=== PATIENT | male | born 1950 | race Caucasian/White ===

== ENCOUNTER 2016-12-20 14:39 | Inpatient (IN) | payer MEDICARE, OTHER ==
[2016-12-20] MEDS ORDERED: Sodium Chloride 0.9% 10 ML Syringe FLUSH PRN ×2 (15:04→19:03)
[2016-12-20] MEDS ORDERED: Furosemide 40 MG/4 ML VIAL IVPUSH ONE (15:06)
--- NOTE | 2016-12-20 15:11 | EDM.PDOC ---
ED HISTORY OF PRESENT ILLNESS - General Chief Complaint: Respiratory Problem Stated Complaint: SOB/ NOT FEELING WELL Time Seen by Provider: 12/20/16 14:46 Source of Information: Reports: Patient, Family, Provider History Limitations: Reports: No limitations - History of Present Illness INITIAL COMMENTS - FREE TEXT/NARRATIVE: The patient presents with shortness of breath over the past year. For the past 6 months, the shortness of breath has gotten worse. He is short of breath walking short distances and going up stairs. He has no chest pain. He has no fever, chills, cough, congestion or runny nose. He has edema in his legs. He has a pacemaker. He also saw Dr Ashton a piggyback clerk at [facility] and he put him on lasix daily. He is on 40mg. He also has aortic valve stenosis. He has no abdominal pain, nausea or vomiting. It appears this shortness of breath is affecting his work. 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 Timing/Duration: Reports: Week(s): (for about 1 year) Severity: moderate Improves with: Reports: None Worsens with: Reports: Movement Context, General: Reports: Activity (Going up the stairs and walking makes him short of breath but no chest pain) Associated Symptoms (General): Reports: shortness of breath. Denies: chest pain , cough, fever/chills, nausea/vomiting - Related Data Allergies/ADRs: Allergies Allergy/AdvReac Type Severity Reaction Status Date / Time codeine Allergy Agitation Verified 12/20/16 14:47 Home Meds: Home Meds B2/Vit A,C & E/Lut/Zeaxanth/Mn [Icaps] 1 tab PO DAILY 09/13/16 [History] Calcium Carbonate/Vitamin D3 [Calcium 600-Vit D3 400 Tablet] 1 tab PO DAILY [History] Cholecalciferol (Vitamin D3) [Vitamin D3] 2,000 unit PO DAILY 09/13/16 [History] Ferrous Sulfate [Iron] 325 mg PO DAILY 09/13/16 [History] Flecainide [Tambocor] 100 mg PO BID 09/13/16 [History] Fludrocortisone [Florinef] 0.05 mg PO BIDMEALS 09/13/16 [History] Furosemide [Lasix] 40 mg PO DAILY 09/13/16 [History] Garlic 150 mg PO DAILY 09/13/16 [History] Lactobacillus Acidophilus [Acidophilus Probiotic] 100 mg PO DAILY 09/13/16 [ History] Levothyroxine [Synthroid] 88 mcg PO DAILY 09/13/16 [History] Methylsulfonylmethane [MSM] 1,000 mg PO DAILY 09/13/16 [History] Metoprolol Tartrate 50 mg PO BID 09/13/16 [History] Polyethylene Glycol 3350 [MiraLAX] 17 gm PO DAILY 09/13/16 [History] Potassium Gluconate 500 mg PO DAILY 09/13/16 [History] Simethicone 80 mg PO DAILY 09/13/16 [History] Vitamin B Complex [B Complex] 1 each PO DAILY 09/13/16 [History] Zinc 220 mg PO DAILY 09/13/16 [History] Pantoprazole Sodium [Protonix] 40 mg PO ACBREAKFAST #90 tablet. 09/14/16 [Rx] Sucralfate [Carafate] 1 gm PO TIDAC #90 tablet 09/14/16 [Rx] Rivaroxaban [Xarelto] 20 mg PO DAILY 12/20/16 [History] Tamsulosin [Flomax] 0.4 mg PO BEDTIME 12/20/16 [History] Past Medical History HEENT History: Reports: Cataract, Impaired vision, Other (see below) Other HEENT History: Macular tear, tinnitus Cardiovascular History: Reports: Afib, Pacemaker, Other (see below) Other Cardiovascular History: Left carotid bruit, aortic stenosis, symptomatic bradycardia Respiratory History: Reports: Sleep apnea Other Respiratory History: Uses CPAP Gastrointestinal History: Reports: GERD Other Gastrointestinal History: Tenesmus, hematochezia Genitourinary History: Reports: Urinary incontinence Other Genitourinary History: Urinary frequency, urgency Musculoskeletal History: Reports: Other (see below) Other Musculoskeletal History: Knee pain Neurological History: Reports: Other (see below) Other Neuro History: Syncopal episode Endocrine/Metabolic History: Reports: Hypothyroidism, Obesity/BMI 30+ Hematologic History: Reports: Other (see below) Other Hematologic History: Thrombocytopenia Immunologic History: Reports: None Oncologic (Cancer) History: Reports: None - Past Surgical History HEENT Surgical History: Reports: Oral surgery, Tonsillectomy Cardiovascular Surgical History: Reports: None, Pacer Respiratory Surgical History: Reports: None GI Surgical History: Reports: Colonoscopy, EGD Male Surgical History: Reports: None Endocrine Surgical History: Reports: None Neurological Surgical History: Reports: None Musculoskeletal Surgical History: Reports: Arthroscopic knee Other Musculoskeletal Surgeries/Procedures:: Arthroscopic knee surgery x3 Social & Family History - Tobacco Use Smoking Status *Q: Never Smoker Second Hand Smoke Exposure: No - Alcohol Use Days Per Week of Alcohol Use: 7 Number of Drinks Per Day: 2 Total Drinks Per Week: 14 - Recreational Drug Use Recreational Drug Use: No Drug Use in Last 12 Months: No ED ROS GENERAL - Review of Systems Review Of Systems: See Below Constitutional: Reports: no symptoms HEENT: Reports: No symptoms Respiratory: Reports: Shortness of Breath. Denies: Cough Cardiovascular: Reports: Edema. Denies: Chest pain Endocrine: Reports: no symptoms GI/Abdominal: Reports: No symptoms : Reports: no symptoms Musculoskeletal: Reports: other (Moderate leg edema) Skin: Reports: no symptoms ED EXAM, GENERAL - Physical Exam Exam: See Below Exam Limited By: No limitations General Appearance: alert, no apparent distress Ears: normal external exam Nose: normal inspection Head: atraumatic, normocephalic Neck: normal inspection Respiratory/Chest: no respiratory distress, decreased breath sounds, rales, wheezing (Mild) Cardiovascular: regular rate, rhythm, no edema, systolic murmur GI/Abdominal: soft, non tender, no organomegaly, no mass Extremities: pedal edema (and leg edema) Neurological: alert, oriented, no motor/sensory deficits EKG INTERPRETATION EKG Date: 12/20/16 Time: 15:23 Rate (beats/min): 60 EKG Interpretation Comments: AV dual paced complexes Course - Vital Signs Last Recorded V/S: Last Vital Signs Temp 97.6 F 12/20/16 14:47 Pulse 62 12/20/16 14:47 Resp 18 12/20/16 14:47 BP 156/93 H 12/20/16 14:47 Pulse Ox 98 12/20/16 14:47 - Orders/Labs/Meds Orders: Active Orders 24 hr Category Date Time Status Patient Status [ADT] Routine ADT 12/20/16 17:19 Ordered Cardiac Monitoring [RC] . DIRECTED Care 12/20/16 15:04 Active EKG Documentation Completion [RC] STAT Care 12/20/16 15:05 Active Oxygen Therapy [RC] PRN Care 12/20/16 15:05 Active Peripheral IV Care [RC] . DIRECTED Care 12/20/16 15:05 Active Sodium Chloride 0.9% [Saline Flush] Med 12/20/16 15:04 Active 10 ml FLUSH ASDIRECTED PRN Peripheral IV Insertion Adult [OM.PC] Stat Oth 12/20/16 15:04 Ordered Medication Orders Sodium Chloride (Saline Flush) 10 ml FLUSH ASDIRECTED PRN PRN Reason: Keep Vein Open Last Admin: 12/20/16 15:38 Dose: 10 ml Labs: Laboratory Tests 12/20/16 12/20/16 12/20/16 Range/Units 15:25 15:25 15:25 WBC 5.38 (4.23-9.07) K/mm3 RBC 4.01 L (4.63-6.08) M/mm3 Hgb 12.4 L (13.7-17.5) gm/L Hct 37.6 L (40.1-51.0) % MCV 93.8 H (79.0-92.2) fl MCH 30.9 (25.7-32.2) pg MCHC 33.0 (32.2-35.5) g/dl RDW Std Deviation 48.3 H (35.1-43.9) fL Plt Count 108 L (163-337) K/mm3 MPV 10.7 (9.4-12.3) fl Neut % (Auto) 55.0 (34.0-67.9) % Lymph % (Auto) 27.5 (21.8-53.1) % Grand % (Auto) 14.9 H (5.3-12.2) % Eos % (Auto) 1.5 (0.8-7.0) Baso % (Auto) 0.9 (0.1-1.2) % Neut # (Auto) 2.96 (1.78-5.38) K/mm3 Lymph # (Auto) 1.48 (1.32-3.57) K/mm3 Grand # (Auto) 0.80 (0.30-0.82) K/mm3 Eos # (Auto) 0.08 (0.04-0.54) K/mm3 Baso # (Auto) 0.05 (0.01-0.08) K/mm3 Sodium 145 (136-145) mEq/L Potassium 3.0 L (3.5-5.1) mEq/L Chloride 107 (98-107) mEq/L Carbon Dioxide 27 (21-32) mEq/L Anion Gap 14.0 (5-15) BUN 27 H (7-18) mg/dL Creatinine 1.4 H (0.7-1.3) mg/dL Est Cr Clr Drug Dosing 45.15 mL/min Estimated GFR (MDRD) 51 (>60) mL/min BUN/Creatinine Ratio 19.3 H (14-18) Glucose 95 (80-115) mg/dL Calcium 9.6 (8.5-10.1) mg/dL Total Bilirubin 1.2 H (0.2-1.0) mg/dL AST 48 H (15-37) U/L ALT 39 (16-63) U/L Alkaline Phosphatase 88 (46-116) U/L Troponin I < 0.017 (0.00-0.056) ng/mL B-Natriuretic Peptide 1232 H (0-100) pg/mL Total Protein 6.8 (6.4-8.2) g/dl Albumin 3.5 (3.4-5.0) g/dl Globulin 3.3 gm/dL Albumin/Globulin Ratio 1.1 (1-2) TSH 3rd Generation (0.358-3.74) uIU/mL 12/20/16 Range/Units 15:25 WBC (4.23-9.07) K/mm3 RBC (4.63-6.08) M/mm3 Hgb (13.7-17.5) gm/L Hct (40.1-51.0) % MCV (79.0-92.2) fl MCH (25.7-32.2) pg MCHC (32.2-35.5) g/dl RDW Std Deviation (35.1-43.9) fL Plt Count (163-337) K/mm3 MPV (9.4-12.3) fl Neut % (Auto) (34.0-67.9) % Lymph % (Auto) (21.8-53.1) % Grand % (Auto) (5.3-12.2) % Eos % (Auto) (0.8-7.0) Baso % (Auto) (0.1-1.2) % Neut # (Auto) (1.78-5.38) K/mm3 Lymph # (Auto) (1.32-3.57) K/mm3 Grand # (Auto) (0.30-0.82) K/mm3 Eos # (Auto) (0.04-0.54) K/mm3 Baso # (Auto) (0.01-0.08) K/mm3 Sodium (136-145) mEq/L Potassium (3.5-5.1) mEq/L Chloride (98-107) mEq/L Carbon Dioxide (21-32) mEq/L Anion Gap (5-15) BUN (7-18) mg/dL Creatinine (0.7-1.3) mg/dL Est Cr Clr Drug Dosing mL/min Estimated GFR (MDRD) (>60) mL/min BUN/Creatinine Ratio (14-18) Glucose (80-115) mg/dL Calcium (8.5-10.1) mg/dL Total Bilirubin (0.2-1.0) mg/dL AST (15-37) U/L ALT (16-63) U/L Alkaline Phosphatase (46-116) U/L Troponin I (0.00-0.056) ng/mL B-Natriuretic Peptide (0-100) pg/mL Total Protein (6.4-8.2) g/dl Albumin (3.4-5.0) g/dl Globulin gm/dL Albumin/Globulin Ratio (1-2) TSH 3rd Generation 8.011 H (0.358-3.74) uIU/mL Meds: Medications Generic Name Dose Route Start Last Admin Trade Name Freq PRN Reason Stop Dose Admin Sodium Chloride 10 ml 12/20/16 15:04 12/20/16 15:38 Saline Flush FLUSH 10 ml ASDIRECTED PRN Administration Keep Vein Open Discontinued Medications Generic Name Dose Route Start Last Admin Trade Name Freq PRN Reason Stop Dose Admin Furosemide 80 mg 12/20/16 15:06 12/20/16 15:29 Lasix IVPUSH 12/20/16 15:07 80 mg NOW ONE Administration - Re-Assessments/Exams Free Text/Narrative Re-Assessment/Exam: 12/20/16 15:18 I ordered an IV saline lock, EKG, CXR, labs and lasix 80mg IV. 12/20/16 16:58 His EKG shows a paced rhythm. His CXR shows some congestive changes. His CBC looks good. His creatinine was elevated at 1.4. His AST was slightly elevated at 48. His BNP was elevated at 1232. His TSH is elevated at 8.011. I feel he needs to be admitted. I called Dr Anderson and he agreed to the admission. Departure - Departure Time of Disposition: 17:25 Disposition: Admitted As Inpatient 66 Condition: fair Clinical Impression: Hypokalemia CHF exacerbation Qualifiers: Congestive heart failure type: unspecified congestive heart failure type Qualified Code(s): I50.9 - Heart failure, unspecified Aortic stenosis Qualifiers: Cardiac valve disease etiology: etiology unspecified Qualified Code(s): I35.0 - Nonrheumatic aortic (valve) stenosis Hypothyroidism Qualifiers: Hypothyroidism type: unspecified Qualified Code(s): E03.9 - Hypothyroidism, unspecified Forms: ED Department Discharge - My Orders Last 24 Hours: My Active Orders 12/20/16 15:04 Cardiac Monitoring [RC] . DIRECTED Sodium Chloride 0.9% [Saline Flush] 10 ml FLUSH ASDIRECTED PRN Peripheral IV Insertion Adult [OM.PC] Stat 12/20/16 15:05 EKG Documentation Completion [RC] STAT Oxygen Therapy [RC] PRN Peripheral IV Care [RC] . DIRECTED 12/20/16 17:19 Patient Status [ADT] Routine - Assessment/Plan Last 24 Hours: My Active Orders 12/20/16 15:04 Cardiac Monitoring [RC] . DIRECTED Sodium Chloride 0.9% [Saline Flush] 10 ml FLUSH ASDIRECTED PRN Peripheral IV Insertion Adult [OM.PC] Stat 12/20/16 15:05 EKG Documentation Completion [RC] STAT Oxygen Therapy [RC] PRN Peripheral IV Care [RC] . DIRECTED 12/20/16 17:19 Patient Status [ADT] Routine
--- NOTE | 2016-12-20 16:35 | CR ---
Chest: Two views of the chest are obtained. Comparison: No previous study. Heart is enlarged. Upper mediastinum is within normal limits. Pacemaker is noted. Lungs are clear with no acute infiltrates. Bony structures show degenerative spurring within the spine. Lungs are slightly hyperinflated suggesting emphysematous change. Impression: 1. Mild cardiomegaly and other incidental findings. Nothing acute is appreciated. Diagnostic code #2
--- NOTE | 2016-12-20 17:54 | PCM.HP ---
H&P History of Present Illness - General Date of Service: 12/20/16 Admit Problem/Dx: Admission Diagnosis/Problem Admission Diagnosis/Problem CHF, Congestive heart failure Source of Information: Patient, Old records, Provider, RN notes reviewed History Limitations: Reports: No limitations - History of Present Illness Initial Comments - Free Text/Narative: This is a 66 yo elderly white male with past medical hx/o A-fib on xarelto, Hx/ o Symptomatic Bradycardia, As, S/p RN ANTE PARTUM, HLD, HTN, GERD, Urinary incontinence and Retention, OA, BAKARI on CPAP, Hypothyroidism, Thrombocytopenia and Obesity who comes in with complaints of worsening shortness for over 6 months now and was admitted for acute congestive heart failure. His c/o is associated with bilateral lower extremity edema. Patient carries a history of aortic stenosis and obstructive sleep apnea, on CPAP. Patient reports that he is symptoms is now affecting his work. Patient was never diagnosed with heart failure before. He follow Dr. Ashton in [place] for his cardiac care. His initial ED labs show a CBC, significant for hemoglobin of 12.4, hematocrit of 37.6, and platelet count of 108. His chemistry significant for potassium of 3 , BUN of 27, creatinine 1.4, total bilirubin of 1.2, and AST of 48. His BNP is 1232. His CXR shows enlarged heart with no acute abnormal findings. Patient was admitted for acute congestive heart failure. He is full code. - Related Data Allergies/Adverse Reactions: Allergies Allergy/AdvReac Type Severity Reaction Status Date / Time codeine AdvReac Agitation Verified 12/21/16 16:11 Home Medications: Home Meds B2/Vit A,C & E/Lut/Zeaxanth/Mn [Icaps] 1 tab PO DAILY 09/13/16 [History] Calcium Carbonate/Vitamin D3 [Calcium 600-Vit D3 400 Tablet] 1 tab PO DAILY [History] Cholecalciferol (Vitamin D3) [Vitamin D3] 2,000 unit PO DAILY 09/13/16 [History] Ferrous Sulfate [Iron] 325 mg PO DAILY 09/13/16 [History] Flecainide [Tambocor] 100 mg PO BID 09/13/16 [History] Fludrocortisone [Florinef] 0.05 mg PO BIDMEALS 09/13/16 [History] Furosemide [Lasix] 40 mg PO DAILY 09/13/16 [History] Garlic 150 mg PO DAILY 09/13/16 [History] Lactobacillus Acidophilus [Acidophilus Probiotic] 100 mg PO DAILY 09/13/16 [ History] Levothyroxine [Synthroid] 88 mcg PO DAILY 09/13/16 [History] Methylsulfonylmethane [MSM] 1,000 mg PO DAILY 09/13/16 [History] Metoprolol Tartrate 50 mg PO BID 09/13/16 [History] Polyethylene Glycol 3350 [MiraLAX] 17 gm PO DAILY 09/13/16 [History] Potassium Gluconate 500 mg PO DAILY 09/13/16 [History] Simethicone 80 mg PO DAILY 09/13/16 [History] Vitamin B Complex [B Complex] 1 each PO DAILY 09/13/16 [History] Zinc 220 mg PO DAILY 09/13/16 [History] Pantoprazole Sodium [Protonix] 40 mg PO ACBREAKFAST #90 tablet. 09/14/16 [Rx] Sucralfate [Carafate] 1 gm PO TIDAC #90 tablet 09/14/16 [Rx] Rivaroxaban [Xarelto] 20 mg PO DAILY 12/20/16 [History] Tamsulosin [Flomax] 0.4 mg PO BEDTIME 12/20/16 [History] Cyanocobalamin (Vitamin B12) [Vitamin B12] 100 mcg PO DAILY 12/21/16 [History] Methylcellulose [Fiber] 500 mg PO DAILY 12/21/16 [History] Omega3,5,6,7,9 No.1/Bailey Oil [Complete [place] Softgel] 2 gm PO DAILY 12/21/16 [ History] Past Medical History HEENT History: Reports: Cataract, Impaired vision, Other (see below) Other HEENT History: Macular tear, tinnitus Cardiovascular History: Reports: Afib, Pacemaker, Other (see below) Other Cardiovascular History: Left carotid bruit, aortic stenosis, symptomatic bradycardia Respiratory History: Reports: Sleep apnea Other Respiratory History: Uses CPAP Gastrointestinal History: Reports: GERD Other Gastrointestinal History: Tenesmus, hematochezia Genitourinary History: Reports: Urinary incontinence Other Genitourinary History: Urinary frequency, urgency Musculoskeletal History: Reports: Other (see below) Other Musculoskeletal History: Knee pain Neurological History: Reports: Other (see below) Other Neuro History: Syncopal episode Endocrine/Metabolic History: Reports: Hypothyroidism, Obesity/BMI 30+ Hematologic History: Reports: Other (see below) Other Hematologic History: Thrombocytopenia Immunologic History: Reports: None Oncologic (Cancer) History: Reports: None - Past Surgical History HEENT Surgical History: Reports: Oral surgery, Tonsillectomy Cardiovascular Surgical History: Reports: None, Pacer Respiratory Surgical History: Reports: None GI Surgical History: Reports: Colonoscopy, EGD Male Surgical History: Reports: None Endocrine Surgical History: Reports: None Neurological Surgical History: Reports: None Musculoskeletal Surgical History: Reports: Arthroscopic knee Other Musculoskeletal Surgeries/Procedures:: Arthroscopic knee surgery x3 Social & Family History - Tobacco Use Smoking Status *Q: Never Smoker Second Hand Smoke Exposure: No - Alcohol Use Days Per Week of Alcohol Use: 7 Number of Drinks Per Day: 2 Total Drinks Per Week: 14 - Recreational Drug Use Recreational Drug Use: No Drug Use in Last 12 Months: No H&P Review of Systems - Review of Systems: Review Of Systems: See Below General: Reports: fatigue. Denies: fever, chills, malaise, weakness HEENT: Reports: no symptoms Pulmonary: Reports: Shortness of Breath Cardiovascular: Reports: dyspnea on exertion, edema. Denies: chest pain, palpitations Gastrointestinal: Denies: Abdominal pain, Nausea, Vomiting Genitourinary: Reports: frequency, retention Musculoskeletal: Reports: no symptoms Skin: Reports: no symptoms Psychiatric: Denies: depression, anxiety, hallucinations Neurological: Denies: Confusion, Gait Disturbance Hematologic/Lymphatic: Reports: no symptoms Immunologic: Reports: no symptoms Exam - Exam Exam: See Below - Vital Signs Vital Signs: Last Vital Signs Temp 36.4 C 12/20/16 14:47 Pulse 62 12/20/16 14:47 Resp 18 12/20/16 14:47 BP 156/93 H 12/20/16 14:47 Pulse Ox 98 12/20/16 14:47 Weight: 105.778 kg - Exam General: alert, oriented, cooperative, other (Obese). No: mild distress HEENT: Conjunctiva clear, EOMI, Hearing intact, Mucosa moist & pink, Nares patent, Normal nasal septum, Posterior pharynx clear, Pupils equal, Pupils reactive Neck: supple, trachea midline, 2+ carotid pulse wo bruit, full range of motion, other (short and thick). No: JVD Lungs: Clear to auscultation, Normal respiratory effort Cardiovascular: irregular rhythm Abdomen: normal bowel sounds, soft, other (Obese). No: organomegaly, tenderness (Male) Exam: Deferred Rectal (Males) Exam: Deferred Back Exam: normal inspection, decreased range of motion Extremities: normal inspection, normal pulses, clubbing, cyanosis, edema, other (hyperpigmentation on b/l lower extremity). No: calf tenderness Peripheral Pulses: 2+: dorsalis pedis (L), dorsalis pedis (R) Skin: warm, dry, intact Neuro Extensive - Mental Status: oriented x3, normal cognition, memory intact Neuro Extensive - Motor, Sensory, Reflexes: CN II-XII intact, normal gait Psychiatric: alert, normal affect, normal mood - Patient Data Result Diagrams: 12/21/16 12:00 12/21/16 05:43 *Q Meaningful Use (ADM) - VTE *Q VTE Criteria *Q: - Stroke *Q Stroke Criteria *Q: - AMI *Q AMI Criteria *Q: Problem List Initiated/Reviewed/Updated: Yes Orders Last 24hrs: Medication Orders Sodium Chloride (Saline Flush) 10 ml FLUSH ASDIRECTED PRN PRN Reason: Keep Vein Open Last Admin: 12/20/16 15:38 Dose: 10 ml Assessment/Plan Comment:: Assessment/Plan: Acute Shortness of Breath - Heart vs Lung Disease or combined - Also Obese Acute Heart Failure - BNP 1232 - No signs of volume overload but peripheral edema and worsening shortness of breath - Carries a hx/o and A-fib - 2D echo in am - Heart Failure Protocol Peripheral Edema - Heart vs Hypothyroidism - TFT in am Hypokalemia - 2/2 diuretics use - K supplement 60 mEq po x1 now - Pharmacy to monitor and replete staring in am Chronic: Impaired Vision A-Fib with Controlled HR, on Xarelto Hx/o SSS S/p Pacemaker Placement Aortic Stenosis Left Carotid Bruit BAKARI on CPAP GERD CKD Stage 3 Urinary Incontinence and Retention OA Hypothyroidism Thrombocytopenia Obesity Plan: Admit to the floor with Tele Routine AM Labs Resume Home Meds HF protocol Dietary Consultation for weight management Lasix drip PT/OT eval SC/CM for d/c planning Additional orders as above Code status: 1
[2016-12-20] MEDS ORDERED: Doxazosin 4 MG Tab PO ONE (18:59)
[2016-12-20] MEDS ORDERED: Tamsulosin 0.4 MG Cap.ER PO ONE (19:00)
[2016-12-20] MEDS ORDERED: Polyethylene Glycol 3350 Powder 17 GM Packet PO PRN (19:01)
[2016-12-20] MEDS ORDERED: Promethazine 12.5 MG in Sodium Chloride 0.9% 50 ML IV PRN (19:01)
[2016-12-20] MEDS ORDERED: Acetaminophen/HYDROcodone 325-5 MG Tab PO PRN (19:01)
[2016-12-20] MEDS ORDERED: Albuterol 0.083% 2.5 MG/3 ML Neb Soln NEB PRN (19:01)
[2016-12-20] MEDS ORDERED: Bisacodyl 5 MG Tab PO PRN (19:01)
[2016-12-20] MEDS ORDERED: Ondansetron 4 MG/2 ML SDV IV PRN (19:01)
[2016-12-20] MEDS ORDERED: Acetaminophen 325 MG Tab PO PRN (19:01)
[2016-12-20] MEDS ORDERED: hydrALAZINE 20 MG/ML SDV IVPUSH PRN (19:11)
[2016-12-20] MEDS ORDERED: Metoprolol Tartrate 5 MG/5 ML SDV IVPUSH PRN (19:11)
[2016-12-20] MEDS ORDERED: Furosemide 100 MG in Sodium Chloride 0.9% 90 ML IV SCH (19:15)
[2016-12-20] MEDS: Potassium Chloride 100 ML IV SCH ×2 (20:36→23:06)
[2016-12-20] MEDS: Metoprolol Tartrate 50 MG Tab PO SCH (20:39)
[2016-12-20] MEDS ORDERED: Enoxaparin 40 MG/0.4 ML Syringe SUBCUT SCH (21:00)
[2016-12-20] MEDS ORDERED: Tamsulosin 0.4 MG Cap.ER PO SCH (21:00)
[2016-12-20] MEDS ORDERED: Flecainide 100 MG Tab PO SCH (21:00)
[2016-12-20] MEDS ORDERED: Bumetanide 1 MG/4 ML MDV IVPUSH ONE (23:20)
[2016-12-20] MEDS: HYDROmorphone 1 MG/ML Syringe IVPUSH PRN (23:38)
[2016-12-21] MEDS ORDERED: Potassium Chloride 20 MEQ Tab.ER PO ONE (00:05)
[2016-12-21] MEDS ORDERED: Temazepam 15 MG Cap PO PRN (00:23)
[2016-12-21] MEDS: Potassium Chloride 100 ML IV SCH ×2 (01:58→04:29)
[2016-12-21] MEDS ORDERED: Pantoprazole 40 MG Tab.CR PO SCH (06:00)
[2016-12-21] MEDS: HYDROmorphone 1 MG/ML Syringe IVPUSH PRN (06:37)
[2016-12-21] MEDS: Fludrocortisone 0.1 MG Tab PO SCH ×2 (06:37→16:22)
[2016-12-21] MEDS: Sucralfate 1 GM Tab PO SCH ×3 (06:37→16:22)
[2016-12-21] MEDS ORDERED: Sodium Chloride 0.9% 250 ML IV ONE (07:52)
[2016-12-21] MEDS ORDERED: Sodium Chloride 0.9% 1,000 ML IV SCH (08:00)
[2016-12-21] MEDS ORDERED: HYDROmorphone 0.5 MG/0.5 ML Syringe IVPUSH PRN (08:37)
[2016-12-21] MEDS: Tamsulosin 0.4 MG Cap.ER PO SCH ×3 (08:45→17:12)
[2016-12-21] MEDS: Potassium Chloride 20 MEQ Tab.ER PO SCH ×2 (08:46→13:16)
[2016-12-21] MEDS: Metoprolol Tartrate 50 MG Tab PO SCH (08:46)
[2016-12-21] MEDS ORDERED: CYANOCOBALAMIN 100 MCG PO SCH (09:00)
[2016-12-21] MEDS ORDERED: Multivitamins with Minerals/Folic Acid/Lutein/Zeaxanth Tab PO SCH (09:00)
[2016-12-21] MEDS ORDERED: Flecainide 50 MG Tab PO SCH (09:00)
[2016-12-21] MEDS ORDERED: Levothyroxine 88 MCG Tab PO SCH (09:00)
[2016-12-21] MEDS ORDERED: Magnesium Sulfate/Water 2 GM in Premix Bag 1 BAG IV ONE (09:00)
[2016-12-21] MEDS ORDERED: Rivaroxaban 10 MG Tab PO SCH (09:00)
[2016-12-21] MEDS ORDERED: Vitamin B Complex With Vitamin C Cap PO SCH (09:00)
[2016-12-21] MEDS ORDERED: Simethicone 80 MG Tab.Chew PO SCH (09:00)
[2016-12-21] MEDS ORDERED: ZINC 220 MG PO SCH (09:00)
[2016-12-21] MEDS ORDERED: Calcium Carbonate/Vitamin D3 1500 MG-200 Units Tab PO SCH (09:00)
[2016-12-21] MEDS ORDERED: METHYLSULFONYLMETHANE 1000 MG PO SCH (09:00)
[2016-12-21] MEDS ORDERED: POTASSIUM GLUCONATE 500 MG PO SCH (09:00)
[2016-12-21] MEDS ORDERED: Cholecalciferol (Vitamin D3) 1,000 Unit Tab PO SCH (09:00)
[2016-12-21] MEDS ORDERED: Ferrous Sulfate 325 MG Tab PO SCH (09:00)
--- NOTE | 2016-12-21 09:04 | PCM.PN ---
- General Info Date of Service: 12/21/16 Admission Dx/Problem (Free Text): Admission Diagnosis/Problem Admission Diagnosis/Problem CHF, Congestive heart failure Patient admitted last evening with CHF exacerbation. Has been having SOB/LEON for "a few weeks maybe", he is a poor historian for me today. He had an eventful night with placement of rodriguez catheter which required several attempts, had nando hematuria with clots after catheter was successfully placed. There was question of obstruction. CBI was started. He continues on lasix drip at this time per Dr. Anderson's instruction. He reports SOB is "okay" and "I haven't done anything to know". Denies chest pain. He feels pressure over his bladder and abdominal pain this morning. He is tired and "wore out" from the events of the night. Functional Status: Reports: tolerating diet, urinating (rodriguez cath in place, now draining blood tinged urine) - Review of Systems General: Reports: Weakness HEENT: Reports: no symptoms Pulmonary: Reports: shortness of breath. Denies: cough, wheezing Cardiovascular: Reports: Dyspnea on Exertion Gastrointestinal: Reports: Abdominal pain. 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 ) Musculoskeletal: Reports: no symptoms Neurological: Reports: No Symptoms Psychiatric: Reports: no symptoms - Patient Data Vitals - most recent: Last Vital Signs Temp 97.3 F 12/21/16 08:10 Pulse 60 12/21/16 08:46 Resp 20 12/21/16 08:10 BP 119/61 12/21/16 08:46 Pulse Ox 97 12/21/16 08:10 Weight - most recent: 233 lb 3.2 oz I&O - last 24 hours: Intake & Output 12/20/16 12/21/16 12/21/16 22:59 06:59 14:59 Intake Total 5722 Output Total 5925 Balance -203 Lab Results last 24 hrs: Laboratory Results - last 24 hr 0512/21/16 12/21/16 Range/Units 05:43 05:43 05:43 WBC 8.15 (4.23-9.07) K/mm3 RBC 3.75 L (4.63-6.08) M/mm3 Hgb 11.8 L (13.7-17.5) gm/L Hct 35.7 L (40.1-51.0) % MCV 95.2 H (79.0-92.2) fl MCH 31.5 (25.7-32.2) pg MCHC 33.1 (32.2-35.5) g/dl RDW Std Deviation 49.6 H (35.1-43.9) fL Plt Count 100 L (163-337) K/mm3 MPV 10.3 (9.4-12.3) fl Neut % (Auto) 74.1 H (34.0-67.9) % Lymph % (Auto) 13.6 L (21.8-53.1) % Faulkner % (Auto) 11.4 (5.3-12.2) % Eos % (Auto) 0.1 L (0.8-7.0) Baso % (Auto) 0.4 (0.1-1.2) % Neut # (Auto) 6.04 H (1.78-5.38) K/mm3 Lymph # (Auto) 1.11 L (1.32-3.57) K/mm3 Faulkner # (Auto) 0.93 H (0.30-0.82) K/mm3 Eos # (Auto) 0.01 L (0.04-0.54) K/mm3 Baso # (Auto) 0.03 (0.01-0.08) K/mm3 Sodium 147 H (136-145) mEq/L Potassium 3.2 L (3.5-5.1) mEq/L Chloride 109 H (98-107) mEq/L Carbon Dioxide 23 (21-32) mEq/L Anion Gap 18.2 H (5-15) BUN 27 H (7-18) mg/dL Creatinine 1.6 H (0.7-1.3) mg/dL Est Cr Clr Drug Dosing 40.24 mL/min Estimated GFR (MDRD) 43 (>60) mL/min BUN/Creatinine Ratio 16.9 (14-18) Glucose 136 H (80-115) mg/dL Calcium 8.7 (8.5-10.1) mg/dL Magnesium 1.5 L (1.8-2.4) mg/dl B-Natriuretic Peptide 1114 H (0-100) pg/mL Triglycerides 65 (<150) mg/dL Cholesterol 108 (<200) mg/dL LDL Cholesterol Direct 70 (<100) mg/dL HDL Cholesterol 34.0 L (40-59) mg/dL Free T4 1.49 H (0.76-1.46) ng/dL TSH 3rd Generation 4.160 H (0.358-3.74) uIU/mL Med Orders - Current: Current Medications Acetaminophen (Tylenol) 650 mg PO Q4H PRN PRN Reason: Pain (Mild 1-3)/fever Hydrocodone Bitart/Acetaminophen ([place] 325-5 Mg) 1 tab PO Q4H PRN PRN Reason: Pain (moderate 4-6) Albuterol (Proventil Neb Soln) 2.5 mg NEB Q2H PRN PRN Reason: Shortness Of Breath/wheezing Bisacodyl (Dulcolax) 5 mg PO DAILY PRN PRN Reason: Constipation Bumetanide (Bumex) 1 mg IVPUSH ONETIME ONE Stop: 12/21/16 14:01 Calcium Carbonate (Calcium Carbonate/Vitamin D 1500 Mg-200 Unit) 1 tab PO DAILY [facility] Last Admin: 12/21/16 08:45 Dose: 1 tab Cholecalciferol (Vitamin D3) 2,000 units PO DAILY [facility] Last Admin: 12/21/16 08:47 Dose: 2,000 units Doxazosin Mesylate (Cardura) 4 mg PO DAILY [facility] Ferrous Sulfate (Ferrous Sulfate) 325 mg PO DAILY [facility] Last Admin: 12/21/16 08:45 Dose: 325 mg Flecainide Acetate (Tambocor) 100 mg PO BID [facility] Last Admin: 12/21/16 08:45 Dose: 100 mg Fludrocortisone Acetate (Florinef) 0.05 mg PO BIDMEALS [facility] Last Admin: 12/21/16 06:37 Dose: 0.05 mg Hydralazine HCl (Apresoline) 20 mg IVPUSH Q4H PRN PRN Reason: Hypertension Hydromorphone HCl (Dilaudid) 0.25 mg IVPUSH Q2H PRN PRN Reason: Pain (severe 7-10) Promethazine HCl 12.5 mg/ (Sodium Chloride) 50.5 mls @ 100 mls/hr IV Q6H PRN PRN Reason: Nausea/Vomiting Magnesium Sulfate 2 gm/ Premix 50 mls @ 25 mls/hr IV ONETIME ONE Stop: 12/21/16 10:59 Last Admin: 12/21/16 08:43 Dose: 25 mls/hr Levothyroxine Sodium (Synthroid) 88 mcg PO DAILY [facility] Last Admin: 12/21/16 08:45 Dose: 88 mcg Magnesium Oxide (Magnesium Oxide) 400 mg PO DAILY@2100 [facility] Magnesium Sulfate (Pharmacy To Dose - Magnesium Replacement) 0 dose .XX ASDIRECTED PRN PRN Reason: rx dose Metoprolol Tartrate (Lopressor) 50 mg PO BID [facility] Last Admin: 12/21/16 08:46 Dose: 50 mg Metoprolol Tartrate (Lopressor) 5 mg IVPUSH Q4H PRN PRN Reason: Tachycardia Ondansetron HCl (Zofran) 4 mg IV Q6H PRN PRN Reason: Nausea/Vomiting Pantoprazole Sodium (Protonix) 40 mg PO ACBREAKFAST [facility] Last Admin: 12/21/16 06:37 Dose: 40 mg Methylsulfonylmethan (e (Msm) 1000 Mg) 0 each PO DAILY [facility] Last Admin: 12/21/16 08:50 Dose: Not Given Potassium Gluconate (500 Mg) 0 each PO DAILY [facility] Last Admin: 12/21/16 08:50 Dose: Not Given Zinc 220 Mg 0 each PO DAILY [facility] Last Admin: 12/21/16 08:51 Dose: Not Given Cyanocobalamin ( (Vitamin B12) 100 Mcg) 0 each PO DAILY [facility] Last Admin: 12/21/16 08:50 Dose: Not Given Polyethylene Glycol (Miralax) 17 gm PO DAILY PRN PRN Reason: Constipation Potassium Chloride (Pharmacy To Dose - Potassium Replacement) 0 dose .XX ASDIRECTED PRN PRN Reason: rx dose Potassium Chloride (Klor-Con M20) 40 meq PO Q4H [facility] Stop: 12/21/16 13:01 Last Admin: 12/21/16 08:46 Dose: 40 meq Rivaroxaban (Xarelto) 20 mg PO DAILY [facility] Senna/Docusate Sodium (Senna Plus) 1 tab PO BID PRN PRN Reason: Constipation Simethicone (Simethicone) 80 mg PO DAILY [facility] Last Admin: 12/21/16 08:45 Dose: 80 mg Sodium Chloride (Saline Flush) 10 ml FLUSH ASDIRECTED PRN PRN Reason: Keep Vein Open Last Admin: 12/20/16 15:38 Dose: 10 ml Sodium Chloride (Saline Flush) 10 ml FLUSH ASDIRECTED PRN PRN Reason: Keep Vein Open Sucralfate (Carafate) 1 gm PO TIDAC [facility] Last Admin: 12/21/16 06:37 Dose: 1 gm Tamsulosin HCl (Flomax) 0.4 mg PO BIDPC [facility] Last Admin: 12/21/16 08:45 Dose: 0.4 mg Temazepam (Restoril) 15 mg PO BEDTIME PRN PRN Reason: Insomnia Last Admin: 12/21/16 00:33 Dose: 15 mg Vit A/Vit C/Vit E/Selen/Cu/Zn/Lutei (Icaps Mv) 1 tab PO DAILY [facility] Last Admin: 12/21/16 08:46 Dose: 1 tab Vitamin B Complex/Vitamin C (Super B With Vitamin C) 1 cap PO DAILY [facility] Last Admin: 12/21/16 08:46 Dose: 1 cap Discontinued Medications Bumetanide (Bumex) 1 mg IVPUSH ONETIME ONE Stop: 12/20/16 23:21 Last Admin: 12/20/16 23:33 Dose: 1 mg Doxazosin Mesylate (Cardura) 4 mg PO ONETIME ONE Stop: 12/20/16 19:00 Last Admin: 12/20/16 20:36 Dose: 4 mg Enoxaparin Sodium (Lovenox) 40 mg SUBCUT Q12HR [facility] Last Admin: 12/20/16 20:36 Dose: 40 mg Flecainide Acetate (Tambocor) 100 mg PO BID [facility] Last Admin: 12/20/16 20:51 Dose: Not Given Furosemide (Lasix) 80 mg IVPUSH NOW ONE Stop: 12/20/16 15:07 Last Admin: 12/20/16 15:29 Dose: 80 mg Hydromorphone HCl (Dilaudid) 0.25 mg IVPUSH Q2H PRN PRN Reason: Pain (severe 7-10) Last Admin: 12/21/16 06:37 Dose: 0.25 mg Furosemide 100 mg/ Sodium (Chloride) 100 mls @ 3 mls/hr IV TITRATE [facility] PRN Reason: Protocol Last Admin: 12/20/16 21:16 Dose: 3 mls/hr Potassium Chloride (Kcl 10 Meq In Water 100 Ml) 100 mls @ 100 mls/hr IV Q1H [facility] Stop: 12/20/16 23:59 Last Admin: 12/21/16 04:29 Dose: 50 mls/hr Sodium Chloride (Normal Saline) 1,000 mls @ 10 mls/hr IV ASDIRECTED [facility] Last Admin: 12/21/16 08:00 Dose: 10 mls/hr Sodium Chloride (Normal Saline) 250 mls @ 10 mls/hr IV ONETIME ONE Stop: 12/22/16 08:51 Last Admin: 12/21/16 08:35 Dose: Not Given Potassium Chloride (Klor-Con M20) 60 meq PO ONETIME ONE Stop: 12/21/16 00:06 Last Admin: 12/21/16 00:33 Dose: 60 meq Rivaroxaban (Xarelto) 20 mg PO DAILY [facility] Tamsulosin HCl (Flomax) 0.4 mg PO ONETIME ONE Stop: 12/20/16 19:01 Last Admin: 12/20/16 20:33 Dose: Not Given Tamsulosin HCl (Flomax) 0.4 mg PO BEDTIME [facility] Last Admin: 12/20/16 20:36 Dose: 0.4 mg - Exam Quality Assessment: DVT prophylaxis General: alert, cooperative, no acute distress HEENT: Pupils equal, Pupils reactive, EOMI, Mucous membr. moist/pink Neck: supple Lungs: Clear to auscultation, Normal respiratory effort, Decreased breath sounds (to bases). No: Crackles, Rhonchi, Wheezing Cardiovascular: Regular Rate, Regular Rhythm Abdomen: bowel sounds present, soft, tenderness (suprapubic and mid abdomen), distension. No: rigidity, rebound, guarding, organomegaly (Male) Exam: Suprapubic fullness, Other (rodriguez cath in place). No: Scrotal swelling Extremities: edema (2+ pitting edema from mid tibia down to ankles/pedal) Peripheral Pulses: 1+: dorsalis pedis (L), dorsalis pedis (R) Skin: warm, dry, intact Neurological: no new focal deficit Psy/Mental Status: alert, normal affect, normal mood - Problem List & Annotations (1) CHF exacerbation SNOMED Code(s): 73863765 Code(s): I50.9 - HEART FAILURE, UNSPECIFIED Status: Acute Priority: High Current Visit: Yes Qualifiers: Congestive heart failure type: unspecified congestive heart failure type Qualified Code(s): I50.9 - Heart failure, unspecified (2) Hematuria SNOMED Code(s): 34074709 Code(s): R31.9 - HEMATURIA, UNSPECIFIED Status: Acute Priority: High Current Visit: Yes (3) Urinary obstruction, unspecified SNOMED Code(s): 8178115 Code(s): N13.9 - OBSTRUCTIVE AND REFLUX UROPATHY, UNSPECIFIED Status: Acute Priority: High Current Visit: Yes (4) Aortic stenosis SNOMED Code(s): 40974205 Code(s): I35.0 - NONRHEUMATIC AORTIC (VALVE) STENOSIS Status: Chronic Priority: High Current Visit: Yes Qualifiers: Cardiac valve disease etiology: etiology unspecified Qualified Code(s): I35.0 - Nonrheumatic aortic (valve) stenosis (5) Hypokalemia SNOMED Code(s): 50302011 Code(s): E87.6 - HYPOKALEMIA Status: Acute Priority: High Current Visit : Yes (6) Hypothyroidism SNOMED Code(s): 97970178 Code(s): E03.9 - HYPOTHYROIDISM, UNSPECIFIED Status: Chronic Priority: High Current Visit: Yes Qualifiers: Hypothyroidism type: unspecified Qualified Code(s): E03.9 - Hypothyroidism , unspecified - Problem List Review Problem List Initiated/Reviewed/Updated: Yes - My Orders Last 24 Hours: My Active Orders 12/21/16 08:29 Abdomen 2V AP Flat Upright [CR] Routine 12/21/16 08:53 Ambulate [RC] QID 12/21/16 08:57 Antiembolic Devices [RC] PER UNIT ROUTINE ELLY Hose [Antiembolic Hose] [OM.PC] Routine 12/21/16 09:00 Patient's Own Medication [Ptom] 0 each PO DAILY Tamsulosin [Flomax] 0.4 mg PO BIDPC 12/21/16 12:00 HGB [HEMOGLOBIN] [HEME] Routine 12/21/16 14:00 Bumetanide [Bumex] 1 mg IVPUSH ONETIME ONE 12/21/16 21:00 Doxazosin [Cardura] 4 mg PO DAILY 12/21/16 Breakfast Fluid Restriction [DIET] - Plan Plan:: Assessment/Plan: Acute Shortness of Breath - Heart vs Lung Disease - Also Obese - Hx of BAKARI with CPAP Acute Heart Failure - BNP 1232; down slightly today - No signs of volume overload but peripheral edema and worsening shortness of breath - Carries a hx/o - 2D echo today - Heart Failure Protocol -Given IV lasix 80mg in ER and Bumex 1mg last evening; started on lasix drip per Dr. Anderson -Teds ordered; patient refuses, SCD's ordered Peripheral Edema - Heart vs Hypothyrodiism - TFT in am Hypothyroidism; subtherapeutic TSH -Will increase levothyroxine dose to 100mcg daily Hypokalemia - 2/2 diuretics use - K supplement 60 mEq po x1 now - Pharmacy to monitor and replete staring in am Hypomagnesemia -also 2/2 diuretic use -Replacement and will follow Hematuria with clots and ? urinary obstruction of rodriguez catheter -Continue with rodriguez catheter -Cont with CBI for now until clear -Increase flomax to BID -Cardura Q HS -Abdominal xray this am- unremarkable Chronic: Impaired Vision A-Fib with Controlled HR, on Xarelto- hold today for acute hematuria, restart tomorrow Hx/o SSS S/p Pacemaker Placement Aortic Stenosis--echo today Left Carotid Bruit BAKARI on CPAP GERD CKD Stage 3 Urinary Incontinence and Retention by hx OA Hypothyroidism- subtherapeutic as above Thrombocytopenia by hx Obesity Plan: Admit to the floor with Tele Routine AM Labs Resume Home Meds HF protocol Dietary Consultation for weight management Lasix drip PT/OT eval SC/CM for d/c planning Additional orders as above Code status: 1
--- NOTE | 2016-12-21 10:05 | CR ---
Abdomen: Supine and upright views of the abdomen were obtained. Comparison: No previous abdominal imaging. Scattered gas-filled loops of small bowel are seen which show no significant dilatation. Gas also noted within the colon which appears normal. Minimal degenerative endplate spurring is noted within the spine. No abnormal calcifications or soft tissue abnormality is seen. Impression: 1. Nonspecific two-view study of the abdomen. Diagnostic code #1
[2016-12-21] MEDS ORDERED: Bumetanide 1 MG/4 ML MDV IVPUSH ONE (14:00)
[2016-12-21] MEDS ORDERED: HYDROmorphone 0.5 MG/0.5 ML Syringe IVPUSH ONE ×2 (16:06→16:25)
--- NOTE | 2016-12-21 16:29 | PCM.SN ---
- Free Text/Narrative Note: Patient has issues with rodriguez cath insertion last night. But we were able to finally put in an appropriate size however his urine was hemorrhagic and with soft clots given that he was on xarelto. He carries a hx/o urinary retention with bladder dysfunction. CBI was performed last night and it worked just fine but early this morning it appeared he was draining less and less. Initially he was retaining only 200 ml this am but now he is at >500 ml. His rodriguez cath was nothing but blood and some soft clots. We called Dr. Coreas to ask for guidance but I was deferred to the on-call urologist. Called and left a page to Dr. Gregg, discussed case with him. He advised me to inflate the balloon at 22 and put tension to the catheter. We tried that with the help of the charge nurse, Martha. Unfortunately, the procedure did not work out. We called back [facility] for transfer and spoke to Dr. Pearson, Hospitalist who will be accepting physician for him. Dr. Gregg will be consulting.
--- NOTE | 2016-12-21 17:03 | PCM.DCSUM1 ---
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 - Discharge Data Discharge Date: 12/21/16 Discharge Disposition: DC/Tfer to Acute Hospital 02 Condition: Good - Discharge Diagnosis/Problem(s) (1) Acute urinary retention SNOMED Code(s): 904258421 ICD Code: R33.8 - OTHER RETENTION OF URINE Status: Acute Current Visit: Yes (2) BAKARI on CPAP SNOMED Code(s): 03139251 ICD Code: G47.33 - OBSTRUCTIVE SLEEP APNEA (ADULT) (PEDIATRIC); Z99.89 - DEPENDENCE ON OTHER ENABLING MACHINES AND DEVICES Status: Chronic Current Visit: Yes (3) Obesity (BMI 30-39.9) SNOMED Code(s): 613093731, 619747736 ICD Code: E66.9 - OBESITY, UNSPECIFIED Status: Chronic Current Visit: Yes (4) CHF exacerbation SNOMED Code(s): 54348104 ICD Code: I50.9 - HEART FAILURE, UNSPECIFIED Status: Acute Priority: High Current Visit: Yes Qualifiers: Qualified Code(s): I50.9 - Heart failure, unspecified (5) Aortic stenosis SNOMED Code(s): 09646493 ICD Code: I35.0 - NONRHEUMATIC AORTIC (VALVE) STENOSIS Status: Chronic Priority: High Current Visit: Yes Qualifiers: Qualified Code(s): I35.0 - Nonrheumatic aortic (valve) stenosis - Patient Summary/Data Operative Procedure(s) Performed: None Complications: Acute Urinary Retention Consults: Consultations 12/20/16 19:03 Consult to Case Management [CONS] Routine Consult to Seamless Tube Mill Operator [CONS] Routine Consult to Spiritual Care [CONS] Routine OT Evaluation and Treatment [CONS] Routine PT Evaluation and Treatment [CONS] Routine Respiratory Care Assess and Treatment [CONS] Routine Hospital Course: Patient was primary admitted for shortness of breath with presumptive diagnosis of acute heart failure. He was never diagnosed with heart failure in the past but he carried conditions that would predispose him for developing heart failure such as aortic stenosis, chronic atrial fibrillation, BAKARI on CPAP, and history of symptomatic bradycardia, status post pacemaker placement. Patient was placed on heart failure protocol to improve his symptoms and he slowly respond to treatment. However, his hospital course was complicated by traumatic insertion of a rodriguez catheter. Patient was initially draining a fair amount of hemorrhagic urine with soft clots. Last night, CBI was performed to maintain patency of rodriguez catheter. But this morning, it was becoming more bloody and he was draining less and less urine. Manual irrigation was applied to check if this would help restore urine flow, but without any success. We spoke briefly with Dr. Elmore (General Surgeon ) for help but we were advised to transfer this patient out to [facility]. This morning, an attempt was made to reach Dr. Coreas but we were referred to speak with the on-call urologist. We got a hold of Dr. Gregg and discussed case with him. He advised me to make adjustment to the Rodriguez catheter (inflate balloon to 22 and put tension on the catheter). The procedure was followed and this was carried out by our charge nurse Melissa. Unfortunately, after the procedure was done, we still not able to get any urine out off of him into the catheter bag. At this point we went ahead and reach out to [facility] as he getting more uncomfortable. Spoke to Dr. Pearson, hospitalist, initially I felt I was gonna rejected but after Dr. Gregg confirmed our initial discussion, Dr. Pearson then proceeded to accept this patient under his services. Patient is being transferred out to [facility] for urologic services. He will leave via ground as soon as transportation is available. - Patient Instructions Diet: Usual Diet as Tolerated Activity: As Tolerated Driving: Do Not Drive Notify Provider of: Fever, Increased Pain, Swelling and Redness, Drainage, Nausea and/or Vomiting Other/Special Instructions: - Transfer to [facility] under the services of Dr. Pearson Hospitalist and Dr. Gregg will be consulting. - Discharge Plan Home Medications: Home Meds B2/Vit A,C & E/Lut/Zeaxanth/Mn [Icaps] 1 tab PO DAILY 09/13/16 [History] Calcium Carbonate/Vitamin D3 [Calcium 600-Vit D3 400 Tablet] 1 tab PO DAILY [History] Cholecalciferol (Vitamin D3) [Vitamin D3] 2,000 unit PO DAILY 09/13/16 [History] Ferrous Sulfate [Iron] 325 mg PO DAILY 09/13/16 [History] Flecainide [Tambocor] 100 mg PO BID 09/13/16 [History] Fludrocortisone [Florinef] 0.05 mg PO BIDMEALS 09/13/16 [History] Furosemide [Lasix] 40 mg PO DAILY 09/13/16 [History] Garlic 150 mg PO DAILY 09/13/16 [History] Lactobacillus Acidophilus [Acidophilus Probiotic] 100 mg PO DAILY 09/13/16 [ History] Levothyroxine [Synthroid] 88 mcg PO DAILY 09/13/16 [History] Methylsulfonylmethane [MSM] 1,000 mg PO DAILY 09/13/16 [History] Metoprolol Tartrate 50 mg PO BID 09/13/16 [History] Polyethylene Glycol 3350 [MiraLAX] 17 gm PO DAILY 09/13/16 [History] Potassium Gluconate 500 mg PO DAILY 09/13/16 [History] Simethicone 80 mg PO DAILY 09/13/16 [History] Vitamin B Complex [B Complex] 1 each PO DAILY 09/13/16 [History] Zinc 220 mg PO DAILY 09/13/16 [History] Pantoprazole Sodium [Protonix] 40 mg PO ACBREAKFAST #90 tablet. 09/14/16 [Rx] Sucralfate [Carafate] 1 gm PO TIDAC #90 tablet 09/14/16 [Rx] Rivaroxaban [Xarelto] 20 mg PO DAILY 12/20/16 [History] Tamsulosin [Flomax] 0.4 mg PO BEDTIME 12/20/16 [History] Cyanocobalamin (Vitamin B12) [Vitamin B12] 100 mcg PO DAILY 12/21/16 [History] Methylcellulose [Fiber] 500 mg PO DAILY 12/21/16 [History] Omega3,5,6,7,9 No.1/[place] Oil [Complete [place] Softgel] 2 gm PO DAILY 12/21/16 [ History] Patient Handouts: Heart Failure, [id number] Referrals: Chapo Clancy Jr, MD [Primary Care Provider] - - Discharge Summary/Plan Comment DC Time >30 min.: No Discharge Summary/Plan Comment: Transfer to [facility] - General Info Date of Service: 12/21/16 Admission Dx/Problem (Free Text: Admission Diagnosis/Problem Admission Diagnosis/Problem CHF, Congestive heart failure Patient admitted last evening with CHF exacerbation. Has been having SOB/LEON for "a few weeks maybe", he is a poor historian for me today. He had an eventful night with placement of rodriguez catheter which required several attempts, had nando hematuria with clots after catheter was successfully placed. There was question of obstruction. CBI was started. He continues on lasix drip at this time per Dr. Anderson's instruction. He reports SOB is "okay" and "I haven't done anything to know". Denies chest pain. He feels pressure over his bladder and abdominal pain this morning. He is tired and "wore out" from the events of the night. Subjective Update: Follow Up Functional Status: Reports: pain controlled, tolerating diet. Denies: ambulating, urinating, new symptoms - Review of Systems General: Denies: Fever, Chills HEENT: Reports: no symptoms Pulmonary: Denies: shortness of breath Cardiovascular: Denies: Chest Pain Gastrointestinal: Denies: Abdominal pain, Nausea, Vomiting Genitourinary: Reports: retention Musculoskeletal: Reports: no symptoms Skin: Reports: no symptoms Neurological: Denies: Confusion, Difficulty Walking, Weakness, Gait Disturbance Psychiatric: Denies: depression, anxiety, cravings, hallucinations Systems Review Comment: Had a traumatic rodriguez insertion overnight. He had mild hemorrhagic urine and soft clots so CBI was started. He seemed to have responded well but this morning he was draining less and less. Early this morning he had 200ml retained urine but by about 2:30 pm he had over 500ml and in mod-severe discomfort. - Patient Data Vitals - Most Recent: Last Vital Signs Temp 36.1 C 12/21/16 13:20 Pulse 63 12/21/16 13:20 Resp 18 12/21/16 13:20 BP 132/86 12/21/16 13:20 Pulse Ox 99 12/21/16 13:20 Weight - Most Recent: 105.778 kg I&O - Last 24 hours: Intake & Output 12/21/16 12/21/16 12/21/16 06:59 14:59 22:59 Intake Total 5722 1900 563 Output Total 5904 500 150 Balance -203 1400 413 Lab Results - Last 24 hrs: Laboratory Results - last 24 hr 12/21/16 12/21/16 12/21/16 Range/Units 05:43 05:43 05:43 WBC 8.15 (4.23-9.07) K/mm3 RBC 3.75 L (4.63-6.08) M/mm3 Hgb 11.8 L (13.7-17.5) gm/L Hct 35.7 L (40.1-51.0) % MCV 95.2 H (79.0-92.2) fl MCH 31.5 (25.7-32.2) pg MCHC 33.1 (32.2-35.5) g/dl RDW Std Deviation 49.6 H (35.1-43.9) fL Plt Count 100 L (163-337) K/mm3 MPV 10.3 (9.4-12.3) fl Neut % (Auto) 74.1 H (34.0-67.9) % Lymph % (Auto) 13.6 L (21.8-53.1) % [place] % (Auto) 11.4 (5.3-12.2) % Eos % (Auto) 0.1 L (0.8-7.0) Baso % (Auto) 0.4 (0.1-1.2) % Neut # (Auto) 6.04 H (1.78-5.38) K/mm3 Lymph # (Auto) 1.11 L (1.32-3.57) K/mm3 [place] # (Auto) 0.93 H (0.30-0.82) K/mm3 Eos # (Auto) 0.01 L (0.04-0.54) K/mm3 Baso # (Auto) 0.03 (0.01-0.08) K/mm3 Sodium 147 H (136-145) mEq/L Potassium 3.2 L (3.5-5.1) mEq/L Chloride 109 H (98-107) mEq/L Carbon Dioxide 23 (21-32) mEq/L Anion Gap 18.2 H (5-15) BUN 27 H (7-18) mg/dL Creatinine 1.6 H (0.7-1.3) mg/dL Est Cr Clr Drug Dosing 40.24 mL/min Estimated GFR (MDRD) 43 (>60) mL/min BUN/Creatinine Ratio 16.9 (14-18) Glucose 136 H (80-115) mg/dL Calcium 8.7 (8.5-10.1) mg/dL Magnesium 1.5 L (1.8-2.4) mg/dl B-Natriuretic Peptide 1114 H (0-100) pg/mL Triglycerides 65 (<150) mg/dL Cholesterol 108 (<200) mg/dL LDL Cholesterol Direct 70 (<100) mg/dL HDL Cholesterol 34.0 L (40-59) mg/dL Free T4 1.49 H (0.76-1.46) ng/dL TSH 3rd Generation 4.160 H (0.358-3.74) uIU/mL 12/21/16 Range/Units 12:00 WBC (4.23-9.07) K/mm3 RBC (4.63-6.08) M/mm3 Hgb 11.8 L (13.7-17.5) gm/L Hct (40.1-51.0) % MCV (79.0-92.2) fl MCH (25.7-32.2) pg MCHC (32.2-35.5) g/dl RDW Std Deviation (35.1-43.9) fL Plt Count (163-337) K/mm3 MPV (9.4-12.3) fl Neut % (Auto) (34.0-67.9) % Lymph % (Auto) (21.8-53.1) % [place] % (Auto) (5.3-12.2) % Eos % (Auto) (0.8-7.0) Baso % (Auto) (0.1-1.2) % Neut # (Auto) (1.78-5.38) K/mm3 Lymph # (Auto) (1.32-3.57) K/mm3 [place] # (Auto) (0.30-0.82) K/mm3 Eos # (Auto) (0.04-0.54) K/mm3 Baso # (Auto) (0.01-0.08) K/mm3 Sodium (136-145) mEq/L Potassium (3.5-5.1) mEq/L Chloride (98-107) mEq/L Carbon Dioxide (21-32) mEq/L Anion Gap (5-15) BUN (7-18) mg/dL Creatinine (0.7-1.3) mg/dL Est Cr Clr Drug Dosing mL/min Estimated GFR (MDRD) (>60) mL/min BUN/Creatinine Ratio (14-18) Glucose (80-115) mg/dL Calcium (8.5-10.1) mg/dL Magnesium (1.8-2.4) mg/dl B-Natriuretic Peptide (0-100) pg/mL Triglycerides (<150) mg/dL Cholesterol (<200) mg/dL LDL Cholesterol Direct (<100) mg/dL HDL Cholesterol (40-59) mg/dL Free T4 (0.76-1.46) ng/dL TSH 3rd Generation (0.358-3.74) uIU/mL Med Orders - Current: Current Medications Acetaminophen (Tylenol) 650 mg PO Q4H PRN PRN Reason: Pain (Mild 1-3)/fever Hydrocodone Bitart/Acetaminophen ([place] 325-5 Mg) 1 tab PO Q4H PRN PRN Reason: Pain (moderate 4-6) Albuterol (Proventil Neb Soln) 2.5 mg NEB Q2H PRN PRN Reason: Shortness Of Breath/wheezing Bethanechol Chloride (Urecholine) 20 mg PO TID [facility] Last Admin: 12/21/16 16:23 Dose: 20 mg Bisacodyl (Dulcolax) 5 mg PO DAILY PRN PRN Reason: Constipation Calcium Carbonate (Calcium Carbonate/Vitamin D 1500 Mg-200 Unit) 1 tab PO DAILY [facility] Last Admin: 12/21/16 08:45 Dose: 1 tab Cholecalciferol (Vitamin D3) 2,000 units PO DAILY [facility] Last Admin: 12/21/16 08:47 Dose: 2,000 units Doxazosin Mesylate (Cardura) 4 mg PO DAILY [facility] Ferrous Sulfate (Ferrous Sulfate) 325 mg PO DAILY [facility] Last Admin: 12/21/16 08:45 Dose: 325 mg Flecainide Acetate (Tambocor) 100 mg PO BID [facility] Last Admin: 12/21/16 08:45 Dose: 100 mg Fludrocortisone Acetate (Florinef) 0.05 mg PO BIDMEALS [facility] Last Admin: 12/21/16 16:22 Dose: 0.05 mg Hydralazine HCl (Apresoline) 20 mg IVPUSH Q4H PRN PRN Reason: Hypertension Hydromorphone HCl (Dilaudid) 0.25 mg IVPUSH Q2H PRN PRN Reason: Pain (severe 7-10) Levothyroxine Sodium (Synthroid) 100 mcg PO ACBREAKFAST [facility] Magnesium Oxide (Magnesium Oxide) 400 mg PO DAILY@2100 [facility] Magnesium Sulfate (Pharmacy To Dose - Magnesium Replacement) 0 dose .XX ASDIRECTED PRN PRN Reason: rx dose Metoprolol Tartrate (Lopressor) 50 mg PO BID [facility] Last Admin: 12/21/16 08:46 Dose: 50 mg Metoprolol Tartrate (Lopressor) 5 mg IVPUSH Q4H PRN PRN Reason: Tachycardia Ondansetron HCl (Zofran) 4 mg IV Q6H PRN PRN Reason: Nausea/Vomiting Pantoprazole Sodium (Protonix) 40 mg PO ACBREAKFAST [facility] Last Admin: 12/21/16 06:37 Dose: 40 mg Methylsulfonylmethan (e (Msm) 1000 Mg) 0 each PO DAILY [facility] Last Admin: 12/21/16 08:50 Dose: Not Given Potassium Gluconate (500 Mg) 0 each PO DAILY [facility] Last Admin: 12/21/16 08:50 Dose: Not Given Zinc 220 Mg 0 each PO DAILY [facility] Last Admin: 12/21/16 08:51 Dose: Not Given Cyanocobalamin ( (Vitamin B12) 100 Mcg) 0 each PO DAILY [facility] Last Admin: 12/21/16 08:50 Dose: Not Given Polyethylene Glycol (Miralax) 17 gm PO DAILY PRN PRN Reason: Constipation Potassium Chloride (Pharmacy To Dose - Potassium Replacement) 0 dose .XX ASDIRECTED PRN PRN Reason: rx dose Rivaroxaban (Xarelto) 20 mg PO DAILY [facility] Senna/Docusate Sodium (Senna Plus) 1 tab PO BID PRN PRN Reason: Constipation Simethicone (Simethicone) 80 mg PO DAILY [facility] Last Admin: 12/21/16 08:45 Dose: 80 mg Sodium Chloride (Saline Flush) 10 ml FLUSH ASDIRECTED PRN PRN Reason: Keep Vein Open Last Admin: 12/20/16 15:38 Dose: 10 ml Sodium Chloride (Saline Flush) 10 ml FLUSH ASDIRECTED PRN PRN Reason: Keep Vein Open Sucralfate (Carafate) 1 gm PO TIDAC [facility] Last Admin: 12/21/16 16:22 Dose: 1 gm [facility]amsulosin [facility] ([facility]) [facility] Last Admin: 12/21/16 16:23 Dose: 0.4 mg Temazepam (Restoril) 15 mg PO BEDTIME PRN PRN Reason: Insomnia Last Admin: 12/21/16 00:33 Dose: 15 mg Vit A/Vit C/Vit E/Selen/Cu/Zn/Lutei (Icaps Mv) 1 tab PO DAILY [facility] Last Admin: 12/21/16 08:46 Dose: 1 tab Vitamin B Complex/Vitamin C (Super B With Vitamin C) 1 cap PO DAILY [facility] Last Admin: 12/21/16 08:46 Dose: 1 cap Discontinued Medications Bethanechol Chloride (Urecholine) 30 mg PO ONETIME STA Stop: 12/21/16 13:18 Last Admin: 12/21/16 13:39 Dose: Not Given Bumetanide (Bumex) 1 mg IVPUSH ONETIME ONE Stop: 12/20/16 23:21 Last Admin: 12/20/16 23:33 Dose: 1 mg Bumetanide (Bumex) 1 mg IVPUSH ONETIME ONE Stop: 12/21/16 14:01 Last Admin: 12/21/16 13:27 Dose: 1 mg Doxazosin Mesylate (Cardura) 4 mg PO ONETIME ONE Stop: 12/20/16 19:00 Last Admin: 12/20/16 20:36 Dose: 4 mg Enoxaparin Sodium (Lovenox) 40 mg SUBCUT Q12HR [facility] Last Admin: 12/20/16 20:36 Dose: 40 mg Flecainide Acetate (Tambocor) 100 mg PO BID [facility] Last Admin: 12/20/16 20:51 Dose: Not Given Furosemide (Lasix) 80 mg IVPUSH NOW ONE Stop: 12/20/16 15:07 Last Admin: 12/20/16 15:29 Dose: 80 mg Hydromorphone HCl (Dilaudid) 0.25 mg IVPUSH Q2H PRN PRN Reason: Pain (severe 7-10) Last Admin: 12/21/16 06:37 Dose: 0.25 mg Hydromorphone HCl (Dilaudid) 0.5 mg IVPUSH ONETIME ONE Stop: 12/21/16 16:07 Last Admin: 12/21/16 16:22 Dose: 0.5 mg Hydromorphone HCl (Dilaudid) 0.5 mg IVPUSH ONETIME ONE Stop: 12/21/16 16:26 Last Admin: 12/21/16 16:30 Dose: 0.5 mg Promethazine HCl 12.5 mg/ (Sodium Chloride) 50.5 mls @ 100 mls/hr IV Q6H PRN PRN Reason: Nausea/Vomiting Furosemide 100 mg/ Sodium (Chloride) 100 mls @ 3 mls/hr IV TITRATE [facility] PRN Reason: Protocol Last Admin: 12/20/16 21:16 Dose: 3 mls/hr Potassium Chloride (Kcl 10 Meq In Water 100 Ml) 100 mls @ 100 mls/hr IV Q1H [facility] Stop: 12/20/16 23:59 Last Admin: 12/21/16 04:29 Dose: 50 mls/hr Magnesium Sulfate 2 gm/ Premix 50 mls @ 25 mls/hr IV ONETIME ONE Stop: 12/21/16 10:59 Last Admin: 12/21/16 08:43 Dose: 25 mls/hr Sodium Chloride (Normal Saline) 1,000 mls @ 10 mls/hr IV ASDIRECTED [facility] Last Admin: 12/21/16 08:00 Dose: 10 mls/hr Sodium Chloride (Normal Saline) 250 mls @ 10 mls/hr IV ONETIME ONE Stop: 12/22/16 08:51 Last Admin: 12/21/16 08:35 Dose: Not Given Levothyroxine Sodium (Synthroid) 88 mcg PO DAILY [facility] Last Admin: 12/21/16 08:45 Dose: 88 mcg Potassium Chloride (Klor-Con M20) 60 meq PO ONETIME ONE Stop: 12/21/16 00:06 Last Admin: 12/21/16 00:33 Dose: 60 meq Potassium Chloride (Klor-Con M20) 40 meq PO Q4H [facility] Stop: 12/21/16 13:01 Last Admin: 12/21/16 13:16 Dose: 40 meq Rivaroxaban (Xarelto) 20 mg PO DAILY [facility] Tamsulosin HCl (Flomax) 0.4 mg PO ONETIME ONE Stop: 12/20/16 19:01 Last Admin: 12/20/16 20:33 Dose: Not Given Tamsulosin HCl (Flomax) 0.4 mg PO BEDTIME [facility] Last Admin: 12/20/16 20:36 Dose: 0.4 mg - Exam General: Reports: alert, oriented, cooperative, moderate distress HEENT: Reports: Pupils equal, Pupils reactive, EOMI, Mucous membr. moist/pink Neck: Reports: supple, trachea midline, no JVD Lungs: Reports: Clear to auscultation, Normal respiratory effort Cardiovascular: Reports: Regular Rhythm, Irregular Rhythm, Other (cardiac pace maker on anterior upper thorax) Abdomen: Reports: bowel sounds present, soft, no tenderness, no distension (Male) Exam: Suprapubic fullness Rectal (Males) Exam: Deferred Back Exam: Reports: normal inspection, decreased range of motion Extremities: Reports: normal pulses, no tenderness/swelling, no clubbing, no cyanosis, no calf tenderness, edema Wound/Incisions: Reports: healing well Neurological: Reports: no new focal deficit Psy/Mental Status: Reports: alert, normal affect, normal mood *Q Meaningful Use (DIS) - VTE *Q VTE Criteria *Q: - Stroke *Q Stroke Criteria *Q: - AMI *Q AMI Criteria *Q:
[2016-12-21 17:55] VITALS: BP 110/58
[2016-12-21] MEDS ORDERED: Doxazosin 4 MG Tab PO SCH (21:00)
[2016-12-21] MEDS ORDERED: Magnesium Oxide 400 MG Tab PO SCH (21:00)
[2016-12-22] MEDS ORDERED: Levothyroxine 100 MCG Tab PO SCH (06:00)
[2016-12-22] MEDS ORDERED: Rivaroxaban 10 MG Tab PO SCH (09:00)
== END 2016-12-21 19:20 | DRG 293 ==
LOC: JD.ED 14:39 → JD.MS 17:19
PROVIDERS: ADMIT Internal Medicine; ATTEND Internal Medicine
PROC: 0T9B70Z Drainage of Bladder with Drainage Device, Via Natural or Artificial Opening (ICD-10-PCS; principal; 2016-12-20)
DX: I13.0 Hypertensive heart and chronic kidney disease with heart failure and stage 1 through stage 4 chronic kidney disease, or unspecified chronic kidney disease (principal); N18.3 Chronic kidney disease, stage 3 (moderate); I50.9 Heart failure, unspecified; I48.91 Unspecified atrial fibrillation; G47.30 Sleep apnea, unspecified; E87.6 Hypokalemia; R33.8 Other retention of urine; E78.5 Hyperlipidemia, unspecified; I10 Essential (primary) hypertension; Z95.0 Presence of cardiac pacemaker; K21.9 Gastro-esophageal reflux disease without esophagitis; N39.41 Urge incontinence; M19.90 Unspecified osteoarthritis, unspecified site; G47.33 Obstructive sleep apnea (adult) (pediatric); E03.9 Hypothyroidism, unspecified; E66.9 Obesity, unspecified; Z68.30 Body mass index [BMI] 30.0-30.9, adult; D69.6 Thrombocytopenia, unspecified; Z79.01 Long term (current) use of anticoagulants; Z79.899 Other long term (current) drug therapy; Z88.8 Allergy status to other drugs, medicaments and biological substances; H54.7 Unspecified visual loss; I35.0 Nonrheumatic aortic (valve) stenosis
CPT/HCPCS: 36415; 71020; 80053; 83880; 84443; 84484; 85025; 93005; 96374; 99285; J1940; J7050; 74020; 74020-26; 80048; 80061; 83735; 84439; 85018; 86803; 87340; 87449; 93306; 97161-GP; 97165-GO; 97530-GP; 99284; A9270; A9270-GY; J1170; J1650; J3475; J3480; J7030; J7040

== ENCOUNTER 2017-06-04 14:15 | Emergency (ER) | payer MEDICARE, OTHER ==
--- NOTE | 2017-06-04 15:05 | EDM.PDOC ---
<Eagle Mandujano - Last Filed: 06/04/17 19:03> ED HPI GENERAL MEDICAL PROBLEM - General Chief Complaint: ENT Problem Stated Complaint: NOSEBLEED Time Seen by Provider: 06/04/17 14:38 - Related Data Allergies Allergy/AdvReac Type Severity Reaction Status Date / Time codeine AdvReac Agitation Verified 06/04/17 14:42 Home Meds: Home Meds B2/Vit A,C & E/Lut/Zeaxanth/Mn [Icaps] 1 tab PO DAILY 09/13/16 [History] Calcium Carbonate/Vitamin D3 [Calcium 600-Vit D3 400 Tablet] 1 tab PO DAILY [History] Cholecalciferol (Vitamin D3) [Vitamin D3] 2,000 unit PO DAILY 09/13/16 [History] Ferrous Sulfate [Iron] 325 mg PO DAILY 09/13/16 [History] Flecainide [Tambocor] 100 mg PO BID 09/13/16 [History] Furosemide [Lasix] 40 mg PO DAILY 09/13/16 [History] Garlic 150 mg PO DAILY 09/13/16 [History] Lactobacillus Acidophilus [Acidophilus Probiotic] 100 mg PO DAILY 09/13/16 [ History] Levothyroxine [Synthroid] 88 mcg PO DAILY 09/13/16 [History] Methylsulfonylmethane [MSM] 1,000 mg PO DAILY 09/13/16 [History] Metoprolol Tartrate 50 mg PO BID 09/13/16 [History] Polyethylene Glycol 3350 [MiraLAX] 17 gm PO DAILY 09/13/16 [History] Potassium Gluconate 500 mg PO DAILY 09/13/16 [History] Simethicone 80 mg PO DAILY 09/13/16 [History] Vitamin B Complex [B Complex] 1 each PO DAILY 09/13/16 [History] Zinc 220 mg PO DAILY 09/13/16 [History] Pantoprazole Sodium [Protonix] 40 mg PO ACBREAKFAST #90 tablet. 09/14/16 [Rx] Rivaroxaban [Xarelto] 20 mg PO DAILY 12/20/16 [History] Cyanocobalamin (Vitamin B12) [Vitamin B12] 100 mcg PO DAILY 12/21/16 [History] Methylcellulose [Fiber] 500 mg PO DAILY 12/21/16 [History] Omega3,5,6,7,9 No.1/[place] Oil [Complete [place] Softgel] 2 gm PO DAILY 12/21/16 [ History] Allopurinol [Zyloprim] 100 mg PO DAILY 06/04/17 [History] Famotidine [Pepcid] 20 mg PO DAILY 06/04/17 [History] Furosemide [Lasix] 20 mg PO DAILY 06/04/17 [History] Spironolactone [Aldactone] 25 mg PO DAILY 06/04/17 [History] ED ROS ENT - Review of Systems Review Of Systems: See Below Course - Vital Signs Last Recorded V/S: Last Vital Signs Temp 97.2 F 06/04/17 18:43 Pulse 69 06/04/17 18:43 Resp 18 06/04/17 18:43 BP 120/62 06/04/17 18:43 Pulse Ox 99 06/04/17 18:43 - Orders/Labs/Meds Orders: Active Orders 24 hr Category Date Time Status Peripheral IV Care [RC] . DIRECTED Care 06/04/17 18:36 Active Peripheral IV Insertion Adult [OM.PC] Stat Oth 06/04/17 18:36 Ordered Labs: Laboratory Tests 06/04/17 06/04/17 06/04/17 Range/Units 15:30 15:30 15:30 WBC 6.59 (4.23-9.07) K/mm3 RBC 3.94 L (4.63-6.08) M/mm3 Hgb 12.7 L (13.7-17.5) gm/L Hct 36.7 L (40.1-51.0) % MCV 93.1 H (79.0-92.2) fl MCH 32.2 (25.7-32.2) pg MCHC 34.6 (32.2-35.5) g/dl RDW Std Deviation 46.1 H (35.1-43.9) fL Plt Count 122 L (163-337) K/mm3 MPV 10.0 (9.4-12.3) fl Neut % (Auto) 55.7 (34.0-67.9) % Lymph % (Auto) 29.7 (21.8-53.1) % Humphreys % (Auto) 12.3 H (5.3-12.2) % Eos % (Auto) 1.4 (0.8-7.0) Baso % (Auto) 0.6 (0.1-1.2) % Neut # (Auto) 3.67 (1.78-5.38) K/mm3 Lymph # (Auto) 1.96 (1.32-3.57) K/mm3 Humphreys # (Auto) 0.81 (0.30-0.82) K/mm3 Eos # (Auto) 0.09 (0.04-0.54) K/mm3 Baso # (Auto) 0.04 (0.01-0.08) K/mm3 PT 12.3 (8.0-13.0) SECONDS INR 1.12 APTT 32 (22-36) SECONDS Sodium 136 (136-145) mEq/L Potassium 4.5 (3.5-5.1) mEq/L Chloride 103 (98-107) mEq/L Carbon Dioxide 24 (21-32) mEq/L Anion Gap 13.5 (5-15) BUN 40 H (7-18) mg/dL Creatinine 1.5 H (0.7-1.3) mg/dL Est Cr Clr Drug Dosing 41.57 mL/min Estimated GFR (MDRD) 47 (>60) mL/min BUN/Creatinine Ratio 26.7 H (14-18) Glucose 115 (80-115) mg/dL Calcium 9.0 (8.5-10.1) mg/dL Total Bilirubin 0.6 (0.2-1.0) mg/dL AST 42 H (15-37) U/L ALT 32 (16-63) U/L Alkaline Phosphatase 56 (46-116) U/L C-Reactive Protein 0.2 (<1.0) mg/dL NT-Pro-B Natriuret Pep 626 H (0-125) pg/mL Total Protein 7.1 (6.4-8.2) g/dl Albumin 3.6 (3.4-5.0) g/dl Globulin 3.5 gm/dL Albumin/Globulin Ratio 1.0 (1-2) TSH 3rd Generation 4.721 H (0.358-3.74) uIU/mL Meds: Medications Discontinued Medications Generic Name Dose Route Start Last Admin Trade Name Freq PRN Reason Stop Dose Admin Lidocaine HCl 10 ml 06/04/17 15:50 10/15/17 17:24 Xylocaine 2% Jelly MUCMEM 06/04/17 15:51 10 ml ONETIME ONE Administration Lidocaine HCl 10 ml 06/04/17 16:46 06/04/17 17:24 Xylocaine 2% Jelly MUCMEM 06/04/17 16:47 10 ml ONETIME ONE Administration Lidocaine/Epinephrine 20 ml 06/04/17 17:25 06/04/17 17:31 Xylocaine 1% With Epinephrine 1:100,000 INJECT 06/04/17 17:26 20 ml ONETIME ONE Administration Oxymetazoline HCl 1 ml 06/04/17 15:09 06/04/17 15:45 Afrin Original 0.05% Nasal [place] NASRT 06/04/17 15:10 1 ml ONETIME ONE Administration Sodium Chloride 10 ml 06/04/17 18:36 Saline Flush FLUSH ASDIRECTED PRN Keep Vein Open - Radiology Interpretation Free Text/Narrative:: 17:30: I, Dr Mark Mandujano , was asked to see this patient in consultation because nurse was unable to pass a Kennedy catheter. She had tried both the 1012 and 18- gauge Coude tipped catheter. Tentatively with a 16-gauge catheter Coude tipped as well as a 14-gauge coud tipped catheter and one was unable to pass it through the prostatic urethra. Patient tolerated the procedure well. Rescan the patient had 875 mils of urine in his bladder. Therefore consent will be signed for suprapubic catheterization. - Re-Assessments/Exams Free Text/Narrative Re-Assessment/Exam: 06/04/17: 1820: I ,Dr Mandujano Attempted to place a suprapubic Kennedy catheter with ultrasound guidance but I was unsuccessful after 4 attempts. The abdomen was prepped and draped in usual fashion using Hibiclens as a skin cleanser 3. Anesthetized with 1% lidocaine with epinephrine. Patient has a great deal of pannus and I feel I was unable to reach the bladder with the suprapubic catheter. No urine ever drained from the catheter which I felt was placed in adequate position on 2 occasions. Attempts to withdraw urine via a 10 mL syringe also did not produce any urine. Therefore the patient will have to travel to [place] for urologic go consultation with the view to placement of a catheter either through the prostatic urethra or suprapubically. Of note the patient tolerated the procedure extremely well without any significant complaints. Utilized 20 mL of lidocaine 1% with epinephrine for the procedure. 06/04/17 18:48 Departure - Departure Time of Disposition: 18:45 Disposition: DC/Tfer to Acute Hospital 02 Clinical Impression: Urinary retention, Epistaxis - Discharge Information Referrals: Chapo Clancy Jr, MD [Primary Care Provider] - Forms: ED Department Discharge - My Orders Last 24 Hours: My Active Orders 06/04/17 18:36 Peripheral IV Care [RC] . DIRECTED Peripheral IV Insertion Adult [OM.PC] Stat - Assessment/Plan Last 24 Hours: My Active Orders 06/04/17 18:36 Peripheral IV Care [RC] . DIRECTED Peripheral IV Insertion Adult [OM.PC] Stat <Sly Stone O - Last Filed: 06/04/17 21:17> ED HPI GENERAL MEDICAL PROBLEM - General Source of Information: Reports: Patient History Limitations: Reports: No Limitations - History of Present Illness INITIAL COMMENTS - FREE TEXT/NARRATIVE: Patient is a 67-year-old male presents ED complaining of a nosebleed to the right nare. States he was seen this past Monday at [facility] to which they cauterized the right nare. With having to strain to have a bowel movement today developed bleeding from the right nare. He is on xarelto. Utilize a cotton ball to the right nare to stop the bleeding. It appears that has stopped with admission to the ED. In addition he does have a history of benign prostatic hypertrophy to which he has noticed increased frequency of urination , decreased urine amount, weak stream, and the sensation of urinary retention. States as of recent has developed worsening pain to suprapubic region with attempting to urinate. He is on MiraLAX taken one capful every day. Has history of heart failure and is currently on spiranolactone and Lasix. Over the past month he has gained approximately 10 pounds. Notes there is some increased swelling to his lower extremities. Denies any increasing shortness of breath with exertion, PND, and/or orthopnea. He has been speaking with his primary care provider in relation to the increased weight documented. He was wondering why every time he trys to deficate whe has a hard time having a bowel movement and urinating. He sees Dr. Frank Urologists at [facility] in [place]. Plans are for the patient to have a TURP due to the worsening BPH symptoms. Past Medical History HEENT History: Reports: Cataract, Epistaxis, Impaired Vision Other HEENT History: Macular tear, tinnitus Cardiovascular History: Reports: Afib, Pacemaker Other Cardiovascular History: Left carotid bruit, aortic stenosis, symptomatic bradycardia Respiratory History: Reports: Sleep Apnea Other Respiratory History: Uses CPAP Gastrointestinal History: Reports: GERD, PUD Other Gastrointestinal History: Tenesmus, hematochezia Genitourinary History: Reports: Urinary Incontinence Other Genitourinary History: Urinary frequency, urgency Musculoskeletal History: Reports: Other (See Below) Other Musculoskeletal History: Knee pain Neurological History: Reports: Other (See Below) Other Neuro History: Syncopal episode Endocrine/Metabolic History: Reports: Hypothyroidism, Obesity/BMI 30+ Hematologic History: Reports: Other (See Below) Other Hematologic History: Thrombocytopenia Immunologic History: Reports: None Oncologic (Cancer) History: Reports: None - Infectious Disease History Infectious Disease History: Reports: Chicken Pox, Measles - Past Surgical History HEENT Surgical History: Reports: Oral Surgery, Tonsillectomy GI Surgical History: Reports: Colonoscopy, EGD Endocrine Surgical History: Reports: None Musculoskeletal Surgical History: Reports: Arthroscopic Knee Social & Family History - Family History Family Medical History: Noncontributory - Tobacco Use Smoking Status *Q: Never Smoker Second Hand Smoke Exposure: No - Caffeine Use Caffeine Use: Reports: Coffee - Alcohol Use Days Per Week of Alcohol Use: 7 Number of Drinks Per Day: 1 Total Drinks Per Week: 7 - Recreational Drug Use Recreational Drug Use: No Drug Use in Last 12 Months: No ED ROS ENT - Review of Systems Review Of Systems: See Below Constitutional: Denies: Fever, Chills, Decreased Appetite Respiratory: Denies: Shortness of Breath, Wheezing, Pleuritic Chest Pain, Hemoptysis Cardiovascular: Reports: Edema. Denies: Chest Pain, Dyspnea on Exertion, Lightheadedness, Orthopnea, Palpitations, PND, Syncope GI/Abdominal: Reports: Constipation, Diarrhea. Denies: Abdominal Pain, Decreased Appetite, Nausea, Vomiting : Reports: Dysuria (With beginning of urination), Frequency, Urgency, Urinary Retention. Denies: Flank Pain, Hematuria ED EXAM, ENT - Physical Exam Exam: See Below Exam Limited By: No Limitations General Appearance: Alert, WD/WN, No Apparent Distress, Obese Ears: Hearing Grossly Normal Nose: Normal Inspection, Dried Blood, Other. No: Active Bleeding Mouth/Throat: Normal Oropharynx Neck: Normal Inspection, Supple, Non-Tender, Full Range of Motion, Other (No JVD ) Respiratory/Chest: No Respiratory Distress, Lungs Clear, Normal Breath Sounds, No Accessory Muscle Use, Chest Non-Tender Cardiovascular: Normal Peripheral Pulses, Regular Rate, Rhythm GI/Abdominal: Normal Bowel Sounds, Soft, Non-Tender, No Organomegaly, No Distention Back: Normal Inspection Extremities: Non-Tender, Pedal Edema (1+) Neurological: Alert, Oriented, Normal Cognition, No Motor/Sensory Deficits Psychiatric: Normal Affect, Normal Mood Course - Orders/Labs/Meds Labs: Laboratory Tests 06/04/17 06/04/17 06/04/17 Range/Units 15:30 15:30 15:30 WBC 6.59 (4.23-9.07) K/mm3 RBC 3.94 L (4.63-6.08) M/mm3 Hgb 12.7 L (13.7-17.5) gm/L Hct 36.7 L (40.1-51.0) % MCV 93.1 H (79.0-92.2) fl MCH 32.2 (25.7-32.2) pg MCHC 34.6 (32.2-35.5) g/dl RDW Std Deviation 46.1 H (35.1-43.9) fL Plt Count 122 L (163-337) K/mm3 MPV 10.0 (9.4-12.3) fl Neut % (Auto) 55.7 (34.0-67.9) % Lymph % (Auto) 29.7 (21.8-53.1) % Humphreys % (Auto) 12.3 H (5.3-12.2) % Eos % (Auto) 1.4 (0.8-7.0) Baso % (Auto) 0.6 (0.1-1.2) % Neut # (Auto) 3.67 (1.78-5.38) K/mm3 Lymph # (Auto) 1.96 (1.32-3.57) K/mm3 Humphreys # (Auto) 0.81 (0.30-0.82) K/mm3 Eos # (Auto) 0.09 (0.04-0.54) K/mm3 Baso # (Auto) 0.04 (0.01-0.08) K/mm3 PT 12.3 (8.0-13.0) SECONDS INR 1.12 APTT 32 (22-36) SECONDS Sodium 136 (136-145) mEq/L Potassium 4.5 (3.5-5.1) mEq/L Chloride 103 (98-107) mEq/L Carbon Dioxide 24 (21-32) mEq/L Anion Gap 13.5 (5-15) BUN 40 H (7-18) mg/dL Creatinine 1.5 H (0.7-1.3) mg/dL Est Cr Clr Drug Dosing 41.57 mL/min Estimated GFR (MDRD) 47 (>60) mL/min BUN/Creatinine Ratio 26.7 H (14-18) Glucose 115 (80-115) mg/dL Calcium 9.0 (8.5-10.1) mg/dL Total Bilirubin 0.6 (0.2-1.0) mg/dL AST 42 H (15-37) U/L ALT 32 (16-63) U/L Alkaline Phosphatase 56 (46-116) U/L C-Reactive Protein 0.2 (<1.0) mg/dL NT-Pro-B Natriuret Pep 626 H (0-125) pg/mL Total Protein 7.1 (6.4-8.2) g/dl Albumin 3.6 (3.4-5.0) g/dl Globulin 3.5 gm/dL Albumin/Globulin Ratio 1.0 (1-2) TSH 3rd Generation 4.721 H (0.358-3.74) uIU/mL Meds: Medications Discontinued Medications Generic Name Dose Route Start Last Admin Trade Name Freq PRN Reason Stop Dose Admin Lidocaine HCl 10 ml 06/04/17 15:50 06/04/17 17:24 Xylocaine 2% Jelly MUCMEM 06/04/17 15:51 10 ml ONETIME ONE Administration Lidocaine HCl 10 ml 06/04/17 16:46 06/04/17 17:24 Xylocaine 2% Jelly MUCMEM 06/04/17 16:47 10 ml ONETIME ONE Administration Lidocaine/Epinephrine 20 ml 06/04/17 17:25 06/04/17 17:31 Xylocaine 1% With Epinephrine 1:100,000 INJECT 10/15/17 17:26 20 ml ONETIME ONE Administration Oxymetazoline HCl 1 ml 06/04/17 15:09 06/04/17 15:45 Afrin Original 0.05% Nasal [place] NASRT 06/04/17 15:10 1 ml ONETIME ONE Administration Sodium Chloride 10 ml 06/04/17 18:36 Saline Flush FLUSH ASDIRECTED PRN Keep Vein Open - Re-Assessments/Exams Free Text/Narrative Re-Assessment/Exam: Will obtain basic labs including CBC, crp, chem 14, coag studies, pro-BNP, TSH , UA , abdominal x-ray one view, and bladder scan. X-ray of the abdomen reveals nonspecific air in stool patterns. Labs reviewed: White blood cell count 6.59, hemoglobin is 12.7,, platelet count 122, coags are normal, sodium 136, potassium 4.5, AG 13.5, creatinine 1.5, BUN 40, proBNP is 626, TSH is 4.71. Believe increasing Cr and BUN is related to post renal azotemia. Kennedy catheter placement unsuccessful by nursing staff. attempted as well with no luck. They elected to attempt suprapubic catheter placement 4 times with no luck. Will contact [facility] [place]. 1826 Contacted [facility] relocation counselor Urologists Dr. Bermudez. Request patient be transferred to the ER be evaluated by [facility] ER provider and then consult him. Spoke with Dr. Gardiner ER Physician. He has accepted the patient. Ambulance has been notified. Discharge paperwork has been completed. Departure - Departure Condition: Good
[2017-06-04] MEDS ORDERED: Oxymetazoline 0.05% Nasal Spray 15 ML Bottle NASRT ONE (15:09)
[2017-06-04] MEDS ORDERED: Lidocaine 2% Jelly 10 ML Urojet MUCMEM ONE ×2 (15:50→16:46)
[2017-06-04] MEDS ORDERED: Lidocaine 1% with EPINEPHrine 1:100,000 20 ML MDV INJECT ONE (17:25)
[2017-06-04] MEDS ORDERED: Sodium Chloride 0.9% 10 ML Syringe FLUSH PRN (18:36)
[2017-06-04 19:23] VITALS: BP 120/62
--- NOTE | 2017-06-04 20:01 | CR ---
Abdomen: Supine view of the abdomen was obtained. Comparison: Previous abdominal x-ray of 12/21/16. Bowel gas pattern is normal. No abnormal calcifications or soft tissue abnormality is seen. Sclerotic area is seen within the intertrochanteric of the right hip most likely due to large bone island. Mild degenerative change is seen within the spine. Impression: 1. Incidental findings. Nothing acute is seen. Diagnostic code #2
== END 2017-06-04 18:58 ==
LOC: JD.ED 14:15
DX: R33.9 Retention of urine, unspecified (principal); R04.0 Epistaxis; I48.91 Unspecified atrial fibrillation; Z95.0 Presence of cardiac pacemaker; K21.9 Gastro-esophageal reflux disease without esophagitis; E03.9 Hypothyroidism, unspecified; E66.9 Obesity, unspecified; Z98.890 Other specified postprocedural states; R06.00 Dyspnea, unspecified
CPT/HCPCS: 36415; 51102; 51798; 74000; 80053; 83880; 84443; 85025; 85610; 85730; 86140; 99285; A9270; 99284-25

== ENCOUNTER 2017-07-02 16:20 | Emergency (ER) | payer MEDICARE ==
[2017-07-02 16:38] VITALS: BP 123/55
--- NOTE | 2017-07-02 17:20 | EDM.PDOC ---
ED HPI GENERAL MEDICAL PROBLEM - General Chief Complaint: ENT Problem Stated Complaint: NOSEBLEED Time Seen by Provider: 07/02/17 16:37 Source of Information: Reports: Patient, Family (Mot her), RN Notes Reviewed History Limitations: Reports: No Limitations - History of Present Illness INITIAL COMMENTS - FREE TEXT/NARRATIVE: The patient states that he developed right-sided epistaxis yesterday, 07/01/2017 , around 15:30. He stuffed his nostril with toilet paper. He removed the packing around 22:30, but when he blew his nose, it started bleeding again. He states that he slept in a chair last night. While he does not feel or taste any blood running down the back of his throat, he feels like it is still bleeding. He reports black stools. The patient reports frequent right-sided epistaxis over the past 2 years, especially in winter. He has never seen an ENT. He states that his nose was last cauterized about 5 weeks ago (not at this facility). The patient has been on Xarelto for atrial fibrillation for the past 5 years. The patient's PCP is Dr. Chapo Clancy. - Related Data Allergies Allergy/AdvReac Type Severity Reaction Status Date / Time codeine AdvReac Agitation Verified 07/02/17 16:38 Home Meds: Home Meds B2/Vit A,C & E/Lut/Zeaxanth/Mn [Icaps] 1 tab PO DAILY 09/13/16 [History] Calcium Carbonate/Vitamin D3 [Calcium 600-Vit D3 400 Tablet] 1 tab PO DAILY [History] Cholecalciferol (Vitamin D3) [Vitamin D3] 2,000 unit PO DAILY 09/13/16 [History] Ferrous Sulfate [Iron] 325 mg PO DAILY 09/13/16 [History] Flecainide [Tambocor] 100 mg PO BID 09/13/16 [History] Furosemide [Lasix] 40 mg PO BID 09/13/16 [History] Garlic 150 mg PO DAILY 09/13/16 [History] Lactobacillus Acidophilus [Acidophilus Probiotic] 100 mg PO DAILY 09/13/16 [ History] Levothyroxine [Synthroid] 88 mcg PO DAILY 09/13/16 [History] Methylsulfonylmethane [MSM] 1,000 mg PO DAILY 09/13/16 [History] Metoprolol Tartrate 25 mg PO BID 09/13/16 [History] Polyethylene Glycol 3350 [MiraLAX] 17 gm PO DAILY 09/13/16 [History] Potassium Gluconate 500 mg PO DAILY 09/13/16 [History] Simethicone 80 mg PO DAILY 09/13/16 [History] Vitamin B Complex [B Complex] 1 each PO DAILY 09/13/16 [History] Zinc 220 mg PO DAILY 09/13/16 [History] Pantoprazole Sodium [Protonix] 40 mg PO ACBREAKFAST #90 tablet. 09/14/16 [Rx] Rivaroxaban [Xarelto] 20 mg PO DAILY 12/20/16 [History] Cyanocobalamin (Vitamin B12) [Vitamin B12] 100 mcg PO DAILY 12/21/16 [History] Methylcellulose [Fiber] 500 mg PO DAILY 12/21/16 [History] Omega3,5,6,7,9 No.1/[place] Oil [Complete [place] Softgel] 2 gm PO DAILY 12/21/16 [ History] Allopurinol [Zyloprim] 100 mg PO BID 06/04/17 [History] Famotidine [Pepcid] 20 mg PO DAILY 06/04/17 [History] Spironolactone [Aldactone] 25 mg PO DAILY 06/04/17 [History] Tamsulosin HCl 0.4 mg PO DAILY 07/02/17 [History] Past Medical History HEENT History: Reports: Cataract, Epistaxis, Impaired Vision Other HEENT History: Macular tear, tinnitus Cardiovascular History: Reports: Afib, Heart Failure, Hypertension, Other (See Below) (Aortic stenosis) Respiratory History: Reports: Sleep Apnea (on nightly CPAP) Gastrointestinal History: Reports: GERD Genitourinary History: Reports: BPH, Chronic Renal Insuffiency Endocrine/Metabolic History: Reports: Hypothyroidism, Obesity/BMI 30+ Hematologic History: Reports: Other (See Below) (Elevated uric acid level (no history of gout)) - Infectious Disease History Infectious Disease History: Reports: Chicken Pox, Measles - Past Surgical History HEENT Surgical History: Reports: Tonsillectomy Cardiovascular Surgical History: Reports: Pacer GI Surgical History: Reports: Colonoscopy, EGD Musculoskeletal Surgical History: Reports: Arthroscopic Knee Social & Family History - Family History Family Medical History: Noncontributory - Tobacco Use Smoking Status *Q: Never Smoker Second Hand Smoke Exposure: No - Caffeine Use Caffeine Use: Reports: Coffee - Alcohol Use Alcohol Use History: Yes Days Per Week of Alcohol Use: 7 Number of Drinks Per Day: 1 Total Drinks Per Week: 7 Alcohol Use Frequency: Socially - Recreational Drug Use Recreational Drug Use: No - Living Situation & Occupation Living situation: Reports: , with Spouse Occupation: Employed ([employer]) ED ROS ENT - Review of Systems Review Of Systems: See Below Constitutional: Reports: No Symptoms HEENT: Reports: No Symptoms Respiratory: Reports: No Symptoms Endocrine: Reports: No Symptoms GI/Abdominal: Reports: No Symptoms : Reports: Urinary Retention (Kennedy catheter to leg bag recently placed) Musculoskeletal: Reports: No Symptoms Skin: Reports: Other (Recent groin cellulitis) Neurological: Reports: No Symptoms Psychiatric: Reports: No Symptoms Hematologic/Lymphatic: Reports: No Symptoms Immunologic: Reports: No Symptoms ED EXAM, ENT - Physical Exam Exam: See Below Exam Limited By: No Limitations General Appearance: Alert, WD/WN, No Apparent Distress Eye Exam: Bilateral Eye: Normal Inspection Ears: Normal External Exam, Hearing Grossly Normal Nose: Active Bleeding (Very slight, on the right septum.) Mouth/Throat: Normal Inspection, Normal Gums, Normal Lips, Normal Oropharynx, Normal Teeth. No: Bleeding Head: Atraumatic, Normocephalic Neck: Normal Inspection, Supple, Non-Tender, Full Range of Motion ED ENT PROCEDURES - Epistaxis Procedure Indication: Epistaxis, Uncontrolled Recent anticoagulants/antiplatlets: Yes Uncontrolled HTN: No Recent septal/nasal surgery: No Site of bleeding: Right Nare, Anterior Clearing of clots: Patient Blew Nose Ice pack to area: No Chemical cautery: Silver Nitrate Topical Complications: No Course - Vital Signs Last Recorded V/S: Last Vital Signs Temp 36.4 C 07/02/17 16:34 Pulse 68 07/02/17 16:34 Resp 18 07/02/17 16:34 BP 123/55 L 07/02/17 16:34 Pulse Ox 100 07/02/17 16:34 - Orders/Labs/Meds Meds: Medications Discontinued Medications Generic Name Dose Route Start Last Admin Trade Name Freq PRN Reason Stop Dose Admin Cocaine HCl 4 ml 07/02/17 16:38 07/02/17 17:01 Cocaine Hcl TOP 07/02/17 16:39 4 ml ONETIME STA Administration - Re-Assessments/Exams Free Text/Narrative Re-Assessment/Exam: 07/02/17 17:20 The patient had a small bleed on his right nasal septum, which was successfully stopped with cautery. I will refer him to ENT for further evaluation. Departure - Departure Time of Disposition: 17:20 Disposition: Home, Self-Care 01 Condition: Good Clinical Impression: Right-sided epistaxis - Discharge Information Instructions: Nosebleed, [id number] Referrals: Chapo Clancy Jr, MD [Primary Care Provider] - Jacobo Breaux MD [Physician] - Forms: ED Department Discharge Additional Instructions: You were seen in the emergency room for a right-sided nosebleed. The bleeding vessel was successfully cauterized in the ER. We recommend that you apply a thin smear of Vaseline to the middle (septum) of each of your nostrils, especially at night. Consider also purchasing a humidifier for the winter months. We recommend that you follow-up with the ENT Dr. Breaux at the next available appointment. If your nose bleeds again, we recommend that you sit upright, tilt your head slightly forward, and pinch your nostrils hard for 10-15 minutes. If the bleeding does not stop despite this, you need to return to the ER.
== END 2017-07-02 17:34 | disposition home or self-care (01) ==
LOC: JD.ED 16:20
DX: R04.0 Epistaxis (principal); I13.0 Hypertensive heart and chronic kidney disease with heart failure and stage 1 through stage 4 chronic kidney disease, or unspecified chronic kidney disease; N18.9 Chronic kidney disease, unspecified; I50.9 Heart failure, unspecified; Z79.899 Other long term (current) drug therapy; Z88.5 Allergy status to narcotic agent
CPT/HCPCS: 30901; 99282; 99283-25

== ENCOUNTER 2017-07-17 12:56 | Emergency (ER) | payer MEDICARE, OTHER ==
[2017-07-17 13:16] VITALS: BP 113/64
[2017-07-17] MEDS ORDERED: Sodium Chloride 0.9% 10 ML Syringe FLUSH PRN (14:16)
--- NOTE | 2017-07-17 14:57 | EDM.PDOC ---
ED HPI GENERAL MEDICAL PROBLEM - General Chief Complaint: Respiratory Problem Stated Complaint: CATHETER ISSUES/SOB Time Seen by Provider: 07/17/17 14:04 Source of Information: Reports: Patient History Limitations: Reports: No Limitations - History of Present Illness INITIAL COMMENTS - FREE TEXT/NARRATIVE: Patient is a 67 y/o male who presents to the E.D. with complaint of worsening shortness of breath, recent weight gain, increased swelling to his lower legs. States he has history of CHF 2nd to CAD and multiple heart valve issues. Takes lasix twice a day. See Dr. [facility] regularly. Notes no changes to his medications. He has been taking them all as prescribed. In addition has in place a suprapubic catheter and states while driving to town developed pain to his lower abdomen with sensation he needed to urinate. Initially thought something was wrong with the catheter but when he arrived in town and stepped out of the vehicle the tubing was kinked. Since unkinking he has no pain. Urine flowing as normal. Denies CP, Palpitations, dizziness, or any additional complaints. - Related Data Allergies Allergy/AdvReac Type Severity Reaction Status Date / Time codeine AdvReac Agitation Verified 07/17/17 13:10 Home Meds: Home Meds B2/Vit A,C & E/Lut/Zeaxanth/Mn [Icaps] 1 tab PO DAILY 09/13/16 [History] Calcium Carbonate/Vitamin D3 [Calcium 600-Vit D3 400 Tablet] 1 tab PO DAILY [History] Cholecalciferol (Vitamin D3) [Vitamin D3] 2,000 unit PO DAILY 09/13/16 [History] Ferrous Sulfate [Iron] 325 mg PO DAILY 09/13/16 [History] Flecainide [Tambocor] 100 mg PO BID 09/13/16 [History] Furosemide [Lasix] 40 mg PO BID 09/13/16 [History] Garlic 150 mg PO DAILY 09/13/16 [History] Lactobacillus Acidophilus [Acidophilus Probiotic] 100 mg PO DAILY 09/13/16 [ History] Levothyroxine [Synthroid] 88 mcg PO DAILY 09/13/16 [History] Methylsulfonylmethane [MSM] 1,000 mg PO DAILY 09/13/16 [History] Metoprolol Tartrate 25 mg PO BID 09/13/16 [History] Polyethylene Glycol 3350 [MiraLAX] 17 gm PO DAILY 09/13/16 [History] Potassium Gluconate 500 mg PO DAILY 09/13/16 [History] Simethicone 80 mg PO DAILY 09/13/16 [History] Vitamin B Complex [B Complex] 1 each PO DAILY 09/13/16 [History] Zinc 220 mg PO DAILY 09/13/16 [History] Pantoprazole Sodium [Protonix] 40 mg PO ACBREAKFAST #90 tablet. 09/14/16 [Rx] Rivaroxaban [Xarelto] 20 mg PO DAILY 12/20/16 [History] Cyanocobalamin (Vitamin B12) [Vitamin B12] 100 mcg PO DAILY 12/21/16 [History] Methylcellulose [Fiber] 500 mg PO DAILY 12/21/16 [History] Omega3,5,6,7,9 No.1/[place] Oil [Complete [place] Softgel] 2 gm PO DAILY 12/21/16 [ History] Allopurinol [Zyloprim] 100 mg PO BID 06/04/17 [History] Famotidine [Pepcid] 20 mg PO DAILY 06/04/17 [History] Spironolactone [Aldactone] 25 mg PO DAILY 06/04/17 [History] Tamsulosin HCl 0.4 mg PO BEDTIME 07/02/17 [History] Past Medical History HEENT History: Reports: Cataract, Epistaxis, Impaired Vision Other HEENT History: Macular tear, tinnitus Cardiovascular History: Reports: Afib, Heart Failure, Hypertension, Other (See Below) Other Cardiovascular History: Left carotid bruit, aortic stenosis, symptomatic bradycardia Respiratory History: Reports: Sleep Apnea Other Respiratory History: Uses CPAP Gastrointestinal History: Reports: GERD Other Gastrointestinal History: Tenesmus, hematochezia Genitourinary History: Reports: BPH, Chronic Renal Insuffiency Other Genitourinary History: Urinary frequency, urgency Musculoskeletal History: Reports: Other (See Below) Other Musculoskeletal History: Knee pain Neurological History: Reports: Other (See Below) Other Neuro History: Syncopal episode Endocrine/Metabolic History: Reports: Hypothyroidism, Obesity/BMI 30+ Hematologic History: Reports: Other (See Below) Other Hematologic History: Thrombocytopenia Immunologic History: Reports: None Oncologic (Cancer) History: Reports: None - Infectious Disease History Infectious Disease History: Reports: Chicken Pox, Measles - Past Surgical History HEENT Surgical History: Reports: Tonsillectomy Cardiovascular Surgical History: Reports: Pacer GI Surgical History: Reports: Colonoscopy, EGD Musculoskeletal Surgical History: Reports: Arthroscopic Knee Dermatological Surgical History: Reports: Other (See Below) Social & Family History - Family History Family Medical History: Noncontributory - Tobacco Use Smoking Status *Q: Never Smoker Second Hand Smoke Exposure: No - Caffeine Use Caffeine Use: Reports: Coffee - Alcohol Use Days Per Week of Alcohol Use: 7 Number of Drinks Per Day: 1 Total Drinks Per Week: 7 - Recreational Drug Use Recreational Drug Use: No Drug Use in Last 12 Months: No - Living Situation & Occupation Living situation: Reports: , with Spouse Occupation: Employed ([employer]) ED ROS GENERAL - Review of Systems Review Of Systems: See Below Constitutional: Reports: No Symptoms Respiratory: Denies: Shortness of Breath, Wheezing, Pleuritic Chest Pain, Cough , Sputum, Hemoptysis Cardiovascular: Reports: Dyspnea on Exertion. Denies: Chest Pain, Lightheadedness, Palpitations, Syncope GI/Abdominal: Reports: No Symptoms Musculoskeletal: Reports: No Symptoms Neurological: Reports: No Symptoms ED EXAM, GENERAL - Physical Exam Exam: See Below Exam Limited By: No Limitations General Appearance: Alert, WD/WN, No Apparent Distress Ears: Hearing Grossly Normal Nose: Normal Inspection Throat/Mouth: Normal Inspection, Normal Oropharynx, Normal Voice, No Airway Compromise Neck: Normal Inspection, Supple Respiratory/Chest: No Respiratory Distress, Lungs Clear, Normal Breath Sounds, No Accessory Muscle Use, Chest Non-Tender Cardiovascular: Normal Peripheral Pulses, Regular Rate, Rhythm, No JVD, Systolic Murmur Peripheral Pulses: 2+: Radial (L), Radial (R), Posterior Tibial (L), Posterior Tibial (R) GI/Abdominal: Normal Bowel Sounds, Soft, Non-Tender, No Organomegaly Rectal (Males) Exam: Normal Rectal Tone, Heme - Stool, Hemorrhoids Extremities: Pedal Edema (1+) Neurological: Alert, Oriented, CN II-XII Intact, Normal Cognition, No Motor/ Sensory Deficits Psychiatric: Normal Affect, Normal Mood Skin Exam: Warm, Dry, Intact, Normal Color Course - Vital Signs Last Recorded V/S: Last Vital Signs Temp 97.8 F 07/17/17 13:11 Pulse 63 07/17/17 13:11 Resp 20 07/17/17 13:11 BP 113/64 07/17/17 13:11 Pulse Ox 100 07/17/17 13:11 - Orders/Labs/Meds Labs: Laboratory Tests 07/17/17 07/17/17 07/17/17 Range/Units 14:45 14:45 14:45 WBC 5.04 (4.23-9.07) K/mm3 RBC 2.96 L (4.63-6.08) M/mm3 Hgb 9.4 L (13.7-17.5) gm/L Hct 29.2 L (40.1-51.0) % MCV 98.6 H (79.0-92.2) fl MCH 31.8 (25.7-32.2) pg MCHC 32.2 (32.2-35.5) g/dl RDW Std Deviation 51.0 H (35.1-43.9) fL Plt Count 130 L (163-337) K/mm3 MPV 9.8 (9.4-12.3) fl Neut % (Auto) 58.9 (34.0-67.9) % Lymph % (Auto) 26.0 (21.8-53.1) % [place] % (Auto) 12.7 H (5.3-12.2) % Eos % (Auto) 1.4 (0.8-7.0) Baso % (Auto) 0.8 (0.1-1.2) % Neut # (Auto) 2.97 (1.78-5.38) K/mm3 Lymph # (Auto) 1.31 L (1.32-3.57) K/mm3 [place] # (Auto) 0.64 (0.30-0.82) K/mm3 Eos # (Auto) 0.07 (0.04-0.54) K/mm3 Baso # (Auto) 0.04 (0.01-0.08) K/mm3 PT 15.4 H (8.0-13.0) SECONDS INR 1.38 APTT 38 H (22-36) SECONDS Sodium 141 (136-145) mEq/L Potassium 4.2 (3.5-5.1) mEq/L Chloride 107 (98-107) mEq/L Carbon Dioxide 25 (21-32) mEq/L Anion Gap 13.2 (5-15) BUN 30 H (7-18) mg/dL Creatinine 1.8 H (0.7-1.3) mg/dL Est Cr Clr Drug Dosing 37.23 mL/min Estimated GFR (MDRD) 38 (>60) mL/min BUN/Creatinine Ratio 16.7 (14-18) Glucose 118 H (80-115) mg/dL Calcium 8.9 (8.5-10.1) mg/dL Total Bilirubin 0.4 (0.2-1.0) mg/dL AST 30 (15-37) U/L ALT 26 (16-63) U/L Alkaline Phosphatase 55 (46-116) U/L Troponin I < 0.017 (0.00-0.056) ng/mL NT-Pro-B Natriuret Pep 1130 H (0-125) pg/mL Total Protein 6.6 (6.4-8.2) g/dl Albumin 3.2 L (3.4-5.0) g/dl Globulin 3.4 gm/dL Albumin/Globulin Ratio 0.9 L (1-2) TSH 3rd Generation 5.239 H (0.358-3.74) uIU/mL Meds: Medications Discontinued Medications Generic Name Dose Route Start Last Admin Trade Name Freq PRN Reason Stop Dose Admin Furosemide 40 mg 07/17/17 15:45 07/17/17 15:56 Lasix IVPUSH 07/17/17 15:46 40 mg NOW ONE Administration Sodium Chloride 10 ml 07/17/17 14:16 07/17/17 15:05 Saline Flush FLUSH 10 ml ASDIRECTED PRN Administration Keep Vein Open - Re-Assessments/Exams Free Text/Narrative Re-Assessment/Exam: IV established. Initial labs and studies include CBC, chem 14, PTT/INR, PTT, proBNP, troponin, TSH, EKG, and chest x-ray two-view. Reviewed echocardiogram obtained December 21, 2016. This was a transthoracic echocardiogram. Summary: Left ventricular ejection fraction bibasal estimation is 45-50%. Mildly dilated left atrium. Moderately dilated right atrium. Mild aortic valve stenosis. Moderate aortic valve sclerosis. Aortic leaflets are not well visualized, bicuspid aortic valve cannot be excluded. Mild to moderate mitral valve regurgitation. Moderate aortic valve regurgitation. Moderate to severe tricuspid valve regurgitation. The wide tricuspid regurgitant jet precludes accurate assessment of the TV regurgitation velocity. EKG obtained December 20, 2016 revealed atrial ventricular dual paced complexes at a rate of 60. EKG obtained today: AV paced 60 BPM. Labs reviewed: BNP 11:30 which is a drastic increased from 626 from June 04, 2017. White blood cell count 5.04, hemoglobin 9.4 which is a decrease from 12.6 June 22, 2017. Platelet count 1:30, sodium 141, potassium 4.2, creatinine 1.8 which appears baseline, glucose 118 LFTs within normal limits, troponin less than 0.017, TSH is 5.239. Hemoccult was negative for blood. Chest x-ray reviewed with Dr. Cunningham. Dual-chamber pacemaker present. Cardiomegaly a. Mild increased to pulmonary vascularization noted. No other concerning findings noted. With current findings on examination consistent for increased swelling 1+ to his lower extremities, worsening shortness of breath, elevated BNP above baseline, and chest x-ray findings consistent for increased pulmonary vascular congestion. Will order additional bolus of Lasix IV. I discussed suspect patient will require a echocardiogram performed on an outpatient basis to evaluate for any valvular changes. I will have him follow-up with his PCP this week for reevaluation. Will increase his daily Lasix as documented. 07/17/17 17:52 Per nursing staff patient has been urinating. Patient is ready to be discharged home. Discharge instructions as documented. Departure - Departure Time of Disposition: 17:53 Disposition: Home, Self-Care 01 Condition: Fair Clinical Impression: Peripheral edema CHF exacerbation Qualifiers: Congestive heart failure type: unspecified congestive heart failure type Qualified Code(s): I50.9 - Heart failure, unspecified - Discharge Information Instructions: Edema, Heart Failure, [id number] Referrals: Chapo Clancy Jr, MD [Primary Care Provider] - Forms: ED Department Discharge Additional Instructions: Please follow up with PCP in 3 days to have blood work obtained to check electrolyte levels, HGB, and also kidney function. Will have you increase your dose of lasix in the a.m to 60mg everyday until evaluated by PCP. Continue to take the 40mg at HS as prescribed. In addition echocardiogram of your heart should be obtained sooner than August [address] [place]. This is because you have multiple valve issues that may be worsening contributing to increasing heart failure. Please call Dr. Rolon office tomorrow to have this scheduled and discuss her circumstances. If not able to schedule it on your own have your PCP arrange please. Reduce your salt intake. Return to the ED as needed for any new or worsening symptoms.
[2017-07-17] MEDS ORDERED: Furosemide 40 MG/4 ML VIAL IVPUSH ONE (15:45)
--- NOTE | 2017-07-18 11:39 | CR ---
Chest: Two views of the chest were obtained. Comparison: Prior chest x-ray of 12/20/16. Heart size and mediastinum are within normal limits. Lungs are clear. Pacemaker is noted. Mild degenerative spurring is seen within the spine. Impression: 1. Nothing acute is identified on two-view chest x-ray. Diagnostic code #2
== END 2017-07-17 18:07 | disposition home or self-care (01) ==
LOC: JD.ED 12:56
DX: I13.0 Hypertensive heart and chronic kidney disease with heart failure and stage 1 through stage 4 chronic kidney disease, or unspecified chronic kidney disease (principal); N18.9 Chronic kidney disease, unspecified; I50.9 Heart failure, unspecified; Z79.899 Other long term (current) drug therapy; Z88.5 Allergy status to narcotic agent
CPT/HCPCS: 36415; 71020; 80053; 83880; 84443; 84484; 85025; 85610; 85730; 93005; 96374; 99285; J1940; J7050; 93010; 99284

== ENCOUNTER 2018-12-06 10:23 | Emergency (ER) | payer MEDICARE, OTHER ==
[2018-12-06 10:43] VITALS: BP 109/65
[2018-12-06] MEDS ORDERED: Sodium Chloride 0.9% 10 ML Syringe FLUSH PRN (10:58)
--- NOTE | 2018-12-06 11:23 | EDM.PDOC ---
ED HPI GENERAL MEDICAL PROBLEM - General Chief Complaint: Respiratory Problem Stated Complaint: SENT BY [facility] Time Seen by Provider: 12/06/18 10:34 Source of Information: Reports: Patient, Provider History Limitations: Reports: No Limitations - History of Present Illness INITIAL COMMENTS - FREE TEXT/NARRATIVE: The patient presents with shortness of breath. This has been an ongoing problem for about 2 weeks. He has a history of CHF and he is on spirinolactone and lasix. He also has a pacemaker. He has bad valves. 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 He now urinates from the base of his scrotum. He has had no issues with urination or abdominal pain. He is just more short of breath with exertion and he has edema in his legs. He says about 10 days ago he could see the veins in his legs. There has been no changes to his medications. He actually had his pacemaker checked down at [place]. He has no fever or chills. He has a slight cough. He has no chest pain. He has no abdominal pain, nausea or vomiting. His kidneys have not been working so good. His creatinine was elevated at 2.4. He sees both Dr Clancy and Rianna Conway in [place]. Onset: Gradual Duration: Week(s): (2) Severity: Moderate Improves with: Reports: None Worsens with: Reports: None Associated Symptoms: Reports: Cough, Shortness of Breath. Denies: Chest Pain, Fever/Chills, Headaches, Nausea/Vomiting - Related Data Allergies Allergy/AdvReac Type Severity Reaction Status Date / Time codeine AdvReac Agitation Verified 12/06/18 10:43 Home Meds: Home Meds Allopurinol [Zyloprim] 100 mg PO DAILY 12/06/18 [History] Antiox#10/Om3/DHA/EPA/Lut/Zeax [I-Caps with Lutein-[place] 3 SFG] 1 tab PO DAILY 12/06/18 [History] Calcium Carb & Citrate/Vit D3 [Calcium + D3 ER Tablet] 1 tab PO DAILY 12/06/18 [ History] Cholecalciferol (Vitamin D3) [Vitamin D3] 3,000 units PO DAILY 12/06/18 [History ] Cyanocobalamin (Vitamin B-12) [Vitamin B-12] 100 mcg PO DAILY 12/06/18 [History] Famotidine [Pepcid] 20 mg PO BEDTIME 12/06/18 [History] Ferrous Sulfate 325 mg PO DAILY 12/06/18 [History] Flecainide [Tambocor] 100 mg PO BID 12/06/18 [History] Furosemide [Lasix] 40 mg PO DAILY 12/06/18 [History] Furosemide [Lasix] 60 mg PO DAILY 12/06/18 [History] Garlic 1 tab PO DAILY 12/06/18 [History] L Acidophil/B Lactis/B Longum [Florajen3] 1 tab PO DAILY 12/06/18 [History] Levothyroxine [Synthroid] 100 mcg PO DAILY 12/06/18 [History] Methylcellulose [Citrucel] 500 mg PO DAILY 12/06/18 [History] Methylsulfonylmethane [MSM] 1,000 mg PO DAILY 12/06/18 [History] Metoprolol Tartrate [Lopressor] 25 mg PO BID 12/06/18 [History] [place] 3/DHA/Epa/Other Om3/D3 [[place]-3 + Vitamin D3] 1 cap PO DAILY 12/06/18 [ History] Pantoprazole Sodium [Protonix] 40 mg PO DAILY 12/06/18 [History] Potassium 99 mg PO DAILY 12/06/18 [History] Rivaroxaban [Xarelto] 20 mg PO DAILY 12/06/18 [History] Simethicone 80 mg PO DAILY 12/06/18 [History] Spironolactone [Aldactone] 25 mg PO DAILY 12/06/18 [History] Tamsulosin [Flomax] 0.4 mg PO BEDTIME 12/06/18 [History] Ubidecarenone [Coenzyme Q-10] 100 mg PO DAILY 12/06/18 [History] Vitamin B Complex 1 tab PO DAILY 12/06/18 [History] Zinc Sulfate 220 mg PO DAILY 12/06/18 [History] Past Medical History HEENT History: Reports: Cataract, Epistaxis, Impaired Vision Other HEENT History: Macular tear, tinnitus Cardiovascular History: Reports: Afib, Heart Failure, Hypertension, Other (See Below) Other Cardiovascular History: Left carotid bruit, aortic stenosis, symptomatic bradycardia Respiratory History: Reports: Sleep Apnea Other Respiratory History: Uses CPAP Gastrointestinal History: Reports: GERD Other Gastrointestinal History: Tenesmus, hematochezia Genitourinary History: Reports: BPH, Chronic Renal Insuffiency Other Genitourinary History: Urinary frequency, urgency Musculoskeletal History: Reports: Other (See Below) Other Musculoskeletal History: Knee pain Neurological History: Reports: Other (See Below) Other Neuro History: Syncopal episode Endocrine/Metabolic History: Reports: Hypothyroidism, Obesity/BMI 30+ Hematologic History: Reports: Other (See Below) Other Hematologic History: Thrombocytopenia Immunologic History: Reports: None Oncologic (Cancer) History: Reports: None - Infectious Disease History Infectious Disease History: Reports: Chicken Pox, Measles - Past Surgical History HEENT Surgical History: Reports: Tonsillectomy Cardiovascular Surgical History: Reports: Pacer GI Surgical History: Reports: Colonoscopy, EGD Male Surgical History: Reports: Other (See Below) Other Male Surgeries/Procedures: urethra rerouted, procedure performed at [facility] Musculoskeletal Surgical History: Reports: Arthroscopic Knee Dermatological Surgical History: Reports: Other (See Below) Social & Family History - Family History Family Medical History: Noncontributory - Tobacco Use Smoking Status *Q: Never Smoker - Caffeine Use Caffeine Use: Reports: Coffee - Recreational Drug Use Recreational Drug Use: No - Living Situation & Occupation Living situation: Reports: , with Spouse Occupation: Employed ([employer]) ED ROS GENERAL - Review of Systems Review Of Systems: See Below Constitutional: Reports: No Symptoms HEENT: Reports: No Symptoms Respiratory: Reports: Shortness of Breath, Cough (slight) Cardiovascular: Reports: Edema. Denies: Chest Pain Endocrine: Reports: No Symptoms GI/Abdominal: Reports: No Symptoms : Reports: No Symptoms Musculoskeletal: Reports: No Symptoms Skin: Reports: No Symptoms Neurological: Reports: No Symptoms ED EXAM, GENERAL - Physical Exam Exam: See Below Exam Limited By: No Limitations General Appearance: Alert, No Apparent Distress Ears: Normal External Exam Nose: Normal Inspection Head: Atraumatic, Normocephalic Neck: Normal Inspection Respiratory/Chest: No Respiratory Distress, Decreased Breath Sounds Cardiovascular: Regular Rate, Rhythm, No Edema, No Murmur GI/Abdominal: Soft, Non-Tender, No Organomegaly, No Mass Back Exam: Normal Inspection Extremities: Pedal Edema Neurological: Alert, Oriented, No Motor/Sensory Deficits EKG INTERPRETATION EKG Date: 12/06/18 Time: 11:14 Rhythm: Other (Atrial-ventricular dual paced rhythm) Course - Vital Signs Last Recorded V/S: Last Vital Signs Temp 97.1 F 12/06/18 10:37 Pulse 60 12/06/18 10:37 Resp 18 12/06/18 10:37 BP 109/65 12/06/18 10:37 Pulse Ox 99 12/06/18 10:37 - Orders/Labs/Meds Orders: Active Orders 24 hr Category Date Time Status Cardiac Monitoring [RC] . DIRECTED Care 12/06/18 10:58 Active EKG Documentation Completion [RC] STAT Care 12/06/18 10:59 Active Peripheral IV Care [RC] . DIRECTED Care 12/06/18 10:59 Active Chest 2V [CR] Stat Exams 12/06/18 10:59 Taken Sodium Chloride 0.9% [Saline Flush] Med 12/06/18 10:58 Active 10 ml FLUSH ASDIRECTED PRN Peripheral IV Insertion Adult [OM.PC] Stat Oth 12/06/18 10:58 Ordered Medication Orders Sodium Chloride (Saline Flush) 10 ml FLUSH ASDIRECTED PRN PRN Reason: Keep Vein Open Labs: Laboratory Tests 12/06/18 12/06/18 12/06/18 Range/Units 11:25 11:25 11:25 WBC 4.96 (4.23-9.07) K/mm3 RBC 3.38 L (4.63-6.08) M/mm3 Hgb 11.1 L (13.7-17.5) gm/L Hct 33.2 L (40.1-51.0) % MCV 98.2 H (79.0-92.2) fl MCH 32.8 H (25.7-32.2) pg MCHC 33.4 (32.2-35.5) g/dl RDW Std Deviation 48.4 H (35.1-43.9) fL Plt Count 137 L (163-337) K/mm3 MPV 10.1 (9.4-12.3) fl Neut % (Auto) 58.1 (34.0-67.9) % Lymph % (Auto) 25.8 (21.8-53.1) % [place] % (Auto) 12.7 H (5.3-12.2) % Eos % (Auto) 2.2 (0.8-7.0) Baso % (Auto) 0.8 (0.1-1.2) % Neut # (Auto) 2.88 (1.78-5.38) K/mm3 Lymph # (Auto) 1.28 L (1.32-3.57) K/mm3 [place] # (Auto) 0.63 (0.30-0.82) K/mm3 Eos # (Auto) 0.11 (0.04-0.54) K/mm3 Baso # (Auto) 0.04 (0.01-0.08) K/mm3 D-Dimer, Quantitative 0.60 H (0.19-0.50) mg/L Sodium 136 (136-145) mEq/L Potassium 4.0 (3.5-5.1) mEq/L Chloride 103 (98-107) mEq/L Carbon Dioxide 22 (21-32) mEq/L Anion Gap 15.0 (5-15) BUN 35 H (7-18) mg/dL Creatinine 2.0 H (0.7-1.3) mg/dL Est Cr Clr Drug Dosing 30.75 mL/min Estimated GFR (MDRD) 33 (>60) mL/min BUN/Creatinine Ratio 17.5 (14-18) Glucose 162 H (80-115) mg/dL Calcium 9.3 (8.5-10.1) mg/dL Total Bilirubin 0.4 (0.2-1.0) mg/dL AST 31 (15-37) U/L ALT 27 (16-63) U/L Alkaline Phosphatase 62 (46-116) U/L Troponin I < 0.017 (0.00-0.056) ng/mL NT-Pro-B Natriuret Pep (0-125) pg/mL Total Protein 7.0 (6.4-8.2) g/dl Albumin 3.4 (3.4-5.0) g/dl Globulin 3.6 gm/dL Albumin/Globulin Ratio 0.9 L (1-2) // Range/Units 11:25 WBC (4.23-9.07) K/mm3 RBC (4.63-6.08) M/mm3 Hgb (13.7-17.5) gm/L Hct (40.1-51.0) % MCV (79.0-92.2) fl MCH (25.7-32.2) pg MCHC (32.2-35.5) g/dl RDW Std Deviation (35.1-43.9) fL Plt Count (163-337) K/mm3 MPV (9.4-12.3) fl Neut % (Auto) (34.0-67.9) % Lymph % (Auto) (21.8-53.1) % [place] % (Auto) (5.3-12.2) % Eos % (Auto) (0.8-7.0) Baso % (Auto) (0.1-1.2) % Neut # (Auto) (1.78-5.38) K/mm3 Lymph # (Auto) (1.32-3.57) K/mm3 [place] # (Auto) (0.30-0.82) K/mm3 Eos # (Auto) (0.04-0.54) K/mm3 Baso # (Auto) (0.01-0.08) K/mm3 D-Dimer, Quantitative (0.19-0.50) mg/L Sodium (136-145) mEq/L Potassium (3.5-5.1) mEq/L Chloride (98-107) mEq/L Carbon Dioxide (21-32) mEq/L Anion Gap (5-15) BUN (7-18) mg/dL Creatinine (0.7-1.3) mg/dL Est Cr Clr Drug Dosing mL/min Estimated GFR (MDRD) (>60) mL/min BUN/Creatinine Ratio (14-18) Glucose (80-115) mg/dL Calcium (8.5-10.1) mg/dL Total Bilirubin (0.2-1.0) mg/dL AST (15-37) U/L ALT (16-63) U/L Alkaline Phosphatase (46-116) U/L Troponin I (0.00-0.056) ng/mL NT-Pro-B Natriuret Pep 1535 H (0-125) pg/mL Total Protein (6.4-8.2) g/dl Albumin (3.4-5.0) g/dl Globulin gm/dL Albumin/Globulin Ratio (1-2) Meds: Medications Generic Name Dose Route Start Last Admin Trade Name Freq PRN Reason Stop Dose Admin Sodium Chloride 10 ml 12/06/18 10:58 Saline Flush FLUSH ASDIRECTED PRN Keep Vein Open - Re-Assessments/Exams Free Text/Narrative Re-Assessment/Exam: 12/06/18 11:27 I ordered an IV saline lock, EKG, CXR, and labs. His EKG shows atrial- ventricular dual-paced rhythm. 12/06/18 12:34 His CXR shows some cardiomegaly but no congestive changes. His WBC was normal. His Hgb has improved to 11.1. His platelets are a little low at 137. His D- dimer was slightly elevated at 0.6 but that would be considered normal for his age, kidney function and recent surgery. I feel a PE is not likely. His creatinine is 2 improved from 2.4 yesterday. His GFR has improved to 33 from 27. His troponin is normal. His BNP has improved to 1535. I looked through the operative note from [facility] and they did not give any contrast but he was under general anaesthesia. He was also on bactrim. This could be contributing to his poor kidney function. I will increase his lasix to 60mg BID for 3 days. He was on 60mg in the morning and 40mg at night. Rianna Conway will see him on Monday after a Monday draw. Departure - Departure Time of Disposition: 12:40 Disposition: Home, Self-Care 01 Condition: Good Clinical Impression: Renal insufficiency syndrome CHF (congestive heart failure) Qualifiers: Heart failure type: other Qualified Code(s): I50.9 - Heart failure, unspecified Anemia Qualifiers: Anemia type: due to chronic kidney disease Chronic kidney disease stage: unspecified stage Qualified Code(s): N18.9 - Chronic kidney disease, unspecified ; D63.1 - Anemia in chronic kidney disease Chronic kidney disease Qualifiers: Chronic kidney disease stage: stage 3 (moderate) Qualified Code(s): N18.3 - Chronic kidney disease, stage 3 (moderate) - Discharge Information *PRESCRIPTION DRUG MONITORING PROGRAM REVIEWED*: Not Applicable *COPY OF PRESCRIPTION DRUG MONITORING REPORT IN PATIENT LOI: Not Applicable Referrals: Chapo Clancy Jr, MD [Primary Care Provider] - Vera Conway PA-C [Physician Banquet Captain] - 1 Week Forms: ED Department Discharge Additional Instructions: Take lasix 60mg 2 times per day. That is 1 1/2 pills of lasix 2 times per day. Keep taking your other meds as prescribed. Get labs drawn on Monday at [facility] and then see Rianna Conway on Monday. Please return to the ER if you are worse such as more shortness of breath, chest pain, more swelling, abdominal pain or if you cannot urinate. - My Orders Last 24 Hours: My Active Orders 12/06/18 10:58 Cardiac Monitoring [RC] . DIRECTED Sodium Chloride 0.9% [Saline Flush] 10 ml FLUSH ASDIRECTED PRN Peripheral IV Insertion Adult [OM.PC] Stat 12/06/18 10:59 EKG Documentation Completion [RC] STAT Peripheral IV Care [RC] . DIRECTED Chest 2V [CR] Stat - Assessment/Plan Last 24 Hours: My Active Orders 12/06/18 10:58 Cardiac Monitoring [RC] . DIRECTED Sodium Chloride 0.9% [Saline Flush] 10 ml FLUSH ASDIRECTED PRN Peripheral IV Insertion Adult [OM.PC] Stat 12/06/18 10:59 EKG Documentation Completion [RC] STAT Peripheral IV Care [RC] . DIRECTED Chest 2V [CR] Stat
--- NOTE | 2018-12-07 10:55 | CR ---
Chest: Two views of the chest are obtained. Comparison: Prior chest x-ray of 12/05/18. Heart size is slightly prominent. Pacemaker is noted. Pulmonary vessels are felt to be within normal limits. No acute parenchymal changes seen. Degenerative endplate spurring is noted within the spine. Impression: 1. Heart is mildly prominent in size. No acute intrathoracic process is otherwise seen. Diagnostic code #2
== END 2018-12-06 13:00 | disposition home or self-care (01) ==
LOC: JD.ED 10:23
DX: I13.0 Hypertensive heart and chronic kidney disease with heart failure and stage 1 through stage 4 chronic kidney disease, or unspecified chronic kidney disease (principal); I50.9 Heart failure, unspecified; N18.3 Chronic kidney disease, stage 3 (moderate); R05 Cough; I48.91 Unspecified atrial fibrillation; K21.9 Gastro-esophageal reflux disease without esophagitis; E03.9 Hypothyroidism, unspecified; Z88.5 Allergy status to narcotic agent; Z79.899 Other long term (current) drug therapy
CPT/HCPCS: 36415; 71046; 71046-26; 80053; 83880; 84484; 85025; 85379; 93005; 93010; 99284; 99285-25

== ENCOUNTER 2018-12-11 15:59 | Emergency (ER) | payer MEDICARE, OTHER ==
[2018-12-11 16:20] VITALS: BP 119/84
--- NOTE | 2018-12-11 17:25 | EDM.PDOC ---
ED HPI GENERAL MEDICAL PROBLEM - General Chief Complaint: Genitourinary Problem Stated Complaint: BLOOD IN URINE Time Seen by Provider: 12/11/18 16:19 Source of Information: Reports: Patient History Limitations: Reports: No Limitations - History of Present Illness INITIAL COMMENTS - FREE TEXT/NARRATIVE: The patient presents with hematuria. He had a rerouting of his urethra done at [facility] 11/29/18. It was an outpatient procedure and everything went okay. He had this done because he had many strictures of his urethra and he had them dilated multiple times so he opted to have this done. The hole to his urethra is routed to the base of the scrotum near his anus. He started having some hematuria today. He has no pain anywhere. He has been urinating today. He was seen by his doctor and here in the ER for shortness of breath and renal insufficiency. His creatinine has improved. He is breathing better after his lasix was increased. Onset: Gradual Duration: Hour(s): Severity: Moderate Improves with: Reports: None Worsens with: Reports: None Associated Symptoms: Reports: No Other Symptoms - Related Data Allergies Allergy/AdvReac Type Severity Reaction Status Date / Time codeine AdvReac Agitation Verified 12/11/18 16:20 Home Meds: Home Meds Allopurinol [Zyloprim] 100 mg PO DAILY 12/06/18 [History] Antiox#10/Om3/DHA/EPA/Lut/Zeax [I-Caps with Lutein-[place] 3 SFG] 1 tab PO DAILY 12/06/18 [History] Calcium Carb & Citrate/Vit D3 [Calcium + D3 ER Tablet] 1 tab PO DAILY 12/06/18 [ History] Cholecalciferol (Vitamin D3) [Vitamin D3] 3,000 units PO DAILY 12/06/18 [History ] Cyanocobalamin (Vitamin B-12) [Vitamin B-12] 100 mcg PO DAILY 12/06/18 [History] Famotidine [Pepcid] 20 mg PO BEDTIME 12/06/18 [History] Ferrous Sulfate 325 mg PO DAILY 12/06/18 [History] Flecainide [Tambocor] 100 mg PO BID 12/06/18 [History] Furosemide [Lasix] 40 mg PO DAILY 12/06/18 [History] Furosemide [Lasix] 60 mg PO DAILY 12/06/18 [History] Garlic 1 tab PO DAILY 12/06/18 [History] L Acidophil/B Lactis/B Longum [Florajen3] 1 tab PO DAILY 12/06/18 [History] Levothyroxine [Synthroid] 100 mcg PO DAILY 12/06/18 [History] Methylcellulose [Citrucel] 500 mg PO DAILY 12/06/18 [History] Methylsulfonylmethane [MSM] 1,000 mg PO DAILY 12/06/18 [History] Metoprolol Tartrate [Lopressor] 25 mg PO BID 12/06/18 [History] [place] 3/DHA/Epa/Other Om3/D3 [[place]-3 + Vitamin D3] 1 cap PO DAILY 12/06/18 [ History] Pantoprazole Sodium [Protonix] 40 mg PO DAILY 12/06/18 [History] Potassium 99 mg PO DAILY 12/06/18 [History] Rivaroxaban [Xarelto] 20 mg PO DAILY 12/06/18 [History] Simethicone 80 mg PO DAILY 12/06/18 [History] Spironolactone [Aldactone] 25 mg PO DAILY 12/06/18 [History] Tamsulosin [Flomax] 0.4 mg PO BEDTIME 12/06/18 [History] Ubidecarenone [Coenzyme Q-10] 100 mg PO DAILY 12/06/18 [History] Vitamin B Complex 1 tab PO DAILY 12/06/18 [History] Zinc Sulfate 220 mg PO DAILY 12/06/18 [History] Past Medical History HEENT History: Reports: Cataract, Epistaxis, Impaired Vision Other HEENT History: Macular tear, tinnitus Cardiovascular History: Reports: Afib, Heart Failure, Hypertension, Other (See Below) Other Cardiovascular History: Left carotid bruit, aortic stenosis, symptomatic bradycardia Respiratory History: Reports: Sleep Apnea Other Respiratory History: Uses CPAP Gastrointestinal History: Reports: GERD Other Gastrointestinal History: Tenesmus, hematochezia Genitourinary History: Reports: BPH, Chronic Renal Insuffiency, Retention, Urinary Other Genitourinary History: Urinary frequency, urgency Musculoskeletal History: Reports: Other (See Below) Other Musculoskeletal History: Knee pain Neurological History: Reports: Other (See Below) Other Neuro History: Syncopal episode Endocrine/Metabolic History: Reports: Hypothyroidism, Obesity/BMI 30+ Hematologic History: Reports: Other (See Below) Other Hematologic History: Thrombocytopenia Immunologic History: Reports: None Oncologic (Cancer) History: Reports: None - Infectious Disease History Infectious Disease History: Reports: Chicken Pox, Measles - Past Surgical History HEENT Surgical History: Reports: Tonsillectomy Cardiovascular Surgical History: Reports: Pacer GI Surgical History: Reports: Colonoscopy, EGD Male Surgical History: Reports: Other (See Below) Other Male Surgeries/Procedures: urethra rerouted, procedure performed at [place] Musculoskeletal Surgical History: Reports: Arthroscopic Knee Social & Family History - Family History Family Medical History: Noncontributory - Tobacco Use Smoking Status *Q: Never Smoker - Caffeine Use Caffeine Use: Reports: None - Recreational Drug Use Recreational Drug Use: No - Living Situation & Occupation Living situation: Reports: , with Spouse Occupation: Employed ([employer]) ED ROS GENERAL - Review of Systems Review Of Systems: See Below Constitutional: Reports: No Symptoms HEENT: Reports: No Symptoms Respiratory: Reports: No Symptoms Cardiovascular: Reports: No Symptoms Endocrine: Reports: No Symptoms GI/Abdominal: Reports: No Symptoms : Reports: Hematuria. Denies: Dysuria, Flank Pain, Frequency ED EXAM, RENAL/ - Physical Exam Exam: See Below Exam Limited By: No Limitations General Appearance: Alert, No Apparent Distress Ears: Normal External Exam Nose: Normal Inspection Head: Atraumatic, Normocephalic Neck: Normal Inspection Respiratory/Chest: No Respiratory Distress, Lungs Clear, Normal Breath Sounds Cardiovascular: Regular Rate, Rhythm, No Edema, No Murmur GI/Abdominal: Soft, Non-Tender, No Organomegaly, No Mass (Male) Exam: Other (Urethral hole at the base of the scrotum with gross blood coming from the urethra) Course - Vital Signs Last Recorded V/S: Last Vital Signs Temp 97.8 F 12/11/18 16:18 Pulse 60 12/11/18 16:18 Resp 16 12/11/18 16:18 BP 119/84 12/11/18 16:18 Pulse Ox 100 12/11/18 16:18 - Orders/Labs/Meds Orders: Active Orders 24 hr Category Date Time Status Cardiac Monitoring [RC] . DIRECTED Care 12/11/18 17:00 Active Labs: Laboratory Tests 12/11/18 12/11/18 12/11/18 Range/Units 17:30 17:30 17:30 WBC 6.09 (4.23-9.07) K/mm3 RBC 3.85 L (4.63-6.08) M/mm3 Hgb 12.5 L (13.7-17.5) gm/L Hct 37.5 L (40.1-51.0) % MCV 97.4 H (79.0-92.2) fl MCH 32.5 H (25.7-32.2) pg MCHC 33.3 (32.2-35.5) g/dl RDW Std Deviation 47.9 H (35.1-43.9) fL Plt Count 153 L (163-337) K/mm3 MPV 9.1 L (9.4-12.3) fl Neut % (Auto) 69.6 H (34.0-67.9) % Lymph % (Auto) 19.5 L (21.8-53.1) % [place] % (Auto) 9.0 (5.3-12.2) % Eos % (Auto) 1.1 (0.8-7.0) Baso % (Auto) 0.5 (0.1-1.2) % Neut # (Auto) 4.23 (1.78-5.38) K/mm3 Lymph # (Auto) 1.19 L (1.32-3.57) K/mm3 [place] # (Auto) 0.55 (0.30-0.82) K/mm3 Eos # (Auto) 0.07 (0.04-0.54) K/mm3 Baso # (Auto) 0.03 (0.01-0.08) K/mm3 PT 14.9 H (9.5-12.1) SECONDS INR 1.38 APTT 45 H (24-31) SECONDS Sodium 140 (136-145) mEq/L Potassium 4.3 (3.5-5.1) mEq/L Chloride 103 (98-107) mEq/L Carbon Dioxide 25 (21-32) mEq/L Anion Gap 16.3 H (5-15) BUN 30 H (7-18) mg/dL Creatinine 1.6 H (0.7-1.3) mg/dL Est Cr Clr Drug Dosing TNP Estimated GFR (MDRD) 43 (>60) mL/min BUN/Creatinine Ratio 18.8 H (14-18) Glucose 151 H (80-115) mg/dL Calcium 9.1 (8.5-10.1) mg/dL Total Bilirubin 0.6 (0.2-1.0) mg/dL AST 32 (15-37) U/L ALT 34 (16-63) U/L Alkaline Phosphatase 66 (46-116) U/L Total Protein 7.3 (6.4-8.2) g/dl Albumin 3.6 (3.4-5.0) g/dl Globulin 3.7 gm/dL Albumin/Globulin Ratio 1.0 (1-2) Urine Color (Yellow) Urine Appearance (Clear) Urine pH (5.0-8.0) Ur Specific [place] (1.005-1.030) Urine Protein (Negative) Urine Glucose (UA) (Negative) Urine Ketones (Negative) Urine Occult Blood (Negative) Urine Nitrite (Negative) Urine Bilirubin (Negative) Urine Urobilinogen (0.2-1.0) Ur Leukocyte Esterase (Negative) Urine RBC (0-5) /hpf Urine WBC (0-5) /hpf Ur Squamous Epith Cells (0-5) /hpf Urine Bacteria (FEW) /hpf Urine Mucus (FEW) /hpf 12/11/18 Range/Units 17:50 WBC (4.23-9.07) K/mm3 RBC (4.63-6.08) M/mm3 Hgb (13.7-17.5) gm/L Hct (40.1-51.0) % MCV (79.0-92.2) fl MCH (25.7-32.2) pg MCHC (32.2-35.5) g/dl RDW Std Deviation (35.1-43.9) fL Plt Count (163-337) K/mm3 MPV (9.4-12.3) fl Neut % (Auto) (34.0-67.9) % Lymph % (Auto) (21.8-53.1) % [place] % (Auto) (5.3-12.2) % Eos % (Auto) (0.8-7.0) Baso % (Auto) (0.1-1.2) % Neut # (Auto) (1.78-5.38) K/mm3 Lymph # (Auto) (1.32-3.57) K/mm3 [place] # (Auto) (0.30-0.82) K/mm3 Eos # (Auto) (0.04-0.54) K/mm3 Baso # (Auto) (0.01-0.08) K/mm3 PT (9.5-12.1) SECONDS INR APTT (24-31) SECONDS Sodium (136-145) mEq/L Potassium (3.5-5.1) mEq/L Chloride (98-107) mEq/L Carbon Dioxide (21-32) mEq/L Anion Gap (5-15) BUN (7-18) mg/dL Creatinine (0.7-1.3) mg/dL Est Cr Clr Drug Dosing Estimated GFR (MDRD) (>60) mL/min BUN/Creatinine Ratio (14-18) Glucose (80-115) mg/dL Calcium (8.5-10.1) mg/dL Total Bilirubin (0.2-1.0) mg/dL AST (15-37) U/L ALT (16-63) U/L Alkaline Phosphatase (46-116) U/L Total Protein (6.4-8.2) g/dl Albumin (3.4-5.0) g/dl Globulin gm/dL Albumin/Globulin Ratio (1-2) Urine Color Yellow (Yellow) Urine Appearance Clear (Clear) Urine pH 6.5 (5.0-8.0) Ur Specific [place] 1.015 (1.005-1.030) Urine Protein Negative (Negative) Urine Glucose (UA) Negative (Negative) Urine Ketones Negative (Negative) Urine Occult Blood 3+ H (Negative) Urine Nitrite Negative (Negative) Urine Bilirubin Negative (Negative) Urine Urobilinogen 0.2 (0.2-1.0) Ur Leukocyte Esterase 1+ H (Negative) Urine RBC 10-20 H (0-5) /hpf Urine WBC 0-5 (0-5) /hpf Ur Squamous Epith Cells 0-5 (0-5) /hpf Urine Bacteria Occasional (FEW) /hpf Urine Mucus Not seen (FEW) /hpf - Re-Assessments/Exams Free Text/Narrative Re-Assessment/Exam: 12/11/18 17:26 I ordered labs and a UA. 12/11/18 18:55 His WBC is normal. His Hgb is a little low at 12.5. His platelets are low at 153. His PT is elevated at 14.9. His INR is 1.38. His PTT is elevated at 45. His creatinine was elevated at 1.6. His glucose is elevated at 151. His UA shows 3+ blood, 1+ leukocyte esterase and his RBCs are 10-20. I called [facility] and I was able to get in contact with the urology service and he said this is to be expected in the healing phase after the surgery. Departure - Departure Time of Disposition: 19:00 Disposition: Home, Self-Care 01 Condition: Good Clinical Impression: Urethral bleeding - Discharge Information *PRESCRIPTION DRUG MONITORING PROGRAM REVIEWED*: Not Applicable *COPY OF PRESCRIPTION DRUG MONITORING REPORT IN PATIENT LOI: Not Applicable Referrals: Chapo Clancy Jr, MD [Primary Care Provider] - Forms: ED Department Discharge Additional Instructions: Take your medication as prescribed. Follow up with your urologist. Please return if you are worse. - My Orders Last 24 Hours: My Active Orders 12/11/18 17:00 Cardiac Monitoring [RC] . DIRECTED - Assessment/Plan Last 24 Hours: My Active Orders 12/11/18 17:00 Cardiac Monitoring [RC] . DIRECTED
== END 2018-12-11 19:09 | disposition home or self-care (01) ==
LOC: JD.ED 15:59
DX: N36.8 Other specified disorders of urethra (principal); I13.0 Hypertensive heart and chronic kidney disease with heart failure and stage 1 through stage 4 chronic kidney disease, or unspecified chronic kidney disease; I50.9 Heart failure, unspecified; I48.91 Unspecified atrial fibrillation; K21.9 Gastro-esophageal reflux disease without esophagitis; N18.9 Chronic kidney disease, unspecified; E03.9 Hypothyroidism, unspecified; Z88.5 Allergy status to narcotic agent; Z79.899 Other long term (current) drug therapy
CPT/HCPCS: 36415; 80053; 81001; 85025; 85610; 85730; 99282; 99283

== ENCOUNTER 2019-02-18 13:20 | Emergency (ER) | payer MEDICARE, OTHER ==
[2019-02-18 13:45] VITALS: BP 118/84
--- NOTE | 2019-02-18 14:51 | EDM.PDOC ---
ED HPI GENERAL MEDICAL PROBLEM - General Chief Complaint: ENT Problem Stated Complaint: NOSE BLEED Time Seen by Provider: 02/18/19 14:35 Source of Information: Reports: Patient History Limitations: Reports: No Limitations - History of Present Illness INITIAL COMMENTS - FREE TEXT/NARRATIVE: Patient is a 68-year-old male with a history of epistaxis secondary to being on Xarelto. Patient states this morning awoke with a bloody nose. The bloody nose has subsided with direct pressure. In the past he's had to have a Rhino Rocket placed. He uses aire ointment to the nares every evening. States last night he forgot to do so. He denies any recent trauma, nausea or vomiting, or excessive blowing/picking of the nose. He's had no cold-like symptoms. He denies any additional complaints at this time. - Related Data Allergies Allergy/AdvReac Type Severity Reaction Status Date / Time codeine AdvReac Agitation Verified 02/18/19 13:39 Home Meds: Home Meds Allopurinol [Zyloprim] 100 mg PO DAILY 12/06/18 [History] Antiox#10/Om3/DHA/EPA/Lut/Zeax [I-Caps with Lutein-[place] 3 SFG] 1 tab PO DAILY 12/06/18 [History] Calcium Carb & Citrate/Vit D3 [Calcium + D3 ER Tablet] 1 tab PO DAILY 12/06/18 [ History] Cholecalciferol (Vitamin D3) [Vitamin D3] 3,000 units PO DAILY 12/06/18 [History ] Cyanocobalamin (Vitamin B-12) [Vitamin B-12] 100 mcg PO DAILY 12/06/18 [History] Famotidine [Pepcid] 20 mg PO BEDTIME 12/06/18 [History] Ferrous Sulfate 325 mg PO DAILY 12/06/18 [History] Flecainide [Tambocor] 100 mg PO BID 12/06/18 [History] Furosemide [Lasix] 40 mg PO DAILY 12/06/18 [History] Furosemide [Lasix] 60 mg PO DAILY 12/06/18 [History] Garlic 1 tab PO DAILY 12/06/18 [History] L Acidophil/B Lactis/B Longum [Florajen3] 1 tab PO DAILY 12/06/18 [History] Levothyroxine [Synthroid] 100 mcg PO DAILY 12/06/18 [History] Methylcellulose [Citrucel] 500 mg PO DAILY 12/06/18 [History] Methylsulfonylmethane [MSM] 1,000 mg PO DAILY 12/06/18 [History] Metoprolol Tartrate [Lopressor] 25 mg PO BID 12/06/18 [History] [place] 3/DHA/Epa/Other Om3/D3 [[place]-3 + Vitamin D3] 1 cap PO DAILY 12/06/18 [ History] Pantoprazole Sodium [Protonix] 40 mg PO DAILY 12/06/18 [History] Potassium 99 mg PO DAILY 12/06/18 [History] Rivaroxaban [Xarelto] 20 mg PO DAILY 12/06/18 [History] Simethicone 80 mg PO DAILY 12/06/18 [History] Spironolactone [Aldactone] 25 mg PO DAILY 12/06/18 [History] Tamsulosin [Flomax] 0.4 mg PO BEDTIME 12/06/18 [History] Ubidecarenone [Coenzyme Q-10] 100 mg PO DAILY 12/06/18 [History] Vitamin B Complex 1 tab PO DAILY 12/06/18 [History] Zinc Sulfate 220 mg PO DAILY 12/06/18 [History] Past Medical History HEENT History: Reports: Cataract, Epistaxis, Impaired Vision Other HEENT History: Macular tear, tinnitus Cardiovascular History: Reports: Afib, Heart Failure, Hypertension, Other (See Below) Other Cardiovascular History: Left carotid bruit, aortic stenosis, symptomatic bradycardia Respiratory History: Reports: Sleep Apnea Other Respiratory History: Uses CPAP Gastrointestinal History: Reports: GERD Other Gastrointestinal History: Tenesmus, hematochezia Genitourinary History: Reports: BPH, Chronic Renal Insuffiency, Retention, Urinary Other Genitourinary History: Urinary frequency, urgency Musculoskeletal History: Reports: Other (See Below) Other Musculoskeletal History: Knee pain Neurological History: Reports: Other (See Below) Other Neuro History: Syncopal episode Endocrine/Metabolic History: Reports: Hypothyroidism, Obesity/BMI 30+ Hematologic History: Reports: Other (See Below) Other Hematologic History: Thrombocytopenia Immunologic History: Reports: None Oncologic (Cancer) History: Reports: None - Infectious Disease History Infectious Disease History: Reports: Chicken Pox, Measles - Past Surgical History HEENT Surgical History: Reports: Tonsillectomy Cardiovascular Surgical History: Reports: [facility] Surgical History: Reports: Colonoscopy, EGD Male Surgical History: Reports: Other (See Below) Other Male Surgeries/Procedures: urethra rerouted, procedure performed at [facility] Surgical History: Reports: Arthroscopic Knee Social & Family History - Family History Family Medical History: Noncontributory - Caffeine Use Caffeine Use: Reports: None - Living Situation & Occupation Living situation: Reports: , with Spouse Occupation: Employed ([employer]) ED ROS ENT - Review of Systems Review Of Systems: ROS reveals no pertinent complaints other than HPI. ED EXAM, ENT - Physical Exam Exam: See Below Exam Limited By: No Limitations General Appearance: Alert, WD/WN, No Apparent Distress Ears: Hearing Grossly Normal Nose: Normal Inspection, Normal Mucousa, Dried Blood (left nare with no active bleeding. ) Mouth/Throat: Normal Inspection, Normal Oropharynx Head: Atraumatic, Normocephalic Neck: Normal Inspection, Supple, Non-Tender, Full Range of Motion Respiratory/Chest: No Respiratory Distress, Lungs Clear, Normal Breath Sounds, No Accessory Muscle Use Cardiovascular: Normal Peripheral Pulses, Regular Rate, Rhythm, No JVD, No Murmur Extremities: Normal Inspection Neurological: Alert, Oriented, CN II-XII Intact, Normal Cognition, No Motor/ Sensory Deficits Psychiatric: Normal Affect, Normal Mood Skin: Warm, Dry, Intact, Normal Color, No Rash Course - Vital Signs Last Recorded V/S: Last Vital Signs Temp 98.4 F 02/18/19 13:39 Pulse 71 02/18/19 13:39 Resp 16 02/18/19 13:39 BP 118/84 02/18/19 13:39 Pulse Ox 100 02/18/19 13:39 - Re-Assessments/Exams Free Text/Narrative Re-Assessment/Exam: On exam there is no active bleeding. No area to cauterize. I applied triple antibiotic ointment to each nare. Return precautions were discussed with the patient. He had no further questions or concerns. Discharge instructions as documented. Departure - Departure Time of Disposition: 14:49 Disposition: Home, Self-Care 01 Condition: Good Clinical Impression: Epistaxis - Discharge Information Instructions: Nosebleed, [id number] Referrals: Chapo Clancy Jr, MD [Primary Care Provider] - Forms: ED Department Discharge Additional Instructions: Please return to the ED if you develop new onset of epistaxis not controlled with direct pressure and Afrin. Utilize the nose clip and Afrin as instructed. Please see a ENT specialist for further evaluation. May apply triple antibiotic ointment to both nares at night.
== END 2019-02-18 14:56 | disposition home or self-care (01) ==
LOC: JD.ED 13:20
DX: R04.0 Epistaxis (principal); I11.0 Hypertensive heart disease with heart failure; I50.9 Heart failure, unspecified; I48.91 Unspecified atrial fibrillation; K21.9 Gastro-esophageal reflux disease without esophagitis; E03.9 Hypothyroidism, unspecified; Z79.899 Other long term (current) drug therapy; Z88.5 Allergy status to narcotic agent
CPT/HCPCS: 99282; 99283

== ENCOUNTER 2020-09-25 14:37 | Emergency (ER) | payer MEDICARE, OTHER ==
--- NOTE | 2020-09-25 14:59 | EDM.PDOC ---
ED HPI GENERAL MEDICAL PROBLEM - General Chief Complaint: Cardiovascular Problem Stated Complaint: IRREGULAR HEART RATE, HIGH BLOOD PRESSURE Time Seen by Provider: 09/25/20 14:46 Source of Information: Reports: Patient History Limitations: Reports: No Limitations - History of Present Illness INITIAL COMMENTS - FREE TEXT/NARRATIVE: 70-year-old male presents to the ED for evaluation of rapid irregular heartbeat with mild central chest pressure discomfort. Patient reports symptoms started about 1115 hrs. this morning. He can feel his heart beating fast in his chest. Very minimal associated dizziness or lightheadedness or weakness in his legs. No worsening of his normal dyspnea. Patient does have some mild central chest discomfort that radiates up along the lateral aspect of both sides of his neck. He does not think that he is ever had this problem in the past. He has a pacemaker left upper anterior chest which reports battery life is 1 to 5 months estimated life span at this time. Patient Service Technician Pst is Dr. Reno at [facility] in [place]. Patient has a history of renal insufficiency congestive heart failure and chronic dependent edema. Onset: Today, Sudden Onset Date: 09/25/20 Onset Time: 11:15 Duration: Hour(s):, Constant Location: Reports: Chest (Awareness of heart beating fast in his chest with mild associated central chest pressure discomfort rating up into his lateral aspect of both sides of his neck. No radiation of discomfort in between the shoulder blades or into his upper extremities.) Quality: Reports: Pressure (Mild central pressure discomfort.) Severity: Mild Improves with: Reports: None Worsens with: Reports: None Context: Denies: Activity, Exercise, Lifting, Sick Contact, Trauma, Other Associated Symptoms: Reports: Chest Pain, Shortness of Breath (Worse than normal.). Denies: No Other Symptoms, Confusion, Cough (Mild central chest discomfort associated with tachyarrhythmia), cough w sputum, Diaphoresis, Fever/Chills, Headaches, Loss of Appetite, Malaise, Nausea/Vomiting, Seizure, Syncope Treatments REEL WORKER: Reports: Other (see below) (None.) - Related Data Allergies Allergy/AdvReac Type Severity Reaction Status Date / Time codeine AdvReac Agitation Verified 09/25/20 15:06 Home Meds: Home Meds Antiox.mv No.10/Omeg3s/Lut/Karl [I-Caps with Lutein-Ponce 3 SFG] 1 tab PO DAILY 12/06/18 [History] Cyanocobalamin (Vitamin B-12) [Vitamin B-12] 0 mg PO DAILY 12/06/18 [History] Ferrous Sulfate 325 mg PO DAILY 12/06/18 [History] Flecainide [Tambocor] 100 mg PO BID 12/06/18 [History] L Acidophil/B Lactis/B Longum [Florajen3] 1 tab PO DAILY 12/06/18 [History] Levothyroxine [Synthroid] 100 mcg PO DAILY 12/06/18 [History] Methylsulfonylmethane [MSM] 1,000 mg PO DAILY 12/06/18 [History] Metoprolol Tartrate [Lopressor] 12.5 mg PO BID 12/06/18 [History] Ponce 3/DHA/Epa/Other Om3/D3 [Ponce-3 + Vitamin D3] 1,000 mg PO DAILY 12/06/18 [History] Pantoprazole Sodium [Protonix] 40 mg PO DAILY 12/06/18 [History] Rivaroxaban [Xarelto] 20 mg PO DAILY 12/06/18 [History] Simethicone 180 mg PO DAILY PRN 12/06/18 [History] Tamsulosin [Flomax] 0.4 mg PO DAILY 12/06/18 [History] allopurinoL [Zyloprim] 100 mg PO BID 12/06/18 [History] Potassium 550 mg PO DAILY 03/05/19 [History] Zinc Gluconate [Zinc] 0 mg PO DAILY 03/05/19 [History] Calcium Carbonate 600 mg PO DAILY 09/25/20 [History] Furosemide 40 mg PO BEDTIME 09/25/20 [History] Furosemide [Lasix] 80 mg PO BID 09/25/20 [History] Levothyroxine 112 mcg PO ACBREAKFAST 09/25/20 [History] Methylcellulose [Fiber Therapy] 0 mg PO DAILY 09/25/20 [History] Sodium Bicarbonate 650 mg PO BID 09/25/20 [History] Vitamin B Complex 1 each PO DAILY 09/25/20 [History] metFORMIN [Glucophage XR] 500 mg PO DAILY 09/25/20 [History] Past Medical History HEENT History: Reports: Cataract, Epistaxis, Hard of Hearing, Impaired Vision Other HEENT History: Macular tear, tinnitus, hearing aid, glasses Cardiovascular History: Reports: Afib, Heart Failure, Hypertension, Pacemaker, Other (See Below) Other Cardiovascular History: Left carotid bruit, aortic stenosis, symptomatic bradycardia Respiratory History: Reports: Sleep Apnea Other Respiratory History: Uses CPAP Gastrointestinal History: Reports: Gastritis, GERD, Hiatal Hernia, Other (See Below) Other Gastrointestinal History: Tenesmus, hematochezia, duodenitis, ulcers, esophagitis Genitourinary History: Reports: BPH, Chronic Renal Insuffiency, Retention, Urinary Other Genitourinary History: Urinary frequency, urgency, CKD III, proteinuria, uretherorrhagia 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 Musculoskeletal History: Reports: Other (See Below) Other Musculoskeletal History: Knee pain Neurological History: Reports: Other (See Below) Other Neuro History: Syncopal episode Psychiatric History: Reports: None Endocrine/Metabolic History: Reports: Hypothyroidism, Obesity/BMI 30+ Hematologic History: Reports: Idiopathic Thrombocytopenia, Other (See Below) Other Hematologic History: Thrombocytopenia Immunologic History: Reports: None Oncologic (Cancer) History: Reports: None - Infectious Disease History Infectious Disease History: Reports: Chicken Pox, Measles - Past Surgical History HEENT Surgical History: Reports: Cataract Surgery, Eye Surgery, Tonsillectomy Cardiovascular Surgical History: Reports: Pacer Respiratory Surgical History: Reports: None GI Surgical History: Reports: Colonoscopy, EGD Male Surgical History: Reports: Other (See Below) Other Male Surgeries/Procedures: urethra rerouted, procedure performed at [facility] History: Reports: None Neurological Surgical History: Reports: None Musculoskeletal Surgical History: Reports: Arthroscopic Knee Other Musculoskeletal Surgeries/Procedures:: Arthroscopic knee surgery x3 Oncologic Surgical History: Reports: None Dermatological Surgical History: Reports: Other (See Below) Social & Family History - Family History Family Medical History: No Pertinent Family History - Caffeine Use Caffeine Use: Reports: Coffee - Living Situation & Occupation Living situation: Reports: , with Spouse Occupation: Employed ([employer]) ED ROS GENERAL - Review of Systems Review Of Systems: See Below Constitutional: Reports: Malaise, Fatigue (Neck chronic). Denies: Fever, Chills HEENT: Reports: Glasses Respiratory: Reports: Shortness of Breath, Cough (Nonproductive). Denies: Wheezing, Pleuritic Chest Pain Cardiovascular: Reports: Chest Pain (Chest pressure discomfort rated as 1-2 out of 10 at this time), Blood Pressure Problem, Dyspnea on Exertion ( in fact he states is better now than it was 3 weeks ago), Edema (Take lower extremity edema. No worse than normal), Palpitations. Denies: Claudication, Lightheadedness, Orthopnea Endocrine: Reports: Fatigue (Appreciated today.) GI/Abdominal: Reports: Constipation. Denies: Abdominal Pain, Anorexia, Black Stool, Bloody Stool, Difficulty Swallowing : Reports: Frequency (Occasional problems with constipation), Other (Nocturia x2. Known renal insufficiency and is followed by Dr. Castelan --scout leaser in [facility]. ) Musculoskeletal: Reports: Back Pain, Joint Pain (The sips) Skin: Reports: Bruising (Bruises easily as he is on Xarelto he milligrams once daily) Neurological: Reports: No Symptoms Psychiatric: Reports: No Symptoms Hematologic/Lymphatic: Reports: No Symptoms Immunologic: Reports: No Symptoms ED EXAM, GENERAL - Physical Exam Exam: See Below Exam Limited By: No Limitations General Appearance: Alert, WD/WN, No Apparent Distress. No: Anxious, Lethargic, Obtunded Eye Exam: Bilateral Eye: Normal Inspection (Mild blepharal pallor. No scleral icterus.), PERRL Throat/Mouth: Normal Inspection, Normal Lips, Normal Oropharynx Head: Atraumatic, Normocephalic Neck: Normal Inspection, Supple, Non-Tender, Full Range of Motion, Other (Mild jugular venous pulsation appreciated. 3 cm below the right angle of mandible). No: Lymphadenopathy (L), Lymphadenopathy (R) Respiratory/Chest: Lungs Clear, Normal Breath Sounds, No Accessory Muscle Use, Respiratory Distress (Mild tachypnea at rest 20/min) Cardiovascular: No Murmur, No Rub, JVD (3 cm below the right angle of mandible), Tachycardia (Wide-complex tachycardia on the monitor at 130/min.). No: Normal Peripheral Pulses, Regular Rate, Rhythm, No Edema, No Gallop Peripheral Pulses: 0: Posterior Tibial (R), 1+: Dorsalis Pedis (L), Dorsalis Pedis (R), 2+: Carotid (L), Carotid (R) GI/Abdominal: Normal Bowel Sounds, Soft, Non-Tender, No Organomegaly, No Mass, Pelvis Stable, Other (Moderately obese. No surgical scars appreciated.) (Male) Exam: No Hernia Back Exam: Normal Inspection, Full Range of Motion. No: CVA Tenderness (L), CVA Tenderness (R) Extremities: Normal Inspection, Normal Range of Motion, Non-Tender, No Pedal Edema, Pedal Edema (2+ pitting edema both lower extremities with venous stasis dermatitis in both lower extremities.) Neurological: Alert, Oriented, CN II-XII Intact, Normal Cognition Psychiatric: Normal Affect, Normal Mood Skin Exam: Warm, Dry, Intact, Normal Color, Other (In a stasis dermatitis both lower extremities) #1 Interpretation EKG Date: 09/25/20 Time: 14:47 Rhythm: Other (0 ventricular paced rhythm at 127 bpm.) Rate (Beats/Min): 127 (Wide-complex tachycardia characteristic of ventricular tachycardia) EKG Interpretation Comments: No further analysis due to paced rhythm. Course - Vital Signs Last Recorded V/S: Last Vital Signs Temp 36.2 C 09/25/20 14:45 Pulse 60 09/25/20 16:45 Resp 18 09/25/20 14:45 BP 98/70 09/25/20 16:45 Pulse Ox 93 L 09/25/20 16:45 - Orders/Labs/Meds Orders: Active Orders 24 hr Category Date Time Status Chest 1V Frontal [CR] Stat Exams 09/25/20 14:57 Taken PRO B-TYPE NATRIUR PEPT,BNPPRO [CHEM] Stat Lab 09/25/20 20:45 Ordered Labs: Laboratory Tests 09/25/20 09/25/20 09/25/20 Range/Units 14:45 14:45 14:45 WBC 4.63 (4.23-9.07) K/mm3 RBC 4.18 L (4.63-6.08) M/mm3 Hgb 13.5 L (13.7-17.5) gm/dl Hct 41.0 (40.1-51.0) % MCV 98.1 H (79.0-92.2) fl MCH 32.3 H (25.7-32.2) pg MCHC 32.9 (32.2-35.5) g/dl RDW Std Deviation 52.6 H (35.1-43.9) fL Plt Count 98 L (163-337) K/mm3 MPV 10.6 (9.4-12.3) fl Neut % (Auto) 56.8 (34.0-67.9) % Lymph % (Auto) 28.3 (21.8-53.1) % [place] % (Auto) 11.9 (5.3-12.2) % Eos % (Auto) 1.9 (0.8-7.0) Baso % (Auto) 0.9 (0.1-1.2) % Neut # (Auto) 2.63 (1.78-5.38) K/mm3 Lymph # (Auto) 1.31 L (1.32-3.57) K/mm3 [place] # (Auto) 0.55 (0.30-0.82) K/mm3 Eos # (Auto) 0.09 (0.04-0.54) K/mm3 Baso # (Auto) 0.04 (0.01-0.08) K/mm3 Manual Slide Review Abnormal smear PT 17.2 H (9.7-12.0) SECONDS INR 1.62 APTT 43.6 H (21.7-31.4) SECONDS Sodium 142 (136-145) mEq/L Potassium 3.8 (3.5-5.1) mEq/L Chloride 103 (98-107) mEq/L Carbon Dioxide 28 (21-32) mEq/L Anion Gap 14.8 (5-15) BUN 32 H (7-18) mg/dL Creatinine 1.6 H (0.7-1.3) mg/dL Est Cr Clr Drug Dosing 37.37 mL/min Estimated GFR (MDRD) 43 (>60) mL/min BUN/Creatinine Ratio 20.0 H (14-18) Glucose 143 H (80-115) mg/dL Calcium 9.2 (8.5-10.1) mg/dL Magnesium 2.4 (1.8-2.4) mg/dl Total Bilirubin 1.0 (0.2-1.0) mg/dL AST 40 H (15-37) U/L ALT 34 (16-63) U/L Alkaline Phosphatase 96 (46-116) U/L CK-MB (CK-2) 0.9 (0-3.6) ng/ml Troponin I < 0.017 (0.00-0.056) ng/mL C-Reactive Protein 0.8 (<1.0) mg/dL NT-Pro-B Natriuret Pep (0-125) pg/mL Total Protein 7.2 (6.4-8.2) g/dl Albumin 3.6 (3.4-5.0) g/dl Globulin 3.6 gm/dL Albumin/Globulin Ratio 1.0 (1-2) Urine Color (Yellow) Urine Appearance (Clear) Urine pH (5.0-8.0) Ur Specific [place] (1.005-1.030) Urine Protein (Negative) Urine Glucose (UA) (Negative) Urine Ketones (Negative) Urine Occult Blood (Negative) Urine Nitrite (Negative) Urine Bilirubin (Negative) Urine Urobilinogen (0.2-1.0) Ur Leukocyte Esterase (Negative) Urine RBC (0-5) /hpf Urine WBC (0-5) /hpf Ur Squamous Epith Cells (0-5) /hpf Urine Bacteria (FEW) /hpf Urine Mucus (FEW) /hpf SARS-CoV-2 RNA (ROLANDO) (NEGATIVE) 09/25/20 09/25/20 09/25/20 Range/Units 14:45 15:44 16:02 WBC (4.23-9.07) K/mm3 RBC (4.63-6.08) M/mm3 Hgb (13.7-17.5) gm/dl Hct (40.1-51.0) % MCV (79.0-92.2) fl MCH (25.7-32.2) pg MCHC (32.2-35.5) g/dl RDW Std Deviation (35.1-43.9) fL Plt Count (163-337) K/mm3 MPV (9.4-12.3) fl Neut % (Auto) (34.0-67.9) % Lymph % (Auto) (21.8-53.1) % [place] % (Auto) (5.3-12.2) % Eos % (Auto) (0.8-7.0) Baso % (Auto) (0.1-1.2) % Neut # (Auto) (1.78-5.38) K/mm3 Lymph # (Auto) (1.32-3.57) K/mm3 [place] # (Auto) (0.30-0.82) K/mm3 Eos # (Auto) (0.04-0.54) K/mm3 Baso # (Auto) (0.01-0.08) K/mm3 Manual Slide Review PT (9.7-12.0) SECONDS INR APTT (21.7-31.4) SECONDS Sodium (136-145) mEq/L Potassium (3.5-5.1) mEq/L Chloride (98-107) mEq/L Carbon Dioxide (21-32) mEq/L Anion Gap (5-15) BUN (7-18) mg/dL Creatinine (0.7-1.3) mg/dL Est Cr Clr Drug Dosing mL/min Estimated GFR (MDRD) (>60) mL/min BUN/Creatinine Ratio (14-18) Glucose (80-115) mg/dL Calcium (8.5-10.1) mg/dL Magnesium (1.8-2.4) mg/dl Total Bilirubin (0.2-1.0) mg/dL AST (15-37) U/L ALT (16-63) U/L Alkaline Phosphatase (46-116) U/L CK-MB (CK-2) (0-3.6) ng/ml Troponin I (0.00-0.056) ng/mL C-Reactive Protein (<1.0) mg/dL NT-Pro-B Natriuret Pep 896 H (0-125) pg/mL Total Protein (6.4-8.2) g/dl Albumin (3.4-5.0) g/dl Globulin gm/dL Albumin/Globulin Ratio (1-2) Urine Color Yellow (Yellow) Urine Appearance Clear (Clear) Urine pH 7.0 (5.0-8.0) Ur Specific [place] 1.015 (1.005-1.030) Urine Protein Negative (Negative) Urine Glucose (UA) Negative (Negative) Urine Ketones Negative (Negative) Urine Occult Blood Trace-intact H (Negative) Urine Nitrite Negative (Negative) Urine Bilirubin Negative (Negative) Urine Urobilinogen 0.2 (0.2-1.0) Ur Leukocyte Esterase Negative (Negative) Urine RBC 0-5 (0-5) /hpf Urine WBC 0-5 (0-5) /hpf Ur Squamous Epith Cells 0-5 (0-5) /hpf Urine Bacteria Few (FEW) /hpf Urine Mucus Not seen (FEW) /hpf SARS-CoV-2 RNA (ROLANDO) Negative (NEGATIVE) Meds: Medications Discontinued Medications Generic Name Dose Route Start Last Admin Trade Name Aydin PRN Reason Stop Dose Admin Amiodarone HCl/Dextrose 100 mls @ 60 mls/hr 09/25/20 14:50 09/25/20 14:52 Nexterone In Dextrose 150 Mg/100 Ml IV 09/25/20 16:29 600 mls/hr .BOLUS ONE Administration Protocol Amiodarone HCl/Dextrose Confirm 09/25/20 14:48 09/25/20 14:57 Nexterone In Dextrose 150 Mg/100 Ml Administered 09/25/20 14:49 Not Given Dose 100 mls @ as directed IV .STK-MED ONE Amiodarone HCl/Dextrose 100 mls @ 600 mls/hr 09/25/20 14:57 Nexterone In Dextrose 150 Mg/100 Ml IV 09/25/20 15:06 .BOLUS ONE Protocol Amiodarone HCl/Dextrose 360 mg in 200 mls @ 33.333 mls/hr 09/25/20 15:15 09/25/20 15:22 Nexterone In Dextrose 360 Mg/200 Ml IV 33.333 mls/hr ASDIRECTED ELLA Administration Protocol - Radiology Interpretation Free Text/Narrative:: 70-year-old male presents to the ED complaining of irregular heartbeat or heart beating fast in his chest since around 11:15 this morning. Mild associated central chest pressure discomfort rating up into the lateral aspect of both sides of his neck. No radiation of pain or pressure into his back or shoulders or arms. Of note the patient has a ventricular pacemaker left upper anterior chest and he states the battery is low with a lifespan estimated at 1 to 5 months. Patient monitor revealed a wide-complex tachycardia at 130/min suggestive of V. tach. I have no other ECGs for comparison purposes. Patient was given amiodarone 150 mg IV over 10 minutes. An ECG done during this time reveals that the rhythm is 100/% paced indicating pacemaker malfunction. I will therefore contact his bird keeper Dr. Reno at [facility] in [place]. She reports he had labs done yesterday but has not heard of the results. He will have routine cardiac labs with troponin, CK-MB magnesium and BNP as well. Patient is known to have severe renal insufficiency and is followed by nephrology at [facility] as well. - Re-Assessments/Exams Free Text/Narrative Re-Assessment/Exam: 09/25/20 15:14 Heart rate has slowed to 112/min her amiodarone 150 mg IV over 10 minutes.. BP is 106/72. I am still awaiting a callback from the 1 call nurse at [facility]. Chest x-ray done portably reveals a dual-chamber pacemaker left upper anterior chest. Moderate cardiomegaly. Perhaps very mild diffuse vascular congestion with prominence of the right pulmonary artery. No pleural effusions evident. 09/25/20 15:50: Patient suddenly converted to it looks like a atrial ventricular paced rhythm at 60/min. This is revealing now AV sequential pacemaker likely set at 60/min. This had occurred while I was speaking to the communications advisor bird keeper Dr Coello at [facility] in [place]. Subsequently I spoke to --hospitalist who is accepted care of this patient. It is inconclusive as to whether or not the pacemaker was an override mode as he does have a history apparently of paroxysmal atrial fibrillation and thus the reason for being chronically anticoagulated with Xarelto. Concern arises with reported low battery power on the last time the pacemaker was interrogated. 09/25/20 16:51 White count is normal at 4.63 with 56.8% neutrophils on the auto differential. Hemoglobin is 13.5 with hematocrit of 41.0. MCV minimally elevated at 98.1. Platelet count is low at 98,000 and he has a history of chronic thrombocytopenia and is currently followed by dry cleaner helper Dr. Real in this regard. PT is 17.2 with an INR elevated at 1.62. PTT is elevated at 43.6. Sodium is 142 with a potassium of 3.8. Chloride is 103 with a bicarb of 28. Anion gap is 14.8. BUN is 32 with a creatinine of 1.6 and a GFR 43. Glucose is 143. Calcium is 9.2 with a magnesium of 2.4 total bilirubin is 1.0 with an AST slightly elevated at 40. ALT is normal at 34. Alkaline phosphatase is 96. CK-MB is 0.9 with a troponin less than 0.017. C-reactive protein is 0.8. BNP is mildly elevated at 896. Total protein 7.2 with an albumin fraction of 3.6. COVID-19 screen is negative. Chest x-ray reveals mildly hyperinflated lung crenshaw. Moderate cardiomegaly. Perhaps some mild central vascular congestion with prominent right perihilar area. There is a AV pacemaker left upper anterior chest present. No pneumothorax or pleural effusion evident. Plan will be to send the patient to [facility] in [place] for care. 09/25/20 18:04 Covid screen is negative. Departure - Departure Time of Disposition: 17:45 Disposition: DC/Tfer to Acute Hospital 02 Reason for Transfer *Q: Other Condition: Fair Clinical Impression: Tachyarrhythmia, Elevated INR Referrals: Chapo Clancy Jr, MD [Primary Care Provider] - Forms: ED Department Discharge Additional Instructions: Patient transferred to [facility] in [place] for cardiology evaluation. Patient had a paced rhythm at 130/min. I cannot explain this unless the pacemaker is set to override underlying atrial fibrillation which the patient is noted to have had in the past. Patient presented with a wide-complex tachycardia cardiac 130/min which is a bit low for ventricular fibrillation. After the ECG was done and the patient already received most of his 150 mg amiodarone bolus treatment it identified that he had a ventricular pacemaker in place. The rhythm appeared to be ventricular paced only and there was no atrial component obviously evident on the ECG done initially. Chest x-ray revealed however a dual-chamber pacemaker left upper anterior chest. Patient converted to a wide-complex rhythm at 60/min which is probably where the pacemaker is set at after receiving amiodarone IV drip for about 15 to 20 minutes. Patient was sent for cardiology evaluation to make sure the pacemaker was functioning normally. Patient be transported by ground ambulance. Sepsis Event Note (ED) - Focused Exam Vital Signs: Vital Signs Temp Pulse Resp BP Pulse Ox 09/25/20 16:45 60 98/70 93 L 09/25/20 14:45 36.2 C 125 H 18 118/72 100 - My Orders Last 24 Hours: My Active Orders 09/25/20 14:57 Chest 1V Frontal [CR] Stat 09/25/20 20:45 PRO B-TYPE NATRIUR PEPT,BNPPRO [CHEM] Stat - Assessment/Plan Last 24 Hours: My Active Orders 09/25/20 14:57 Chest 1V Frontal [CR] Stat 09/25/20 20:45 PRO B-TYPE NATRIUR PEPT,BNPPRO [CHEM] Stat
[2020-09-25 16:49] VITALS: BP 98/70; PULSE 60
--- NOTE | 2020-09-27 08:52 | CR ---
Chest: Portable view of the chest was obtained. Comparison: Prior chest x-ray of 12/06/18. Heart size is slightly prominent. Upper mediastinum is normal. Lungs are clear with no acute parenchymal change. Pacemaker is noted. Slight degenerative change is seen within the spine. Impression: 1. Findings as noted above. 2. Nothing acute is appreciated on portable chest x-ray. Diagnostic code #2
== END 2020-09-25 17:50 ==
LOC: JD.ED 14:37
DX: R00.0 Tachycardia, unspecified (principal); R79.1 Abnormal coagulation profile; I13.0 Hypertensive heart and chronic kidney disease with heart failure and stage 1 through stage 4 chronic kidney disease, or unspecified chronic kidney disease; N18.30 Chronic kidney disease, stage 3 unspecified; I50.9 Heart failure, unspecified; I48.91 Unspecified atrial fibrillation; E03.9 Hypothyroidism, unspecified; E66.9 Obesity, unspecified; Z68.38 Body mass index [BMI] 38.0-38.9, adult; Z88.5 Allergy status to narcotic agent; Z79.899 Other long term (current) drug therapy; Z79.01 Long term (current) use of anticoagulants; Z20.822 Contact with and (suspected) exposure to COVID-19
CPT/HCPCS: 36415; 71045; 80053; 81001; 82553; 83735; 83880; 84484; 85025; 85610; 85730; 86140; 93005; 96365; 96366; 96376; 99285; J0282; U0002; 93010

== ENCOUNTER 2020-12-23 11:25 | Emergency (ER) | payer MEDICARE, OTHER ==
[2020-12-23] MEDS ORDERED: Sodium Chloride 0.9% 10 ML Syringe FLUSH PRN (11:52)
--- NOTE | 2020-12-23 11:52 | EDM.PDOC ---
ED HPI GENERAL MEDICAL PROBLEM - General Chief Complaint: Cardiovascular Problem Stated Complaint: FLUID IN RT LEG Time Seen by Provider: 12/23/20 11:39 Source of Information: Reports: Patient, RN Notes Reviewed History Limitations: Reports: No Limitations - History of Present Illness INITIAL COMMENTS - FREE TEXT/NARRATIVE: Patient is a 70-year-old male who presents to the ER for the evaluation of fluid in his legs. Patient went to the [facility] today, for concerns of his bilateral lower leg swelling, he notes that the right one seems to be bigger than the left. He does have an Neel wrap placed to the leg, there are some blisters to the leg, but there is 1 area that is oozing some serous type fluid on the proximal martinez. He does have history of CHF, diabetes, and other heart issues. Patient was supposed to have seen his coater carbon paper at the end of November, and started on different medications for diuresis however he is not sure if he got these filled or if he has been taking these. His discharge instructions that he was with to stop the Lasix, start torsemide 50 mg, and spironolactone at 25 mg, and metolazone as needed. Alum Mixer is Dr. [place]. Patient was also supposed to be started on potassium supplementation but he states that his pharmacy was not open for some reason, so he was unable to fill this. Other than this, he is not having any fevers or chills, cough or shortness of breath, he notes that he has some nasal congestion. He further denies any nausea/vomiting/diarrhea, or going to the bathroom more frequently. He has not weighed himself recently, notes that his weight fluctuates so he is not really sure how much he should be weighing. Patient notes he has been dealing with this edema for roughly 4 years however he notes that is gotten worse in the last month or so. - Related Data Allergies Allergy/AdvReac Type Severity Reaction Status Date / Time codeine AdvReac Agitation Verified 09/25/20 15:06 Home Meds: Home Meds Antiox.mv No.10/Omeg3s/Lut/Karl [I-Caps with Lutein-[place] 3 SFG] 1 tab PO DAILY 12/06/18 [History] Cyanocobalamin (Vitamin B-12) [Vitamin B-12] 0 mg PO DAILY 12/06/18 [History] Ferrous Sulfate 325 mg PO DAILY 12/06/18 [History] Flecainide [Tambocor] 100 mg PO BID 12/06/18 [History] L Acidophil/B Lactis/B Longum [Florajen3] 1 tab PO DAILY 12/06/18 [History] Levothyroxine [Synthroid] 100 mcg PO DAILY 12/06/18 [History] Methylsulfonylmethane [MSM] 1,000 mg PO DAILY 12/06/18 [History] Metoprolol Tartrate [Lopressor] 12.5 mg PO BID 12/06/18 [History] [place] 3/DHA/Epa/Other Om3/D3 [[place]-3 + Vitamin D3] 1,000 mg PO DAILY 12/06/18 [History] Pantoprazole Sodium [Protonix] 40 mg PO DAILY 12/06/18 [History] Rivaroxaban [Xarelto] 20 mg PO DAILY 12/06/18 [History] Simethicone 180 mg PO DAILY PRN 12/06/18 [History] Tamsulosin [Flomax] 0.4 mg PO DAILY 12/06/18 [History] allopurinoL [Zyloprim] 100 mg PO BID 12/06/18 [History] Potassium 550 mg PO DAILY 03/05/19 [History] Zinc Gluconate [Zinc] 0 mg PO DAILY 03/05/19 [History] Calcium Carbonate 600 mg PO DAILY 09/25/20 [History] Levothyroxine 112 mcg PO ACBREAKFAST 09/25/20 [History] Methylcellulose [Fiber Therapy] 0 mg PO DAILY 09/25/20 [History] Sodium Bicarbonate 650 mg PO BID 09/25/20 [History] Vitamin B Complex 1 each PO DAILY 09/25/20 [History] metFORMIN [Glucophage XR] 500 mg PO DAILY 09/25/20 [History] Past Medical History HEENT History: Reports: Cataract, Epistaxis, Hard of Hearing, Impaired Vision Other HEENT History: Macular tear, tinnitus, hearing aid, glasses Cardiovascular History: Reports: Afib, Heart Failure, Hypertension, Pacemaker, Other (See Below) Other Cardiovascular History: Left carotid bruit, aortic stenosis, symptomatic bradycardia Respiratory History: Reports: Sleep Apnea Other Respiratory History: Uses CPAP Gastrointestinal History: Reports: Gastritis, GERD, Hiatal Hernia, Other (See Below) Other Gastrointestinal History: Tenesmus, hematochezia, duodenitis, ulcers, esophagitis Genitourinary History: Reports: BPH, Chronic Renal Insuffiency, Retention, Urinary Other Genitourinary History: Urinary frequency, urgency, CKD III, proteinuria, uretherorrhagia Musculoskeletal History: Reports: Other (See Below) Other Musculoskeletal History: Knee pain Neurological History: Reports: Other (See Below) Other Neuro History: Syncopal episode Endocrine/Metabolic History: Reports: Hypothyroidism, Obesity/BMI 30+ Hematologic History: Reports: Idiopathic Thrombocytopenia Dermatologic History: Reports: Other (See Below) (venous stasis changes of bilateral legs to just below his knee) - Infectious Disease History Infectious Disease History: Reports: Chicken Pox, Measles - Past Surgical History HEENT Surgical History: Reports: Cataract Surgery, Eye Surgery, Tonsillectomy Cardiovascular Surgical History: Reports: Pacer GI Surgical History: Reports: Colonoscopy, EGD Male Surgical History: Reports: Other (See Below) Other Male Surgeries/Procedures: urethra rerouted, procedure performed at [place] Musculoskeletal Surgical History: Reports: Arthroscopic Knee Other Musculoskeletal Surgeries/Procedures:: Arthroscopic knee surgery x3 Dermatological Surgical History: Reports: Other (See Below) Social & Family History - Family History Family Medical History: No Pertinent Family History - Tobacco Use Tobacco Use Status *Q: Never Tobacco User - Caffeine Use Caffeine Use: Reports: Coffee, Soda - Recreational Drug Use Recreational Drug Use: No - Living Situation & Occupation Living situation: Reports: , with Spouse Occupation: Employed ([employer]) ED ROS GENERAL - Review of Systems Review Of Systems: Comprehensive ROS is negative, except as noted in HPI. ED EXAM, GENERAL - Physical Exam Exam: See Below Exam Limited By: No Limitations General Appearance: Alert, WD/WN, No Apparent Distress Eye Exam: Bilateral Eye: EOMI Respiratory/Chest: No Respiratory Distress, Lungs Clear, Normal Breath Sounds, No Accessory Muscle Use, Chest Non-Tender Cardiovascular: Normal Peripheral Pulses, Regular Rate, Rhythm Peripheral Pulses: 1+: Dorsalis Pedis (L), Dorsalis Pedis (R), 2+: Radial (L), Radial (R) GI/Abdominal: Normal Bowel Sounds, Soft, Non-Tender, No Distention, No Mass Extremities: Normal Range of Motion, Pedal Edema (2+ pitting bilateral lower extremity edema), Other (venous stasis change of skin of bilateral lower extremities.). No: Increased Warmth Neurological: Alert, Oriented, Normal Cognition, No Motor/Sensory Deficits Psychiatric: Normal Affect, Normal Mood Skin Exam: Warm, Dry, Intact, Other (venous stasis change of skin of bilateral lower extremities. there is mild amount of weeping to the anterior proximal martinez.) Course - Vital Signs Last Recorded V/S: Last Vital Signs Temp 97.0 F 12/23/20 11:51 Pulse 60 12/23/20 11:51 Resp 16 12/23/20 11:51 BP 116/72 12/23/20 11:51 Pulse Ox 100 12/23/20 11:51 - Orders/Labs/Meds Orders: Active Orders 24 hr Category Date Time Status Peripheral IV Care [RC] . DIRECTED Care 12/23/20 11:52 Ordered Sodium Chloride 0.9% [Saline Flush] Med 12/23/20 11:52 Ordered 10 ml FLUSH ASDIRECTED PRN Peripheral IV Insertion Adult [OM.PC] Routine Oth 12/23/20 11:52 Ordered Medication Orders Sodium Chloride (Sodium Chloride 0.9% 10 Ml Syringe) 10 ml FLUSH ASDIRECTED PRN PRN Reason: Keep Vein Open Last Admin: 12/23/20 12:12 Dose: 10 ml Documented by: ROBIN Labs: Laboratory Tests 12/23/20 12/23/20 12/23/20 Range/Units 12:05 12:05 12:05 WBC 4.41 (4.23-9.07) K/mm3 RBC 3.54 L (4.63-6.08) M/mm3 Hgb 11.8 L (13.7-17.5) gm/dl Hct 35.5 L (40.1-51.0) % MCV 100.3 H (79.0-92.2) fl MCH 33.3 H (25.7-32.2) pg MCHC 33.2 (32.2-35.5) g/dl RDW Std Deviation 55.7 H (35.1-43.9) fL Plt Count 89 L (163-337) K/mm3 MPV 9.9 (9.4-12.3) fl Neut % (Auto) 59.8 (34.0-67.9) % Lymph % (Auto) 23.6 (21.8-53.1) % [place] % (Auto) 14.3 H (5.3-12.2) % Eos % (Auto) 1.6 (0.8-7.0) Baso % (Auto) 0.5 (0.1-1.2) % Neut # (Auto) 2.64 (1.78-5.38) K/mm3 Lymph # (Auto) 1.04 L (1.32-3.57) K/mm3 [place] # (Auto) 0.63 (0.30-0.82) K/mm3 Eos # (Auto) 0.07 (0.04-0.54) K/mm3 Baso # (Auto) 0.02 (0.01-0.08) K/mm3 Manual Slide Review Abnormal smear PT 20.5 H (9.7-12.0) SECONDS INR 1.94 APTT 50.7 H (21.7-31.4) SECONDS Sodium 137 (136-145) mEq/L Potassium 4.0 (3.5-5.1) mEq/L Chloride 102 (98-107) mEq/L Carbon Dioxide 25 (21-32) mEq/L Anion Gap 14.0 (5-15) BUN 32 H (7-18) mg/dL Creatinine 1.7 H (0.7-1.3) mg/dL Est Cr Clr Drug Dosing 35.17 mL/min Estimated GFR (MDRD) 40 (>60) mL/min BUN/Creatinine Ratio 18.8 H (14-18) Glucose 120 H (80-115) mg/dL Calcium 8.3 L D (8.5-10.1) mg/dL Magnesium 2.2 (1.8-2.4) mg/dl Total Bilirubin 1.6 H (0.2-1.0) mg/dL AST 44 H (15-37) U/L ALT 32 (16-63) U/L Alkaline Phosphatase 96 (46-116) U/L NT-Pro-B Natriuret Pep (0-125) pg/mL Total Protein 7.1 (6.4-8.2) g/dl Albumin 3.5 (3.4-5.0) g/dl Globulin 3.6 gm/dL Albumin/Globulin Ratio 1.0 (1-2) 05/05/21 Range/Units 12:05 WBC (4.23-9.07) K/mm3 RBC (4.63-6.08) M/mm3 Hgb (13.7-17.5) gm/dl Hct (40.1-51.0) % MCV (79.0-92.2) fl MCH (25.7-32.2) pg MCHC (32.2-35.5) g/dl RDW Std Deviation (35.1-43.9) fL Plt Count (163-337) K/mm3 MPV (9.4-12.3) fl Neut % (Auto) (34.0-67.9) % Lymph % (Auto) (21.8-53.1) % [place] % (Auto) (5.3-12.2) % Eos % (Auto) (0.8-7.0) Baso % (Auto) (0.1-1.2) % Neut # (Auto) (1.78-5.38) K/mm3 Lymph # (Auto) (1.32-3.57) K/mm3 [place] # (Auto) (0.30-0.82) K/mm3 Eos # (Auto) (0.04-0.54) K/mm3 Baso # (Auto) (0.01-0.08) K/mm3 Manual Slide Review PT (9.7-12.0) SECONDS INR APTT (21.7-31.4) SECONDS Sodium (136-145) mEq/L Potassium (3.5-5.1) mEq/L Chloride (98-107) mEq/L Carbon Dioxide (21-32) mEq/L Anion Gap (5-15) BUN (7-18) mg/dL Creatinine (0.7-1.3) mg/dL Est Cr Clr Drug Dosing mL/min Estimated GFR (MDRD) (>60) mL/min BUN/Creatinine Ratio (14-18) Glucose (80-115) mg/dL Calcium (8.5-10.1) mg/dL Magnesium (1.8-2.4) mg/dl Total Bilirubin (0.2-1.0) mg/dL AST (15-37) U/L ALT (16-63) U/L Alkaline Phosphatase (46-116) U/L NT-Pro-B Natriuret Pep 756 H (0-125) pg/mL Total Protein (6.4-8.2) g/dl Albumin (3.4-5.0) g/dl Globulin gm/dL Albumin/Globulin Ratio (1-2) Meds: Medications Generic Name Dose Route Start Last Admin Trade Name Aydin PRN Reason Stop Dose Admin Sodium Chloride 10 ml 12/23/20 11:52 12/23/20 12:12 Sodium Chloride 0.9% 10 Ml Syringe FLUSH 10 ml ASDIRECTED PRN Administration Keep Vein Open - Re-Assessments/Exams Free Text/Narrative Re-Assessment/Exam: 12/23/20 12:01 Patient presents to the ER for the evaluation of his bilateral lower extremities. We will check some labs, chest x-ray for further evaluation and management. 12/23/20 13:19 Laboratory evaluation has been completed, patient's chest x-ray demonstrates a heart that is slightly enlarged, but no other acute changes. CBC is unremarkable for infective process, patient's metabolic panel is essentially unremarkable, potassium is okay at 4.0, creatinine mildly elevated at 1.7, GFR at 40, BNP mildly elevated at 756 however not complete out of range for a gentleman of his age. I did call and talk with his provider, Rianna Conway at the [facility] and she notes that she was mainly concerned about his potassium level, she would be glad to have close follow-up with him in clinic sometime by the end of this week to check on his legs again, and make sure that he is taking his medications as directed. I did also call [facility] and they state that he supposed be taking torsemide 50 mg daily, spironolactone 25 mg daily, and metolazone 2.5 mg every Monday and Monday, this seems to be the most updated list. He had also seen Dr. Doe on December 16 for ongoing management. We will try to place Unna boots on the patient for his edema and get him discharged home with recommendations. Departure - Departure Time of Disposition: 13:22 Disposition: Home, Self-Care 01 Condition: Good Clinical Impression: Edema of both lower legs Chronic kidney disease Qualifiers: Chronic kidney disease stage: stage 3 (moderate) Chronic kidney disease stage 3 subtype: unspecified whether 3a or 3b Qualified Code(s): N18.30 - Chronic kidney disease, stage 3 unspecified Instructions: Edema, [id number] Referrals: Vera Conway PA-C [Primary Care Provider] - Forms: ED Department Discharge Additional Instructions: You were seen in this ER for your lower leg edema. Laboratory evaluation done at today's visit demonstrates no major abnormalities that are worrisome for today's purposes, your potassium level is within normal limits at 4.0. You were placed in Unna boot for your lower leg edema. Please go home, and try to elevate your legs as much as possible for the next day or 2, [facility] will call you to schedule you an appointment for follow- up sometime either tomorrow or on Monday. I did call the pharmacy that you have medications filled out, as for diuretic purposes you are supposed to be taking torsemide 100 mg daily, spironolactone 50 mg daily, metolazone 2.5 mg every Monday and Monday. Please continue to take these medications as prescribed. Please do not hesitate to return to the ER at any time if symptoms change or worsen. Sepsis Event Note (ED) - Focused Exam Vital Signs: Vital Signs Temp Pulse Resp BP Pulse Ox 12/23/20 11:51 97.0 F 60 16 116/72 100 - My Orders Last 24 Hours: My Active Orders 12/23/20 11:52 Peripheral IV Care [RC] . DIRECTED Sodium Chloride 0.9% [Saline Flush] 10 ml FLUSH ASDIRECTED PRN Peripheral IV Insertion Adult [OM.PC] Routine - Assessment/Plan Last 24 Hours: My Active Orders 12/23/20 11:52 Peripheral IV Care [RC] . DIRECTED Sodium Chloride 0.9% [Saline Flush] 10 ml FLUSH ASDIRECTED PRN Peripheral IV Insertion Adult [OM.PC] Routine
[2020-12-23 11:53] VITALS: BP 116/72; PULSE 60
--- NOTE | 2020-12-23 13:06 | CR ---
Chest: PA and lateral views of the chest were obtained. Comparison: Prior chest x-ray of 09/25/20. Heart is enlarged. Upper mediastinum is normal. Pacemaker is present. Scattered degenerative endplate spurring and disc space narrowing is seen within the spine. Impression: 1. Heart is slightly enlarged. 2. Other findings as noted above. Nothing acute is seen. Diagnostic code #2
== END 2020-12-23 14:50 | disposition home or self-care (01) ==
LOC: JD.ED 11:25
DX: R60.0 Localized edema (principal); I13.0 Hypertensive heart and chronic kidney disease with heart failure and stage 1 through stage 4 chronic kidney disease, or unspecified chronic kidney disease; N18.30 Chronic kidney disease, stage 3 unspecified; I50.9 Heart failure, unspecified; I48.91 Unspecified atrial fibrillation; E03.9 Hypothyroidism, unspecified; K21.9 Gastro-esophageal reflux disease without esophagitis; D63.1 Anemia in chronic kidney disease; Z88.5 Allergy status to narcotic agent; Z95.0 Presence of cardiac pacemaker; Z79.899 Other long term (current) drug therapy; Z68.38 Body mass index [BMI] 38.0-38.9, adult
CPT/HCPCS: 36415; 71046; 71046-26; 80053; 83735; 83880; 85025; 85610; 85730; 99284-25

== ENCOUNTER 2020-12-27 14:58 | Emergency (ER) | payer MEDICARE, OTHER ==
[2020-12-27] MEDS ORDERED: Tranexamic Acid 1,000 MG in Sodium Chloride 0.9% 100 ML IV SCH (16:45)
--- NOTE | 2020-12-27 17:11 | EDM.PDOC ---
ED HPI GENERAL MEDICAL PROBLEM - General Chief Complaint: General Stated Complaint: BLOODY LIP/POST REMOVAL OF COLD SORE Time Seen by Provider: 12/27/20 15:19 Source of Information: Reports: Patient, RN Notes Reviewed - History of Present Illness INITIAL COMMENTS - FREE TEXT/NARRATIVE: 70 yr old male has had some bleeding from a "lesion" L upper lip this past week and it sounds like occasionally before that. Had that cauterized at least twice this past week at the [facility]. Did well yesterday but than started bleeding again today. He is on eliquis for what sounds like a fib. which is not helping him. States it was "gushing" at home earlier today, now oozing on arrival to ED. Upper Lip Pain Score (Numeric/FACES): 2 - Related Data Allergies Allergy/AdvReac Type Severity Reaction Status Date / Time codeine AdvReac Severe Agitation Verified 12/27/20 15:13 Home Meds: Home Meds Antiox.mv No.10/Omeg3s/Lut/Kral [I-Caps with Lutein-[place] 3 SFG] 1 tab PO DAILY 12/06/18 [History] Cyanocobalamin (Vitamin B-12) [Vitamin B-12] 0 mg PO DAILY 12/06/18 [History] Ferrous Sulfate 325 mg PO DAILY 12/06/18 [History] Flecainide [Tambocor] 100 mg PO BID 12/06/18 [History] L Acidophil/B Lactis/B Longum [Florajen3] 1 tab PO DAILY 12/06/18 [History] Levothyroxine [Synthroid] 100 mcg PO DAILY 12/06/18 [History] Methylsulfonylmethane [MSM] 1,000 mg PO DAILY 12/06/18 [History] Metoprolol Tartrate [Lopressor] 12.5 mg PO BID 12/06/18 [History] [place] 3/DHA/Epa/Other Om3/D3 [[place]-3 + Vitamin D3] 1,000 mg PO DAILY 12/06/18 [History] Pantoprazole Sodium [Protonix] 40 mg PO DAILY 12/06/18 [History] Rivaroxaban [Xarelto] 20 mg PO DAILY 12/06/18 [History] Simethicone 180 mg PO DAILY PRN 12/06/18 [History] Tamsulosin [Flomax] 0.4 mg PO DAILY 12/06/18 [History] allopurinoL [Zyloprim] 100 mg PO BID 12/06/18 [History] Potassium 550 mg PO DAILY 03/05/19 [History] Zinc Gluconate [Zinc] 0 mg PO DAILY 03/05/19 [History] Calcium Carbonate 600 mg PO DAILY 09/25/20 [History] Levothyroxine 112 mcg PO ACBREAKFAST 09/25/20 [History] Methylcellulose [Fiber Therapy] 0 mg PO DAILY 09/25/20 [History] Sodium Bicarbonate 650 mg PO BID 09/25/20 [History] Vitamin B Complex 1 each PO DAILY 09/25/20 [History] metFORMIN [Glucophage XR] 500 mg PO DAILY 09/25/20 [History] Past Medical History HEENT History: Reports: Cataract, Epistaxis, Hard of Hearing, Impaired Vision Other HEENT History: Macular tear, tinnitus, hearing aid, glasses Cardiovascular History: Reports: Afib, Heart Failure, Hypertension, Pacemaker, Other (See Below) Other Cardiovascular History: Left carotid bruit, aortic stenosis, symptomatic bradycardia Respiratory History: Reports: Sleep Apnea Other Respiratory History: Uses CPAP Gastrointestinal History: Reports: Gastritis, GERD, Hiatal Hernia, Other (See Below) Other Gastrointestinal History: Tenesmus, hematochezia, duodenitis, ulcers, esophagitis Genitourinary History: Reports: BPH, Chronic Renal Insuffiency, Retention, Urinary Other Genitourinary History: Urinary frequency, urgency, CKD III, proteinuria, uretherorrhagia LPN OR MEDICAL ASSISTANT History: Reports: None Musculoskeletal History: Reports: Other (See Below) Other Musculoskeletal History: Knee pain Neurological History: Reports: Other (See Below) Other Neuro History: Syncopal episode Psychiatric History: Reports: None Endocrine/Metabolic History: Reports: Hypothyroidism, Obesity/BMI 30+ Hematologic History: Reports: Idiopathic Thrombocytopenia Other Hematologic History: Thrombocytopenia Immunologic History: Reports: None Oncologic (Cancer) History: Reports: None Dermatologic History: Reports: Other (See Below) - Infectious Disease History Infectious Disease History: Reports: Chicken Pox, Measles - Past Surgical History HEENT Surgical History: Reports: Cataract Surgery, Eye Surgery, Tonsillectomy Cardiovascular Surgical History: Reports: Pacer Respiratory Surgical History: Reports: None GI Surgical History: Reports: Colonoscopy, EGD Male Surgical History: Reports: Other (See Below) Other Male Surgeries/Procedures: urethra rerouted, procedure performed at [facility] Endocrine Surgical History: Reports: None Neurological Surgical History: Reports: None Musculoskeletal Surgical History: Reports: Arthroscopic Knee Other Musculoskeletal Surgeries/Procedures:: Arthroscopic knee surgery x3 Oncologic Surgical History: Reports: None Dermatological Surgical History: Reports: Other (See Below) Social & Family History - Family History Family Medical History: No Pertinent Family History - Tobacco Use Tobacco Use Status *Q: Never Tobacco User - Caffeine Use Caffeine Use: Reports: Coffee, Soda - Recreational Drug Use Recreational Drug Use: No - Living Situation & Occupation Living situation: Reports: , with Spouse Occupation: Employed ([employer]) ED ROS GENERAL - Review of Systems Review Of Systems: See Below Constitutional: Reports: No Symptoms HEENT: Reports: Other (bleeding L upper lip) Respiratory: Denies: Shortness of Breath Cardiovascular: Denies: Chest Pain GI/Abdominal: Denies: Abdominal Pain, Nausea, Vomiting Skin: Denies: Bruising, Rash Neurological: Reports: No Symptoms ED EXAM, GENERAL - Physical Exam Exam: See Below General Appearance: Alert, No Apparent Distress Nose: Normal Inspection Throat/Mouth: Other (slight oozing from very small area lower aspect of L upper lip) Head: Atraumatic Neck: Supple Respiratory/Chest: No Respiratory Distress Cardiovascular: Regular Rate, Rhythm Extremities: No: Pedal Edema, Leg Pain Neurological: Alert, Oriented, No Motor/Sensory Deficits Skin Exam: Warm, Dry, Normal Color, No Rash Course - Orders/Labs/Meds Orders: Active Orders 24 hr Category Date Time Status Tranexamic Acid [Cyklokapron] 1,000 mg Med 12/27/20 16:45 Active Sodium Chloride 0.9% [Normal Saline] 100 ml IV ONETIME Medication Orders Tranexamic Acid 1,000 mg/ (Sodium Chloride) 110 mls @ 400 mls/hr IV ONETIME ELLA Last Admin: 12/27/20 16:48 Dose: 400 mls/hr Documented by: MATILDA Meds: Medications Generic Name Dose Route Start Last Admin Trade Name Freq PRN Reason Stop Dose Admin Tranexamic Acid 1,000 mg/ 110 mls @ 400 mls/hr 12/27/20 16:45 12/27/20 16:48 Sodium Chloride IV 400 mls/hr ONETIME [facility] Administration - Re-Assessments/Exams Free Text/Narrative Re-Assessment/Exam: 12/27/20 17:07 Cardiac moniter shows paced rythm, rate 60, no ectopy. Applied pressure with quick clot which so far has not helped. Have now soaked a quick clot pad with tranexemic acid 12/27/20 17:42. Bleeding has stopped. Departure - Departure Time of Disposition: 17:51 Disposition: Home, Self-Care 01 Condition: Fair Clinical Impression: Bleeding from mouth - Discharge Information Referrals: Vera Conway PA-C [Primary Care Provider] - Forms: ED Department Discharge Additional Instructions: Do all of your eating right side of mouth. Avoid any injury to L mouth. This will take at least several days for this to heal. If there is further bleeding you can draw about 1 cc of the transexemic acid for the vial, soak a quick clot pad in the same way we did here in the ED and apply pressure to the area of bleeding for 30 minutes. Follow up clinic Monday as planned. Return to ED as needed. - My Orders Last 24 Hours: My Active Orders 12/27/20 16:45 Tranexamic Acid [Cyklokapron] 1,000 mg Sodium Chloride 0.9% [Normal Saline] 100 ml IV ONETIME - Assessment/Plan Last 24 Hours: My Active Orders 12/27/20 16:45 Tranexamic Acid [Cyklokapron] 1,000 mg Sodium Chloride 0.9% [Normal Saline] 100 ml IV ONETIME
== END 2020-12-27 18:30 | disposition home or self-care (01) ==
LOC: JD.ED 14:58
DX: K13.79 Other lesions of oral mucosa (principal); I13.0 Hypertensive heart and chronic kidney disease with heart failure and stage 1 through stage 4 chronic kidney disease, or unspecified chronic kidney disease; N18.30 Chronic kidney disease, stage 3 unspecified; E03.9 Hypothyroidism, unspecified; E66.9 Obesity, unspecified; I48.91 Unspecified atrial fibrillation; I50.9 Heart failure, unspecified; Z95.0 Presence of cardiac pacemaker; Z79.899 Other long term (current) drug therapy; Z79.01 Long term (current) use of anticoagulants; Z68.36 Body mass index [BMI] 36.0-36.9, adult; Z88.5 Allergy status to narcotic agent
CPT/HCPCS: 99282; 99283

== ENCOUNTER 2021-01-01 11:58 | Observation (INO) | payer MEDICARE, OTHER ==
--- NOTE | 2021-01-01 12:25 | EDM.PDOC ---
ED HPI GENERAL MEDICAL PROBLEM - General Chief Complaint: General Stated Complaint: [facility] Time Seen by Provider: 01/01/21 12:04 - History of Present Illness INITIAL COMMENTS - FREE TEXT/NARRATIVE: 70-year-old male presents to the emergency room brought in by [facility] after being referred here from the [facility]. Patient has a possible history of taken too many of his routine medications inadvertently. Last night family members mention to them that his speech was not normal and again this morning they mentioned his speech was not normal. He was found to be hypotensive and orthostatic at the [facility]. He thinks he possibly doubled up on his flecainide Metroprolol and Metformin. The patient believes he is okay, however, is aware of the concern. He denies any pain breathing difficulties or shortness of breath he does state he has to void more than normal. The patient has a history of A. fib he is on DOAC therapy. He denies any recent head injuries or even bumping his head. - Related Data Allergies Allergy/AdvReac Type Severity Reaction Status Date / Time codeine AdvReac Intermediate Agitation Verified 01/01/21 16:24 Home Meds: Home Meds Ferrous Sulfate 325 mg PO DAILY 12/06/18 [History] Flecainide [Tambocor] 100 mg PO BID 12/06/18 [History] L Acidophil/B Lactis/B Longum [Florajen3] 1 tab PO DAILY 12/06/18 [History] Levothyroxine [Synthroid] 100 mcg PO MOTUTHFRSA 12/06/18 [History] Methylsulfonylmethane [MSM] 1,000 mg PO DAILY 12/06/18 [History] Metoprolol Tartrate [Lopressor] 12.5 mg PO BID 12/06/18 [History] [place] 3/DHA/Epa/Other Om3/D3 [[place]-3 + Vitamin D3] 1,000 mg PO DAILY 12/06/18 [History] Pantoprazole Sodium [Protonix] 40 mg PO DAILY 12/06/18 [History] Rivaroxaban [Xarelto] 20 mg PO DAILY 12/06/18 [History] Simethicone 80 mg PO DAILY PRN 12/06/18 [History] Tamsulosin [Flomax] 0.4 mg PO DAILY 12/06/18 [History] allopurinoL [Zyloprim] 200 mg PO DAILY 12/06/18 [History] Potassium 20 meq PO DAILY 03/05/19 [History] Calcium Carbonate 600 mg PO DAILY 09/25/20 [History] Levothyroxine 112 mcg PO ACBREAKFAST 09/25/20 [History] Sodium Bicarbonate 650 mg PO BID 09/25/20 [History] Vitamin B Complex 1 each PO DAILY 09/25/20 [History] metFORMIN [Glucophage XR] 500 mg PO DAILY 09/25/20 [History] 7t [place] 2% Gel 1 applic TOP ASDIRECTED PRN 01/01/21 [History] Cholecalciferol (Vitamin D3) [Vitamin D3] 3,000 units PO DAILY 01/01/21 [History] Mirafiber 500 mg PO BEDTIME 01/01/21 [History] Mupirocin Oint [Bactroban Oint] 1 applic TOP ASDIRECTED 01/01/21 [History] Torsemide 50 mg PO DAILY 01/01/21 [History] polyethylene glycoL 3350 [MiraLAX] 1 applic PO ASDIRECTED PRN 01/01/21 [History] Past Medical History HEENT History: Reports: Cataract, Epistaxis, Hard of Hearing, Impaired Vision Other HEENT History: Macular tear, tinnitus, hearing aid, glasses Cardiovascular History: Reports: Afib, Heart Failure, Hypertension, Pacemaker, Other (See Below) Other Cardiovascular History: Left carotid bruit, aortic stenosis, symptomatic bradycardia Respiratory History: Reports: Sleep Apnea Other Respiratory History: Uses CPAP Gastrointestinal History: Reports: Gastritis, GERD, Hiatal Hernia, Other (See Below) Other Gastrointestinal History: Tenesmus, hematochezia, duodenitis, ulcers, esophagitis Genitourinary History: Reports: BPH, Chronic Renal Insuffiency, Retention, Urinary Other Genitourinary History: Urinary frequency, urgency, CKD III, proteinuria, uretherorrhagia DATA SECURITY COORDINATOR History: Reports: None Musculoskeletal History: Reports: Other (See Below) Other Musculoskeletal History: Knee pain Neurological History: Reports: Other (See Below) Other Neuro History: Syncopal episode Psychiatric History: Reports: None Endocrine/Metabolic History: Reports: Hypothyroidism, Obesity/BMI 30+ Hematologic History: Reports: Idiopathic Thrombocytopenia Other Hematologic History: Thrombocytopenia Immunologic History: Reports: None Oncologic (Cancer) History: Reports: None Dermatologic History: Reports: Other (See Below) - Infectious Disease History Infectious Disease History: Reports: Chicken Pox, Measles - Past Surgical History HEENT Surgical History: Reports: Cataract Surgery, Eye Surgery, Tonsillectomy Cardiovascular Surgical History: Reports: Pacer Respiratory Surgical History: Reports: None GI Surgical History: Reports: Colonoscopy, EGD Male Surgical History: Reports: Other (See Below) Other Male Surgeries/Procedures: urethra rerouted, procedure performed at [place] Endocrine Surgical History: Reports: None Neurological Surgical History: Reports: None Musculoskeletal Surgical History: Reports: Arthroscopic Knee Other Musculoskeletal Surgeries/Procedures:: Arthroscopic knee surgery x3 Oncologic Surgical History: Reports: None Dermatological Surgical History: Reports: Other (See Below) Social & Family History - Family History Family Medical History: No Pertinent Family History - Caffeine Use Caffeine Use: Reports: Coffee, Soda - Living Situation & Occupation Living situation: Reports: , with Spouse Occupation: Employed ([employer]) ED ROS GENERAL - Review of Systems Review Of Systems: See Below Constitutional: Denies: Fever, Chills HEENT: Reports: No Symptoms Respiratory: Reports: No Symptoms Cardiovascular: Reports: No Symptoms Endocrine: Reports: No Symptoms GI/Abdominal: Reports: No Symptoms : Reports: No Symptoms, Frequency. Denies: Dysuria Musculoskeletal: Reports: No Symptoms Skin: Reports: No Symptoms Neurological: Reports: No Symptoms Psychiatric: Reports: No Symptoms Hematologic/Lymphatic: Reports: No Symptoms Immunologic: Reports: No Symptoms ED EXAM, GENERAL - Physical Exam Exam: See Below Exam Limited By: No Limitations General Appearance: Alert, No Apparent Distress, Other (Blood pressure is a little low) Eye Exam: Bilateral Eye: Normal Inspection, PERRL Ears: Normal External Exam, Hearing Grossly Normal, Other (He has hearing aids in place) Nose: Normal Inspection, Normal Mucosa, No Blood Throat/Mouth: Normal Inspection, Normal Lips, Normal Gums, Normal Oropharynx, Normal Voice, No Airway Compromise Head: Atraumatic, Normocephalic Neck: Normal Inspection, Supple, Non-Tender, Full Range of Motion. No: Lymphadenopathy (L), Lymphadenopathy (R), Thyromegaly Respiratory/Chest: No Respiratory Distress, Lungs Clear, Normal Breath Sounds Cardiovascular: Regular Rate, Rhythm, No Edema, No Murmur, Other (He has a ventricular paced atrial sensed pattern on telemetry) GI/Abdominal: Normal Bowel Sounds, Soft, Non-Tender, No Organomegaly, No Distention, No Abnormal Bruit, No Mass Back Exam: Normal Inspection. No: CVA Tenderness (L), CVA Tenderness (R) Extremities: Normal Inspection, No Pedal Edema, Other (Support socks in place) Neurological: Alert, Oriented Psychiatric: Normal Affect, Normal Mood Skin Exam: Warm, Dry, Intact Lymphatic: No Adenopathy #1 Interpretation EKG Date: 01/01/21 Rhythm: Other (AV paced rhythm) [place]: Other (Ventricular paced pattern) P-Wave: Absent QRS: Other (Ventricular paced pattern) ST-T: Other (Ventricular paced pattern per Scarbossa's criteria no abnormalities) QT: Prolonged (Is likely due to the QRS prolongation) Comparison: No Change (No significant change from a second EKG done on 09/25/2020 initial EKG showed a wide-complex tachycardia) EKG Interpretation Comments: Abnormal Course - Vital Signs Last Recorded V/S: Last Vital Signs Temp 36.3 C 01/01/21 12:24 Pulse 60 01/01/21 12:24 Resp 20 01/01/21 12:24 BP 96/56 L 01/01/21 12:24 Pulse Ox 100 01/01/21 12:24 - Orders/Labs/Meds Orders: Active Orders 24 hr Category Date Time Status EKG Documentation Completion [RC] STAT Care 01/01/21 12:57 Active CORONAVIRUS COVID-19 ROLANDO [MOLEC] Stat Lab 01/01/21 15:04 Ordered Labs: Laboratory Tests 01/01/21 01/01/21 01/01/21 Range/Units 13:11 13:11 13:46 WBC 5.77 (4.23-9.07) K/mm3 RBC 4.23 L (4.63-6.08) M/mm3 Hgb 13.9 D (13.7-17.5) gm/dl Hct 41.2 (40.1-51.0) % MCV 97.4 H (79.0-92.2) fl MCH 32.9 H (25.7-32.2) pg MCHC 33.7 (32.2-35.5) g/dl RDW Std Deviation 52.2 H (35.1-43.9) fL Plt Count 125 L (163-337) K/mm3 MPV 9.0 L (9.4-12.3) fl Neut % (Auto) 52.3 (34.0-67.9) % Lymph % (Auto) 28.6 (21.8-53.1) % [place] % (Auto) 15.9 H (5.3-12.2) % Eos % (Auto) 2.1 (0.8-7.0) Baso % (Auto) 0.9 (0.1-1.2) % Neut # (Auto) 3.02 (1.78-5.38) K/mm3 Lymph # (Auto) 1.65 (1.32-3.57) K/mm3 [place] # (Auto) 0.92 H (0.30-0.82) K/mm3 Eos # (Auto) 0.12 (0.04-0.54) K/mm3 Baso # (Auto) 0.05 (0.01-0.08) K/mm3 Manual Slide Review Normal smear Sodium 132 L (136-145) mEq/L Potassium 4.4 (3.5-5.1) mEq/L Chloride 96 L (98-107) mEq/L Carbon Dioxide 28 (21-32) mEq/L Anion Gap 12.4 (5-15) BUN 56 H (7-18) mg/dL Creatinine 2.3 H (0.7-1.3) mg/dL Est Cr Clr Drug Dosing 26.00 mL/min Estimated GFR (MDRD) 28 (>60) mL/min BUN/Creatinine Ratio 24.3 H (14-18) Glucose 126 H (70-99) mg/dL Calcium 9.9 (8.5-10.1) mg/dL Total Bilirubin 1.6 H (0.2-1.0) mg/dL AST 48 H (15-37) U/L ALT 36 (16-63) U/L Alkaline Phosphatase 109 (46-116) U/L Troponin I < 0.017 (0.00-0.056) ng/mL Total Protein 8.3 H (6.4-8.2) g/dl Albumin 4.0 (3.4-5.0) g/dl Globulin 4.3 gm/dL Albumin/Globulin Ratio 0.9 L (1-2) TSH 3rd Generation 2.290 (0.358-3.74) uIU/mL Urine Color Yellow (Yellow) Urine Appearance Clear (Clear) Urine pH 7.0 (5.0-8.0) Ur Specific [place] 1.020 (1.005-1.030) Urine Protein Negative (Negative) Urine Glucose (UA) Negative (Negative) Urine Ketones Negative (Negative) Urine Occult Blood Trace-intact H (Negative) Urine Nitrite Negative (Negative) Urine Bilirubin Negative (Negative) Urine Urobilinogen 0.2 (0.2-1.0) Ur Leukocyte Esterase Negative (Negative) Urine RBC 0-5 (0-5) /hpf Urine WBC Not seen (0-5) /hpf Ur Squamous Epith Cells 0-5 (0-5) /hpf Urine Bacteria Not seen (FEW) /hpf Urine Mucus Not seen (FEW) /hpf Urine Opiates Screen (MEDVQT=475) Ur Buprenorphine Scrn (CUTOFF=10) Ur Oxycodone Screen (YMC1XW=143) Urine Methadone Screen (QAX3PL=909) Ur Propoxyphene Screen (BVPGWE=753) Ur Barbiturates Screen (TFVJOI=751) Ur Tricyclics Screen (KZTXRW=616) Ur Phencyclidine Scrn (CUTOFF=25) Ur Amphetamine Screen (GKQUMU=974) U Methamphetamines Scrn (EGFFXC=153) U Benzodiazepines Scrn (ZAIGTI=141) U Cocaine Metab Screen (AXLHVB=375) U Marijuana (THC) Screen (CUTOFF=50) Ethyl Alcohol 0.00 (0.00) gm% 01/01/21 Range/Units 13:46 WBC (4.23-9.07) K/mm3 RBC (4.63-6.08) M/mm3 Hgb (13.7-17.5) gm/dl Hct (40.1-51.0) % MCV (79.0-92.2) fl MCH (25.7-32.2) pg MCHC (32.2-35.5) g/dl RDW Std Deviation (35.1-43.9) fL Plt Count (163-337) K/mm3 MPV (9.4-12.3) fl Neut % (Auto) (34.0-67.9) % Lymph % (Auto) (21.8-53.1) % [place] % (Auto) (5.3-12.2) % Eos % (Auto) (0.8-7.0) Baso % (Auto) (0.1-1.2) % Neut # (Auto) (1.78-5.38) K/mm3 Lymph # (Auto) (1.32-3.57) K/mm3 [place] # (Auto) (0.30-0.82) K/mm3 Eos # (Auto) (0.04-0.54) K/mm3 Baso # (Auto) (0.01-0.08) K/mm3 Manual Slide Review Sodium (136-145) mEq/L Potassium (3.5-5.1) mEq/L Chloride (98-107) mEq/L Carbon Dioxide (21-32) mEq/L Anion Gap (5-15) BUN (7-18) mg/dL Creatinine (0.7-1.3) mg/dL Est Cr Clr Drug Dosing mL/min Estimated GFR (MDRD) (>60) mL/min BUN/Creatinine Ratio (14-18) Glucose (70-99) mg/dL Calcium (8.5-10.1) mg/dL Total Bilirubin (0.2-1.0) mg/dL AST (15-37) U/L ALT (16-63) U/L Alkaline Phosphatase (46-116) U/L Troponin I (0.00-0.056) ng/mL Total Protein (6.4-8.2) g/dl Albumin (3.4-5.0) g/dl Globulin gm/dL Albumin/Globulin Ratio (1-2) TSH 3rd Generation (0.358-3.74) uIU/mL Urine Color (Yellow) Urine Appearance (Clear) Urine pH (5.0-8.0) Ur Specific [place] (1.005-1.030) Urine Protein (Negative) Urine Glucose (UA) (Negative) Urine Ketones (Negative) Urine Occult Blood (Negative) Urine Nitrite (Negative) Urine Bilirubin (Negative) Urine Urobilinogen (0.2-1.0) Ur Leukocyte Esterase (Negative) Urine RBC (0-5) /hpf Urine WBC (0-5) /hpf Ur Squamous Epith Cells (0-5) /hpf Urine Bacteria (FEW) /hpf Urine Mucus (FEW) /hpf Urine Opiates Screen Negative (MUAQIW=422) Ur Buprenorphine Scrn Negative (CUTOFF=10) Ur Oxycodone Screen Negative (SPU8QC=098) Urine Methadone Screen Negative (XMN0RL=494) Ur Propoxyphene Screen Negative (DFVNAP=849) Ur Barbiturates Screen Negative (DXKFWH=957) Ur Tricyclics Screen Negative (EAPHNQ=500) Ur Phencyclidine Scrn Negative (CUTOFF=25) Ur Amphetamine Screen Negative (LQKJIP=224) U Methamphetamines Scrn Negative (WPLZIO=648) U Benzodiazepines Scrn Negative (IGBPCP=406) U Cocaine Metab Screen Negative (QACDAE=144) U Marijuana (THC) Screen Negative (CUTOFF=50) Ethyl Alcohol (0.00) gm% - Re-Assessments/Exams Free Text/Narrative Re-Assessment/Exam: 01/01/21 15:06 Patient's work-up is concerning for worsening renal failure. He is in need his medications adjusted. Head CT is unremarkable chest x-ray shows no acute changes pacemaker and wires noted. I discussed patient with Dr. Goel we discussed getting an MRI but not practical with his pacemaker. We are awaiting his Covid and then anticipating MedSurg telemetry observation 01/01/21 16:12 Apparently we have not obtained the coronavirus test yet. We will see if we can get this taken care of. Departure - Departure Time of Disposition: 15:17 Disposition: Refer to Observation Clinical Impression: Altered mental status, Accidental medication overdose - Discharge Information Referrals: Vera Conway PA-C [Primary Care Provider] - Forms: ED Department Discharge Sepsis Event Note (ED) - Focused Exam Vital Signs: Vital Signs Temp Pulse Resp BP Pulse Ox 01/01/21 12:24 36.3 C 60 20 96/56 L 100 - My Orders Last 24 Hours: My Active Orders 01/01/21 12:57 EKG Documentation Completion [RC] STAT 01/01/21 15:04 CORONAVIRUS COVID-19 ROLANDO [MOLEC] Stat - Assessment/Plan Last 24 Hours: My Active Orders 01/01/21 12:57 EKG Documentation Completion [RC] STAT 01/01/21 15:04 CORONAVIRUS COVID-19 ROLANDO [MOLEC] Stat
--- NOTE | 2021-01-01 13:42 | CR ---
Chest: Portable view of the chest was obtained. Comparison: Prior chest x-ray of 12/23/20. Heart is mildly enlarged. Upper mediastinum is normal. Pacemaker is seen. Lungs are clear with no acute parenchymal change. No acute osseous finding is appreciated. Impression: 1. Mild cardiomegaly and pacemaker. 2. Nothing acute is otherwise seen. Diagnostic code #2
--- NOTE | 2021-01-01 13:55 | CT ---
Head CT Technique: Multiple axial sections through the brain were obtained. Intravenous contrast was not utilized. Reconstructed coronal and sagittal images were obtained. Comparison: No prior intracranial imaging is available. Findings: Ventricles along with basal cisterns and sulci over the convexities are mildly prominent. Very slight diminished density is noted within portions of the periventricular white matter which is compatible with mild small vessel ischemic demyelination change. Minimal basal ganglia calcification is noted. No evidence of intracranial hemorrhage. No midline shift or mass-effect is seen. Bone window settings were reviewed. Visualized mastoid sinuses and paranasal sinuses show nothing acute. No acute calvarial abnormality is appreciated. Impression: 1. Mild senescent change as noted above. 2. Nothing acute is appreciated on noncontrast head CT study. Diagnostic code #2
[2021-01-01] MEDS ORDERED: Acetaminophen 325 MG Tab PO PRN (16:14)
[2021-01-01] MEDS ORDERED: Albuterol/Ipratropium 3.0-0.5 MG/3 ML Neb Soln NEB PRN (16:14)
[2021-01-01] MEDS ORDERED: Morphine 2 MG/ML SYRINGE IVPUSH PRN (16:14)
[2021-01-01] MEDS ORDERED: Promethazine 12.5 MG in Sodium Chloride 0.9% 50 ML IV PRN (16:14)
[2021-01-01] MEDS ORDERED: traMADol 50 MG Tab PO PRN (16:23)
[2021-01-01] MEDS ORDERED: Simethicone 80 MG Tab.Chew PO PRN (16:26)
[2021-01-01] MEDS ORDERED: Polyethylene Glycol 3350 Powder 17 GM Packet PO PRN (16:26)
--- NOTE | 2021-01-01 16:42 | PCM.HP.2 ---
H&P History of Present Illness - General Date of Service: 01/01/21 Admit Problem/Dx: Admission Diagnosis/Problem Admission Diagnosis/Problem TIA, Transient ischemic attack Source of Information: Patient, Other (chart) - History of Present Illness Initial Comments - Free Text/Narative: Patient is a 70-year-old male with a history of diabetes type 2, atrial fibrillation, CHF, hypothyroidism who was brought into the ER by [facility] from the [facility] due to abnormal speech and hypotension. At the [facility], he was found to be hypotensive and orthostatic. His family reported that his speech was not normal last night and this morning. He has a history of of accidental medication overdose in the past. He possibly took double amount of his home medications which included flecainide and Metformin. Otherwise patient is fine. In the ER, blood pressure 90/60, blood glucose 126, hemoglobin 13.9, platelets 125, sodium 122, creatinine 2.3, AST 48, total bilirubin 1.6, troponin negative. Urine drug screen negative. - Related Data Allergies/Adverse Reactions: Allergies Allergy/AdvReac Type Severity Reaction Status Date / Time codeine AdvReac Intermediate Agitation Verified 01/01/21 16:24 Home Medications: Home Meds Ferrous Sulfate 325 mg PO DAILY 12/06/18 [History] Flecainide [Tambocor] 100 mg PO BID 12/06/18 [History] L Acidophil/B Lactis/B Longum [Florajen3] 1 tab PO DAILY 12/06/18 [History] Levothyroxine [Synthroid] 100 mcg PO MOTUTHFRSA 12/06/18 [History] Methylsulfonylmethane [MSM] 1,000 mg PO DAILY 12/06/18 [History] Metoprolol Tartrate [Lopressor] 12.5 mg PO BID 12/06/18 [History] Lyerly 3/DHA/Epa/Other Om3/D3 [Lyerly-3 + Vitamin D3] 1,000 mg PO DAILY 12/06/18 [History] Pantoprazole Sodium [Protonix] 40 mg PO DAILY 12/06/18 [History] Rivaroxaban [Xarelto] 20 mg PO DAILY 12/06/18 [History] Simethicone 80 mg PO DAILY PRN 12/06/18 [History] Tamsulosin [Flomax] 0.4 mg PO DAILY 12/06/18 [History] allopurinoL [Zyloprim] 200 mg PO DAILY 12/06/18 [History] Potassium 20 meq PO DAILY 03/05/19 [History] Calcium Carbonate 600 mg PO DAILY 09/25/20 [History] Levothyroxine 112 mcg PO ACBREAKFAST 09/25/20 [History] Sodium Bicarbonate 650 mg PO BID 09/25/20 [History] Vitamin B Complex 1 each PO DAILY 09/25/20 [History] metFORMIN [Glucophage XR] 500 mg PO DAILY 09/25/20 [History] 7t Lido 2% Gel 1 applic TOP ASDIRECTED PRN 01/01/21 [History] Cholecalciferol (Vitamin D3) [Vitamin D3] 3,000 units PO DAILY 01/01/21 [History] Mirafiber 500 mg PO BEDTIME 01/01/21 [History] Mupirocin Oint [Bactroban Oint] 1 applic TOP ASDIRECTED 01/01/21 [History] Torsemide 50 mg PO DAILY 01/01/21 [History] polyethylene glycoL 3350 [MiraLAX] 1 applic PO ASDIRECTED PRN 01/01/21 [History] Past Medical History HEENT History: Reports: Cataract, Epistaxis, Hard of Hearing, Impaired Vision Other HEENT History: Macular tear, tinnitus, hearing aid, glasses Cardiovascular History: Reports: Afib, Heart Failure, Hypertension, Pacemaker, Other (See Below) Other Cardiovascular History: Left carotid bruit, aortic stenosis, symptomatic bradycardia Respiratory History: Reports: Sleep Apnea Other Respiratory History: Uses CPAP Gastrointestinal History: Reports: Gastritis, GERD, Hiatal Hernia, Other (See Below) Other Gastrointestinal History: Tenesmus, hematochezia, duodenitis, ulcers, esophagitis Genitourinary History: Reports: BPH, Chronic Renal Insuffiency, Retention, Urinary Other Genitourinary History: Urinary frequency, urgency, CKD III, proteinuria, uretherorrhagia [employer] SUCCESS [employer]ORDINATOR History: Reports: None Musculoskeletal History: Reports: Other (See Below) Other Musculoskeletal History: Knee pain Neurological History: Reports: Other (See Below) Other Neuro History: Syncopal episode Psychiatric History: Reports: None Endocrine/Metabolic History: Reports: Hypothyroidism, Obesity/BMI 30+ Hematologic History: Reports: Idiopathic Thrombocytopenia Other Hematologic History: Thrombocytopenia Immunologic History: Reports: None Oncologic (Cancer) History: Reports: None Dermatologic History: Reports: Other (See Below) - Infectious Disease History Infectious Disease History: Reports: Chicken Pox, Measles - Past Surgical History HEENT Surgical History: Reports: Cataract Surgery, Eye Surgery, Tonsillectomy Cardiovascular Surgical History: Reports: Pacer Respiratory Surgical History: Reports: None GI Surgical History: Reports: Colonoscopy, EGD Male Surgical History: Reports: Other (See Below) Other Male Surgeries/Procedures: urethra rerouted, procedure performed at [place] Endocrine Surgical History: Reports: None Neurological Surgical History: Reports: None Musculoskeletal Surgical History: Reports: Arthroscopic Knee Other Musculoskeletal Surgeries/Procedures:: Arthroscopic knee surgery x3 Oncologic Surgical History: Reports: None Dermatological Surgical History: Reports: Other (See Below) Social & Family History - Family History Family Medical History: No Pertinent Family History (Denies genetic diseases in family) - Tobacco Use Tobacco Use Status *Q: Never Tobacco User - Caffeine Use Caffeine Use: Reports: Coffee - Recreational Drug Use Recreational Drug Use: No - Living Situation & Occupation Living situation: Reports: , with Spouse Occupation: Employed ([employer]) H&P Review of Systems - Review of Systems: Review Of Systems: See Below General: Reports: No Symptoms HEENT: Reports: No Symptoms Pulmonary: Reports: No Symptoms Cardiovascular: Reports: No Symptoms Gastrointestinal: Reports: No Symptoms Genitourinary: Reports: No Symptoms Musculoskeletal: Reports: No Symptoms Skin: Reports: No Symptoms Psychiatric: Reports: No Symptoms Neurological: Reports: Other (Abnormal speech last night and this morning) Hematologic/Lymphatic: Reports: No Symptoms Immunologic: Reports: No Symptoms Exam - Exam Exam: See Below - Vital Signs Vital Signs: Last Vital Signs Temp 36.3 C 01/01/21 12:24 Pulse 60 01/01/21 12:24 Resp 20 01/01/21 12:24 BP 96/56 L 01/01/21 12:24 Pulse Ox 100 01/01/21 12:24 Weight: 99.79 kg - Exam General: Alert, Oriented, Cooperative HEENT: Conjunctiva Clear, EOMI, Pupils Equal, Pupils Reactive Neck: Supple, Full Range of Motion Lungs: Clear to Auscultation, Normal Respiratory Effort Cardiovascular: Irregular Rhythm GI/Abdominal Exam: Normal Bowel Sounds, Soft, Non-Tender, No Organomegaly Extremities: Normal Inspection, Normal Range of Motion, Non-Tender, No Pedal Edema Skin: Warm, Dry, Intact Neurological: Strength Equal Bilateral, Normal Speech, Normal Tone, Sensation Intact Neuro Extensive - Mental Status: Alert, Normal Mood/Affect Psychiatric: Normal Affect, Normal Mood - Patient Data Lab Results Last 24 hrs: Laboratory Results - last 24 hr 01/01/21 01/01/21 01/01/21 Range/Units 13:11 13:11 13:46 WBC 5.77 (4.23-9.07) K/mm3 RBC 4.23 L (4.63-6.08) M/mm3 Hgb 13.9 D (13.7-17.5) gm/dl Hct 41.2 (40.1-51.0) % MCV 97.4 H (79.0-92.2) fl MCH 32.9 H (25.7-32.2) pg MCHC 33.7 (32.2-35.5) g/dl RDW Std Deviation 52.2 H (35.1-43.9) fL Plt Count 125 L (163-337) K/mm3 MPV 9.0 L (9.4-12.3) fl Neut % (Auto) 52.3 (34.0-67.9) % Lymph % (Auto) 28.6 (21.8-53.1) % [place] % (Auto) 15.9 H (5.3-12.2) % Eos % (Auto) 2.1 (0.8-7.0) Baso % (Auto) 0.9 (0.1-1.2) % Neut # (Auto) 3.02 (1.78-5.38) K/mm3 Lymph # (Auto) 1.65 (1.32-3.57) K/mm3 [place] # (Auto) 0.92 H (0.30-0.82) K/mm3 Eos # (Auto) 0.12 (0.04-0.54) K/mm3 Baso # (Auto) 0.05 (0.01-0.08) K/mm3 Manual Slide Review Normal smear Sodium 132 L (136-145) mEq/L Potassium 4.4 (3.5-5.1) mEq/L Chloride 96 L (98-107) mEq/L Carbon Dioxide 28 (21-32) mEq/L Anion Gap 12.4 (5-15) BUN 56 H (7-18) mg/dL Creatinine 2.3 H (0.7-1.3) mg/dL Est Cr Clr Drug Dosing 26.00 mL/min Estimated GFR (MDRD) 28 (>60) mL/min BUN/Creatinine Ratio 24.3 H (14-18) Glucose 126 H (70-99) mg/dL Calcium 9.9 (8.5-10.1) mg/dL Total Bilirubin 1.6 H (0.2-1.0) mg/dL AST 48 H (15-37) U/L ALT 36 (16-63) U/L Alkaline Phosphatase 109 (46-116) U/L Troponin I < 0.017 (0.00-0.056) ng/mL Total Protein 8.3 H (6.4-8.2) g/dl Albumin 4.0 (3.4-5.0) g/dl Globulin 4.3 gm/dL Albumin/Globulin Ratio 0.9 L (1-2) TSH 3rd Generation 2.290 (0.358-3.74) uIU/mL Urine Color Yellow (Yellow) Urine Appearance Clear (Clear) Urine pH 7.0 (5.0-8.0) Ur Specific [place] 1.020 (1.005-1.030) Urine Protein Negative (Negative) Urine Glucose (UA) Negative (Negative) Urine Ketones Negative (Negative) Urine Occult Blood Trace-intact H (Negative) Urine Nitrite Negative (Negative) Urine Bilirubin Negative (Negative) Urine Urobilinogen 0.2 (0.2-1.0) Ur Leukocyte Esterase Negative (Negative) Urine RBC 0-5 (0-5) /hpf Urine WBC Not seen (0-5) /hpf Ur Squamous Epith Cells 0-5 (0-5) /hpf Urine Bacteria Not seen (FEW) /hpf Urine Mucus Not seen (FEW) /hpf Urine Opiates Screen (XYIXNE=473) Ur Buprenorphine Scrn (CUTOFF=10) Ur Oxycodone Screen (HGH7US=767) Urine Methadone Screen (AHX9EA=774) Ur Propoxyphene Screen (YUUZLJ=441) Ur Barbiturates Screen (YROXXT=427) Ur Tricyclics Screen (IGUVNZ=727) Ur Phencyclidine Scrn (CUTOFF=25) Ur Amphetamine Screen (CSEQDN=592) U Methamphetamines Scrn (UCTZGE=453) U Benzodiazepines Scrn (BYYZSH=441) U Cocaine Metab Screen (XCFDPP=042) U Marijuana (THC) Screen (CUTOFF=50) Ethyl Alcohol 0.00 (0.00) gm% 01/01/21 Range/Units 13:46 WBC (4.23-9.07) K/mm3 RBC (4.63-6.08) M/mm3 Hgb (13.7-17.5) gm/dl Hct (40.1-51.0) % MCV (79.0-92.2) fl MCH (25.7-32.2) pg MCHC (32.2-35.5) g/dl RDW Std Deviation (35.1-43.9) fL Plt Count (163-337) K/mm3 MPV (9.4-12.3) fl Neut % (Auto) (34.0-67.9) % Lymph % (Auto) (21.8-53.1) % [place] % (Auto) (5.3-12.2) % Eos % (Auto) (0.8-7.0) Baso % (Auto) (0.1-1.2) % Neut # (Auto) (1.78-5.38) K/mm3 Lymph # (Auto) (1.32-3.57) K/mm3 [place] # (Auto) (0.30-0.82) K/mm3 Eos # (Auto) (0.04-0.54) K/mm3 Baso # (Auto) (0.01-0.08) K/mm3 Manual Slide Review Sodium (136-145) mEq/L Potassium (3.5-5.1) mEq/L Chloride (98-107) mEq/L Carbon Dioxide (21-32) mEq/L Anion Gap (5-15) BUN (7-18) mg/dL Creatinine (0.7-1.3) mg/dL Est Cr Clr Drug Dosing mL/min Estimated GFR (MDRD) (>60) mL/min BUN/Creatinine Ratio (14-18) Glucose (70-99) mg/dL Calcium (8.5-10.1) mg/dL Total Bilirubin (0.2-1.0) mg/dL AST (15-37) U/L ALT (16-63) U/L Alkaline Phosphatase (46-116) U/L Troponin I (0.00-0.056) ng/mL Total Protein (6.4-8.2) g/dl Albumin (3.4-5.0) g/dl Globulin gm/dL Albumin/Globulin Ratio (1-2) TSH 3rd Generation (0.358-3.74) uIU/mL Urine Color (Yellow) Urine Appearance (Clear) Urine pH (5.0-8.0) Ur Specific [place] (1.005-1.030) Urine Protein (Negative) Urine Glucose (UA) (Negative) Urine Ketones (Negative) Urine Occult Blood (Negative) Urine Nitrite (Negative) Urine Bilirubin (Negative) Urine Urobilinogen (0.2-1.0) Ur Leukocyte Esterase (Negative) Urine RBC (0-5) /hpf Urine WBC (0-5) /hpf Ur Squamous Epith Cells (0-5) /hpf Urine Bacteria (FEW) /hpf Urine Mucus (FEW) /hpf Urine Opiates Screen Negative (TNHTEC=373) Ur Buprenorphine Scrn Negative (CUTOFF=10) Ur Oxycodone Screen Negative (ELH2YJ=628) Urine Methadone Screen Negative (LSO8TE=719) Ur Propoxyphene Screen Negative (FBDICU=500) Ur Barbiturates Screen Negative (FASVRS=855) Ur Tricyclics Screen Negative (DMDBVQ=257) Ur Phencyclidine Scrn Negative (CUTOFF=25) Ur Amphetamine Screen Negative (ELRELP=818) U Methamphetamines Scrn Negative (EYQZFB=028) U Benzodiazepines Scrn Negative (FDMBTW=837) U Cocaine Metab Screen Negative (UOGZQD=434) U Marijuana (THC) Screen Negative (CUTOFF=50) Ethyl Alcohol (0.00) gm% Result Diagrams: 01/01/21 13:11 01/01/21 13:11 Sepsis Event Note - Evaluation Sepsis Screening Result: No Definite Risk - Focused Exam Vital Signs: Vital Signs Temp Pulse Resp BP Pulse Ox 01/01/21 12:24 36.3 C 60 20 96/56 L 100 Problem List Initiated/Reviewed/Updated: Yes Orders Last 24hrs: Active Orders 24 hr Category Date Time Status Patient Status [ADT] Routine ADT 01/01/21 16:14 Ordered Blood Glucose Check, Bedside [RC] QIDACANDBED Care 01/01/21 16:14 Ordered Cardiac Monitoring [RC] CONTINUOUS Care 01/01/21 16:16 Ordered EKG Documentation Completion [RC] STAT Care 01/01/21 12:57 Active Intake and Output [RC] QSHIFT Care 01/01/21 16:16 Ordered Oxygen Therapy [RC] PRN Care 01/01/21 16:14 Ordered Pulse Oximetry [RC] CONTINUOUS Care 01/01/21 16:16 Ordered RT Aerosol Therapy [RC] ASDIRECTED Care 01/01/21 16:21 Ordered Up With Assistance [RC] ASDIRECTED Care 01/01/21 16:14 Ordered VTE/DVT Education [RC] PER UNIT ROUTINE Care 01/01/21 16:14 Ordered Vital Signs [RC] Q4H Care 01/01/21 16:14 Ordered OT Evaluation and Treatment [CONS] Routine Cons 01/01/21 16:14 Ordered PT Evaluation and Treatment [CONS] Routine Cons 01/01/21 16:14 Ordered Consistent Carbohydrate Diet [DIET] Diet 01/01/21 Dinner Ordered Echo 2D wo Cont [US] Stat Exams 01/01/21 16:24 Ordered CBC WITH AUTO DIFF [HEME] DAILY Lab 01/02/21 05:00 Ordered CBC WITH AUTO DIFF [HEME] DAILY Lab 01/03/21 05:00 Ordered CBC WITH AUTO DIFF [HEME] DAILY Lab 01/04/21 05:00 Ordered CBC WITH AUTO DIFF [HEME] DAILY Lab 01/05/21 05:00 Ordered CBC WITH AUTO DIFF [HEME] DAILY Lab 01/06/21 05:00 Ordered COMPREHENSIVE METABOLIC PN,CMP [CHEM] DAILY Lab 01/02/21 05:00 Ordered COMPREHENSIVE METABOLIC PN,CMP [CHEM] DAILY Lab 01/03/21 05:00 Ordered COMPREHENSIVE METABOLIC PN,CMP [CHEM] DAILY Lab 01/04/21 05:00 Ordered COMPREHENSIVE METABOLIC PN,CMP [CHEM] DAILY Lab 01/05/21 05:00 Ordered COMPREHENSIVE METABOLIC PN,CMP [CHEM] DAILY Lab 01/06/21 05:00 Ordered CORONAVIRUS COVID-19 ROLANDO [MOLEC] Stat Lab 01/01/21 15:04 Ordered CULTURE BLOOD [BC] Stat Lab 01/01/21 16:22 Ordered CULTURE BLOOD [BC] Stat Lab 01/01/21 16:22 Ordered INR,PT,PROTHROMBIN TIME [COAG] Routine Lab 01/01/21 16:14 Ordered MAGNESIUM [CHEM] Routine Lab 01/01/21 16:14 Ordered PRO B-TYPE NATRIUR PEPT,BNPPRO [CHEM] Stat Lab 01/01/21 16:37 Ordered TROPONIN I [CHEM] Routine Lab 01/01/21 16:14 Ordered Acetaminophen [TylenoL] Med 01/01/21 16:14 Ordered 650 mg PO Q6H PRN Albuterol/Ipratropium [DuoNeb 3.0-0.5 MG/3 ML] Med 01/01/21 16:14 Ordered 3 ml NEB Q4H PRN Calcium Carbonate Med 01/02/21 09:00 Ordered 600 mg PO DAILY Cholecalciferol (Vitamin D3) [Vitamin D3] Med 01/02/21 09:00 Ordered 3,000 units PO DAILY Ferrous Sulfate Med 01/02/21 09:00 Ordered 325 mg PO DAILY Insulin Lispro [HumaLOG] Med 01/01/21 17:00 Ordered See Protocol SUBCUT QIDACANDBED Lactated Ringers @ 50 MLS/HR(1000ml Bag) Med 01/01/21 16:45 Ordered Lactated Ringers [Ringers, Lactated] 1,000 ml IV ASDIRECTED Levothyroxine Med 01/02/21 06:00 Ordered 112 mcg PO ACBREAKFAST Levothyroxine [Synthroid] Med 01/01/21 16:30 Ordered 100 mcg PO MOTUTHFRSA Metoprolol Tartrate [Lopressor] Med 01/01/21 21:00 Ordered 12.5 mg PO BID Morphine Med 01/01/21 16:14 Ordered 2 mg IVPUSH Q4H PRN Pantoprazole Med 01/02/21 09:00 Ordered 40 mg PO DAILY Promethazine [Phenergan] 12.5 mg Med 01/01/21 16:14 Ordered Sodium Chloride 0.9% [Normal Saline] 50 ml IV Q6H Rivaroxaban [Xarelto] Med 01/02/21 09:00 Ordered 15 mg PO DAILY Simethicone Med 01/01/21 16:26 Ordered 80 mg PO DAILY PRN Sodium Bicarbonate Med 01/01/21 21:00 Ordered 650 mg PO BID Sodium Chloride 0.9% [Normal Saline] 250 ml Med 01/01/21 16:37 Ordered IV .BOLUS Tamsulosin [Flomax] Med 01/02/21 09:00 Ordered 0.4 mg PO DAILY polyethylene glycoL 3350 [MiraLAX] Med 01/01/21 16:26 Ordered 1 applic PO ASDIRECTED PRN traMADol [Ultram] Med 01/01/21 16:23 Ordered 50 mg PO Q6H PRN Blood Culture x2 Reflex Set [OM.PC] Stat Oth 01/01/21 16:14 Ordered Medication Orders Acetaminophen (Acetaminophen 325 Mg Tab) 650 mg PO Q6H PRN PRN Reason: Pain (Mild 1-3)/fever Albuterol/Ipratropium (Albuterol/Ipratropium 3.0-0.5 Mg/3 Ml Neb Soln) 3 ml NEB Q4H PRN PRN Reason: Shortness Of Breath/wheezing Calcium Carbonate/Glycine (Calcium Carbonate 600 Mg Tab) 600 mg PO DAILY [facility] Cholecalciferol (Cholecalciferol (Vitamin D3) 25 Mcg Tab) 75 mcg PO DAILY [facility] Promethazine HCl 12.5 mg/ (Sodium Chloride) 50.5 mls @ 100 mls/hr IV Q6H PRN PRN Reason: Nausea/Vomiting Levothyroxine Sodium (Levothyroxine 112 Mcg Tab) 112 mcg PO ACBREAKFAST [facility] Levothyroxine Sodium (Levothyroxine 100 Mcg Tab) 100 mcg PO MOTUTHFRSA [facility] Metoprolol Tartrate (Metoprolol Tartrate 50 Mg Tab) 12.5 mg PO BID [facility] Morphine Sulfate (Morphine 2 Mg/Ml Syringe) 2 mg IVPUSH Q4H PRN PRN Reason: Pain (severe 7-10) Stop: 01/02/21 16:20 Non-Formulary Medication (Ferrous Sulfate) 325 mg PO DAILY [facility] Non-Formulary Medication (Pantoprazole) 40 mg PO DAILY [facility] Non-Formulary Medication (Rivaroxaban [Xarelto]) 15 mg PO DAILY [facility] Polyethylene Glycol (Polyethylene Glycol 3350 Powder 17 Gm Packet) gm PO ASDIRECTED PRN PRN Reason: Constipation Simethicone (Simethicone 80 Mg Tab.Chew) 80 mg PO DAILY PRN PRN Reason: Gas Sodium Bicarbonate (Sodium Bicarbonate 650 Mg Tab) 650 mg PO BID [facility] Tamsulosin HCl (Tamsulosin 0.4 Mg Cap.Er) 0.4 mg PO DAILY [facility] Tramadol HCl (Tramadol 50 Mg Tab) 50 mg PO Q6H PRN PRN Reason: Pain (moderate 4-6) Assessment/Plan Comment:: Patient is a 70-year-old male with a history of diabetes type 2, atrial fibrillation, CHF, hypothyroidism who was brought into the ER by [facility] from the [facility] due to abnormal speech and hypotension. Assessment: TIA? -abnormal speech -no focal neurological deficits in the ER -CT of head -negative for acute change -Not on aspirin -We will initiate aspirin and Lipitor -Echocardiogram -Ultrasound Doppler carotid Hyppotension -90/60 in the ER -HR 60 -Hx of accidental medicaiton overdose -home meds including flecainide, metoprolol and torsemide -flecainide and torsemide are on hold -TSH 2.290 -Mag -UDS - negative -troponin negative -hx of aortic stenosis Atratrial fibrillation -pacemaker in place -continue home metoprolol 12.5mg bid -on Xarelto 20mg daily. I will adjust it to 15mg daily based on renal function -TSH 2.290 CHF -type unknown -CXR - mild cardiomegaly -BNP -troponin < 0.017 -Torsemide is on hold Hypothyroidism -TSH 2.290 -Continue home Synthroid GABI on CKD -Could be due to dehydration, use of the torsemide, and diabetes -creatinine 2.3 on admission, 1.3 on 12/17/2019. has been around 1.7 since 01/08/2020. creatinine 2.4 on 12/29/2020 -Allopurinol is no hold. may resume when renal function improved -Torsemide is on hold Thrombocytopenis -125 on admission -No evidence of bleeding -Continue Xarelto. Aspirin was added for possible TIA -Pantoprazole 40 mg daily -Repeat platelets in the morning Elevation of liver enzymes -AST 48, ALT 36, TB 1.6 and al phos 109 on admission DM type 2 -Metformin 500mg daily is on hold -Diabetic diet (after passing bedside swallow eval) Plan: 1. Will be observed in telemetry 2. Cardia monitor, pulse ox, oxygen therapy as needed to keep oxygen saturation greater than 92% Neuro check every 4 hours Aspirin and Lipitor Hemoglobin A1c, PT, PTT PT and OT. Speech pathology 3. NS bolus. Gentle IV fluid 4. Continue metoprolol 12.5 mg twice daily and Xarelto 15 mg daily (home medication 20 mg daily) 5. Intake and output. Repeat troponin. Echocardiogram 6. Avoid nephrotoxic meds. Repeat the renal function in morning 7. Repeat CBC and CMP in the morning 8. DVT prophylaxis: Xarelto 9. Code status: full Deposition: PT OT Less than 2 midnights - Mortality Measure Prognosis:: Good
[2021-01-01] MEDS ORDERED: Sodium Chloride 0.9% 250 ML IV ONE (17:00)
[2021-01-01] MEDS: Insulin Lispro 100 UNIT/ML 10 ML Vial SUBCUT SCH ×2 (18:53→23:11)
[2021-01-01] MEDS: Aspirin 81 MG Tab.EC PO SCH (19:13)
[2021-01-01] MEDS: Lactated Ringers 1,000 ML IV SCH (19:33)
[2021-01-01] MEDS: Metoprolol Tartrate 50 MG Tab PO SCH (21:24)
[2021-01-01] MEDS: atorvaSTATin 40 MG Tab PO SCH (21:24)
[2021-01-01] MEDS: Sodium Bicarbonate 650 MG Tab PO SCH (21:24)
[2021-01-02 05:42] LABS: HEMOGLOBIN A1C 6.7 %
[2021-01-02] MEDS ORDERED: Levothyroxine 100 MCG Tab PO SCH (06:00)
[2021-01-02] MEDS: Insulin Lispro 100 UNIT/ML 10 ML Vial SUBCUT SCH ×4 (08:19→21:13)
--- NOTE | 2021-01-02 08:22 | PCM.PN ---
- General Info Date of Service: 01/02/21 Admission Dx/Problem (Free Text): Admission Diagnosis/Problem Admission Diagnosis/Problem TIA, Transient ischemic attack Subjective Update: In to see patient. He is laying in the bed and reports he feels pretty good. He states he is a little cold, but this is normal for him. He is fairly confident that he messed up his medications prior to admission. Neurochecks have been negative. Reviewed half-lives of patient's medications and will keep him until at least tomorrow to ensure stability. He does have pedal edema. We will recheck labs in the morning. We will check folic acid and direct bili now. Otherwise he appears to be doing quite well. Functional Status: Reports: Pain Controlled, Tolerating Diet, Ambulating, Urinating. Denies: New Symptoms - Review of Systems General: Reports: No Symptoms, Weakness, Fatigue. Denies: Fever, Malaise, Chil ls HEENT: Reports: No Symptoms. Denies: Headaches, Sore Throat Pulmonary: Reports: No Symptoms. Denies: Shortness of Breath, Cough, Sputum, Wheezing Cardiovascular: Reports: Edema. Denies: Chest Pain, Palpitations, Dyspnea on Exertion Gastrointestinal: Reports: No Symptoms. Denies: Abdominal Pain, Constipation, Diarrhea, Nausea, Vomiting Genitourinary: Reports: No Symptoms. Denies: Pain Musculoskeletal: Reports: No Symptoms Skin: Reports: No Symptoms. Denies: Cyanosis Neurological: Reports: No Symptoms. Denies: Confusion, Headache, Numbness, Pre- Existing Deficit, Seizure, Syncope, Tingling, Tremors, Trouble Speaking, Difficulty Walking, Change in Speech, Gait Disturbance Psychiatric: Reports: No Symptoms - Patient Data Vitals - Most Recent: Last Vital Signs Temp 97.9 F 01/02/21 08:08 Pulse 59 L 01/02/21 08:08 Resp 20 01/02/21 08:08 BP 91/64 01/02/21 08:08 Pulse Ox 100 01/02/21 08:08 Weight - Most Recent: 205 lb 12.8 oz I&O - Last 24 Hours: Intake & Output 01/01/21 01/02/21 01/02/21 22:59 06:59 14:59 Intake Total 1421 Balance 1421 Lab Results Last 24 Hours: Laboratory Results - last 24 hr 01/01/21 01/01/2101/01/21 Range/Units 13:11 13:11 13:46 WBC 5.77 (4.23-9.07) K/mm3 RBC 4.23 L (4.63-6.08) M/mm3 Hgb 13.9 D (13.7-17.5) gm/dl Hct 41.2 (40.1-51.0) % MCV 97.4 H (79.0-92.2) fl MCH 32.9 H (25.7-32.2) pg MCHC 33.7 (32.2-35.5) g/dl RDW Std Deviation 52.2 H (35.1-43.9) fL Plt Count 125 L (163-337) K/mm3 MPV 9.0 L (9.4-12.3) fl Neut % (Auto) 52.3 (34.0-67.9) % Lymph % (Auto) 28.6 (21.8-53.1) % [place] % (Auto) 15.9 H (5.3-12.2) % Eos % (Auto) 2.1 (0.8-7.0) Baso % (Auto) 0.9 (0.1-1.2) % Neut # (Auto) 3.02 (1.78-5.38) K/mm3 Lymph # (Auto) 1.65 (1.32-3.57) K/mm3 [place] # (Auto) 0.92 H (0.30-0.82) K/mm3 Eos # (Auto) 0.12 (0.04-0.54) K/mm3 Baso # (Auto) 0.05 (0.01-0.08) K/mm3 Manual Slide Review Normal smear PT (9.7-12.0) SECONDS INR APTT (21.7-31.4) SECONDS Sodium 132 L (136-145) mEq/L Potassium 4.4 (3.5-5.1) mEq/L Chloride 96 L (98-107) mEq/L Carbon Dioxide 28 (21-32) mEq/L Anion Gap 12.4 (5-15) BUN 56 H (7-18) mg/dL Creatinine 2.3 H (0.7-1.3) mg/dL Est Cr Clr Drug Dosing 26.00 mL/min Estimated GFR (MDRD) 28 (>60) mL/min BUN/Creatinine Ratio 24.3 H (14-18) Glucose 126 H (70-99) mg/dL POC Glucose (70-99) mg/dL Hemoglobin A1c ( - 5.6) % Calcium 9.9 (8.5-10.1) mg/dL Magnesium (1.8-2.4) mg/dL Total Bilirubin 1.6 H (0.2-1.0) mg/dL AST 48 H (15-37) U/L ALT 36 (16-63) U/L Alkaline Phosphatase 109 (46-116) U/L Troponin I < 0.017 (0.00-0.056) ng/mL NT-Pro-B Natriuret Pep (0-125) pg/mL Total Protein 8.3 H (6.4-8.2) g/dl Albumin 4.0 (3.4-5.0) g/dl Globulin 4.3 gm/dL Albumin/Globulin Ratio 0.9 L (1-2) TSH 3rd Generation 2.290 (0.358-3.74) uIU/mL Urine Color Yellow (Yellow) Urine Appearance Clear (Clear) Urine pH 7.0 (5.0-8.0) Ur Specific [place] 1.020 (1.005-1.030) Urine Protein Negative (Negative) Urine Glucose (UA) Negative (Negative) Urine Ketones Negative (Negative) Urine Occult Blood Trace-intact H (Negative) Urine Nitrite Negative (Negative) Urine Bilirubin Negative (Negative) Urine Urobilinogen 0.2 (0.2-1.0) Ur Leukocyte Esterase Negative (Negative) Urine RBC 0-5 (0-5) /hpf Urine WBC Not seen (0-5) /hpf Ur Squamous Epith Cells 0-5 (0-5) /hpf Urine Bacteria Not seen (FEW) /hpf Urine Mucus Not seen (FEW) /hpf Urine Opiates Screen (AMTSHM=274) Ur Buprenorphine Scrn (CUTOFF=10) Ur Oxycodone Screen (GMD8OP=816) Urine Methadone Screen (AYS2GZ=007) Ur Propoxyphene Screen (NGKIWV=870) Ur Barbiturates Screen (KKWCAC=914) Ur Tricyclics Screen (MXMEKO=135) Ur Phencyclidine Scrn (CUTOFF=25) Ur Amphetamine Screen (ZIVLYR=109) U Methamphetamines Scrn (JNEILP=045) U Benzodiazepines Scrn (RWBESB=290) U Cocaine Metab Screen (IRUTZW=841) U Marijuana (THC) Screen (CUTOFF=50) Ethyl Alcohol 0.00 (0.00) gm% SARS-CoV-2 RNA (ROLANDO) (NEGATIVE) 01/01/21 01/01/21 01/01/21 Range/Units 13:46 16:20 16:50 WBC (4.23-9.07) K/mm3 RBC (4.63-6.08) M/mm3 Hgb (13.7-17.5) gm/dl Hct (40.1-51.0) % MCV (79.0-92.2) fl MCH (25.7-32.2) pg MCHC (32.2-35.5) g/dl RDW Std Deviation (35.1-43.9) fL Plt Count (163-337) K/mm3 MPV (9.4-12.3) fl Neut % (Auto) (34.0-67.9) % Lymph % (Auto) (21.8-53.1) % [place] % (Auto) (5.3-12.2) % Eos % (Auto) (0.8-7.0) Baso % (Auto) (0.1-1.2) % Neut # (Auto) (1.78-5.38) K/mm3 Lymph # (Auto) (1.32-3.57) K/mm3 [place] # (Auto) (0.30-0.82) K/mm3 Eos # (Auto) (0.04-0.54) K/mm3 Baso # (Auto) (0.01-0.08) K/mm3 Manual Slide Review PT 18.4 H (9.7-12.0) SECONDS INR 1.74 APTT (21.7-31.4) SECONDS Sodium (136-145) mEq/L Potassium (3.5-5.1) mEq/L Chloride (98-107) mEq/L Carbon Dioxide (21-32) mEq/L Anion Gap (5-15) BUN (7-18) mg/dL Creatinine (0.7-1.3) mg/dL Est Cr Clr Drug Dosing mL/min Estimated GFR (MDRD) (>60) mL/min BUN/Creatinine Ratio (14-18) Glucose (70-99) mg/dL POC Glucose (70-99) mg/dL Hemoglobin A1c ( - 5.6) % Calcium (8.5-10.1) mg/dL Magnesium (1.8-2.4) mg/dL Total Bilirubin (0.2-1.0) mg/dL AST (15-37) U/L ALT (16-63) U/L Alkaline Phosphatase (46-116) U/L Troponin I (0.00-0.056) ng/mL NT-Pro-B Natriuret Pep (0-125) pg/mL Total Protein (6.4-8.2) g/dl Albumin (3.4-5.0) g/dl Globulin gm/dL Albumin/Globulin Ratio (1-2) TSH 3rd Generation (0.358-3.74) uIU/mL Urine Color (Yellow) Urine Appearance (Clear) Urine pH (5.0-8.0) Ur Specific [place] (1.005-1.030) Urine Protein (Negative) Urine Glucose (UA) (Negative) Urine Ketones (Negative) Urine Occult Blood (Negative) Urine Nitrite (Negative) Urine Bilirubin (Negative) Urine Urobilinogen (0.2-1.0) Ur Leukocyte Esterase (Negative) Urine RBC (0-5) /hpf Urine WBC (0-5) /hpf Ur Squamous Epith Cells (0-5) /hpf Urine Bacteria (FEW) /hpf Urine Mucus (FEW) /hpf Urine Opiates Screen Negative (HAUCLZ=717) Ur Buprenorphine Scrn Negative (CUTOFF=10) Ur Oxycodone Screen Negative (NVY6HV=832) Urine Methadone Screen Negative (OXN7WT=578) Ur Propoxyphene Screen Negative (XFDSWD=541) Ur Barbiturates Screen Negative (PMTMCJ=490) Ur Tricyclics Screen Negative (SRGQUS=004) Ur Phencyclidine Scrn Negative (CUTOFF=25) Ur Amphetamine Screen Negative (BOXGXO=450) U Methamphetamines Scrn Negative (YHRZCJ=140) U Benzodiazepines Scrn Negative (UCNBMQ=810) U Cocaine Metab Screen Negative (KVJYDZ=024) U Marijuana (THC) Screen Negative (CUTOFF=50) Ethyl Alcohol (0.00) gm% SARS-CoV-2 RNA (ROLANDO) Negative (NEGATIVE) 01/01/21 01/01/21 01/01/21 Range/Units 16:50 16:50 18:37 WBC (4.23-9.07) K/mm3 RBC (4.63-6.08) M/mm3 Hgb (13.7-17.5) gm/dl Hct (40.1-51.0) % MCV (79.0-92.2) fl MCH (25.7-32.2) pg MCHC (32.2-35.5) g/dl RDW Std Deviation (35.1-43.9) fL Plt Count (163-337) K/mm3 MPV (9.4-12.3) fl Neut % (Auto) (34.0-67.9) % Lymph % (Auto) (21.8-53.1) % [place] % (Auto) (5.3-12.2) % Eos % (Auto) (0.8-7.0) Baso % (Auto) (0.1-1.2) % Neut # (Auto) (1.78-5.38) K/mm3 Lymph # (Auto) (1.32-3.57) K/mm3 [place] # (Auto) (0.30-0.82) K/mm3 Eos # (Auto) (0.04-0.54) K/mm3 Baso # (Auto) (0.01-0.08) K/mm3 Manual Slide Review PT (9.7-12.0) SECONDS INR APTT (21.7-31.4) SECONDS Sodium (136-145) mEq/L Potassium (3.5-5.1) mEq/L Chloride (98-107) mEq/L Carbon Dioxide (21-32) mEq/L Anion Gap (5-15) BUN (7-18) mg/dL Creatinine (0.7-1.3) mg/dL Est Cr Clr Drug Dosing mL/min Estimated GFR (MDRD) (>60) mL/min BUN/Creatinine Ratio (14-18) Glucose (70-99) mg/dL POC Glucose 127 H (70-99) mg/dL Hemoglobin A1c ( - 5.6) % Calcium (8.5-10.1) mg/dL Magnesium 2.5 H (1.8-2.4) mg/dL Total Bilirubin (0.2-1.0) mg/dL AST (15-37) U/L ALT (16-63) U/L Alkaline Phosphatase (46-116) U/L Troponin I < 0.017 (0.00-0.056) ng/mL NT-Pro-B Natriuret Pep 858 H (0-125) pg/mL Total Protein (6.4-8.2) g/dl Albumin (3.4-5.0) g/dl Globulin gm/dL Albumin/Globulin Ratio (1-2) TSH 3rd Generation (0.358-3.74) uIU/mL Urine Color (Yellow) Urine Appearance (Clear) Urine pH (5.0-8.0) Ur Specific [place] (1.005-1.030) Urine Protein (Negative) Urine Glucose (UA) (Negative) Urine Ketones (Negative) Urine Occult Blood (Negative) Urine Nitrite (Negative) Urine Bilirubin (Negative) Urine Urobilinogen (0.2-1.0) Ur Leukocyte Esterase (Negative) Urine RBC (0-5) /hpf Urine WBC (0-5) /hpf Ur Squamous Epith Cells (0-5) /hpf Urine Bacteria (FEW) /hpf Urine Mucus (FEW) /hpf Urine Opiates Screen (DHVDHA=336) Ur Buprenorphine Scrn (CUTOFF=10) Ur Oxycodone Screen (BWR7DJ=688) Urine Methadone Screen (HGP1ZM=811) Ur Propoxyphene Screen (QZABUT=500) Ur Barbiturates Screen (ATTIVX=799) Ur Tricyclics Screen (FSUSPG=442) Ur Phencyclidine Scrn (CUTOFF=25) Ur Amphetamine Screen (OWQMXW=792) U Methamphetamines Scrn (SIOCEC=597) U Benzodiazepines Scrn (SPSWDD=684) U Cocaine Metab Screen (QQAIRT=017) U Marijuana (THC) Screen (CUTOFF=50) Ethyl Alcohol (0.00) gm% SARS-CoV-2 RNA (ROLANDO) (NEGATIVE) 01/01/21 01/02/21 01/02/21 Range/Units 22:51 05:00 05:00 WBC 4.65 (4.23-9.07) K/mm3 RBC 3.92 L (4.63-6.08) M/mm3 Hgb 13.0 L (13.7-17.5) gm/dl Hct 38.6 L (40.1-51.0) % MCV 98.5 H (79.0-92.2) fl MCH 33.2 H (25.7-32.2) pg MCHC 33.7 (32.2-35.5) g/dl RDW Std Deviation 52.9 H (35.1-43.9) fL Plt Count 115 L (163-337) K/mm3 MPV 9.9 (9.4-12.3) fl Neut % (Auto) 44.5 (34.0-67.9) % Lymph % (Auto) 33.1 (21.8-53.1) % [place] % (Auto) 18.1 H (5.3-12.2) % Eos % (Auto) 3.0 (0.8-7.0) Baso % (Auto) 1.1 (0.1-1.2) % Neut # (Auto) 2.07 (1.78-5.38) K/mm3 Lymph # (Auto) 1.54 (1.32-3.57) K/mm3 [place] # (Auto) 0.84 H (0.30-0.82) K/mm3 Eos # (Auto) 0.14 (0.04-0.54) K/mm3 Baso # (Auto) 0.05 (0.01-0.08) K/mm3 Manual Slide Review Normal smear PT (9.7-12.0) SECONDS INR APTT (21.7-31.4) SECONDS Sodium 136 (136-145) mEq/L Potassium 4.2 (3.5-5.1) mEq/L Chloride 100 (98-107) mEq/L Carbon Dioxide 23 (21-32) mEq/L Anion Gap 17.2 H (5-15) BUN 52 H (7-18) mg/dL Creatinine 2.0 H (0.7-1.3) mg/dL Est Cr Clr Drug Dosing 29.90 mL/min Estimated GFR (MDRD) 33 (>60) mL/min BUN/Creatinine Ratio 26.0 H (14-18) Glucose 112 H (70-99) mg/dL POC Glucose 222 H (70-99) mg/dL Hemoglobin A1c ( - 5.6) % Calcium 8.7 (8.5-10.1) mg/dL Magnesium (1.8-2.4) mg/dL Total Bilirubin 1.5 H (0.2-1.0) mg/dL AST 42 H (15-37) U/L ALT 32 (16-63) U/L Alkaline Phosphatase 83 (46-116) U/L Troponin I (0.00-0.056) ng/mL NT-Pro-B Natriuret Pep (0-125) pg/mL Total Protein 7.2 (6.4-8.2) g/dl Albumin 3.4 (3.4-5.0) g/dl Globulin 3.8 gm/dL Albumin/Globulin Ratio 0.9 L (1-2) TSH 3rd Generation (0.358-3.74) uIU/mL Urine Color (Yellow) Urine Appearance (Clear) Urine pH (5.0-8.0) Ur Specific [place] (1.005-1.030) Urine Protein (Negative) Urine Glucose (UA) (Negative) Urine Ketones (Negative) Urine Occult Blood (Negative) Urine Nitrite (Negative) Urine Bilirubin (Negative) Urine Urobilinogen (0.2-1.0) Ur Leukocyte Esterase (Negative) Urine RBC (0-5) /hpf Urine WBC (0-5) /hpf Ur Squamous Epith Cells (0-5) /hpf Urine Bacteria (FEW) /hpf Urine Mucus (FEW) /hpf Urine Opiates Screen (ANNQWU=614) Ur Buprenorphine Scrn (CUTOFF=10) Ur Oxycodone Screen (OEH7OG=818) Urine Methadone Screen (TPU4OK=918) Ur Propoxyphene Screen (HUBCLI=210) Ur Barbiturates Screen (YCPSRZ=876) Ur Tricyclics Screen (AAIHLA=594) Ur Phencyclidine Scrn (CUTOFF=25) Ur Amphetamine Screen (XDBDVV=341) U Methamphetamines Scrn (VDRPYM=739) U Benzodiazepines Scrn (UEFWEH=238) U Cocaine Metab Screen (PHOXUZ=522) U Marijuana (THC) Screen (CUTOFF=50) Ethyl Alcohol (0.00) gm% SARS-CoV-2 RNA (ROLANDO) (NEGATIVE) 01/02/21 01/02/21 01/02/21 Range/Units 05:00 05:00 05:55 WBC (4.23-9.07) K/mm3 RBC (4.63-6.08) M/mm3 Hgb (13.7-17.5) gm/dl Hct (40.1-51.0) % MCV (79.0-92.2) fl MCH (25.7-32.2) pg MCHC (32.2-35.5) g/dl RDW Std Deviation (35.1-43.9) fL Plt Count (163-337) K/mm3 MPV (9.4-12.3) fl Neut % (Auto) (34.0-67.9) % Lymph % (Auto) (21.8-53.1) % [place] % (Auto) (5.3-12.2) % Eos % (Auto) (0.8-7.0) Baso % (Auto) (0.1-1.2) % Neut # (Auto) (1.78-5.38) K/mm3 Lymph # (Auto) (1.32-3.57) K/mm3 [place] # (Auto) (0.30-0.82) K/mm3 Eos # (Auto) (0.04-0.54) K/mm3 Baso # (Auto) (0.01-0.08) K/mm3 Manual Slide Review PT 15.7 H (9.7-12.0) SECONDS INR 1.48 APTT 42.8 H (21.7-31.4) SECONDS Sodium (136-145) mEq/L Potassium (3.5-5.1) mEq/L Chloride (98-107) mEq/L Carbon Dioxide (21-32) mEq/L Anion Gap (5-15) BUN (7-18) mg/dL Creatinine (0.7-1.3) mg/dL Est Cr Clr Drug Dosing mL/min Estimated GFR (MDRD) (>60) mL/min BUN/Creatinine Ratio (14-18) Glucose (70-99) mg/dL POC Glucose 110 H (70-99) mg/dL Hemoglobin A1c 6.7 H ( - 5.6) % Calcium (8.5-10.1) mg/dL Magnesium (1.8-2.4) mg/dL Total Bilirubin (0.2-1.0) mg/dL AST (15-37) U/L ALT (16-63) U/L Alkaline Phosphatase (46-116) U/L Troponin I (0.00-0.056) ng/mL NT-Pro-B Natriuret Pep (0-125) pg/mL Total Protein (6.4-8.2) g/dl Albumin (3.4-5.0) g/dl Globulin gm/dL Albumin/Globulin Ratio (1-2) TSH 3rd Generation (0.358-3.74) uIU/mL Urine Color (Yellow) Urine Appearance (Clear) Urine pH (5.0-8.0) Ur Specific [place] (1.005-1.030) Urine Protein (Negative) Urine Glucose (UA) (Negative) Urine Ketones (Negative) Urine Occult Blood (Negative) Urine Nitrite (Negative) Urine Bilirubin (Negative) Urine Urobilinogen (0.2-1.0) Ur Leukocyte Esterase (Negative) Urine RBC (0-5) /hpf Urine WBC (0-5) /hpf Ur Squamous Epith Cells (0-5) /hpf Urine Bacteria (FEW) /hpf Urine Mucus (FEW) /hpf Urine Opiates Screen (OHXDUF=502) Ur Buprenorphine Scrn (CUTOFF=10) Ur Oxycodone Screen (TIW4OX=003) Urine Methadone Screen (EBD9JD=925) Ur Propoxyphene Screen (YKBJXV=956) Ur Barbiturates Screen (WCIGFX=480) Ur Tricyclics Screen (GMDNBY=062) Ur Phencyclidine Scrn (CUTOFF=25) Ur Amphetamine Screen (YHEECK=560) U Methamphetamines Scrn (ZBERFR=180) U Benzodiazepines Scrn (SHNACD=393) U Cocaine Metab Screen (CIHIHY=846) U Marijuana (THC) Screen (CUTOFF=50) Ethyl Alcohol (0.00) gm% SARS-CoV-2 RNA (ROLANDO) (NEGATIVE) Med Orders - Current: Current Medications Acetaminophen (Acetaminophen 325 Mg Tab) 650 mg PO Q6H PRN PRN Reason: Pain (Mild 1-3)/fever Albuterol/Ipratropium (Albuterol/Ipratropium 3.0-0.5 Mg/3 Ml Neb Soln) 3 ml NEB Q4H PRN PRN Reason: Shortness Of Breath/wheezing Aspirin (Aspirin 81 Mg Tab.Ec) 81 mg PO DAILY [facility] Last Admin: 01/01/21 19:13 Dose: 81 mg Documented by: Atorvastatin Calcium (Atorvastatin 40 Mg Tab) 40 mg PO BEDTIME [facility] Last Admin: 01/01/21 21:24 Dose: 40 mg Documented by: Calcium Carbonate/Glycine (Calcium Carbonate 600 Mg Tab) 600 mg PO DAILY [facility] Cholecalciferol (Cholecalciferol (Vitamin D3) 25 Mcg Tab) 75 mcg PO DAILY [facility] Ferrous Sulfate (Ferrous Sulfate 324 Mg Tab.Ec) 324 mg PO DAILY [facility] Promethazine HCl 12.5 mg/ (Sodium Chloride) 50.5 mls @ 100 mls/hr IV Q6H PRN PRN Reason: Nausea/Vomiting Lactated Ringer's (Ringers, Lactated) 1,000 mls @ 50 mls/hr IV ASDIRECTED [facility] Last Admin: 01/01/21 19:33 Dose: 50 mls/hr Documented by: Insulin Human Lispro (Insulin Lispro 100 Unit/Ml 10 Ml Vial) 0 unit SUBCUT QIDACANDBED [facility]; Protocol Last Admin: 01/02/21 08:19 Dose: Not Given Documented by: Levothyroxine Sodium (Levothyroxine 112 Mcg Tab) 112 mcg PO ACBREAKFAST [facility] Levothyroxine Sodium (Levothyroxine 100 Mcg Tab) 100 mcg PO MOTUTHFRSA [facility] Metoprolol Tartrate (Metoprolol Tartrate 50 Mg Tab) 12.5 mg PO BID [facility] Last Admin: 01/01/21 21:24 Dose: 12.5 mg Documented by: Morphine Sulfate (Morphine 2 Mg/Ml Syringe) 2 mg IVPUSH Q4H PRN PRN Reason: Pain (severe 7-10) Stop: 01/02/21 16:20 Non-Formulary Medication (Pantoprazole) 40 mg PO DAILY [facility] Non-Formulary Medication (Rivaroxaban [Xarelto]) 15 mg PO DAILY [facility] Polyethylene Glycol (Polyethylene Glycol 3350 Powder 17 Gm Packet) 17 gm PO DAILY PRN PRN Reason: Constipation Simethicone (Simethicone 80 Mg Tab.Chew) 80 mg PO DAILY PRN PRN Reason: Gas Sodium Bicarbonate (Sodium Bicarbonate 650 Mg Tab) 650 mg PO BID [facility] Last Admin: 01/01/21 21:24 Dose: 650 mg Documented by: Tamsulosin HCl (Tamsulosin 0.4 Mg Cap.Er) 0.4 mg PO DAILY [facility] Tramadol HCl (Tramadol 50 Mg Tab) 50 mg PO Q6H PRN PRN Reason: Pain (moderate 4-6) Discontinued Medications Sodium Chloride (Normal Saline) 250 mls @ 150 mls/hr IV .BOLUS ONE Stop: 01/01/21 18:39 Last Admin: 01/01/21 17:42 Dose: 150 mls/hr Documented by: - Exam Quality Assessment: DVT Prophylaxis. No: Supplemental Oxygen, Urine Catheter General: Alert, Oriented, Cooperative, No Acute Distress HEENT: Pupils Equal, Pupils Reactive, Mucous Membr. Moist/[place] Neck: Supple, Trachea Midline Lungs: Clear to Auscultation, Normal Respiratory Effort Cardiovascular: Regular Rate (Low 60's), Regular Rhythm, Other (Pacemaker) GI/Abdominal Exam: Normal Bowel Sounds, Soft, Non-Tender, No Distention (Male) Exam: Deferred Back Exam: Normal Inspection, Full Range of Motion Extremities: Normal Inspection, Normal Range of Motion, Non-Tender, Normal Capillary Refill, Pedal Edema (2+ ), Other (Right lower extremity discoloration consistent with peripheral vascular disease. Bilateral varicose veins on lower extremities.) Peripheral Pulses: 2+: Radial (L), Radial (R), Dorsalis Pedis (L), Dorsalis Pedis (R) Skin: Warm, Dry, Intact Neurological: No New Focal Deficit Psy/Mental Status: Alert, Normal Affect, Normal Mood - Patient Data Lab Results Last 24 hrs: Laboratory Results - last 24 hr 01/01/21 01/01/21 01/01/21 Range/Units 13:11 13:11 13:46 WBC 5.77 (4.23-9.07) K/mm3 RBC 4.23 L (4.63-6.08) M/mm3 Hgb 13.9 D (13.7-17.5) gm/dl Hct 41.2 (40.1-51.0) % MCV 97.4 H (79.0-92.2) fl MCH 32.9 H (25.7-32.2) pg MCHC 33.7 (32.2-35.5) g/dl RDW Std Deviation 52.2 H (35.1-43.9) fL Plt Count 125 L (163-337) K/mm3 MPV 9.0 L (9.4-12.3) fl Neut % (Auto) 52.3 (34.0-67.9) % Lymph % (Auto) 28.6 (21.8-53.1) % [place] % (Auto) 15.9 H (5.3-12.2) % Eos % (Auto) 2.1 (0.8-7.0) Baso % (Auto) 0.9 (0.1-1.2) % Neut # (Auto) 3.02 (1.78-5.38) K/mm3 Lymph # (Auto) 1.65 (1.32-3.57) K/mm3 [place] # (Auto) 0.92 H (0.30-0.82) K/mm3 Eos # (Auto) 0.12 (0.04-0.54) K/mm3 Baso # (Auto) 0.05 (0.01-0.08) K/mm3 Manual Slide Review Normal smear PT (9.7-12.0) SECONDS INR APTT (21.7-31.4) SECONDS Sodium 132 L (136-145) mEq/L Potassium 4.4 (3.5-5.1) mEq/L Chloride 96 L (98-107) mEq/L Carbon Dioxide 28 (21-32) mEq/L Anion Gap 12.4 (5-15) BUN 56 H (7-18) mg/dL Creatinine 2.3 H (0.7-1.3) mg/dL Est Cr Clr Drug Dosing 26.00 mL/min Estimated GFR (MDRD) 28 (>60) mL/min BUN/Creatinine Ratio 24.3 H (14-18) Glucose 126 H (70-99) mg/dL POC Glucose (70-99) mg/dL Hemoglobin A1c ( - 5.6) % Calcium 9.9 (8.5-10.1) mg/dL Magnesium (1.8-2.4) mg/dL Total Bilirubin 1.6 H (0.2-1.0) mg/dL AST 48 H (15-37) U/L ALT 36 (16-63) U/L Alkaline Phosphatase 109 (46-116) U/L Troponin I < 0.017 (0.00-0.056) ng/mL NT-Pro-B Natriuret Pep (0-125) pg/mL Total Protein 8.3 H (6.4-8.2) g/dl Albumin 4.0 (3.4-5.0) g/dl Globulin 4.3 gm/dL Albumin/Globulin Ratio 0.9 L (1-2) TSH 3rd Generation 2.290 (0.358-3.74) uIU/mL Urine Color Yellow (Yellow) Urine Appearance Clear (Clear) Urine pH 7.0 (5.0-8.0) Ur Specific [place] 1.020 (1.005-1.030) Urine Protein Negative (Negative) Urine Glucose (UA) Negative (Negative) Urine Ketones Negative (Negative) Urine Occult Blood Trace-intact H (Negative) Urine Nitrite Negative (Negative) Urine Bilirubin Negative (Negative) Urine Urobilinogen 0.2 (0.2-1.0) Ur Leukocyte Esterase Negative (Negative) Urine RBC 0-5 (0-5) /hpf Urine WBC Not seen (0-5) /hpf Ur Squamous Epith Cells 0-5 (0-5) /hpf Urine Bacteria Not seen (FEW) /hpf Urine Mucus Not seen (FEW) /hpf Urine Opiates Screen (RZDCVA=458) Ur Buprenorphine Scrn (CUTOFF=10) Ur Oxycodone Screen (ZPS4BE=538) Urine Methadone Screen (UHX3AG=023) Ur Propoxyphene Screen (RACXPM=339) Ur Barbiturates Screen (YXVCSU=148) Ur Tricyclics Screen (FDLRMC=486) Ur Phencyclidine Scrn (CUTOFF=25) Ur Amphetamine Screen (PDHVXQ=167) U Methamphetamines Scrn (FHWMYY=669) U Benzodiazepines Scrn (NXTVWG=458) U Cocaine Metab Screen (BTJNEK=147) U Marijuana (THC) Screen (CUTOFF=50) Ethyl Alcohol 0.00 (0.00) gm% SARS-CoV-2 RNA (ROLANDO) (NEGATIVE) 01/01/21 01/01/21 01/01/21 Range/Units 13:46 16:20 16:50 WBC (4.23-9.07) K/mm3 RBC (4.63-6.08) M/mm3 Hgb (13.7-17.5) gm/dl Hct (40.1-51.0) % MCV (79.0-92.2) fl MCH (25.7-32.2) pg MCHC (32.2-35.5) g/dl RDW Std Deviation (35.1-43.9) fL Plt Count (163-337) K/mm3 MPV (9.4-12.3) fl Neut % (Auto) (34.0-67.9) % Lymph % (Auto) (21.8-53.1) % [place] % (Auto) (5.3-12.2) % Eos % (Auto) (0.8-7.0) Baso % (Auto) (0.1-1.2) % Neut # (Auto) (1.78-5.38) K/mm3 Lymph # (Auto) (1.32-3.57) K/mm3 [place] # (Auto) (0.30-0.82) K/mm3 Eos # (Auto) (0.04-0.54) K/mm3 Baso # (Auto) (0.01-0.08) K/mm3 Manual Slide Review PT 18.4 H (9.7-12.0) SECONDS INR 1.74 APTT (21.7-31.4) SECONDS Sodium (136-145) mEq/L Potassium (3.5-5.1) mEq/L Chloride (98-107) mEq/L Carbon Dioxide (21-32) mEq/L Anion Gap (5-15) BUN (7-18) mg/dL Creatinine (0.7-1.3) mg/dL Est Cr Clr Drug Dosing mL/min Estimated GFR (MDRD) (>60) mL/min BUN/Creatinine Ratio (14-18) Glucose (70-99) mg/dL POC Glucose (70-99) mg/dL Hemoglobin A1c ( - 5.6) % Calcium (8.5-10.1) mg/dL Magnesium (1.8-2.4) mg/dL Total Bilirubin (0.2-1.0) mg/dL AST (15-37) U/L ALT (16-63) U/L Alkaline Phosphatase (46-116) U/L Troponin I (0.00-0.056) ng/mL NT-Pro-B Natriuret Pep (0-125) pg/mL Total Protein (6.4-8.2) g/dl Albumin (3.4-5.0) g/dl Globulin gm/dL Albumin/Globulin Ratio (1-2) TSH 3rd Generation (0.358-3.74) uIU/mL Urine Color (Yellow) Urine Appearance (Clear) Urine pH (5.0-8.0) Ur Specific [place] (1.005-1.030) Urine Protein (Negative) Urine Glucose (UA) (Negative) Urine Ketones (Negative) Urine Occult Blood (Negative) Urine Nitrite (Negative) Urine Bilirubin (Negative) Urine Urobilinogen (0.2-1.0) Ur Leukocyte Esterase (Negative) Urine RBC (0-5) /hpf Urine WBC (0-5) /hpf Ur Squamous Epith Cells (0-5) /hpf Urine Bacteria (FEW) /hpf Urine Mucus (FEW) /hpf Urine Opiates Screen Negative (JYXCFL=334) Ur Buprenorphine Scrn Negative (CUTOFF=10) Ur Oxycodone Screen Negative (HRQ5KN=249) Urine Methadone Screen Negative (PDO3HX=354) Ur Propoxyphene Screen Negative (RBIADA=765) Ur Barbiturates Screen Negative (GWNRXM=029) Ur Tricyclics Screen Negative (XTZLPD=289) Ur Phencyclidine Scrn Negative (CUTOFF=25) Ur Amphetamine Screen Negative (ALQBNZ=565) U Methamphetamines Scrn Negative (UONHTD=487) U Benzodiazepines Scrn Negative (FUCBOG=527) U Cocaine Metab Screen Negative (NDMUUF=885) U Marijuana (THC) Screen Negative (CUTOFF=50) Ethyl Alcohol (0.00) gm% SARS-CoV-2 RNA (ROLANDO) Negative (NEGATIVE) 01/01/21 01/01/21 01/01/21 Range/Units 16:50 16:50 18:37 WBC (4.23-9.07) K/mm3 RBC (4.63-6.08) M/mm3 Hgb (13.7-17.5) gm/dl Hct (40.1-51.0) % MCV (79.0-92.2) fl MCH (25.7-32.2) pg MCHC (32.2-35.5) g/dl RDW Std Deviation (35.1-43.9) fL Plt Count (163-337) K/mm3 MPV (9.4-12.3) fl Neut % (Auto) (34.0-67.9) % Lymph % (Auto) (21.8-53.1) % [place] % (Auto) (5.3-12.2) % Eos % (Auto) (0.8-7.0) Baso % (Auto) (0.1-1.2) % Neut # (Auto) (1.78-5.38) K/mm3 Lymph # (Auto) (1.32-3.57) K/mm3 [place] # (Auto) (0.30-0.82) K/mm3 Eos # (Auto) (0.04-0.54) K/mm3 Baso # (Auto) (0.01-0.08) K/mm3 Manual Slide Review PT (9.7-12.0) SECONDS INR APTT (21.7-31.4) SECONDS Sodium (136-145) mEq/L Potassium (3.5-5.1) mEq/L Chloride (98-107) mEq/L Carbon Dioxide (21-32) mEq/L Anion Gap (5-15) BUN (7-18) mg/dL Creatinine (0.7-1.3) mg/dL Est Cr Clr Drug Dosing mL/min Estimated GFR (MDRD) (>60) mL/min BUN/Creatinine Ratio (14-18) Glucose (70-99) mg/dL POC Glucose 127 H (70-99) mg/dL Hemoglobin A1c ( - 5.6) % Calcium (8.5-10.1) mg/dL Magnesium 2.5 H (1.8-2.4) mg/dL Total Bilirubin (0.2-1.0) mg/dL AST (15-37) U/L ALT (16-63) U/L Alkaline Phosphatase (46-116) U/L Troponin I < 0.017 (0.00-0.056) ng/mL NT-Pro-B Natriuret Pep 858 H (0-125) pg/mL Total Protein (6.4-8.2) g/dl Albumin (3.4-5.0) g/dl Globulin gm/dL Albumin/Globulin Ratio (1-2) TSH 3rd Generation (0.358-3.74) uIU/mL Urine Color (Yellow) Urine Appearance (Clear) Urine pH (5.0-8.0) Ur Specific [place] (1.005-1.030) Urine Protein (Negative) Urine Glucose (UA) (Negative) Urine Ketones (Negative) Urine Occult Blood (Negative) Urine Nitrite (Negative) Urine Bilirubin (Negative) Urine Urobilinogen (0.2-1.0) Ur Leukocyte Esterase (Negative) Urine RBC (0-5) /hpf Urine WBC (0-5) /hpf Ur Squamous Epith Cells (0-5) /hpf Urine Bacteria (FEW) /hpf Urine Mucus (FEW) /hpf Urine Opiates Screen (YPHNTV=173) Ur Buprenorphine Scrn (CUTOFF=10) Ur Oxycodone Screen (NVL3CA=313) Urine Methadone Screen (ZPK5QK=527) Ur Propoxyphene Screen (DLRWXM=605) Ur Barbiturates Screen (MNJHOX=818) Ur Tricyclics Screen (TSUMFF=014) Ur Phencyclidine Scrn (CUTOFF=25) Ur Amphetamine Screen (SNXBYN=744) U Methamphetamines Scrn (JFAOSL=324) U Benzodiazepines Scrn (YMQYZP=829) U Cocaine Metab Screen (IXTISP=661) U Marijuana (THC) Screen (CUTOFF=50) Ethyl Alcohol (0.00) gm% SARS-CoV-2 RNA (ROLANDO) (NEGATIVE) 01/01/21 01/02/21 01/02/21 Range/Units 22:51 05:00 05:00 WBC 4.65 (4.23-9.07) K/mm3 RBC 3.92 L (4.63-6.08) M/mm3 Hgb 13.0 L (13.7-17.5) gm/dl Hct 38.6 L (40.1-51.0) % MCV 98.5 H (79.0-92.2) fl MCH 33.2 H (25.7-32.2) pg MCHC 33.7 (32.2-35.5) g/dl RDW Std Deviation 52.9 H (35.1-43.9) fL Plt Count 115 L (163-337) K/mm3 MPV 9.9 (9.4-12.3) fl Neut % (Auto) 44.5 (34.0-67.9) % Lymph % (Auto) 33.1 (21.8-53.1) % [place] % (Auto) 18.1 H (5.3-12.2) % Eos % (Auto) 3.0 (0.8-7.0) Baso % (Auto) 1.1 (0.1-1.2) % Neut # (Auto) 2.07 (1.78-5.38) K/mm3 Lymph # (Auto) 1.54 (1.32-3.57) K/mm3 [place] # (Auto) 0.84 H (0.30-0.82) K/mm3 Eos # (Auto) 0.14 (0.04-0.54) K/mm3 Baso # (Auto) 0.05 (0.01-0.08) K/mm3 Manual Slide Review Normal smear PT (9.7-12.0) SECONDS INR APTT (21.7-31.4) SECONDS Sodium 136 (136-145) mEq/L Potassium 4.2 (3.5-5.1) mEq/L Chloride 100 (98-107) mEq/L Carbon Dioxide 23 (21-32) mEq/L Anion Gap 17.2 H (5-15) BUN 52 H (7-18) mg/dL Creatinine 2.0 H (0.7-1.3) mg/dL Est Cr Clr Drug Dosing 29.90 mL/min Estimated GFR (MDRD) 33 (>60) mL/min BUN/Creatinine Ratio 26.0 H (14-18) Glucose 112 H (70-99) mg/dL POC Glucose 222 H (70-99) mg/dL Hemoglobin A1c ( - 5.6) % Calcium 8.7 (8.5-10.1) mg/dL Magnesium (1.8-2.4) mg/dL Total Bilirubin 1.5 H (0.2-1.0) mg/dL AST 42 H (15-37) U/L ALT 32 (16-63) U/L Alkaline Phosphatase 83 (46-116) U/L Troponin I (0.00-0.056) ng/mL NT-Pro-B Natriuret Pep (0-125) pg/mL Total Protein 7.2 (6.4-8.2) g/dl Albumin 3.4 (3.4-5.0) g/dl Globulin 3.8 gm/dL Albumin/Globulin Ratio 0.9 L (1-2) TSH 3rd Generation (0.358-3.74) uIU/mL Urine Color (Yellow) Urine Appearance (Clear) Urine pH (5.0-8.0) Ur Specific [place] (1.005-1.030) Urine Protein (Negative) Urine Glucose (UA) (Negative) Urine Ketones (Negative) Urine Occult Blood (Negative) Urine Nitrite (Negative) Urine Bilirubin (Negative) Urine Urobilinogen (0.2-1.0) Ur Leukocyte Esterase (Negative) Urine RBC (0-5) /hpf Urine WBC (0-5) /hpf Ur Squamous Epith Cells (0-5) /hpf Urine Bacteria (FEW) /hpf Urine Mucus (FEW) /hpf Urine Opiates Screen (RYORGK=974) Ur Buprenorphine Scrn (CUTOFF=10) Ur Oxycodone Screen (MGU6AV=316) Urine Methadone Screen (CWK1AC=159) Ur Propoxyphene Screen (EDHGUQ=943) Ur Barbiturates Screen (SNCDHW=026) Ur Tricyclics Screen (DWYWIX=255) Ur Phencyclidine Scrn (CUTOFF=25) Ur Amphetamine Screen (ZDKRVS=111) U Methamphetamines Scrn (CANDYL=161) U Benzodiazepines Scrn (HNWSZA=226) U Cocaine Metab Screen (XKQZYR=174) U Marijuana (THC) Screen (CUTOFF=50) Ethyl Alcohol (0.00) gm% SARS-CoV-2 RNA (ROLANDO) (NEGATIVE) 01/02/21 01/02/21 01/02/21 Range/Units 05:00 05:00 05:55 WBC (4.23-9.07) K/mm3 RBC (4.63-6.08) M/mm3 Hgb (13.7-17.5) gm/dl Hct (40.1-51.0) % MCV (79.0-92.2) fl MCH (25.7-32.2) pg MCHC (32.2-35.5) g/dl RDW Std Deviation (35.1-43.9) fL Plt Count (163-337) K/mm3 MPV (9.4-12.3) fl Neut % (Auto) (34.0-67.9) % Lymph % (Auto) (21.8-53.1) % [place] % (Auto) (5.3-12.2) % Eos % (Auto) (0.8-7.0) Baso % (Auto) (0.1-1.2) % Neut # (Auto) (1.78-5.38) K/mm3 Lymph # (Auto) (1.32-3.57) K/mm3 [place] # (Auto) (0.30-0.82) K/mm3 Eos # (Auto) (0.04-0.54) K/mm3 Baso # (Auto) (0.01-0.08) K/mm3 Manual Slide Review PT 15.7 H (9.7-12.0) SECONDS INR 1.48 APTT 42.8 H (21.7-31.4) SECONDS Sodium (136-145) mEq/L Potassium (3.5-5.1) mEq/L Chloride (98-107) mEq/L Carbon Dioxide (21-32) mEq/L Anion Gap (5-15) BUN (7-18) mg/dL Creatinine (0.7-1.3) mg/dL Est Cr Clr Drug Dosing mL/min Estimated GFR (MDRD) (>60) mL/min BUN/Creatinine Ratio (14-18) Glucose (70-99) mg/dL POC Glucose 110 H (70-99) mg/dL Hemoglobin A1c 6.7 H ( - 5.6) % Calcium (8.5-10.1) mg/dL Magnesium (1.8-2.4) mg/dL Total Bilirubin (0.2-1.0) mg/dL AST (15-37) U/L ALT (16-63) U/L Alkaline Phosphatase (46-116) U/L Troponin I (0.00-0.056) ng/mL NT-Pro-B Natriuret Pep (0-125) pg/mL Total Protein (6.4-8.2) g/dl Albumin (3.4-5.0) g/dl Globulin gm/dL Albumin/Globulin Ratio (1-2) TSH 3rd Generation (0.358-3.74) uIU/mL Urine Color (Yellow) Urine Appearance (Clear) Urine pH (5.0-8.0) Ur Specific [place] (1.005-1.030) Urine Protein (Negative) Urine Glucose (UA) (Negative) Urine Ketones (Negative) Urine Occult Blood (Negative) Urine Nitrite (Negative) Urine Bilirubin (Negative) Urine Urobilinogen (0.2-1.0) Ur Leukocyte Esterase (Negative) Urine RBC (0-5) /hpf Urine WBC (0-5) /hpf Ur Squamous Epith Cells (0-5) /hpf Urine Bacteria (FEW) /hpf Urine Mucus (FEW) /hpf Urine Opiates Screen (OKNHMC=943) Ur Buprenorphine Scrn (CUTOFF=10) Ur Oxycodone Screen (LJO6ZR=893) Urine Methadone Screen (RIW8CK=031) Ur Propoxyphene Screen (XFPNXT=700) Ur Barbiturates Screen (OWUDCP=472) Ur Tricyclics Screen (CBDCQS=516) Ur Phencyclidine Scrn (CUTOFF=25) Ur Amphetamine Screen (JFWMMF=269) U Methamphetamines Scrn (WWPUAN=215) U Benzodiazepines Scrn (TSXHHK=400) U Cocaine Metab Screen (PGVYQY=438) U Marijuana (THC) Screen (CUTOFF=50) Ethyl Alcohol (0.00) gm% SARS-CoV-2 RNA (ROLANDO) (NEGATIVE) Result Diagrams: 01/02/21 05:00 01/02/21 05:00 Sepsis Event Note - Evaluation Sepsis Screening Result: No Definite Risk - Focused Exam Vital Signs: Vital Signs Temp Pulse Resp BP Pulse Ox 01/02/21 08:08 97.9 F 59 L 20 91/64 100 01/02/21 03:12 97.5 F 63 20 108/66 100 01/01/21 23:23 97.3 F 59 L 18 90/49 L 99 01/01/21 21:26 60 98 01/01/21 21:24 60 102/61 01/01/21 20:56 97.7 F 59 L 20 102/61 100 - Problem List & Annotations (1) Accidental medication overdose SNOMED Code(s): 32558083 Code(s): T50.901A - POISONING BY UNSP DRUG/MEDS/BIOL SUBST, ACCIDENTAL, INIT Status: Acute Priority: High Current Visit: Yes Qualifiers: Encounter type: initial encounter Qualified Code(s): T50.901A - Poisoning by unspecified drugs, medicaments and biological substances, accidental (unintentional), initial encounter (2) TIA (transient ischemic attack) SNOMED Code(s): 661011717 Code(s): G45.9 - TRANSIENT CEREBRAL ISCHEMIC ATTACK, UNSPECIFIED Status: Ruled-out Priority: High Current Visit: Yes (3) GABI (acute kidney injury) SNOMED Code(s): 84856278, 82138770 Code(s): N17.9 - ACUTE KIDNEY FAILURE, UNSPECIFIED Status: Acute Priority: High Current Visit: Yes (4) Hypotension SNOMED Code(s): 22253303 Code(s): I95.9 - HYPOTENSION, UNSPECIFIED Status: Acute Priority: High Current Visit: Yes Qualifiers: Hypotension type: orthostatic hypotension Qualified Code(s): I95.1 - Orthostatic hypotension (5) Atrial fibrillation SNOMED Code(s): 27648370 Code(s): I48.91 - UNSPECIFIED ATRIAL FIBRILLATION Status: Chronic Priority: Low Current Visit: No Qualifiers: Atrial fibrillation type: unspecified Qualified Code(s): I48.91 - Unspecified atrial fibrillation (6) Elevated AST (SGOT) SNOMED Code(s): 532143446 Code(s): R74.01 - ELEVATION OF LEVELS OF LIVER TRANSAMINASE LEVELS Status: Acute Priority: Medium Current Visit: Yes (7) Hyperbilirubinemia SNOMED Code(s): 06455855 Code(s): E80.6 - OTHER DISORDERS OF BILIRUBIN METABOLISM Status: Acute Priority: Medium Current Visit: Yes (8) Type 2 diabetes mellitus SNOMED Code(s): 08805221 Code(s): E11.9 - TYPE 2 DIABETES MELLITUS WITHOUT COMPLICATIONS Status: Chronic Priority: Low Current Visit: No Qualifiers: Diabetes mellitus [employer] insulin use: without [facility] use Diabetes mellitus complication status: with other specified complication Qualified Code(s): E11.69 - Type 2 diabetes mellitus with other specified complication (9) CHF (congestive heart failure) SNOMED Code(s): 21591115 Code(s): I50.9 - HEART FAILURE, UNSPECIFIED Status: Chronic Priority: Medium Current Visit: No Qualifiers: Heart failure type: other Qualified Code(s): I50.9 - Heart failure, unspecified (10) Chronic kidney disease SNOMED Code(s): 099503021 Code(s): N18.9 - CHRONIC KIDNEY DISEASE, UNSPECIFIED Status: Chronic Priority: Medium Current Visit: No Qualifiers: Chronic kidney disease stage: stage 3 (moderate) Chronic kidney disease stage 3 subtype: unspecified whether 3a or 3b Qualified Code(s): N18.30 - Chronic kidney disease, stage 3 unspecified (11) Peripheral edema SNOMED Code(s): 960049789 Code(s): R60.9 - EDEMA, UNSPECIFIED Status: Chronic Priority: Low Current Visit: No (12) Aortic stenosis SNOMED Code(s): 17272265 Code(s): I35.0 - NONRHEUMATIC AORTIC (VALVE) STENOSIS Status: Chronic Priority: Low Current Visit: No Qualifiers: Cardiac valve disease etiology: etiology unspecified Qualified Code(s): I35.0 - Nonrheumatic aortic (valve) stenosis (13) Hypothyroidism SNOMED Code(s): 08003279 Code(s): E03.9 - HYPOTHYROIDISM, UNSPECIFIED Status: Chronic Priority: Low Current Visit: No Qualifiers: Hypothyroidism type: unspecified Qualified Code(s): E03.9 - Hypothyroidism, unspecified (14) Obesity (BMI 30-39.9) SNOMED Code(s): 951287354, 364995255 Code(s): E66.9 - OBESITY, UNSPECIFIED Status: Chronic Priority: Low Current Visit: No (15) Pacemaker SNOMED Code(s): 020273910 Code(s): Z95.0 - PRESENCE OF CARDIAC PACEMAKER Status: Chronic Priority: Low Current Visit: No - Problem List Review Problem List Initiated/Reviewed/Updated: Yes - Plan Plan:: Patient is a 70-year-old male with a history of diabetes type 2, atrial fibrillation, CHF, hypothyroidism who was brought into the ER by [facility] from the [facility] due to abnormal speech and hypotension. Assessment: TIA? -abnormal speech -no focal neurological deficits in the ER -CT of head -negative for acute change -Not on aspirin -We will initiate aspirin and Lipitor -Echocardiogram -Ultrasound Doppler carotid -Negative neurochecks so far -Patient reports he believes he overdosed on medication -Check folic acid Accidental medication overdose -Reports Hypotension -90/60 in the ER -HR 60 -Hx of accidental medication overdose -home meds including flecainide, metoprolol and torsemide -flecainide and torsemide are on hold -TSH 2.290 -Mag 2.5 -UDS - negative -Troponin negative x2 -hx of aortic stenosis Atrial fibrillation -Pacemaker in place -Continue home metoprolol 12.5mg bid -On Xarelto 20mg daily. I will adjust it to 15mg daily based on renal function -TSH 2.290 CHF -Type unknown -CXR - mild cardiomegaly -BNP 858 -troponin < 0.017 -Torsemide is on hold Hypothyroidism -TSH 2.290 -Continue home Synthroid GABI on CKD -Could be due to dehydration, use of the torsemide, and diabetes -Creatinine 2.3 on admission, 1.3 on 12/17/2019. has been around 1.7 since 01/08/2020. creatinine 2.4 on 12/29/2020 -Allopurinol is no hold. may resume when renal function improved -Torsemide is on hold -Improving today - BUN 52, Creatinine 2.0, GFR 33 Thrombocytopenia -125 on admission-->115 -No evidence of bleeding -Continue Xarelto. Aspirin was added for possible TIA -Pantoprazole 40 mg daily -Repeat platelets in the morning Elevation of liver enzymes, improving -AST 48, ALT 36, TB 1.6 and al phos 109 on admission -AST 42, ALT 32, alkaline phosphatase 83, total bilirubin 1.5 today -Check direct bili DM type 2 -Metformin 500mg daily is on hold -Diabetic diet (after passing bedside swallow eval) -Low dose SS insulin, QID AC and Bedtime glucose checks Plan: 1. Will be observed in telemetry 2. Cardia monitor, pulse ox, oxygen therapy as needed to keep oxygen saturation greater than 92% Neuro check BID Aspirin and Lipitor Carotid US and Echo - unavailable until Monday PT and OT. Speech pathology 3. Gentle IV fluid 4. Continue metoprolol 12.5 mg twice daily and Xarelto 15 mg daily (home medication 20 mg daily) 5. Intake and output. 6. Avoid nephrotoxic meds. Repeat the renal function in morning 7. Repeat CBC and CMP in the morning 8. DVT prophylaxis: Xarelto 9. Code status: full Deposition: PT OT Less than 2 midnights
[2021-01-02] MEDS: Tamsulosin 0.4 MG Cap.ER PO SCH (09:59)
[2021-01-02] MEDS: Pantoprazole 40 MG Tab.CR PO SCH (10:00)
[2021-01-02] MEDS: RIVAROXABAN 20 MG PO SCH (10:01)
[2021-01-02] MEDS: Aspirin 81 MG Tab.EC PO SCH (10:07)
[2021-01-02] MEDS: Ferrous Sulfate 324 MG Tab.EC PO SCH (10:07)
[2021-01-02] MEDS: Cholecalciferol (Vitamin D3) 25 MCG Tab PO SCH (10:11)
[2021-01-02] MEDS: Calcium Carbonate 600 MG Tab PO SCH (10:11)
[2021-01-02] MEDS: Sodium Bicarbonate 650 MG Tab PO SCH ×2 (10:12→21:13)
[2021-01-02] MEDS: Metoprolol Tartrate 50 MG Tab PO SCH ×2 (10:19→21:13)
[2021-01-02] MEDS: Lactated Ringers 1,000 ML IV SCH (15:58)
[2021-01-02] MEDS: atorvaSTATin 40 MG Tab PO SCH (21:12)
[2021-01-03] MEDS ORDERED: Levothyroxine 112 MCG Tab PO SCH (06:00)
[2021-01-03] MEDS: Insulin Lispro 100 UNIT/ML 10 ML Vial SUBCUT SCH ×2 (06:16→11:49)
[2021-01-03] MEDS: Ferrous Sulfate 324 MG Tab.EC PO SCH (09:24)
[2021-01-03] MEDS: Sodium Bicarbonate 650 MG Tab PO SCH (09:24)
[2021-01-03] MEDS: Metoprolol Tartrate 50 MG Tab PO SCH (09:24)
[2021-01-03] MEDS: Cholecalciferol (Vitamin D3) 25 MCG Tab PO SCH (09:25)
[2021-01-03] MEDS: Aspirin 81 MG Tab.EC PO SCH (09:26)
[2021-01-03] MEDS: Tamsulosin 0.4 MG Cap.ER PO SCH (09:27)
[2021-01-03] MEDS: Calcium Carbonate 600 MG Tab PO SCH (09:27)
[2021-01-03] MEDS: Pantoprazole 40 MG Tab.CR PO SCH (09:27)
[2021-01-03] MEDS: RIVAROXABAN 20 MG PO SCH (09:28)
[2021-01-03 11:51] VITALS: BP 101/59; PULSE 59
--- NOTE | 2021-01-03 11:56 | PCM.DCSUM1 ---
Discharge Summary - Hospital Course HPI Initial Comments: Patient is a 70-year-old male with a history of diabetes type 2, atrial fibrillation, CHF, hypothyroidism who was brought into the ER by [facility] from the [facility] due to abnormal speech and hypotension. At the [facility], he was found to be hypotensive and orthostatic. His family reported that his speech was not normal last night and this morning. He has a history of of accidental medication overdose in the past. He possibly took double amount of his home medications which included flecainide and Metformin. Otherwise patient is fine. In the ER, blood pressure 90/60, blood glucose 126, hemoglobin 13.9, platelets 125, sodium 122, creatinine 2.3, AST 48, total bilirubin 1.6, troponin negative. Urine drug screen negative. Diagnosis: Stroke: No - Discharge Data Discharge Date: 01/03/21 (Admit date: 01/01/2021) Discharge Disposition: Home, Self-Care 01 Condition: Good - Referral to Home Health Primary Care Physician: Vera Conway PA-C - Discharge Diagnosis/Problem(s) (1) Accidental medication overdose SNOMED Code(s): 85993097 ICD Code: T50.901A - POISONING BY UNSP DRUG/MEDS/BIOL SUBST, ACCIDENTAL, INIT Status: Acute Priority: High Current Visit: Yes Qualifiers: Encounter type: initial encounter Qualified Code(s): T50.901A - Poisoning by unspecified drugs, medicaments and biological substances, accidental (unintentional), initial encounter (2) TIA (transient ischemic attack) SNOMED Code(s): 174320643 ICD Code: G45.9 - TRANSIENT CEREBRAL ISCHEMIC ATTACK, UNSPECIFIED Status: Ruled-out Priority: High Current Visit: Yes (3) GABI (acute kidney injury) SNOMED Code(s): 89109038, 49316630 ICD Code: N17.9 - ACUTE KIDNEY FAILURE, UNSPECIFIED Status: Acute Priority: High Current Visit: Yes (4) Hypotension SNOMED Code(s): 60213642 ICD Code: I95.9 - HYPOTENSION, UNSPECIFIED Status: Acute Priority: High Current Visit: Yes Qualifiers: Hypotension type: orthostatic hypotension Qualified Code(s): I95.1 - Orthostatic hypotension (5) Atrial fibrillation SNOMED Code(s): 85988558 ICD Code: I48.91 - UNSPECIFIED ATRIAL FIBRILLATION Status: Chronic Priority: Low Current Visit: No Qualifiers: Atrial fibrillation type: unspecified Qualified Code(s): I48.91 - Unspecified atrial fibrillation (6) Elevated AST (SGOT) SNOMED Code(s): 413795838 ICD Code: R74.01 - ELEVATION OF LEVELS OF LIVER TRANSAMINASE LEVELS Status: Acute Priority: Medium Current Visit: Yes (7) Hyperbilirubinemia SNOMED Code(s): 69125484 ICD Code: E80.6 - OTHER DISORDERS OF BILIRUBIN METABOLISM Status: Acute Priority: Medium Current Visit: Yes (8) Type 2 diabetes mellitus SNOMED Code(s): 37798648 ICD Code: E11.9 - TYPE 2 DIABETES MELLITUS WITHOUT COMPLICATIONS Status: Chronic Priority: Low Current Visit: No Qualifiers: Diabetes mellitus manager long term care insulin use: without manager long term care use Diabetes mellitus complication status: with other specified complication Qualified Code(s): E11.69 - Type 2 diabetes mellitus with other specified complication (9) CHF (congestive heart failure) SNOMED Code(s): 05350143 ICD Code: I50.9 - HEART FAILURE, UNSPECIFIED Status: Chronic Priority: Medium Current Visit: No Qualifiers: Heart failure type: other Qualified Code(s): I50.9 - Heart failure, unspecified (10) Chronic kidney disease SNOMED Code(s): 345852642 ICD Code: N18.9 - CHRONIC KIDNEY DISEASE, UNSPECIFIED Status: Chronic Priority: Medium Current Visit: No Qualifiers: Chronic kidney disease stage: stage 3 (moderate) Chronic kidney disease stage 3 subtype: unspecified whether 3a or 3b Qualified Code(s): N18.30 - Chronic kidney disease, stage 3 unspecified (11) Peripheral edema SNOMED Code(s): 701727341 ICD Code: R60.9 - EDEMA, UNSPECIFIED Status: Chronic Priority: Low Current Visit: No (12) Aortic stenosis SNOMED Code(s): 05400001 ICD Code: I35.0 - NONRHEUMATIC AORTIC (VALVE) STENOSIS Status: Chronic Priority: Low Current Visit: No Qualifiers: Cardiac valve disease etiology: etiology unspecified Qualified Code(s): I35.0 - Nonrheumatic aortic (valve) stenosis (13) Hypothyroidism SNOMED Code(s): 67615268 ICD Code: E03.9 - HYPOTHYROIDISM, UNSPECIFIED Status: Chronic Priority: Low Current Visit: No Qualifiers: Hypothyroidism type: unspecified Qualified Code(s): E03.9 - Hypothyroidism, unspecified (14) Obesity (BMI 30-39.9) SNOMED Code(s): 095493234, 176822826 ICD Code: E66.9 - OBESITY, UNSPECIFIED Status: Chronic Priority: Low Current Visit: No (15) Pacemaker SNOMED Code(s): 131948591 ICD Code: Z95.0 - PRESENCE OF CARDIAC PACEMAKER Status: Chronic Priority: Low Current Visit: No (16) Carotid bruit SNOMED Code(s): 398475151, 595406532 ICD Code: R09.89 - OTH SYMPTOMS AND SIGNS INVOLVING THE CIRC AND RESP SYSTEMS Status: Chronic Priority: Medium Current Visit: Yes Qualifiers: Laterality: left Qualified Code(s): R09.89 - Other specified symptoms and signs involving the circulatory and respiratory systems - Patient Summary/Data Consults: Consultations 01/01/21 16:14 OT Evaluation and Treatment [CONS] Routine PT Evaluation and Treatment [CONS] Routine 01/01/21 16:52 Consult to Speech Language Pathology [FAMILY PRESERVATION WORKER Evaluation and Treatment] [CONS] Routine Labs Pending at D/C: None Recommended Follow-up Testing/Procedures: Follow-up with primary care provider within 7-10 days of discharge, sooner if needed -Recommend repeat CBC, CMP, Magnesium at that visit -Patients HR and BP were quite low while here, Vital sign journal from patient home reviewed -Patients torsemide decreased to 20mg daily, flecainide decreased to 50mg BID, Metoprolol discontinued -Patient instructed to increase home BP checks to BID and continue other home monitoring as before. -Recommend review home vital sign journal -Echocardiogram and carotid artery US ordered outpatient -Patient started on daily 81mg ASA and lipitor at discharge -Further discuss with patient possibility of assistance with medication set- up Hospital Course: This is a 70-year-old male who presents to our ED on 01/01/2021 via [facility] after being sent from the [facility]. Patient believe that he possibly took too many of his medications. Family report that his speech was not normal the evening prior and when it remained abnormal in the morning he was sent to the clinic. He was noted to be hypotensive and orthostatic at the [facility] and it is believed he took a double dose of his flecainide, metoprolol, and Metformin. He has a significant history of A. fib, CHF, HTN, p acemaker, left carotid bruit, aortic stenosis, symptomatic bradycardia, sleep apnea on CPAP, GERD, hiatal hernia, tenesmus, BPH, chronic renal insufficiency, urinary retention, hypothyroidism, obesity, idiopathic thrombocytopenia. Head CT was obtained and showed senescent change but nothing acute. Chest x-ray was obtained showing cardiomegaly and a pacemaker but nothing acute. There were concerns over a possible TIA and given patient's history he was started on 40 mg p.o. bedtime Lipitor and 81 mg daily aspirin in addition to his DOAC. His blood pressure and heart rate did remain quite low while here. Patient does take his vital signs daily and keeps them in a journal and he did bring this with. This was reviewed. During his stay his torsemide and flecainide were held. Heart rate was noted to be in the 50s and his metoprolol was held as well. Patient was noted to have acute on chronic renal failure with a creatinine of 2.3 and a GFR of 28. Gentle IV rehydration was given and his blood pressure, even without his home meds, remained on the softer side. Because of this, in addition with his worsening renal function, we will decrease his torsemide to 20 mg daily and his flecainide to 50 mg twice daily. Because his heart rate was low throughout most of his stay we will stop his metoprolol. Blood cultures remained negative. Bilirubin was elevated at 1.6 and this did trend downward. There was no abdominal pain. His speech did return to normal and there were no signs of any neurological deficit. Plan was to obtain a echocardiogram and bilateral carotid artery ultrasound however because it is the weekend neither unavailable. Patient does have a history of aortic stenosis and left carotid bruit. Because of this we will order these outpatient at discharge. Do recommend patient arrange help from family or community with setting up his meds. He was discharged home today. As mentioned prior metoprolol was discontinued, torsemide was decreased to 20 mg daily and flecainide was decreased to 50 mg twice daily. Patient had been taking home vital signs and recording them in a journal. Recommend patient take blood pressure twice daily and continue his other home monitoring. Recommend follow- up with primary care provider within 7 to 10 days of discharge, sooner if needed. Recommend review home monitoring journal and repeat CBC, CMP, and magnesium at this visit. He was discharged home today. Echocardiogram and bilateral carotid artery ultrasound results will be faxed to primary care provider. - Patient Instructions Diet: Usual Diet as Tolerated, Low Sodium Activity: As Tolerated Driving: Do Not Drive Showering/Bathing: May Shower Notify Provider of: Fever, Increased Pain, Nausea and/or Vomiting Other/Special Instructions: Follow-up with primary care provider within 7-10 days of discharge, sooner if needed. Increase your home monitoring of blood pressure to twice a day. Continue monitoring everything else as before. Your torsemide dosing was decreased to 20 mg daily. Your flecainide dosing was decreased to 50 mg twice a day. This was because your blood pressure and heart rate have been quite low while here. It is also because of your renal failure. You were started on a baby aspirin and cholesterol medication. These were sent to your pharmacy. Stop taking your metoprolol as your heart rate here has been very low. You were given orders for an outpatient echocardiogram and carotid artery ultrasound. Be sure to follow directions and attend these appointments. Your primary care provider should receive these results. Resume your other home medications as directed. Be very cautious with your medications and ensure you are only taking what you are prescribed when you are prescribed to take it. Should symptoms return or worsen contact primary care provider return the emergency room. - Discharge Plan *PRESCRIPTION DRUG MONITORING PROGRAM REVIEWED*: No *COPY OF PRESCRIPTION DRUG MONITORING REPORT IN PATIENT LOI: No Prescriptions/Med Rec: Aspirin [Halfprin] 81 mg PO DAILY #20 tab.ec atorvaSTATin [Lipitor] 40 mg PO BEDTIME #20 tablet Flecainide [Tambocor] 50 mg PO Q12H #40 tab Torsemide 20 mg PO DAILY #20 tablet Home Medications: Home Meds Ferrous Sulfate 325 mg PO DAILY 12/06/18 [History] L Acidophil/B Lactis/B Longum [Florajen3] 1 tab PO DAILY 12/06/18 [History] Levothyroxine [Synthroid] 100 mcg PO MOTUTHFRSA 12/06/18 [History] Methylsulfonylmethane [MSM] 1,000 mg PO DAILY 12/06/18 [History] [facility] 3/DHA/Epa/Other Om3/D3 [[facility]-3 + Vitamin D3] 1,000 mg PO DAILY 12/06/18 [History] Pantoprazole Sodium [Protonix] 40 mg PO DAILY 12/06/18 [History] Rivaroxaban [Xarelto] 20 mg PO DAILY 12/06/18 [History] Simethicone 80 mg PO DAILY PRN 12/06/18 [History] Tamsulosin [Flomax] 0.4 mg PO DAILY 12/06/18 [History] allopurinoL [Zyloprim] 200 mg PO DAILY 12/06/18 [History] Potassium 20 meq PO DAILY 03/05/19 [History] Calcium Carbonate 600 mg PO DAILY 09/25/20 [History] Levothyroxine 112 mcg PO ACBREAKFAST 09/25/20 [History] Sodium Bicarbonate 650 mg PO BID 09/25/20 [History] Vitamin B Complex 1 each PO DAILY 09/25/20 [History] metFORMIN [Glucophage XR] 500 mg PO DAILY 09/25/20 [History] 7t Lido 2% Gel 1 applic TOP ASDIRECTED PRN 01/01/21 [History] Cholecalciferol (Vitamin D3) [Vitamin D3] 3,000 units PO DAILY 01/01/21 [Histo ry] Mirafiber 500 mg PO BEDTIME 01/01/21 [History] Mupirocin Oint [Bactroban Oint] 1 applic TOP ASDIRECTED 01/01/21 [History] polyethylene glycoL 3350 [MiraLAX] 1 applic PO ASDIRECTED PRN 01/01/21 [History] polyethylene glycoL 3350 [MiraLAX] 17 gm PO DAILY PRN 01/01/21 [History] Aspirin [Halfprin] 81 mg PO DAILY #20 tab.ec 01/03/21 [Rx] Flecainide [Tambocor] 50 mg PO Q12H #40 tab 01/03/21 [Rx] Torsemide 20 mg PO DAILY #20 tablet 01/03/21 [Rx] atorvaSTATin [Lipitor] 40 mg PO BEDTIME #20 tablet 01/03/21 [Rx] Oxygen Therapy Mode: Room Air Patient Handouts: Accidental Drug Poisoning, Adult, Transient Ischemic Attack, [id number] Forms: ED Department Discharge Referrals: Vera Conway PA-C [Primary Care Provider] - (Please call [facility] on Monday01/04/2021 to schedule follow-up appointment within 7 days. ) - Discharge Summary/Plan Comment DC Time >30 min.: Yes (45 mins ) - General Info Date of Service: 01/03/21 Admission Dx/Problem (Free Text: Admission Diagnosis/Problem Admission Diagnosis/Problem TIA, Transient ischemic attack Functional Status: Reports: Pain Controlled, Tolerating Diet, Ambulating, Urinating. Denies: New Symptoms - Review of Systems General: Reports: No Symptoms. Denies: Fever, Weakness, Fatigue, Malaise, Chills HEENT: Reports: No Symptoms. Denies: Headaches, Sore Throat Pulmonary: Reports: No Symptoms. Denies: Shortness of Breath, Cough, Sputum, Wheezing Cardiovascular: Reports: No Symptoms. Denies: Chest Pain, Palpitations, Dyspnea on Exertion Gastrointestinal: Reports: No Symptoms. Denies: Abdominal Pain, Constipation, Diarrhea, Nausea, Vomiting Genitourinary: Reports: No Symptoms. Denies: Pain Musculoskeletal: Reports: No Symptoms Skin: Reports: No Symptoms. Denies: Cyanosis Neurological: Reports: No Symptoms. Denies: Confusion, Dizziness, Headache, Numbness, Paresthesia, Pre-Existing Deficit, Seizure, Syncope, Tingling, Tremor s, Trouble Speaking, Difficulty Walking, Weakness, Change in Speech, Gait Disturbance Psychiatric: Reports: No Symptoms - Patient Data Vitals - Most Recent: Last Vital Signs Temp 97.5 F 01/03/21 10:57 Pulse 59 L 01/03/21 10:57 Resp 20 01/03/21 10:57 BP 101/59 L 01/03/21 10:57 Pulse Ox 100 01/03/21 10:57 Weight - Most Recent: 209 lb 6.4 oz I&O - Last 24 hours: Intake & Output 01/02/21 01/03/21 01/03/21 22:59 06:59 14:59 Intake Total 1658 1345 480 Output Total 600 Balance 1058 1345 480 Lab Results - Last 24 hrs: Laboratory Results - last 24 hr 01/02/21 01/02/21 01/03/21 Range/Units 16:51 20:54 05:53 WBC (4.23-9.07) K/mm3 RBC (4.63-6.08) M/mm3 Hgb (13.7-17.5) gm/dl Hct (40.1-51.0) % MCV (79.0-92.2) fl MCH (25.7-32.2) pg MCHC (32.2-35.5) g/dl RDW Std Deviation (35.1-43.9) fL Plt Count (163-337) K/mm3 MPV (9.4-12.3) fl Neut % (Auto) (34.0-67.9) % Lymph % (Auto) (21.8-53.1) % Heard % (Auto) (5.3-12.2) % Eos % (Auto) (0.8-7.0) Baso % (Auto) (0.1-1.2) % Neut # (Auto) (1.78-5.38) K/mm3 Lymph # (Auto) (1.32-3.57) K/mm3 Heard # (Auto) (0.30-0.82) K/mm3 Eos # (Auto) (0.04-0.54) K/mm3 Baso # (Auto) (0.01-0.08) K/mm3 Manual Slide Review Sodium (136-145) mEq/L Potassium (3.5-5.1) mEq/L Chloride (98-107) mEq/L Carbon Dioxide (21-32) mEq/L Anion Gap (5-15) BUN (7-18) mg/dL Creatinine (0.7-1.3) mg/dL Est Cr Clr Drug Dosing mL/min Estimated GFR (MDRD) (>60) mL/min BUN/Creatinine Ratio (14-18) Glucose (70-99) mg/dL POC Glucose 118 H 154 H 134 H (70-99) mg/dL Calcium (8.5-10.1) mg/dL Magnesium (1.8-2.4) mg/dL Total Bilirubin (0.2-1.0) mg/dL AST (15-37) U/L ALT (16-63) U/L Alkaline Phosphatase (46-116) U/L Total Protein (6.4-8.2) g/dl Albumin (3.4-5.0) g/dl Globulin gm/dL Albumin/Globulin Ratio (1-2) 01/03/21 01/03/21 01/03/21 Range/Units 06:00 06:00 06:00 WBC 4.08 L (4.23-9.07) K/mm3 RBC 3.80 L (4.63-6.08) M/mm3 Hgb 12.5 L (13.7-17.5) gm/dl Hct 37.9 L (40.1-51.0) % MCV 99.7 H (79.0-92.2) fl MCH 32.9 H (25.7-32.2) pg MCHC 33.0 (32.2-35.5) g/dl RDW Std Deviation 53.6 H (35.1-43.9) fL Plt Count 101 L (163-337) K/mm3 MPV 9.7 (9.4-12.3) fl Neut % (Auto) 50.4 (34.0-67.9) % Lymph % (Auto) 29.9 (21.8-53.1) % Heard % (Auto) 15.9 H (5.3-12.2) % Eos % (Auto) 2.9 (0.8-7.0) Baso % (Auto) 0.7 (0.1-1.2) % Neut # (Auto) 2.05 (1.78-5.38) K/mm3 Lymph # (Auto) 1.22 L (1.32-3.57) K/mm3 Heard # (Auto) 0.65 (0.30-0.82) K/mm3 Eos # (Auto) 0.12 (0.04-0.54) K/mm3 Baso # (Auto) 0.03 (0.01-0.08) K/mm3 Manual Slide Review Abnormal smear Sodium 139 (136-145) mEq/L Potassium 4.2 (3.5-5.1) mEq/L Chloride 104 (98-107) mEq/L Carbon Dioxide 23 (21-32) mEq/L Anion Gap 16.2 H (5-15) BUN 41 H (7-18) mg/dL Creatinine 1.5 H (0.7-1.3) mg/dL Est Cr Clr Drug Dosing 39.86 mL/min Estimated GFR (MDRD) 46 (>60) mL/min BUN/Creatinine Ratio 27.3 H (14-18) Glucose 134 H (70-99) mg/dL POC Glucose (70-99) mg/dL Calcium 8.8 (8.5-10.1) mg/dL Magnesium 2.2 (1.8-2.4) mg/dL Total Bilirubin 1.2 H (0.2-1.0) mg/dL AST 38 H (15-37) U/L ALT 30 (16-63) U/L Alkaline Phosphatase 84 (46-116) U/L Total Protein 6.8 (6.4-8.2) g/dl Albumin 3.2 L (3.4-5.0) g/dl Globulin 3.6 gm/dL Albumin/Globulin Ratio 0.9 L (1-2) / Range/Units 10:56 WBC (4.23-9.07) K/mm3 RBC (4.63-6.08) M/mm3 Hgb (13.7-17.5) gm/dl Hct (40.1-51.0) % MCV (79.0-92.2) fl MCH (25.7-32.2) pg MCHC (32.2-35.5) g/dl RDW Std Deviation (35.1-43.9) fL Plt Count (163-337) K/mm3 MPV (9.4-12.3) fl Neut % (Auto) (34.0-67.9) % Lymph % (Auto) (21.8-53.1) % Heard % (Auto) (5.3-12.2) % Eos % (Auto) (0.8-7.0) Baso % (Auto) (0.1-1.2) % Neut # (Auto) (1.78-5.38) K/mm3 Lymph # (Auto) (1.32-3.57) K/mm3 Heard # (Auto) (0.30-0.82) K/mm3 Eos # (Auto) (0.04-0.54) K/mm3 Baso # (Auto) (0.01-0.08) K/mm3 Manual Slide Review Sodium (136-145) mEq/L Potassium (3.5-5.1) mEq/L Chloride (98-107) mEq/L Carbon Dioxide (21-32) mEq/L Anion Gap (5-15) BUN (7-18) mg/dL Creatinine (0.7-1.3) mg/dL Est Cr Clr Drug Dosing mL/min Estimated GFR (MDRD) (>60) mL/min BUN/Creatinine Ratio (14-18) Glucose (70-99) mg/dL POC Glucose 208 H (70-99) mg/dL Calcium (8.5-10.1) mg/dL Magnesium (1.8-2.4) mg/dL Total Bilirubin (0.2-1.0) mg/dL AST (15-37) U/L ALT (16-63) U/L Alkaline Phosphatase (46-116) U/L Total Protein (6.4-8.2) g/dl Albumin (3.4-5.0) g/dl Globulin gm/dL Albumin/Globulin Ratio (1-2) [facility] Results - Last 24 hrs: Microbiology 01/01/21 16:50 Aerobic Blood Culture - Preliminary Blood - Venous - Lab Draw NO GROWTH AFTER 1 DAY Anaerobic Blood Culture - Preliminary NO GROWTH AFTER 1 DAY 01/01/21 16:50 Aerobic Blood Culture - Preliminary Blood - Venous NO GROWTH AFTER 1 DAY Anaerobic Blood Culture - Preliminary NO GROWTH AFTER 1 DAY Med Orders - Current: Current Medications Acetaminophen (Acetaminophen 325 Mg Tab) 650 mg PO Q6H PRN PRN Reason: Pain (Mild 1-3)/fever Albuterol/Ipratropium (Albuterol/Ipratropium 3.0-0.5 Mg/3 Ml Neb Soln) 3 ml NEB Q4H PRN PRN Reason: Shortness Of Breath/wheezing Aspirin (Aspirin 81 Mg Tab.Ec) 81 mg PO DAILY [facility] Last Admin: 01/03/21 09:26 Dose: 81 mg Documented by: Atorvastatin Calcium (Atorvastatin 40 Mg Tab) 40 mg PO BEDTIME [facility] Last Admin: 01/02/21 21:12 Dose: 40 mg Documented by: Calcium Carbonate/Glycine (Calcium Carbonate 600 Mg Tab) 600 mg PO DAILY [facility] Last Admin: 01/03/21 09:27 Dose: 600 mg Documented by: Cholecalciferol (Cholecalciferol (Vitamin D3) 25 Mcg Tab) 75 mcg PO DAILY [facility] Last Admin: 01/03/21 09:25 Dose: 75 mcg Documented by: Ferrous Sulfate (Ferrous Sulfate 324 Mg Tab.Ec) 324 mg PO DAILY [facility] Last Admin: 01/03/21 09:24 Dose: 324 mg Documented by: Promethazine HCl 12.5 mg/ (Sodium Chloride) 50.5 mls @ 100 mls/hr IV Q6H PRN PRN Reason: Nausea/Vomiting Insulin Human Lispro (Insulin Lispro 100 Unit/Ml 10 Ml Vial) 0 unit SUBCUT QIDACANDBED [facility]; Protocol Last Admin: 01/03/21 11:49 Dose: 2 unit Documented by: Levothyroxine Sodium (Levothyroxine 112 Mcg Tab) 112 mcg PO SuWe [facility] Last Admin: 01/03/21 05:55 Dose: 112 mcg Documented by: Levothyroxine Sodium (Levothyroxine 100 Mcg Tab) 100 mcg PO MOTUTHFRSA [facility] Last Admin: 01/02/21 09:58 Dose: 100 mcg Documented by: Metoprolol Tartrate (Metoprolol Tartrate 50 Mg Tab) 12.5 mg PO BID [facility] Last Admin: 01/03/21 09:24 Dose: 12.5 mg Documented by: Rivaroxaban [Xarelto ] 20 Mg Tablet Pt's Own Med 0 mg PO DAILY [facility] Last Admin: 01/03/21 09:28 Dose: 1 mg Documented by: Pantoprazole Sodium (Pantoprazole 40 Mg Tab.Cr) 40 mg PO DAILY [facility] Last Admin: 01/03/21 09:27 Dose: 40 mg Documented by: Polyethylene Glycol (Polyethylene Glycol 3350 Powder 17 Gm Packet) 17 gm PO DAILY PRN PRN Reason: Constipation Simethicone (Simethicone 80 Mg Tab.Chew) 80 mg PO DAILY PRN PRN Reason: Gas Sodium Bicarbonate (Sodium Bicarbonate 650 Mg Tab) 650 mg PO BID [facility] Last Admin: 01/03/21 09:24 Dose: 650 mg Documented by: Tamsulosin HCl (Tamsulosin 0.4 Mg Cap.Er) 0.4 mg PO DAILY [facility] Last Admin: 01/03/21 09:27 Dose: 0.4 mg Documented by: Tramadol HCl (Tramadol 50 Mg Tab) 50 mg PO Q6H PRN PRN Reason: Pain (moderate 4-6) Discontinued Medications Lactated Ringer's (Ringers, Lactated) 1,000 mls @ 50 mls/hr IV ASDIRECTED [facility] Last Admin: 01/02/21 15:58 Dose: 50 mls/hr Documented by: Sodium Chloride (Normal Saline) 250 mls @ 150 mls/hr IV .BOLUS ONE Stop: 01/01/21 18:39 Last Admin: 01/01/21 17:42 Dose: 150 mls/hr Documented by: Morphine Sulfate (Morphine 2 Mg/Ml Syringe) 2 mg IVPUSH Q4H PRN PRN Reason: Pain (severe 7-10) Stop: 01/02/21 16:20 - Exam Quality Assessment: Reports: DVT Prophylaxis. Denies: Supplemental Oxygen, Urine Catheter General: Reports: Alert, Oriented, Cooperative, No Acute Distress HEENT: Reports: Pupils Equal, Pupils Reactive, Mucous Membr. Moist/[place] Neck: Reports: Supple, Trachea Midline Lungs: Reports: Clear to Auscultation, Normal Respiratory Effort Cardiovascular: Reports: Regular Rate, Regular Rhythm, Murmurs, Other (Pacemaker in place) GI/Abdominal Exam: Normal Bowel Sounds, Soft, Non-Tender, No Distention (Male) Exam: Deferred Rectal (Males) Exam: Deferred Back Exam: Reports: Normal Inspection, Full Range of Motion Extremities: Normal Inspection, Normal Range of Motion, Non-Tender, No Pedal Edema, Normal Capillary Refill Skin: Reports: Warm, Dry, Intact Neurological: Reports: No New Focal Deficit, Normal Speech, Normal Tone, Strength Equal Bilateral Psy/Mental Status: Reports: Alert, Normal Affect, Normal Mood
== END 2021-01-03 13:52 | disposition home or self-care (01) ==
LOC: JD.ED 11:58 → JD.MS 16:14
PROVIDERS: ADMIT Internal Medicine; ATTEND Internal Medicine
DX: I95.1 Orthostatic hypotension (principal); R47.89 Other speech disturbances; E03.9 Hypothyroidism, unspecified; I50.9 Heart failure, unspecified; I13.0 Hypertensive heart and chronic kidney disease with heart failure and stage 1 through stage 4 chronic kidney disease, or unspecified chronic kidney disease; N18.30 Chronic kidney disease, stage 3 unspecified; E11.22 Type 2 diabetes mellitus with diabetic chronic kidney disease; E66.9 Obesity, unspecified; N17.9 Acute kidney failure, unspecified; D69.6 Thrombocytopenia, unspecified; Z20.822 Contact with and (suspected) exposure to COVID-19; Z88.5 Allergy status to narcotic agent; Z79.899 Other long term (current) drug therapy; Z79.890 Hormone replacement therapy; Z79.84 Long term (current) use of oral hypoglycemic drugs; Z95.0 Presence of cardiac pacemaker; Z98.890 Other specified postprocedural states; Z68.34 Body mass index [BMI] 34.0-34.9, adult
CPT/HCPCS: 36415; 70450; 71045; 80053; 80306; 80307; 81001; 82248; 82746; 82947; 83036; 83735; 83880; 84443; 84484; 85025; 85610; 85730; 87040; 93005; 94660; 94762; 97162; 99285; A9270; G0378; J1815; J7050; J7120; U0002; 93010; 99217; 99219; 99226

== ENCOUNTER 2021-02-13 09:22 | Emergency (ER) | payer MEDICARE, OTHER ==
[2021-02-13 09:30] VITALS: BP 126/70; PULSE 63
--- NOTE | 2021-02-13 09:45 | EDM.PDOC ---
ED HPI GENERAL MEDICAL PROBLEM - General Chief Complaint: ENT Problem Stated Complaint: LIP BLEEDING Time Seen by Provider: 02/13/21 09:45 - History of Present Illness INITIAL COMMENTS - FREE TEXT/NARRATIVE: 70-year-old male presents the emergency room with a bleeding lip. This started early this morning. The patient had a prior episode and it sounds like Dr. Parson had to sew it up. The patient is on DOAC therapy he has a history of A. fib. And he has been taking his Xarelto as directed. Patient denies any other complaints at this time. Patient states this morning he had a little scab over this area and he picked it off and then the bleeding started. - Related Data Allergies Allergy/AdvReac Type Severity Reaction Status Date / Time codeine AdvReac Intermediate Agitation Verified 02/13/21 09:30 Home Meds: Home Meds Ferrous Sulfate 325 mg PO DAILY 12/06/18 [History] L Acidophil/B Lactis/B Longum [Florajen3] 1 tab PO DAILY 12/06/18 [History] Levothyroxine [Synthroid] 100 mcg PO MOTUTHFRSA 12/06/18 [History] Methylsulfonylmethane [MSM] 1,000 mg PO DAILY 12/06/18 [History] [place] 3/DHA/Epa/Other Om3/D3 [[place]-3 + Vitamin D3] 1,000 mg PO DAILY 12/06/18 [History] Pantoprazole Sodium [Protonix] 40 mg PO DAILY 12/06/18 [History] Rivaroxaban [Xarelto] 20 mg PO DAILY 12/06/18 [History] Simethicone 80 mg PO DAILY PRN 12/06/18 [History] Tamsulosin [Flomax] 0.4 mg PO DAILY 12/06/18 [History] allopurinoL [Zyloprim] 200 mg PO DAILY 12/06/18 [History] Potassium 20 meq PO DAILY 03/05/19 [History] Calcium Carbonate 600 mg PO DAILY 09/25/20 [History] Levothyroxine 112 mcg PO ACBREAKFAST 09/25/20 [History] Sodium Bicarbonate 650 mg PO BID 09/25/20 [History] Vitamin B Complex 1 each PO DAILY 09/25/20 [History] metFORMIN [Glucophage XR] 500 mg PO DAILY 09/25/20 [History] 7t Lido 2% Gel 1 applic TOP ASDIRECTED PRN 01/01/21 [History] Cholecalciferol (Vitamin D3) [Vitamin D3] 3,000 units PO DAILY 01/01/21 [History] Mirafiber 500 mg PO BEDTIME 01/01/21 [History] Mupirocin Oint [Bactroban Oint] 1 applic TOP ASDIRECTED 01/01/21 [History] polyethylene glycoL 3350 [MiraLAX] 1 applic PO ASDIRECTED PRN 01/01/21 [History] polyethylene glycoL 3350 [MiraLAX] 17 gm PO DAILY PRN 01/01/21 [History] Aspirin [Halfprin] 81 mg PO DAILY #20 tab.ec 01/03/21 [Rx] Flecainide [Tambocor] 50 mg PO Q12H #40 tab 01/03/21 [Rx] Torsemide 20 mg PO DAILY #20 tablet 01/03/21 [Rx] atorvaSTATin [Lipitor] 40 mg PO BEDTIME #20 tablet 01/03/21 [Rx] Past Medical History HEENT History: Reports: Cataract, Epistaxis, Hard of Hearing, Impaired Vision Other HEENT History: Macular tear, tinnitus, hearing aid, glasses Cardiovascular History: Reports: Afib, Heart Failure, Hypertension, Pacemaker, Other (See Below) Other Cardiovascular History: Left carotid bruit, aortic stenosis, symptomatic bradycardia Respiratory History: Reports: Sleep Apnea Other Respiratory History: Uses CPAP at night Gastrointestinal History: Reports: Gastritis, GERD, Hiatal Hernia, Other (See Below) Other Gastrointestinal History: Tenesmus, hematochezia, duodenitis, ulcers, esophagitis Genitourinary History: Reports: BPH, Chronic Renal Insuffiency, Retention, Urinary Other Genitourinary History: Urinary frequency, urgency, CKD III, proteinuria, uretherorrhagia [employer] History: Reports: None Musculoskeletal History: Reports: Other (See Below) Other Musculoskeletal History: Knee pain Neurological History: Reports: Other (See Below) Other Neuro History: Syncopal episode Psychiatric History: Reports: None Endocrine/Metabolic History: Reports: Hypothyroidism, Obesity/BMI 30+ Hematologic History: Reports: Idiopathic Thrombocytopenia Other Hematologic History: Thrombocytopenia Immunologic History: Reports: None Oncologic (Cancer) History: Reports: None Dermatologic History: Reports: Other (See Below) - Infectious Disease History Infectious Disease History: Reports: Chicken Pox, Measles - Past Surgical History HEENT Surgical History: Reports: Cataract Surgery, Eye Surgery, Tonsillectomy Cardiovascular Surgical History: Reports: Pacer Respiratory Surgical History: Reports: None GI Surgical History: Reports: Colonoscopy, EGD Male Surgical History: Reports: Other (See Below) Other Male Surgeries/Procedures: urethra rerouted, procedure performed at [place] Endocrine Surgical History: Reports: None Neurological Surgical History: Reports: None Musculoskeletal Surgical History: Reports: Arthroscopic Knee Other Musculoskeletal Surgeries/Procedures:: Arthroscopic knee surgery x3 Oncologic Surgical History: Reports: None Dermatological Surgical History: Reports: Other (See Below) Social & Family History - Family History Family Medical History: No Pertinent Family History - Tobacco Use Tobacco Use Status *Q: Never Tobacco User Second Hand Smoke Exposure: No - Caffeine Use Caffeine Use: Reports: Coffee - Recreational Drug Use Recreational Drug Use: No - Living Situation & Occupation Living situation: Reports: , with Spouse Occupation: Employed ([employer]) ED ROS GENERAL - Review of Systems Review Of Systems: See Below Constitutional: Reports: No Symptoms HEENT: Reports: Other (See HPI) Respiratory: Reports: No Symptoms Cardiovascular: Reports: No Symptoms GI/Abdominal: Reports: No Symptoms ED EXAM, GENERAL - Physical Exam Exam: See Below Exam Limited By: No Limitations General Appearance: Alert, No Apparent Distress Head: Atraumatic, Normocephalic Neck: Normal Inspection, Supple, Non-Tender, Full Range of Motion Respiratory/Chest: No Respiratory Distress, Lungs Clear, Normal Breath Sounds Cardiovascular: Regular Rate, Rhythm (It does not sound like he is not in A. fib at this time), No Edema, No Murmur Skin Exam: Other (Left upper lip has an area roughly a centimeter in length that is open and bleeding.) ED GENERAL MEDICAL PROCEDURES - Laceration/Wound Repair Left Mouth Lac/wound length in cm: 0.8 Appearance: Subcutaneous Local Anesthesia - Lidocaine (Xylocaine): 1% Plain Local Anesthetic Volume: 1cc Closed with: Sutures Suture Size: 4-0 # of Sutures: 3 Suture Type: Nylon Complications: No Progress/Comments: Patient appeared to have a superficial laceration on his left upper lip it would not stop bleeding despite several attempts at direct pressure. Given his history of needing to be sutured up in the past we went ahead and anesthetized him with 1% lidocaine without epinephrine. Put 2 stitches in initially this helped significantly but a third stitch was ultimately required. At this time he is doing much better even he has not some gentle oozing around the suture holes. We will attempt quick clot. Course - Vital Signs Last Recorded V/S: Last Vital Signs Temp 36.4 C 02/13/21 09:29 Pulse 63 02/13/21 09:29 Resp 18 02/13/21 09:29 BP 126/70 02/13/21 09:29 Pulse Ox 99 02/13/21 09:29 - Orders/Labs/Meds Meds: Medications Discontinued Medications Generic Name Dose Route Start Last Admin Trade Name Aydin PRN Reason Stop Dose Admin Lidocaine HCl 10 ml 02/13/21 09:54 02/13/21 09:58 Lidocaine 1% 10 Ml Mdv INJECT 02/13/21 09:55 10 ml ONETIME ONE Administration - Re-Assessments/Exams Free Text/Narrative Re-Assessment/Exam: 02/13/21 12:08 Without knowing the full history of this lesion we initially attempted direct pressure and other more conservative methods to stop the bleeding without success. As the patient was on anticoagulation for his A. fib it was thought best to go ahead and attempt to suture this. As this would be the more definitive method to stop the bleeding. Patient is doing better at this time after the third stitch was placed he was still having a little bit of oozing. Quick clot was applied to the area and the bleeding has stopped. The patient has follow-up with Dr. Parson apparently Monday of this next week. Departure - Departure Time of Disposition: 12:09 Disposition: Home, Self-Care 01 Clinical Impression: Lip laceration - Discharge Information Referrals: Darryn Barreto MD [Primary Care Provider] - Forms: ED Department Discharge Additional Instructions: Return to the emergency room with any questions problems or worsening symptoms. Follow-up with Dr. Parson this next week as scheduled. Sepsis Event Note (ED) - Evaluation Sepsis Screening Result: No Definite Risk - Focused Exam Vital Signs: Vital Signs Temp Pulse Resp BP Pulse Ox 02/13/21 09:29 36.4 C 63 18 126/70 99
[2021-02-13] MEDS ORDERED: Lidocaine 1% 10 ML MDV INJECT ONE (09:54)
== END 2021-02-13 12:37 | disposition home or self-care (01) ==
LOC: JD.ED 09:22
DX: S01.511A Laceration without foreign body of lip, initial encounter (principal); I48.91 Unspecified atrial fibrillation; I13.0 Hypertensive heart and chronic kidney disease with heart failure and stage 1 through stage 4 chronic kidney disease, or unspecified chronic kidney disease; N18.30 Chronic kidney disease, stage 3 unspecified; I50.9 Heart failure, unspecified; K21.9 Gastro-esophageal reflux disease without esophagitis; N40.1 Benign prostatic hyperplasia with lower urinary tract symptoms; R35.0 Frequency of micturition; E03.9 Hypothyroidism, unspecified; D69.6 Thrombocytopenia, unspecified; E66.9 Obesity, unspecified; Z68.34 Body mass index [BMI] 34.0-34.9, adult; Z88.5 Allergy status to narcotic agent; Z79.82 Long term (current) use of aspirin; Z79.01 Long term (current) use of anticoagulants; Z79.899 Other long term (current) drug therapy; X58.XXXA Exposure to other specified factors, initial encounter
CPT/HCPCS: 12011; 99282-25

== ENCOUNTER 2021-02-19 09:40 | Emergency (ER) | payer MEDICARE, OTHER ==
--- NOTE | 2021-02-19 10:22 | EDM.PDOC ---
ED HPI GENERAL MEDICAL PROBLEM - General Chief Complaint: Cardiovascular Problem Stated Complaint: [facility] Time Seen by Provider: 02/19/21 10:17 Source of Information: Reports: Patient History Limitations: Reports: No Limitations - History of Present Illness INITIAL COMMENTS - FREE TEXT/NARRATIVE: 70-year-old male presents to the ED per [facility]. He presents with increasing dyspnea and feeling like his heart is racing for the last several days. Of note patient states he has been told he has entered into atrial fibrillation about a month ago. Associated chronic congestive heart failure. He has a pacemaker that is not functioning normally and is due for change in 4 days time. He feels his heart is racing at times which is increased his dyspnea with orthopnea and PND and he thinks increased dependent edema in his lower extremities. No associated dizziness or lightheadedness but significant dyspnea on minimal exertion. Patient denies any chest pain. Onset: Unknown/Unsure Duration: Day(s):, Getting Worse Location: Reports: Generalized (Generalized weakness shortness of breath). Denies: Chest Quality: Reports: Other Severity: Moderate (Perhaps very mild central chest pressure discomfort with associated dyspnea.) Improves with: Reports: Rest Worsens with: Reports: Movement Context: Reports: Other (Recurrent bouts of). Denies: Activity (Even walking from the bedroom to the bathroom makes him short of breath.), Exercise, Lifting, Sick Contact, Trauma Associated Symptoms: Reports: Chest Pain, Cough (Chest pressure discomfort), Loss of Appetite, Malaise ( nonproductive cough at times), Shortness of Breath, Weakness. Denies: Confusion ( heart racing in his chest.), cough w sputum, Diaphoresis, Fever/Chills, Headaches, Nausea/Vomiting, Rash, Seizure, Syncope Treatments STOCK CLIPPER: Reports: Other (see below) (Only current medications.) - Related Data Allergies Allergy/AdvReac Type Severity Reaction Status Date / Time codeine AdvReac Intermediate Agitation Verified 02/19/21 09:45 Home Meds: Home Meds Aspirin [Aspirin EC] 40.5 mg PO DAILY 02/19/21 [History] C,E,Zinc,Copper 11/Ejklb4c/Lut [Ocuvite Adult 50 Plus Softgel] 1 cap PO QPM 02/19/21 [History] Calcium Carbonate/Vitamin D3 [Calcium 600Mg-D3 400 Unit Sfgl] 1 cap PO DAILY 02/19/21 [History] Cholecalciferol (Vitamin D3) [Vitamin D3] 112.5 mcg PO DAILY 02/19/21 [History] Ferrous Sulfate [Iron] 325 mg PO DAILY 02/19/21 [History] Lactobacillus Acidophilus [Acidophilus] 1 tab PO DAILY 02/19/21 [History] Levothyroxine 112 mcg PO SUWE 02/19/21 [History] Levothyroxine Sodium [Levothyroxine] 100 mcg PO MOTUTHFRSA 02/19/21 [History] Lidocaine 5% 1 applic TOP DAILY PRN 02/19/21 [History] Methylsulfonylmethane [MSM] 1,000 mg PO DAILY 02/19/21 [History] Metoprolol Tartrate 25 mg PO BID 02/19/21 [History] Mupirocin Oint [Bactroban Oint] 1 applic TOP BID 02/19/21 [History] Non-Formulary Medication [NF Drug] 500 mg PO BEDTIME 02/19/21 [History] [place]-3/DHA/Epa/Fish Oil [[place]-3 Fish Oil 1,000 MG Sfgl] 1,000 mg PO DAILY 02/19/21 [History] Pantoprazole [ProTONIX] 40 mg PO DAILY 02/19/21 [History] Potassium Chloride [Klor-Con M20] 20 meq PO BID 02/19/21 [History] Rivaroxaban [Xarelto] 20 mg PO DAILY 02/19/21 [History] Simethicone 80 mg PO DAILY 02/19/21 [History] Sodium Bicarbonate 650 mg PO BID 02/19/21 [History] Tamsulosin HCl 0.4 mg PO DAILY 02/19/21 [History] Torsemide 50 mg PO SUMOWEFRSA 02/19/21 [History] Torsemide 100 mg PO TUTH 02/19/21 [History] Vitamin B Complex 1 cap PO DAILY 02/19/21 [History] allopurinoL [Zyloprim] 100 mg PO DAILY 02/19/21 [History] atorvaSTATin [Lipitor] 40 mg PO DAILY 02/19/21 [History] metFORMIN HCl [Metformin HCl ER] 500 mg PO PCDINNER 02/19/21 [History] polyethylene glycoL 3350 [MiraLAX] 17 gm PO DAILY PRN 02/19/21 [History] Past Medical History HEENT History: Reports: Cataract, Epistaxis, Hard of Hearing, Impaired Vision Other HEENT History: Macular tear, tinnitus, hearing aid, glasses Cardiovascular History: Reports: Afib, Heart Failure, Hypertension, Pacemaker, Other (See Below) Other Cardiovascular History: Left carotid bruit, aortic stenosis, symptomatic bradycardia Respiratory History: Reports: Sleep Apnea Other Respiratory History: Uses CPAP at night Gastrointestinal History: Reports: Gastritis, GERD, Hiatal Hernia, Other (See Below) Other Gastrointestinal History: Tenesmus, hematochezia, duodenitis, ulcers, esophagitis Genitourinary History: Reports: BPH, Chronic Renal Insuffiency, Retention, Urinary Other Genitourinary History: Urinary frequency, urgency, CKD III, proteinuria, uretherorrhagia SURGICAL RN History: Reports: None Musculoskeletal History: Reports: Other (See Below) Other Musculoskeletal History: Knee pain Neurological History: Reports: Other (See Below) Other Neuro History: Syncopal episode Psychiatric History: Reports: None Endocrine/Metabolic History: Reports: Hypothyroidism, Obesity/BMI 30+ Hematologic History: Reports: Idiopathic Thrombocytopenia Other Hematologic History: Thrombocytopenia Immunologic History: Reports: None Oncologic (Cancer) History: Reports: None Dermatologic History: Reports: Venous Stasis Dermatitis - Infectious Disease History Infectious Disease History: Reports: Chicken Pox, Measles - Past Surgical History HEENT Surgical History: Reports: Cataract Surgery, Eye Surgery, Tonsillectomy Cardiovascular Surgical History: Reports: Pacer Respiratory Surgical History: Reports: None GI Surgical History: Reports: Colonoscopy, EGD Male Surgical History: Reports: Other (See Below) Other Male Surgeries/Procedures: urethra rerouted, procedure performed at [facility] Surgical History: Reports: None Neurological Surgical History: Reports: None Musculoskeletal Surgical History: Reports: Arthroscopic Knee Other Musculoskeletal Surgeries/Procedures:: Arthroscopic knee surgery x3 Oncologic Surgical History: Reports: None Dermatological Surgical History: Reports: Other (See Below) Social & Family History - Family History Family Medical History: No Pertinent Family History - Tobacco Use Tobacco Use Status *Q: Never Tobacco User Second Hand Smoke Exposure: No - Caffeine Use Caffeine Use: Reports: Coffee, Soda - Recreational Drug Use Recreational Drug Use: No - Living Situation & Occupation Living situation: Reports: , with Spouse Occupation: Employed ([employer]) ED ROS GENERAL - Review of Systems Review Of Systems: See Below Constitutional: Reports: Malaise, Weakness, Fatigue, Decreased Appetite, Weight Gain (He believes 3 pounds in the last 2 days.). Denies: Fever, Chills HEENT: Reports: Glasses ( For reading only.) Respiratory: Reports: Shortness of Breath, Cough. Denies: Wheezing, Pleuritic Chest Pain Cardiovascular: Reports: Chest Pain (For the most part nonproductive. Central chest heaviness but not pain), Blood Pressure Problem, Dyspnea on Exertion ( Worse over the last 3 to 5 days. Much worse than normal), Edema (Chronic lower extremity edema .), Lightheadedness, Palpitations (. Aware of heart racing in his chest. His pulse oximeter would not read at all today just kept saying air.). Denies: Claudication, Orthopnea (Blood pressure is running very low today.) Endocrine: Reports: Fatigue GI/Abdominal: Reports: Decreased Appetite. Denies: Abdominal Pain, Diarrhea, Nausea, Stool Incontinence, Vomiting : Reports: Frequency, Other (History of BPH. History of urinary retention in the past. Nocturia usually x3.) Musculoskeletal: Reports: Neck Pain, Shoulder Pain, Back Pain, Joint Pain Skin: Reports: Bruising (Dozes easily as he is on Xarelto 20 mg daily.) Neurological: Reports: Dizziness, Difficulty Walking (Generalized.), Weakness. Denies: Confusion, Paresthesia, Pre-Existing Deficit (Dizziness and lightheaded today.), Seizure, Syncope, Tingling Psychiatric: Reports: No Symptoms ( Due to dyspnea and weakness) Hematologic/Lymphatic: Reports: No Symptoms Immunologic: Reports: No Symptoms ED EXAM, GENERAL - Physical Exam Exam: See Below Exam Limited By: No Limitations General Appearance: Alert, WD/WN, Mild Distress, Other (Temperature is 36.6 degrees. Heart rate is anywhere from 108 to 140/min with apparent paced rhythm indicating pacemaker malfunction as I do not believe it is trying to override underlying rhythm which is atrial fibrillation. Respiratory it is 25 to 28/min with O2 sats of 99% room air BP 80/57.) Eye Exam: Bilateral Eye: Normal Inspection (Very mild blepharal pallor. No scleral icterus.), PERRL Throat/Mouth: Normal Inspection, Normal Oropharynx, Other (Tongue appears mildly dry and coated.) Head: Atraumatic (Oropharynx is otherwise normal.), Normocephalic Neck: Normal Inspection, Supple, Full Range of Motion (With crepitus lateral rotation and flexion.), Limited Range of Motion. No: Carotid Bruit, Lymphadenopathy (L), Lymphadenopathy (R) (But is on lateral rotation.) Respiratory/Chest: Lungs Clear, Normal Breath Sounds (No adventitious sounds noted), No Accessory Muscle Use, Respiratory Distress (Tachypnea at rest 25 to 28/min with retained O2 sats of 92 to 96 on room air.), Other. No: Crackles, Rales, Rhonchi, Wheezing Cardiovascular: No Murmur, No Rub, Irregularly Irregular (Heart rate is very irregular and monitor suggest pacemaker malfunction with very frequent paced beats as high as 140 bpm.), Other. No: Normal Peripheral Pulses, No Edema, No Gallop, JVD Peripheral Pulses: 2+: Carotid (L), Carotid (R), Posterior Tibial (L) (He has compression stockings on. 2+ pitting edema both lower extremities), Posterior Tibial (R), Dorsalis Pedis (L), Dorsalis Pedis (R) GI/Abdominal: Normal Bowel Sounds, Soft, Non-Tender, No Organomegaly, No Mass, Pelvis Stable, Distended Back Exam: Normal Inspection, Full Range of Motion. No: CVA Tenderness (L), CVA Tenderness (R) Extremities: Normal Inspection, Non-Tender, Pedal Edema (2-3+ pitting edema both lower extremities slightly worse on the left as compared to the right.), Other (Limited external/internal rotation of both hips.) Neurological: Alert, Oriented, CN II-XII Intact, Normal Cognition Psychiatric: Normal Affect, Normal Mood Skin Exam: Warm, Dry, Intact, Normal Color, No Rash #1 Interpretation EKG Date: 02/19/21 Time: 09:43 Rhythm: Other (Underlying rhythm appears to be atrial fibrillation up to 140 bpm. Pacemaker also is firing intermittently at over 140 bpm. Unclear if this is trying to override underlying atrial fibrillation.) Rate (Beats/Min): 113 Plover: LAD-Left Plover Deviation (-87 degrees) QT: Prolonged EKG Interpretation Comments: Abnormal ECG Course - Vital Signs Last Recorded V/S: Last Vital Signs Temp 36.6 C 02/19/21 09:43 Pulse 63 02/19/21 16:25 Resp 25 H 02/19/21 09:43 BP 107/49 L 02/19/21 16:25 Pulse Ox 100 02/19/21 09:43 - Orders/Labs/Meds Labs: Laboratory Tests 02/19/21 02/19/21 02/19/21 Range/Units 09:40 10:32 10:32 WBC 5.64 (4.23-9.07) K/mm3 RBC 3.52 L (4.63-6.08) M/mm3 Hgb 11.7 L (13.7-17.5) gm/dl Hct 35.0 L (40.1-51.0) % MCV 99.4 H (79.0-92.2) fl MCH 33.2 H (25.7-32.2) pg MCHC 33.4 (32.2-35.5) g/dl RDW Std Deviation 51.4 H (35.1-43.9) fL Plt Count 99 L (163-337) K/mm3 MPV 10.2 (9.4-12.3) fl Neut % (Auto) 68.2 H (34.0-67.9) % Lymph % (Auto) 19.7 L (21.8-53.1) % [place] % (Auto) 10.6 (5.3-12.2) % Eos % (Auto) 0.9 (0.8-7.0) Baso % (Auto) 0.4 (0.1-1.2) % Neut # (Auto) 3.85 (1.78-5.38) K/mm3 Lymph # (Auto) 1.11 L (1.32-3.57) K/mm3 [place] # (Auto) 0.60 (0.30-0.82) K/mm3 Eos # (Auto) 0.05 (0.04-0.54) K/mm3 Baso # (Auto) 0.02 (0.01-0.08) K/mm3 Manual Slide Review Abnormal smear PT 19.3 H (9.7-12.0) SECONDS INR 1.83 APTT 39.3 H (21.7-31.4) SECONDS Sodium (136-145) mEq/L Potassium (3.5-5.1) mEq/L Chloride (98-107) mEq/L Carbon Dioxide (21-32) mEq/L Anion Gap (5-15) BUN (7-18) mg/dL Creatinine (0.7-1.3) mg/dL Est Cr Clr Drug Dosing mL/min Estimated GFR (MDRD) (>60) mL/min BUN/Creatinine Ratio (14-18) Glucose (70-99) mg/dL Calcium (8.5-10.1) mg/dL Magnesium (1.8-2.4) mg/dL Total Bilirubin (0.2-1.0) mg/dL AST (15-37) U/L ALT (16-63) U/L Alkaline Phosphatase (46-116) U/L CK-MB (CK-2) (0-3.6) ng/ml Troponin I (0.00-0.056) ng/mL C-Reactive Protein (<1.0) mg/dL NT-Pro-B Natriuret Pep (0-125) pg/mL Total Protein (6.4-8.2) g/dl Albumin (3.4-5.0) g/dl Globulin gm/dL Albumin/Globulin Ratio (1-2) TSH 3rd Generation (0.358-3.74) uIU/mL Urine Color (Yellow) Urine Appearance (Clear) Urine pH (5.0-8.0) Ur Specific [place] (1.005-1.030) Urine Protein (Negative) Urine Glucose (UA) (Negative) Urine Ketones (Negative) Urine Occult Blood (Negative) Urine Nitrite (Negative) Urine Bilirubin (Negative) Urine Urobilinogen (0.2-1.0) Ur Leukocyte Esterase (Negative) Urine RBC (0-5) /hpf Urine WBC (0-5) /hpf Ur Epithelial Cells (0-5) /hpf Urine Bacteria (FEW) /hpf Urine Mucus (FEW) /hpf SARS-CoV-2 RNA (ROLANDO) Negative (NEGATIVE) 02/19/21 02/19/21 02/19/21 Range/Units 10:32 10:32 15:07 WBC (4.23-9.07) K/mm3 RBC (4.63-6.08) M/mm3 Hgb (13.7-17.5) gm/dl Hct (40.1-51.0) % MCV (79.0-92.2) fl MCH (25.7-32.2) pg MCHC (32.2-35.5) g/dl RDW Std Deviation (35.1-43.9) fL Plt Count (163-337) K/mm3 MPV (9.4-12.3) fl Neut % (Auto) (34.0-67.9) % Lymph % (Auto) (21.8-53.1) % [place] % (Auto) (5.3-12.2) % Eos % (Auto) (0.8-7.0) Baso % (Auto) (0.1-1.2) % Neut # (Auto) (1.78-5.38) K/mm3 Lymph # (Auto) (1.32-3.57) K/mm3 [place] # (Auto) (0.30-0.82) K/mm3 Eos # (Auto) (0.04-0.54) K/mm3 Baso # (Auto) (0.01-0.08) K/mm3 Manual Slide Review PT (9.7-12.0) SECONDS INR APTT (21.7-31.4) SECONDS Sodium 138 (136-145) mEq/L Potassium 4.1 (3.5-5.1) mEq/L Chloride 103 (98-107) mEq/L Carbon Dioxide 20 L (21-32) mEq/L Anion Gap 19.1 H (5-15) BUN 39 H (7-18) mg/dL Creatinine 2.1 H (0.7-1.3) mg/dL Est Cr Clr Drug Dosing 28.47 mL/min Estimated GFR (MDRD) 31 (>60) mL/min BUN/Creatinine Ratio 18.6 H (14-18) Glucose 125 H (70-99) mg/dL Calcium 9.3 (8.5-10.1) mg/dL Magnesium 2.0 (1.8-2.4) mg/dL Total Bilirubin 1.4 H (0.2-1.0) mg/dL AST 71 H (15-37) U/L ALT 51 (16-63) U/L Alkaline Phosphatase 75 (46-116) U/L CK-MB (CK-2) 1.9 (0-3.6) ng/ml Troponin I 0.089 H* (0.00-0.056) ng/mL C-Reactive Protein 0.2 (<1.0) mg/dL NT-Pro-B Natriuret Pep 2701 H (0-125) pg/mL Total Protein 6.7 (6.4-8.2) g/dl Albumin 3.5 (3.4-5.0) g/dl Globulin 3.2 gm/dL Albumin/Globulin Ratio 1.1 (1-2) TSH 3rd Generation 1.155 (0.358-3.74) uIU/mL Urine Color Yellow (Yellow) Urine Appearance Clear (Clear) Urine pH 7.0 (5.0-8.0) Ur Specific [place] 1.015 (1.005-1.030) Urine Protein Negative (Negative) Urine Glucose (UA) Negative (Negative) Urine Ketones Negative (Negative) Urine Occult Blood Trace-intact H (Negative) Urine Nitrite Negative (Negative) Urine Bilirubin Negative (Negative) Urine Urobilinogen 0.2 (0.2-1.0) Ur Leukocyte Esterase Negative (Negative) Urine RBC 0-5 (0-5) /hpf Urine WBC 0-5 (0-5) /hpf Ur Epithelial Cells Not seen (0-5) /hpf Urine Bacteria Rare (FEW) /hpf Urine Mucus Not seen (FEW) /hpf SARS-CoV-2 RNA (ROLANDO) (NEGATIVE) Meds: Medications Discontinued Medications Generic Name Dose Route Start Last Admin Trade Name Yanickq PRN Reason Stop Dose Admin Bumetanide 1 mg 02/19/21 12:10 02/19/21 12:19 Bumetanide 1 Mg/4 Ml Mdv IVPUSH 02/19/21 12:11 1 mg ONETIME ONE Administration Sodium Chloride 1,000 mls @ 100 mls/hr 02/19/21 12:45 02/19/21 13:29 Normal Saline IV 100 mls/hr ASDIRECTED ELLA Administration Metoprolol Tartrate 5 mg 02/19/21 13:06 02/19/21 13:27 Metoprolol Tartrate 5 Mg/5 Ml Sdv IVPUSH 02/19/21 13:07 5 mg ONETIME ONE Administration Metoprolol Tartrate 25 mg 02/19/21 15:07 02/19/21 16:25 Metoprolol Tartrate 25 Mg Tab PO 02/19/21 15:08 25 mg ONETIME ONE Administration - Radiology Interpretation Free Text/Narrative:: 70-year-old male presents to the ED per [facility]. He is aware of heart racing in his chest associate with development of central chest discomfort and increased dyspnea over the last 3 to 4 days. He states he is due for pacemaker change out in 4 days time. Patient is on Xarelto chronically did not take his dose this morning. This will be his third pacemaker. He does have a history of congestive heart failure and apparently more recently was diagnosed with atrial fibrillation. His ECGs does reveal an underlying rhythm of atrial fibrillation at about 140/min. His pacemaker however is firing almost at 140 bpm as well suggesting it is trying to override the atrial fib rate. He has a very mild central chest discomfort. Initial blood pressure was low at 80 /57. He did come up to as high as 99/72 without IV fluids. Plan portable chest x-ray routine labs to include cardiac markers and BNP. Clinically he is suffering an exacerbation of congestive heart failure aggravated by rapid heart rate. Unclear if pacemaker is functioning normally or not. Will have to discuss with mystery shopper. - Re-Assessments/Exams Free Text/Narrative Re-Assessment/Exam: 02/19/21 11:25 chest x-ray done portably reveals moderate cardiomegaly. He is rotated to the left which makes the aorta appear magnified. Likely tortuous thoracic aorta. There is diffuse pulmonary vascular congestion. No pleural effusion lungs are otherwise clear. 02/19/21 11:55 White count is 5.64. Differential shows 68% neutrophils on the auto differential. Hemoglobin slightly low at 11.7 with hematocrit of 35.0. Platelet count is low at 99,000. PT is 19.3 with an INR elevated at 1.83. PTT is 39.3. Sodium 138 with a potassium of 4.1. Chloride 103 with a bicarb of 20. Anion gap is elevated at 19.1. BUN is 39 with a creatinine of 2.1 and a GFR of 31 I stage IIIb renal insufficiency. Glucose is slightly elevated 125. Hieu cium is 9.3. Magnesium 2.0. Total bilirubin is mildly elevated at 1.4. AST is 71 with an ALT of 51 and an alkaline phosphatase of 75. Elevated bilirubin is likely due to Gilbert's syndrome. CK-MB fraction is 1.9. Troponin I is mildly elevated at 0.089. C-reactive protein is 0.2. BNP elevated at 2701. Total protein is 6.7 with an albumin fraction of 3.5. TSH is 1.155. Covid 19 screen is negative. I will give him Bumex 1 mg IV since his blood pressure seems to have improved. 02/19/21 11:55: I have placed a call to the 1 call service sets [facility] and they are to call me back as they were too busy at this time to answer. 02/19/21 12:45: I have now spoken with on-call mystery shopper Dr. Mendez at [facility] in [place]. Patient's regular mystery shopper Dr. Reno is on vacation. Dr. Goldstein believes the pacemaker is malfunctioning and states that should be only firing about every second beat around 75 to 70 bpm. He states the negative setting on the pacemaker is recorded at 60. He suggest bringing the underlying atrial fibrillation rate under control with IV metoprolol or Lopressor and increasing his oral metoprolol to 50 mg twice daily. It is un clear at this time whether his blood pressure will actually tolerate this since he came in with a blood pressure of 80/52. He is currently 99 on 72. I will start him on normal saline at 100 mils an hour. I will give him initial dose of Lopressor 5 mg IV and see what happens to the [place] heart rate. If he continues to have pacemaker malfunction he will have to be sent to [facility] in [place]. In the meantime I will admit him to our hospital if the hospitalist is in agreement. 02/19/21 13:[address] David on-call hospitalist and he is very uncontrolled with taking this patient as he is highly likely to decompensate with an increased dose of metoprolol orally. He feels strongly the patient needs to be observed in a telemetry/stepdown unit with cardiology consu ltation. Patient has eaten a complete dinner meal and feels somewhat improved after eating. 02/19/21 14:30: Patient`s heart rate gradually improved and became 100% paced rhythm at 60/min after about an hour of giving the 5 mg of Lopressor IV. Blood pressure also improved once the tachyarrhythmia dissipated to around 123/78. Patient felt somewhat better after this occurrence. Plan will be to monitor him in the ED for the next couple of hours to make sure that atrial fibrillation flutter does not recur 02/19/21 15:05: He remains 100% paced rhythm at 60/min. I am going to give him an extra dose of metoprolol tartrate 25 mg p.o. at this time. The plan will be to use this 3 times daily until follow-up with cardiology on Monday next week as planned. I did not increase it to 50 mg twice daily as there were concerns about developing significant hypotension and he is on Xarelto and would not tolerate a fall very well. Patient's sister will be able to come and pick him up when she gets off work. 02/19/21 17:40: Discharge orders have been written and the patient will be picked up in the waiting room by his sister and return him to [facility] where he resides. He lives apparently with his elderly mother who is age 92. He remained in paced rhythm at 60/min throughout the next 3 hours of his hospital stay. I will leave him on metoprolol tartrate 25 mg 3 times daily unt il follow-up with his mystery shopper next week Monday to have his pacemaker replaced. He will return to the ED if he has any further problems over the weekend. Departure - Departure Time of Disposition: 17:19 Disposition: Home, Self-Care 01 Reason for Transfer *Q: Other Condition: Fair Clinical Impression: Atrial fibrillation with rapid ventricular response, Mild congestive heart failure Malfunction of cardiac pacemaker Qualifiers: Encounter type: initial encounter Qualified Code(s): T82.111A - Breakdown (mechanical) of cardiac pulse generator (battery), initial encounter Instructions: Heart Failure, Self Care, [id number], Atrial Fibrillation, [id number] Referrals: Darryn Barreto MD [Primary Care Provider] - Forms: ED Department Discharge Additional Instructions: Evaluation in the emergency room today in regards to feeling of heart racing in your chest which proved to be due to underlying atrial fibrillation with rapid ventricular rate. Pacemaker malfunction is contributing to this as it is trying to over pace the rapid rate which it is not supposed to be doing. Pacemaker is due to be changed in a few days time. You were treated with an intravenous dose of metoprolol called Lopressor 5 mg and when then a half an hour it did bring your heart rate under control and you have remained 100% paced rhythm at 60/min. You also received an increased dose of metoprolol 25 mg in the ED. I want you to increase your metoprolol to 25 mg 3 times daily until follow-up with mystery shopper in [place] next week and change of pacemaker. Discontinue the Xarelto as planned for your proposed surgery next February 23. Sepsis Event Note (ED) - Evaluation Sepsis Screening Result: No Definite Risk - Focused Exam Vital Signs: Vital Signs Temp Pulse Pulse Resp BP BP Pulse Ox 02/19/21 16:25 63 107/49 L 02/19/21 13:27 120 H 130/115 H 02/19/21 09:43 36.6 C 108 H 25 H 80/57 L 100
--- NOTE | 2021-02-19 11:08 | CR ---
Chest: Portable view of the chest was obtained. Comparison: Prior chest x-ray of 01/01/21 and 12/23/20. Heart is enlarged. Upper mediastinum is normal. Pulmonary vessels are minimally congested. Lungs otherwise are clear. No acute osseous abnormality is appreciated. Impression: 1. Findings suspicious for minimal CHF. Diagnostic code #3
[2021-02-19] MEDS ORDERED: Bumetanide 1 MG/4 ML MDV IVPUSH ONE (12:10)
[2021-02-19] MEDS ORDERED: Sodium Chloride 0.9% 1,000 ML IV SCH (12:45)
[2021-02-19] MEDS ORDERED: Metoprolol Tartrate 5 MG in Sodium Chloride 0.9% 50 ML IV ONE (12:45)
[2021-02-19] MEDS ORDERED: Metoprolol Tartrate 5 MG/5 ML SDV IVPUSH ONE (13:06)
[2021-02-19] MEDS ORDERED: Metoprolol Tartrate 25 MG Tab PO ONE (15:07)
[2021-02-19 16:26] VITALS: BP 107/49; PULSE 63
--- NOTE | 2021-02-24 07:11 | EDM.PDOC ---
ED HPI GENERAL MEDICAL PROBLEM - General Chief Complaint: Cardiovascular Problem Stated Complaint: [facility] Time Seen by Provider: 02/19/21 09:40 Source of Information: Reports: Patient History Limitations: Reports: No Limitations - History of Present Illness INITIAL COMMENTS - FREE TEXT/NARRATIVE: 70-year-old male presents to the ED per [facility]. He presents with increasing dyspnea and feeling like his heart is racing for the last several days. Of note patient states he has been told he has entered into atrial fibrillation about a month ago. Associated chronic congestive heart failure. He has a pacemaker that is not functioning normally and is due for change in 4 days time. He feels his heart is racing at times which is increased his dyspnea with orthopnea and PND and he thinks increased dependent edema in his lower extremities. No associated dizziness or lightheadedness but significant dyspnea on minimal exertion. Patient denies any chest pain. Onset: Unknown/Unsure Duration: Day(s):, Getting Worse Location: Reports: Generalized (Generalized weakness shortness of breath). Denies: Chest Quality: Reports: Other Severity: Moderate (Perhaps very mild central chest pressure discomfort with associated dyspnea.) Improves with: Reports: Rest Worsens with: Reports: Movement Context: Reports: Other (Recurrent bouts of). Denies: Activity (Even walking from the bedroom to the bathroom makes him short of breath.), Exercise, Lifting, Sick Contact, Trauma Associated Symptoms: Reports: Chest Pain, Cough (Chest pressure discomfort), Loss of Appetite, Malaise ( nonproductive cough at times), Shortness of Breath, Weakness. 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 (see below) (Only current medications.) - Related Data Allergies Allergy/AdvReac Type Severity Reaction Status Date / Time codeine AdvReac Intermediate Agitation Verified 02/19/21 09:45 Home Meds: Home Meds Aspirin [Aspirin EC] 40.5 mg PO DAILY 02/19/21 [History] C,E,Zinc,Copper 11/Falpn3w/Lut [Ocuvite Adult 50 Plus Softgel] 1 cap PO QPM 02/19/21 [History] Calcium Carbonate/Vitamin D3 [Calcium 600Mg-D3 400 Unit Sfgl] 1 cap PO DAILY 02/19/21 [History] Cholecalciferol (Vitamin D3) [Vitamin D3] 112.5 mcg PO DAILY 02/19/21 [History] Ferrous Sulfate [Iron] 325 mg PO DAILY 02/19/21 [History] Lactobacillus Acidophilus [Acidophilus] 1 tab PO DAILY 02/19/21 [History] Levothyroxine 112 mcg PO SUWE 02/19/21 [History] Levothyroxine Sodium [Levothyroxine] 100 mcg PO MOTUTHFRSA 02/19/21 [History] Lidocaine 5% 1 applic TOP DAILY PRN 02/19/21 [History] Methylsulfonylmethane [MSM] 1,000 mg PO DAILY 02/19/21 [History] Metoprolol Tartrate 25 mg PO BID 02/19/21 [History] Mupirocin Oint [Bactroban Oint] 1 applic TOP BID 02/19/21 [History] Non-Formulary Medication [NF Drug] 500 mg PO BEDTIME 02/19/21 [History] Billings-3/DHA/Epa/Fish Oil [Billings-3 Fish Oil 1,000 MG Sfgl] 1,000 mg PO DAILY 02/19/21 [History] Pantoprazole [ProTONIX] 40 mg PO DAILY 02/19/21 [History] Potassium Chloride [Klor-Con M20] 20 meq PO BID 02/19/21 [History] Rivaroxaban [Xarelto] 20 mg PO DAILY 02/19/21 [History] Simethicone 80 mg PO DAILY 02/19/21 [History] Sodium Bicarbonate 650 mg PO BID 02/19/21 [History] Tamsulosin HCl 0.4 mg PO DAILY 02/19/21 [History] Torsemide 50 mg PO SUMOWEFRSA 02/19/21 [History] Torsemide 100 mg PO TUTH 02/19/21 [History] Vitamin B Complex 1 cap PO DAILY 02/19/21 [History] allopurinoL [Zyloprim] 100 mg PO DAILY 02/19/21 [History] atorvaSTATin [Lipitor] 40 mg PO DAILY 02/19/21 [History] metFORMIN HCl [Metformin HCl ER] 500 mg PO PCDINNER 02/19/21 [History] polyethylene glycoL 3350 [MiraLAX] 17 gm PO DAILY PRN 02/19/21 [History] Past Medical History HEENT History: Reports: Cataract, Epistaxis, Hard of Hearing, Impaired Vision Other HEENT History: Macular tear, tinnitus, hearing aid, glasses Cardiovascular History: Reports: Afib, Heart Failure, Hypertension, Pacemaker, Other (See Below) Other Cardiovascular History: Left carotid bruit, aortic stenosis, symptomatic bradycardia Respiratory History: Reports: Sleep Apnea Other Respiratory History: Uses CPAP at night Gastrointestinal History: Reports: Gastritis, GERD, Hiatal Hernia, Other (See Below) Other Gastrointestinal History: Tenesmus, hematochezia, duodenitis, ulcers, esophagitis Genitourinary History: Reports: BPH, Chronic Renal Insuffiency, Retention, Urinary Other Genitourinary History: Urinary frequency, urgency, CKD III, proteinuria, uretherorrhagia 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 Musculoskeletal History: Reports: Other (See Below) Other Musculoskeletal History: Knee pain Neurological History: Reports: Other (See Below) Other Neuro History: Syncopal episode Psychiatric History: Reports: None Endocrine/Metabolic History: Reports: Hypothyroidism, Obesity/BMI 30+ Hematologic History: Reports: Idiopathic Thrombocytopenia Other Hematologic History: Thrombocytopenia Immunologic History: Reports: None Oncologic (Cancer) History: Reports: None Dermatologic History: Reports: Venous Stasis Dermatitis - Infectious Disease History Infectious Disease History: Reports: Chicken Pox, Measles - Past Surgical History HEENT Surgical History: Reports: Cataract Surgery, Eye Surgery, Tonsillectomy Cardiovascular Surgical History: Reports: Pacer Respiratory Surgical History: Reports: None GI Surgical History: Reports: Colonoscopy, EGD Male Surgical History: Reports: Other (See Below) Other Male Surgeries/Procedures: urethra rerouted, procedure performed at [facility] Endocrine Surgical History: Reports: None Neurological Surgical History: Reports: None Musculoskeletal Surgical History: Reports: Arthroscopic Knee Other Musculoskeletal Surgeries/Procedures:: Arthroscopic knee surgery x3 Oncologic Surgical History: Reports: None Dermatological Surgical History: Reports: Other (See Below) Social & Family History - Family History Family Medical History: No Pertinent Family History - Tobacco Use Tobacco Use Status *Q: Never Tobacco User Second Hand Smoke Exposure: No - Caffeine Use Caffeine Use: Reports: Coffee, Soda - Recreational Drug Use Recreational Drug Use: No - Living Situation & Occupation Living situation: Reports: , with Spouse Occupation: Employed ([employer]) ED ROS GENERAL - Review of Systems Review Of Systems: See Below Constitutional: Reports: Weakness, Fatigue, Decreased Appetite. Denies: Fever, Chills HEENT: Reports: Glasses Respiratory: Reports: Shortness of Breath, Cough. Denies: Wheezing, Pleuritic Chest Pain, Sputum, Hemoptysis (Nonproductive) Cardiovascular: Reports: Chest Pain (Central chest discomfort), Blood Pressure Problem (Been running too low), Dyspnea on Exertion (Increased edema both lower extremities), Edema, Orthopnea, Palpitations (Aware of his heart racing in his chest.). Denies: Claudication ( with feelings of near syncope), Lightheadedness Endocrine: Reports: Fatigue GI/Abdominal: Reports: No Symptoms : Reports: Frequency, Other (Nocturia x3) Musculoskeletal: Reports: Neck Pain, Shoulder Pain, Back Pain, Joint Pain Skin: Reports: Bruising (Bruises easily since he is on Xarelto) Neurological: Reports: Dizziness, Syncope, Difficulty Walking, Weakness (Near syncope symptoms). Denies: Confusion, Headache, Numbness, Tingling Psychiatric: Reports: No Symptoms (Due to feeling lightheaded and dizziness.) Hematologic/Lymphatic: Reports: No Symptoms Immunologic: Reports: No Symptoms ED EXAM, GENERAL - Physical Exam Exam: See Below Free Text/Narrative:: 70-year-old male presents to the ED per [facility]. He presents with increasing dyspnea and feeling like his heart is racing for the last several days. Of note patient states he has been told he has entered into atrial fibrillation about a month ago. Associated chronic congestive heart failure. He has a pacemaker that is not functioning normally and is due for change in 4 days time. He feels his heart is racing at times which is increased his dyspnea with orthopnea and PND and he thinks increased dependent edema in his lower extremities. No associated dizziness or lightheadedness but significant dyspnea on minimal exertion. Patient denies any chest pain. Exam Limited By: No Limitations General Appearance: Alert, WD/WN, Mild Distress, Other (Temperature is 36.6 degrees. Heart rate is anywhere from 108 to 140/min with apparent paced rhythm indicating pacemaker malfunction as I do not believe it is trying to override underlying rhythm which is atrial fibrillation. Respiratory it is 25 to 28/min with O2 sats of 99% room air BP 80/57.) Throat/Mouth: Normal Inspection, Normal Oropharynx, Other (Tongue appears mildly dry and coated.) Head: Atraumatic (Oropharynx is otherwise normal.), Normocephalic Neck: Normal Inspection, Supple, Full Range of Motion (With crepitus lateral rotation and flexion.), Limited Range of Motion. No: Carotid Bruit, Lymphadenopathy (L), Lymphadenopathy (R) (But is on lateral rotation.) Respiratory/Chest: Lungs Clear, Normal Breath Sounds (No adventitious sounds noted), No Accessory Muscle Use, Respiratory Distress (Tachypnea at rest 25 to 28/min with retained O2 sats of 92 to 96 on room air.), Other. No: Crackles, Rales, Rhonchi, Wheezing Cardiovascular: No Murmur, No Rub, Irregularly Irregular (Heart rate is very irregular and monitor suggest pacemaker malfunction with very frequent paced beats as high as 140 bpm.), Other. No: Normal Peripheral Pulses, No Edema, No Gallop, JVD Peripheral Pulses: 2+: Carotid (L), Carotid (R), Posterior Tibial (L) (He has compression stockings on. 2+ pitting edema both lower extremities), Posterior Tibial (R), Dorsalis Pedis (L), Dorsalis Pedis (R) GI/Abdominal: Normal Bowel Sounds, Soft, Non-Tender, No Organomegaly, No Mass, Pelvis Stable, Distended Back Exam: Normal Inspection, Full Range of Motion. No: CVA Tenderness (L), CVA Tenderness (R) Extremities: Normal Inspection, Non-Tender, Pedal Edema (2-3+ pitting edema both lower extremities slightly worse on the left as compared to the right.), Other (Limited external/internal rotation of both hips.) Neurological: Alert, Oriented, CN II-XII Intact, Normal Cognition Psychiatric: Normal Affect, Normal Mood Skin Exam: Warm, Dry, Intact, Normal Color, No Rash #2 Interpretation EKG Date: 02/19/21 Time: 13:53 Rhythm: Other (Primary rhythm is paced rhythm which is variable between 70 and 140 beats a minute. Underlying rhythm is atrial fibrillation with a rate of 78- 135 beats a minute) Rate (Beats/Min): 118 Perry: LAD-Left Perry Deviation (-90 degrees) P-Wave: Variable QRS: Other (Wide-complex rhythm due to paced rhythm.) EKG Interpretation Comments: Abnormal ECG Course - Vital Signs Last Recorded V/S: Last Vital Signs Temp 36.6 C 02/19/21 09:43 Pulse 63 02/19/21 16:25 Resp 25 H 02/19/21 09:43 BP 107/49 L 02/19/21 16:25 Pulse Ox 100 02/19/21 09:43 - Orders/Labs/Meds Labs: Laboratory Tests 02/19/21 02/19/21 02/19/21 Range/Units 09:40 10:32 10:32 WBC 5.64 (4.23-9.07) K/mm3 RBC 3.52 L (4.63-6.08) M/mm3 Hgb 11.7 L (13.7-17.5) gm/dl Hct 35.0 L (40.1-51.0) % MCV 99.4 H (79.0-92.2) fl MCH 33.2 H (25.7-32.2) pg MCHC 33.4 (32.2-35.5) g/dl RDW Std Deviation 51.4 H (35.1-43.9) fL Plt Count 99 L (163-337) K/mm3 MPV 10.2 (9.4-12.3) fl Neut % (Auto) 68.2 H (34.0-67.9) % Lymph % (Auto) 19.7 L (21.8-53.1) % [place] % (Auto) 10.6 (5.3-12.2) % Eos % (Auto) 0.9 (0.8-7.0) Baso % (Auto) 0.4 (0.1-1.2) % Neut # (Auto) 3.85 (1.78-5.38) K/mm3 Lymph # (Auto) 1.11 L (1.32-3.57) K/mm3 [place] # (Auto) 0.60 (0.30-0.82) K/mm3 Eos # (Auto) 0.05 (0.04-0.54) K/mm3 Baso # (Auto) 0.02 (0.01-0.08) K/mm3 Manual Slide Review Abnormal smear PT 19.3 H (9.7-12.0) SECONDS INR 1.83 APTT 39.3 H (21.7-31.4) SECONDS Sodium (136-145) mEq/L Potassium (3.5-5.1) mEq/L Chloride (98-107) mEq/L Carbon Dioxide (21-32) mEq/L Anion Gap (5-15) BUN (7-18) mg/dL Creatinine (0.7-1.3) mg/dL Est Cr Clr Drug Dosing mL/min Estimated GFR (MDRD) (>60) mL/min BUN/Creatinine Ratio (14-18) Glucose (70-99) mg/dL Calcium (8.5-10.1) mg/dL Magnesium (1.8-2.4) mg/dL Total Bilirubin (0.2-1.0) mg/dL AST (15-37) U/L ALT (16-63) U/L Alkaline Phosphatase (46-116) U/L CK-MB (CK-2) (0-3.6) ng/ml Troponin I (0.00-0.056) ng/mL C-Reactive Protein (<1.0) mg/dL NT-Pro-B Natriuret Pep (0-125) pg/mL Total Protein (6.4-8.2) g/dl Albumin (3.4-5.0) g/dl Globulin gm/dL Albumin/Globulin Ratio (1-2) TSH 3rd Generation (0.358-3.74) uIU/mL Urine Color (Yellow) Urine Appearance (Clear) Urine pH (5.0-8.0) Ur Specific [place] (1.005-1.030) Urine Protein (Negative) Urine Glucose (UA) (Negative) Urine Ketones (Negative) Urine Occult Blood (Negative) Urine Nitrite (Negative) Urine Bilirubin (Negative) Urine Urobilinogen (0.2-1.0) Ur Leukocyte Esterase (Negative) Urine RBC (0-5) /hpf Urine WBC (0-5) /hpf Ur Epithelial Cells (0-5) /hpf Urine Bacteria (FEW) /hpf Urine Mucus (FEW) /hpf SARS-CoV-2 RNA (ROLANDO) Negative (NEGATIVE) 02/19/21 02/19/21 02/19/21 Range/Units 10:32 10:32 15:07 WBC (4.23-9.07) K/mm3 RBC (4.63-6.08) M/mm3 Hgb (13.7-17.5) gm/dl Hct (40.1-51.0) % MCV (79.0-92.2) fl MCH (25.7-32.2) pg MCHC (32.2-35.5) g/dl RDW Std Deviation (35.1-43.9) fL Plt Count (163-337) K/mm3 MPV (9.4-12.3) fl Neut % (Auto) (34.0-67.9) % Lymph % (Auto) (21.8-53.1) % [place] % (Auto) (5.3-12.2) % Eos % (Auto) (0.8-7.0) Baso % (Auto) (0.1-1.2) % Neut # (Auto) (1.78-5.38) K/mm3 Lymph # (Auto) (1.32-3.57) K/mm3 [place] # (Auto) (0.30-0.82) K/mm3 Eos # (Auto) (0.04-0.54) K/mm3 Baso # (Auto) (0.01-0.08) K/mm3 Manual Slide Review PT (9.7-12.0) SECONDS INR APTT (21.7-31.4) SECONDS Sodium 138 (136-145) mEq/L Potassium 4.1 (3.5-5.1) mEq/L Chloride 103 (98-107) mEq/L Carbon Dioxide 20 L (21-32) mEq/L Anion Gap 19.1 H (5-15) BUN 39 H (7-18) mg/dL Creatinine 2.1 H (0.7-1.3) mg/dL Est Cr Clr Drug Dosing 28.47 mL/min Estimated GFR (MDRD) 31 (>60) mL/min BUN/Creatinine Ratio 18.6 H (14-18) Glucose 125 H (70-99) mg/dL Calcium 9.3 (8.5-10.1) mg/dL Magnesium 2.0 (1.8-2.4) mg/dL Total Bilirubin 1.4 H (0.2-1.0) mg/dL AST 71 H (15-37) U/L ALT 51 (16-63) U/L Alkaline Phosphatase 75 (46-116) U/L CK-MB (CK-2) 1.9 (0-3.6) ng/ml Troponin I 0.089 H* (0.00-0.056) ng/mL C-Reactive Protein 0.2 (<1.0) mg/dL NT-Pro-B Natriuret Pep 2701 H (0-125) pg/mL Total Protein 6.7 (6.4-8.2) g/dl Albumin 3.5 (3.4-5.0) g/dl Globulin 3.2 gm/dL Albumin/Globulin Ratio 1.1 (1-2) TSH 3rd Generation 1.155 (0.358-3.74) uIU/mL Urine Color Yellow (Yellow) Urine Appearance Clear (Clear) Urine pH 7.0 (5.0-8.0) Ur Specific [place] 1.015 (1.005-1.030) Urine Protein Negative (Negative) Urine Glucose (UA) Negative (Negative) Urine Ketones Negative (Negative) Urine Occult Blood Trace-intact H (Negative) Urine Nitrite Negative (Negative) Urine Bilirubin Negative (Negative) Urine Urobilinogen 0.2 (0.2-1.0) Ur Leukocyte Esterase Negative (Negative) Urine RBC 0-5 (0-5) /hpf Urine WBC 0-5 (0-5) /hpf Ur Epithelial Cells Not seen (0-5) /hpf Urine Bacteria Rare (FEW) /hpf Urine Mucus Not seen (FEW) /hpf SARS-CoV-2 RNA (ROLANDO) (NEGATIVE) Meds: Medications Discontinued Medications Generic Name Dose Route Start Last Admin Trade Name Freq PRN Reason Stop Dose Admin Bumetanide 1 mg 02/19/21 12:10 02/19/21 12:19 Bumetanide 1 Mg/4 Ml Mdv IVPUSH 02/19/21 12:11 1 mg ONETIME ONE Administration Sodium Chloride 1,000 mls @ 100 mls/hr 02/19/21 12:45 02/19/21 13:29 Normal Saline IV 100 mls/hr ASDIRECTED ELLA Administration Metoprolol Tartrate 5 mg 02/19/21 13:06 02/19/21 13:27 Metoprolol Tartrate 5 Mg/5 Ml Sdv IVPUSH 02/19/21 13:07 5 mg ONETIME ONE Administration Metoprolol Tartrate 25 mg 02/19/21 15:07 02/19/21 16:25 Metoprolol Tartrate 25 Mg Tab PO 02/19/21 15:08 25 mg ONETIME ONE Administration Departure - Departure Time of Disposition: 17:30 Disposition: Home, Self-Care 01 Condition: Fair Clinical Impression: Atrial fibrillation with rapid ventricular response, Mild congestive heart failure Malfunction of cardiac pacemaker Qualifiers: Encounter type: initial encounter Qualified Code(s): T82.111A - Breakdown (mechanical) of cardiac pulse generator (battery), initial encounter Instructions: Heart Failure, Self Care, [id number], Atrial Fibrillation, [id number] Referrals: Darryn Barreto MD [Primary Care Provider] - Forms: ED Department Discharge Additional Instructions: Evaluation in the emergency room today in regards to feeling of heart racing in your chest which proved to be due to underlying atrial fibrillation with rapid ventricular rate. Pacemaker malfunction is contributing to this as it is trying to over pace the rapid rate which it is not supposed to be doing. Pacemaker is due to be changed in a few days time. You were treated with an intravenous dose of metoprolol called Lopressor 5 mg and when then a half an hour it did bring your heart rate under control and you have remained 100% paced rhythm at 60/min. You also received an increased dose of metoprolol 25 mg in the ED. I want you to increase your metoprolol to 25 mg 3 times daily until follow-up with desk maker in [place] next week and change of pacemaker. Discontinue the Xarelto as planned for your proposed surgery next February 23. Sepsis Event Note (ED) - Evaluation Sepsis Screening Result: No Definite Risk
== END 2021-02-19 17:49 | disposition home or self-care (01) ==
LOC: JD.ED 09:40
DX: T82.111A Breakdown (mechanical) of cardiac pulse generator (battery), initial encounter (principal); I13.0 Hypertensive heart and chronic kidney disease with heart failure and stage 1 through stage 4 chronic kidney disease, or unspecified chronic kidney disease; K21.9 Gastro-esophageal reflux disease without esophagitis; N18.30 Chronic kidney disease, stage 3 unspecified; E03.9 Hypothyroidism, unspecified; E66.9 Obesity, unspecified; I50.9 Heart failure, unspecified; I48.91 Unspecified atrial fibrillation; Z20.822 Contact with and (suspected) exposure to COVID-19; Z88.5 Allergy status to narcotic agent; Z79.82 Long term (current) use of aspirin; Z79.899 Other long term (current) drug therapy; Z79.84 Long term (current) use of oral hypoglycemic drugs; Z68.34 Body mass index [BMI] 34.0-34.9, adult; Z79.01 Long term (current) use of anticoagulants
CPT/HCPCS: 36415; 71045; 80053; 81001; 82553; 83735; 83880; 84443; 84484; 85025; 85610; 85730; 86140; 93005; 96374; 96375; 99285; A9270; J3490; J7030; U0002

== ENCOUNTER 2021-02-27 15:08 | Emergency (ER) | payer MEDICARE, OTHER ==
[2021-02-27 15:21] VITALS: BP 115/69; PULSE 64
[2021-02-27] MEDS ORDERED: Sodium Chloride 0.9% 10 ML Syringe FLUSH PRN (15:36)
--- NOTE | 2021-02-27 15:47 | EDM.PDOC ---
ED HPI GENERAL MEDICAL PROBLEM - General Chief Complaint: General Stated Complaint: PACE MAKER COMPLAINT Time Seen by Provider: 02/27/21 15:30 Source of Information: Reports: Patient, RN Notes Reviewed History Limitations: Reports: No Limitations - History of Present Illness INITIAL COMMENTS - FREE TEXT/NARRATIVE: Patient is a 70-year-old male who presents to the ER for the evaluation of an issue with his pacemaker pocket. Patient states that he recently had his pacemaker replaced on Monday of this last week, everything went well, and he went into his garden Monday and , he does not think that he strained anything or overdid it however today he has some redness/swelling, and pain/tenderness to the pacemaker pocket site. The whole area is warm to touch, and there is some bruising, that does extend down to the patient's left nipple. The pacemaker was replaced by Dr. Reno. Patient has not had any fevers or chills, cough or shortness of breath, or any sort of sick-like symptoms that seem to be manifesting. No drainage is appreciated at the site. Left Chest Pain Score (Numeric/FACES): 5 - Related Data Allergies Allergy/AdvReac Type Severity Reaction Status Date / Time codeine AdvReac Intermediate Agitation Verified 02/27/21 15:21 Home Meds: Home Meds Aspirin [Aspirin EC] 40.5 mg PO DAILY 02/19/21 [History] C,E,Zinc,Copper 11/Kzcey4m/Lut [Ocuvite Adult 50 Plus Softgel] 1 cap PO QPM 02/19/21 [History] Calcium Carbonate/Vitamin D3 [Calcium 600Mg-D3 400 Unit Sfgl] 1 cap PO DAILY 02/19/21 [History] Cholecalciferol (Vitamin D3) [Vitamin D3] 112.5 mcg PO DAILY 02/19/21 [History] Ferrous Sulfate [Iron] 325 mg PO DAILY 02/19/21 [History] Lactobacillus Acidophilus [Acidophilus] 1 tab PO DAILY 02/19/21 [History] Levothyroxine 112 mcg PO SUWE 02/19/21 [History] Levothyroxine Sodium [Levothyroxine] 100 mcg PO MOTUTHFRSA 02/19/21 [History] Lidocaine 5% 1 applic TOP DAILY PRN 02/19/21 [History] Methylsulfonylmethane [MSM] 1,000 mg PO DAILY 02/19/21 [History] Metoprolol Tartrate 25 mg PO BID 02/19/21 [History] Mupirocin Oint [Bactroban Oint] 1 applic TOP BID 02/19/21 [History] Non-Formulary Medication [NF Drug] 500 mg PO BEDTIME 02/19/21 [History] [place]-3/DHA/Epa/Fish Oil [[place]-3 Fish Oil 1,000 MG Sfgl] 1,000 mg PO DAILY 02/19/21 [History] Pantoprazole [ProTONIX] 40 mg PO DAILY 02/19/21 [History] Potassium Chloride [Klor-Con M20] 20 meq PO BID 02/19/21 [History] Rivaroxaban [Xarelto] 20 mg PO DAILY 02/19/21 [History] Simethicone 80 mg PO DAILY 02/19/21 [History] Sodium Bicarbonate 650 mg PO BID 02/19/21 [History] Tamsulosin HCl 0.4 mg PO DAILY 02/19/21 [History] Torsemide 50 mg PO SUMOWEFRSA 02/19/21 [History] Torsemide 100 mg PO TUTH 02/19/21 [History] Vitamin B Complex 1 cap PO DAILY 02/19/21 [History] allopurinoL [Zyloprim] 100 mg PO DAILY 02/19/21 [History] atorvaSTATin [Lipitor] 40 mg PO DAILY 02/19/21 [History] metFORMIN HCl [Metformin HCl ER] 500 mg PO PCDINNER 02/19/21 [History] polyethylene glycoL 3350 [MiraLAX] 17 gm PO DAILY PRN 02/19/21 [History] Past Medical History HEENT History: Reports: Cataract, Epistaxis, Hard of Hearing, Impaired Vision Other HEENT History: Macular tear, tinnitus, hearing aid, glasses Cardiovascular History: Reports: Afib, Heart Failure, Hypertension, Pacemaker, Other (See Below) Other Cardiovascular History: Left carotid bruit, aortic stenosis, symptomatic bradycardia Respiratory History: Reports: Sleep Apnea Other Respiratory History: Uses CPAP at night Gastrointestinal History: Reports: Gastritis, GERD, Hiatal Hernia, Other (See Below) Other Gastrointestinal History: Tenesmus, hematochezia, duodenitis, ulcers, esophagitis Genitourinary History: Reports: BPH, Chronic Renal Insuffiency, Retention, Urinary Other Genitourinary History: Urinary frequency, urgency, CKD III, proteinuria, uretherorrhagia Musculoskeletal History: Reports: Other (See Below) Other Musculoskeletal History: Knee pain Neurological History: Reports: Other (See Below) Other Neuro History: Syncopal episode Endocrine/Metabolic History: Reports: Hypothyroidism, Obesity/BMI 30+ Hematologic History: Reports: Idiopathic Thrombocytopenia Other Hematologic History: Thrombocytopenia Dermatologic History: Reports: Venous Stasis Dermatitis - Infectious Disease History Infectious Disease History: Reports: Chicken Pox, Measles - Past Surgical History HEENT Surgical History: Reports: Cataract Surgery, Eye Surgery, Tonsillectomy Cardiovascular Surgical History: Reports: Pacer GI Surgical History: Reports: Colonoscopy, EGD Male Surgical History: Reports: Other (See Below) Other Male Surgeries/Procedures: urethra rerouted, procedure performed at [place] Musculoskeletal Surgical History: Reports: Arthroscopic Knee Other Musculoskeletal Surgeries/Procedures:: Arthroscopic knee surgery x3 Dermatological Surgical History: Reports: Other (See Below) Social & Family History - Family History Family Medical History: No Pertinent Family History - Tobacco Use Tobacco Use Status *Q: Never Tobacco User Second Hand Smoke Exposure: No - Caffeine Use Caffeine Use: Reports: Coffee, Soda - Recreational Drug Use Recreational Drug Use: No - Living Situation & Occupation Living situation: Reports: , with Spouse Occupation: Employed ([employer]) ED ROS GENERAL - Review of Systems Review Of Systems: Comprehensive ROS is negative, except as noted in HPI. ED EXAM, GENERAL - Physical Exam Exam: See Below Exam Limited By: No Limitations General Appearance: Alert, WD/WN, No Apparent Distress Respiratory/Chest: No Respiratory Distress, Lungs Clear, Normal Breath Sounds, No Accessory Muscle Use, Other (left upper chest is tender to touch at site of pacemaker) Cardiovascular: Normal Peripheral Pulses, Regular Rate, Rhythm, No Edema Extremities: Normal Inspection, Normal Capillary Refill Neurological: Alert, Oriented, Normal Cognition, No Motor/Sensory Deficits Psychiatric: Normal Affect, Normal Mood Skin Exam: Warm, Dry, Intact, No Rash, Ecchymosis (to the left upper chest that does extend to left nipple and mid axilla), Erythema (at site of pacemaker placement), Increased Warmth (at site of pacemaker placement) Course - Vital Signs Last Recorded V/S: Last Vital Signs Temp 97 F 02/27/21 15:17 Pulse 64 02/27/21 15:17 Resp 16 02/27/21 15:17 BP 115/69 02/27/21 15:17 Pulse Ox 100 02/27/21 15:17 - Orders/Labs/Meds Orders: Active Orders 24 hr Category Date Time Status Peripheral IV Care [RC] . DIRECTED Care 02/27/21 15:37 Active Chest [US] Stat Exams 02/27/21 15:39 Taken CULTURE BLOOD [BC] Stat Lab 02/27/21 16:03 Received CULTURE BLOOD [BC] Stat Lab 02/27/21 16:20 Received Piperacillin/Tazobactam 4.5 GM - First Dose Med 02/27/21 18:07 Ordered Piperacillin/Tazobactam [Piperacil-Tazobact] 4.5 gm Sodium Chloride 0.9% [Normal Saline] 100 ml IV ONETIME Sodium Chloride 0.9% [Saline Flush] Med 02/27/21 15:36 Active 10 ml FLUSH ASDIRECTED PRN Blood Culture x2 Reflex Set [OM.PC] Stat Oth 02/27/21 15:36 Ordered Peripheral IV Insertion Adult [OM.PC] Routine Oth 02/27/21 15:36 Ordered Medication Orders Piperacillin Sod/Tazobactam (Sod 4.5 gm/ Sodium Chloride) 100 mls @ 200 mls/hr IV ONETIME ONE Stop: 02/27/21 18:36 Sodium Chloride (Sodium Chloride 0.9% 10 Ml Syringe) 10 ml FLUSH ASDIRECTED PRN PRN Reason: Keep Vein Open Labs: Laboratory Tests 02/27/21 02/27/21 02/27/21 Range/Units 16:03 16:03 16:03 WBC 6.45 (4.23-9.07) K/mm3 RBC 3.46 L (4.63-6.08) M/mm3 Hgb 11.5 L (13.7-17.5) gm/dl Hct 34.5 L (40.1-51.0) % MCV 99.7 H (79.0-92.2) fl MCH 33.2 H (25.7-32.2) pg MCHC 33.3 (32.2-35.5) g/dl RDW Std Deviation 49.3 H (35.1-43.9) fL Plt Count 101 L (163-337) K/mm3 MPV 10.2 (9.4-12.3) fl Neut % (Auto) 57.8 (34.0-67.9) % Lymph % (Auto) 21.7 L (21.8-53.1) % [place] % (Auto) 17.8 H (5.3-12.2) % Eos % (Auto) 1.9 (0.8-7.0) Baso % (Auto) 0.6 (0.1-1.2) % Neut # (Auto) 3.73 (1.78-5.38) K/mm3 Lymph # (Auto) 1.40 (1.32-3.57) K/mm3 [place] # (Auto) 1.15 H (0.30-0.82) K/mm3 Eos # (Auto) 0.12 (0.04-0.54) K/mm3 Baso # (Auto) 0.04 (0.01-0.08) K/mm3 Sodium 140 (136-145) mEq/L Potassium 3.8 (3.5-5.1) mEq/L Chloride 103 (98-107) mEq/L Carbon Dioxide 27 (21-32) mEq/L Anion Gap 13.8 (5-15) BUN 24 H (7-18) mg/dL Creatinine 1.6 H (0.7-1.3) mg/dL Est Cr Clr Drug Dosing 37.37 mL/min Estimated GFR (MDRD) 43 (>60) mL/min BUN/Creatinine Ratio 15.0 (14-18) Glucose 109 H (70-99) mg/dL Lactic Acid 0.9 (0.4-2.0) mmol/L Calcium 8.7 (8.5-10.1) mg/dL Total Bilirubin 1.4 H (0.2-1.0) mg/dL AST 36 (15-37) U/L ALT 39 (16-63) U/L Alkaline Phosphatase 92 (46-116) U/L C-Reactive Protein 2.8 H* (<1.0) mg/dL Total Protein 6.8 (6.4-8.2) g/dl Albumin 3.5 (3.4-5.0) g/dl Globulin 3.3 gm/dL Albumin/Globulin Ratio 1.1 (1-2) Meds: Medications Generic Name Dose Route Start Last Admin Trade Name Freq PRN Reason Stop Dose Admin Piperacillin Sod/Tazobactam 100 mls @ 200 mls/hr 02/27/21 18:07 Sod 4.5 gm/ Sodium Chloride IV 02/27/21 18:36 ONETIME ONE Sodium Chloride 10 ml 02/27/21 15:36 Sodium Chloride 0.9% 10 Ml Syringe FLUSH ASDIRECTED PRN Keep Vein Open - Re-Assessments/Exams Free Text/Narrative Re-Assessment/Exam: 02/27/21 15:47 Patient presents to the ER for a possible pacemaker pocket infection, we will go ahead and get ultrasound of the area to determine for abscess versus cellulitis versus other, get basic labs, blood cultures and IV to be established for further evaluation. 02/27/21 18:13 Labs have come back, white count is not elevated but CRP is elevated at 2.8, metabolic panel essentially unremarkable he is a little bit dry. Ultrasound did demonstrate a fluid collection measuring 4.5 x 3.8 x 2.7 cm. Hematoma and/or abscess was the differential diagnosis. I did call and talk with cardiology at [facility] in [place], and they do want him over there for further investigation. I did talk with Dr. Pedersen, hospitalist on-call, and she does request IV Zosyn to be given for initial management. Patient will be transferred by ambulance service for ongoing infection issue. Departure - Departure Time of Disposition: 18:15 Disposition: DC/Tfer to Acute Hospital 02 Condition: Good Clinical Impression: Infection of pacemaker pocket Qualifiers: Encounter type: initial encounter Qualified Code(s): T82.7XXA - Infection and inflammatory reaction due to other cardiac and vascular devices, implants and grafts, initial encounter - Discharge Information Referrals: Darryn Barreto MD [Primary Care Provider] - Forms: ED Department Discharge Sepsis Event Note (ED) - Evaluation Sepsis Screening Result: No Definite Risk - Focused Exam Vital Signs: Vital Signs Temp Pulse Resp BP Pulse Ox 02/27/21 15:17 97 F 64 16 115/69 100 - My Orders Last 24 Hours: My Active Orders 02/27/21 15:36 Sodium Chloride 0.9% [Saline Flush] 10 ml FLUSH ASDIRECTED PRN Blood Culture x2 Reflex Set [OM.PC] Stat Peripheral IV Insertion Adult [OM.PC] Routine 02/27/21 15:37 Peripheral IV Care [RC] . DIRECTED 02/27/21 15:39 Chest [US] Stat 02/27/21 16:03 CULTURE BLOOD [BC] Stat 02/27/21 16:20 CULTURE BLOOD [BC] Stat 02/27/21 18:07 Piperacillin/Tazobactam 4.5 GM - First Dose Piperacillin/Tazobactam [Piperacil- Tazobact] 4.5 gm Sodium Chloride 0.9% [Normal Saline] 100 ml IV ONETIME - Assessment/Plan Last 24 Hours: My Active Orders 02/27/21 15:36 Sodium Chloride 0.9% [Saline Flush] 10 ml FLUSH ASDIRECTED PRN Blood Culture x2 Reflex Set [OM.PC] Stat Peripheral IV Insertion Adult [OM.PC] Routine 02/27/21 15:37 Peripheral IV Care [RC] . DIRECTED 02/27/21 15:39 Chest [US] Stat 02/27/21 16:03 CULTURE BLOOD [BC] Stat 02/27/21 16:20 CULTURE BLOOD [BC] Stat 02/27/21 18:07 Piperacillin/Tazobactam 4.5 GM - First Dose Piperacillin/Tazobactam [Piperacil- Tazobact] 4.5 gm Sodium Chloride 0.9% [Normal Saline] 100 ml IV ONETIME
[2021-02-27] MEDS ORDERED: Piperacillin/Tazobactam 4.5 GM in Sodium Chloride 0.9% 100 ML IV ONE (18:07)
--- NOTE | 2021-02-27 20:54 | US ---
Chest ultrasound: Multiple real-time images were obtained around area of pacemaker. Comparison: No prior ultrasound study in this area is available. Findings: Hypoechoic area is seen next to the pacemaker. This area measures 4.5 x 3.8 x 2.7 cm. Differential for this finding is either well-defined abscess or hematoma. No additional abnormality is appreciated. Impression: 1. Finding next to the pacemaker as described above. Diagnostic code #3 I agree with preliminary report from [facility], finalized on 02/27/21, 6:22 PM CDT, code 1
== END 2021-02-27 19:00 ==
LOC: JD.ED 15:08
DX: T82.7XXA Infection and inflammatory reaction due to other cardiac and vascular devices, implants and grafts, initial encounter (principal); I48.91 Unspecified atrial fibrillation; I13.0 Hypertensive heart and chronic kidney disease with heart failure and stage 1 through stage 4 chronic kidney disease, or unspecified chronic kidney disease; N18.30 Chronic kidney disease, stage 3 unspecified; I50.9 Heart failure, unspecified; K21.9 Gastro-esophageal reflux disease without esophagitis; N40.1 Benign prostatic hyperplasia with lower urinary tract symptoms; R33.8 Other retention of urine; R35.0 Frequency of micturition; E03.9 Hypothyroidism, unspecified; E66.9 Obesity, unspecified; Z68.36 Body mass index [BMI] 36.0-36.9, adult; Z88.5 Allergy status to narcotic agent; Z79.01 Long term (current) use of anticoagulants; Z79.899 Other long term (current) drug therapy
CPT/HCPCS: 36415; 76604; 80053; 83605; 85025; 86140; 87040; 96365; 99285; J2543; 99284

== ENCOUNTER 2021-06-15 17:34 | Inpatient (IN) | payer MEDICARE ==
[2021-06-15] MEDS ORDERED: Ondansetron 4 MG/2 ML SDV IVPUSH ONE (18:20)
--- NOTE | 2021-06-15 18:28 | EDM.PDOC ---
ED HPI GENERAL MEDICAL PROBLEM - General Chief Complaint: Abdominal Pain Stated Complaint: ABDOMINAL PAIN Time Seen by Provider: 06/15/21 18:11 Source of Information: Reports: Patient, RN Notes Reviewed History Limitations: Reports: No Limitations - History of Present Illness INITIAL COMMENTS - FREE TEXT/NARRATIVE: Patient is a 71-year-old male who presents to the ER for evaluation of his upper abdominal pain. States that he has a history of ulcers. Notes that the pain worsened yesterday and today, after eating a roughly 30 minutes. He still retains his gallbladder, but has never been made aware if he has had any sort of gallbladder issues. He was evaluated in the clinic last week, was told he was constipated and sent home with MiraLAX. States that he has had a few good bowel movement since then, but states that the pain is very sharp, stabbing in nature, and feels as if someone is stabbing him with a knife. Seems to worsen when he takes a deep breath. No fevers, no chills, no cough, no worsening shortness of breath however he states that when the pain is at its worst, he does feel somewhat short of breath. No nausea/vomiting/diarrhea. Treatments TECHNICAL SERVICE REPRESENTATIVE: Reports: Other (see below) Other Treatments TECHNICAL SERVICE REPRESENTATIVE: pepto bismol double dose and 1 gas-x. Upper Abdomen Pain Score (Numeric/FACES): 9 - Related Data Allergies Allergy/AdvReac Type Severity Reaction Status Date / Time codeine AdvReac Intermediate Agitation Verified 02/27/21 15:21 Home Meds: Home Meds Aspirin [Aspirin EC] 40.5 mg PO DAILY 02/19/21 [History] C,E,Zinc,Copper 11/Dtszm5o/Lut [Ocuvite Adult 50 Plus Softgel] 1 cap PO QPM 02/19/21 [History] Calcium Carbonate/Vitamin D3 [Calcium 600Mg-D3 400 Unit Sfgl] 1 cap PO DAILY 02/19/21 [History] Cholecalciferol (Vitamin D3) [Vitamin D3] 112.5 mcg PO DAILY 02/19/21 [History] Ferrous Sulfate [Iron] 325 mg PO DAILY 02/19/21 [History] Lactobacillus Acidophilus [Acidophilus] 1 tab PO DAILY 02/19/21 [History] Levothyroxine 112 mcg PO SUWE 02/19/21 [History] Levothyroxine Sodium [Levothyroxine] 100 mcg PO MOTUTHFRSA 02/19/21 [History] Lidocaine 5% 1 applic TOP DAILY PRN 02/19/21 [History] Methylsulfonylmethane [MSM] 1,000 mg PO DAILY 02/19/21 [History] Metoprolol Tartrate 25 mg PO BID 02/19/21 [History] Mupirocin Oint [Bactroban Oint] 1 applic TOP BID 02/19/21 [History] Non-Formulary Medication [NF Drug] 500 mg PO BEDTIME 02/19/21 [History] Hermitage-3/DHA/Epa/Fish Oil [Hermitage-3 Fish Oil 1,000 MG Sfgl] 1,000 mg PO DAILY 02/19/21 [History] Pantoprazole [ProTONIX] 40 mg PO DAILY 02/19/21 [History] Potassium Chloride [Klor-Con M20] 20 meq PO BID 02/19/21 [History] Rivaroxaban [Xarelto] 20 mg PO DAILY 02/19/21 [History] Simethicone 80 mg PO DAILY 02/19/21 [History] Sodium Bicarbonate 650 mg PO BID 02/19/21 [History] Tamsulosin HCl 0.4 mg PO DAILY 02/19/21 [History] Torsemide 50 mg PO SUMOWEFRSA 02/19/21 [History] Torsemide 100 mg PO TUTH 02/19/21 [History] Vitamin B Complex 1 cap PO DAILY 02/19/21 [History] allopurinoL [Zyloprim] 100 mg PO DAILY 02/19/21 [History] atorvaSTATin [Lipitor] 40 mg PO DAILY 02/19/21 [History] metFORMIN HCl [Metformin HCl ER] 500 mg PO PCDINNER 02/19/21 [History] polyethylene glycoL 3350 [MiraLAX] 17 gm PO DAILY PRN 02/19/21 [History] Past Medical History HEENT History: Reports: Cataract, Epistaxis, Hard of Hearing, Impaired Vision Other HEENT History: Macular tear, tinnitus, hearing aid, glasses Cardiovascular History: Reports: Afib, Heart Failure, Hypertension, Pacemaker, Other (See Below) Other Cardiovascular History: Left carotid bruit, aortic stenosis, symptomatic bradycardia Respiratory History: Reports: Sleep Apnea Other Respiratory History: Uses CPAP at night Gastrointestinal History: Reports: Gastritis, GERD, Hiatal Hernia, Other (See Below) Other Gastrointestinal History: Tenesmus, hematochezia, duodenitis, ulcers, esophagitis Genitourinary History: Reports: BPH, Chronic Renal Insuffiency, Retention, Urinary Other Genitourinary History: Urinary frequency, urgency, CKD III, proteinuria, uretherorrhagia Musculoskeletal History: Reports: Other (See Below) Other Musculoskeletal History: Knee pain Neurological History: Reports: Other (See Below) Other Neuro History: Syncopal episode Psychiatric History: Reports: None Endocrine/Metabolic History: Reports: Hypothyroidism, Obesity/BMI 30+ Hematologic History: Reports: Idiopathic Thrombocytopenia Other Hematologic History: Thrombocytopenia Immunologic History: Reports: None Oncologic (Cancer) History: Reports: None Dermatologic History: Reports: Venous Stasis Dermatitis - Infectious Disease History Infectious Disease History: Reports: Chicken Pox, Measles - Past Surgical History HEENT Surgical History: Reports: Cataract Surgery, Eye Surgery, Tonsillectomy Cardiovascular Surgical History: Reports: Pacer Respiratory Surgical History: Reports: None GI Surgical History: Reports: Colonoscopy, EGD Male Surgical History: Reports: Other (See Below) Other Male Surgeries/Procedures: urethra rerouted, procedure performed at [facility] Endocrine Surgical History: Reports: None Neurological Surgical History: Reports: None Musculoskeletal Surgical History: Reports: Arthroscopic Knee Other Musculoskeletal Surgeries/Procedures:: Arthroscopic knee surgery x3 Oncologic Surgical History: Reports: None Dermatological Surgical History: Reports: Other (See Below) Social & Family History - Family History Family Medical History: No Pertinent Family History - Tobacco Use Tobacco Use Status *Q: Never Tobacco User - Caffeine Use Caffeine Use: Reports: Coffee, Soda - Recreational Drug Use Recreational Drug Use: No - Living Situation & Occupation Living situation: Reports: , with Spouse Occupation: Employed ([employer]) ED ROS GENERAL - Review of Systems Review Of Systems: Comprehensive ROS is negative, except as noted in HPI. ED EXAM, GI/ABD - Physical Exam Exam: See Below Exam Limited By: No Limitations General Appearance: Alert, WD/WN, No Apparent Distress Respiratory/Chest: No Respiratory Distress, Lungs Clear, Normal Breath Sounds, No Accessory Muscle Use, Chest Non-Tender Cardiovascular: Normal Peripheral Pulses, Regular Rate, Rhythm, No Edema GI/Abdominal Exam: Normal Bowel Sounds, Soft, No Distention, No Mass, Tender (epigastrium and RUQ mainly) Extremities: Normal Inspection, Normal Capillary Refill Neurological: Alert, Oriented, Normal Cognition, No Motor/Sensory Deficits Psychiatric: Normal Affect, Normal Mood Skin Exam: Warm, Dry, Intact, Normal Color, No Rash Course - Vital Signs Last Recorded V/S: Last Vital Signs Temp 97.1 F 06/15/21 18:09 Pulse 69 06/15/21 18:09 Resp 20 06/15/21 18:09 BP 102/60 06/15/21 18:09 Pulse Ox 100 06/15/21 18:09 - Orders/Labs/Meds Orders: Active Orders 24 hr Category Date Time Status Peripheral IV Care [RC] . DIRECTED Care 06/15/21 18:21 Active UA W/MICROSCOPIC [URIN] Stat Lab 06/15/21 18:20 Ordered Piperacillin/Tazobactam 4.5 GM - First Dose Med 06/15/21 21:08 Ordered Piperacillin/Tazobactam [Piperacil-Tazobact] 4.5 gm Sodium Chloride 0.9% [Normal Saline AdvBag] 100 ml IV ONETIME Sodium Chloride 0.9% [Normal Saline] 1,000 ml Med 06/15/21 18:30 Active IV ASDIRECTED Sodium Chloride 0.9% [Saline Flush] Med 06/15/21 18:20 Active 10 ml FLUSH ASDIRECTED PRN Peripheral IV Insertion Adult [OM.PC] Stat Oth 06/15/21 18:20 Ordered Medication Orders Sodium Chloride (Normal Saline) 1,000 mls @ 999 mls/hr IV ASDIRECTED ELLA Last Admin: 06/15/21 18:59 Dose: 999 mls/hr Documented by: LOUIE Piperacillin Sod/Tazobactam (Sod 4.5 gm/ Sodium Chloride) 100 mls @ 200 mls/hr IV ONETIME ONE Stop: 06/15/21 21:37 Last Admin: 06/15/21 21:26 Dose: 200 mls/hr Documented by: LOUIE Sodium Chloride (Sodium Chloride 0.9% 10 Ml Syringe) 10 ml FLUSH ASDIRECTED PRN PRN Reason: Keep Vein Open Last Admin: 06/15/21 20:22 Dose: 10 ml Documented by: Admin: 06/15/21 19:00 Dose: 10 ml Documented by: LOUIE Labs: Laboratory Tests 06/15/21 06/15/21 06/15/21 Range/Units 18:20 18:50 18:50 WBC 6.72 (4.23-9.07) K/mm3 RBC 4.27 L (4.63-6.08) M/mm3 Hgb 13.6 L (13.7-17.5) gm/dl Hct 41.1 (40.1-51.0) % MCV 96.3 H (79.0-92.2) fl MCH 31.9 (25.7-32.2) pg MCHC 33.1 (32.2-35.5) g/dl RDW Std Deviation 51.2 H (35.1-43.9) fL Plt Count 125 L (163-337) K/mm3 MPV 9.7 (9.4-12.3) fl Neut % (Auto) 71.9 H (34.0-67.9) % Lymph % (Auto) 15.0 L (21.8-53.1) % [place] % (Auto) 12.2 (5.3-12.2) % Eos % (Auto) 0.4 L (0.8-7.0) Baso % (Auto) 0.4 (0.1-1.2) % Neut # (Auto) 4.82 (1.78-5.38) K/mm3 Lymph # (Auto) 1.01 L (1.32-3.57) K/mm3 [place] # (Auto) 0.82 (0.30-0.82) K/mm3 Eos # (Auto) 0.03 L (0.04-0.54) K/mm3 Baso # (Auto) 0.03 (0.01-0.08) K/mm3 Sodium 139 (136-145) mEq/L Potassium 4.1 (3.5-5.1) mEq/L Chloride 103 (98-107) mEq/L Carbon Dioxide 27 (21-32) mEq/L Anion Gap 13.1 (5-15) BUN 33 H (7-18) mg/dL Creatinine 1.4 H (0.7-1.3) mg/dL Est Cr Clr Drug Dosing 42.10 mL/min Estimated GFR (MDRD) 50 (>60) mL/min BUN/Creatinine Ratio 23.6 H (14-18) Glucose 144 H (70-99) mg/dL Calcium 9.4 (8.5-10.1) mg/dL Total Bilirubin 2.1 H (0.2-1.0) mg/dL GGT 492 H (15-85) U/L AST 270 H (15-37) U/L ALT 152 H (16-63) U/L Alkaline Phosphatase 222 H (46-116) U/L C-Reactive Protein 5.1 H* (<1.0) mg/dL Total Protein 8.3 H (6.4-8.2) g/dl Albumin 3.8 (3.4-5.0) g/dl Globulin 4.5 gm/dL Albumin/Globulin Ratio 0.8 L (1-2) Lipase > 1500 H (73-393) U/L SARS-CoV-2 RNA (ROLANDO) (NEGATIVE) 06/15/21 Range/Units 20:37 WBC (4.23-9.07) K/mm3 RBC (4.63-6.08) M/mm3 Hgb (13.7-17.5) gm/dl Hct (40.1-51.0) % MCV (79.0-92.2) fl MCH (25.7-32.2) pg MCHC (32.2-35.5) g/dl RDW Std Deviation (35.1-43.9) fL Plt Count (163-337) K/mm3 MPV (9.4-12.3) fl Neut % (Auto) (34.0-67.9) % Lymph % (Auto) (21.8-53.1) % [place]land % (Auto) (5.3-12.2) % Eos % (Auto) (0.8-7.0) Baso % (Auto) (0.1-1.2) % Neut # (Auto) (1.78-5.38) K/mm3 Lymph # (Auto) (1.32-3.57) K/mm3 [place]land # (Auto) (0.30-0.82) K/mm3 Eos # (Auto) (0.04-0.54) K/mm3 Baso # (Auto) (0.01-0.08) K/mm3 Sodium (136-145) mEq/L Potassium (3.5-5.1) mEq/L Chloride (98-107) mEq/L Carbon Dioxide (21-32) mEq/L Anion Gap (5-15) BUN (7-18) mg/dL Creatinine (0.7-1.3) mg/dL Est Cr Clr Drug Dosing mL/min Estimated GFR (MDRD) (>60) mL/min BUN/Creatinine Ratio (14-18) Glucose (70-99) mg/dL Calcium (8.5-10.1) mg/dL Total Bilirubin (0.2-1.0) mg/dL GGT (15-85) U/L AST (15-37) U/L ALT (16-63) U/L Alkaline Phosphatase (46-116) U/L C-Reactive Protein (<1.0) mg/dL Total Protein (6.4-8.2) g/dl Albumin (3.4-5.0) g/dl Globulin gm/dL Albumin/Globulin Ratio (1-2) Lipase (73-393) U/L SARS-CoV-2 RNA (ROLANDO) Negative (NEGATIVE) Meds: Medications Generic Name Dose Route Start Last Admin Trade Name Freq PRN Reason Stop Dose Admin Sodium Chloride 1,000 mls @ 999 mls/hr 06/15/21 18:30 06/15/21 18:59 Normal Saline IV 999 mls/hr ASDIRECTED ELLA Administration Piperacillin Sod/Tazobactam 100 mls @ 200 mls/hr 06/15/21 21:08 06/15/21 21:26 Sod 4.5 gm/ Sodium Chloride IV 06/15/21 21:37 200 mls/hr ONETIME ONE Administration Sodium Chloride 10 ml 06/15/21 18:20 06/15/21 20:22 Sodium Chloride 0.9% 10 Ml Syringe FLUSH 10 ml ASDIRECTED PRN Administration Keep Vein Open Discontinued Medications Generic Name Dose Route Start Last Admin Trade Name Freq PRN Reason Stop Dose Admin Iopamidol 100 ml 06/15/21 20:21 06/15/21 20:22 Iopamidol 612 Mg/Ml 100 Ml Bottle IVPUSH 06/15/21 20:22 100 ml ONETIME ONE Administration Ondansetron HCl 4 mg 06/15/21 18:20 06/15/21 19:00 Ondansetron 4 Mg/2 Ml Sdv IVPUSH 06/15/21 18:21 4 mg ONETIME ONE Administration Sodium Chloride 10 ml 06/15/21 20:21 Sodium Chloride 0.9% 10 Ml Sdv FLUSH 06/15/21 20:22 ONETIME ONE - Re-Assessments/Exams Free Text/Narrative Re-Assessment/Exam: 06/15/21 18:28 Patient presents to the ER for his ongoing upper abdominal pain, due to this being in his epigastrium and right upper quadrant, and abdomen pelvis CT will be performed to evaluate for gallbladder etiology as the patient recently ate. So no ultrasound can be performed at today's visit. Basic labs to be obtained, patient get some IV fluids and pain meds and nausea meds. 06/15/21 21:34 Patient's labs did come back, and his total bilirubin is elevated, all liver enzymes are elevated, GGT is elevated, CRP is also elevated, patient's lipase was too high to result. CT did demonstrate pancreatitis with no abscess, and sludge within the gallbladder possible small gallstones, gallbladder ultrasound would be in confirmatory of gallstones were clinically needed. I did speak with Dr. Zhao, and he does accept the patient for admission at this time. This wou ld be for gallstone pancreatitis. Departure - Departure Time of Disposition: 21:36 Disposition: Admitted As Inpatient 66 Condition: Good Clinical Impression: Pancreatitis, gallstone - Discharge Information Referrals: Darryn Barreto MD [Primary Care Provider] - Forms: ED Department Discharge Sepsis Event Note (ED) - Focused Exam Vital Signs: Vital Signs Temp Pulse Resp BP Pulse Ox 06/15/21 18:09 97.1 F 69 20 102/60 100 - My Orders Last 24 Hours: My Active Orders 06/15/21 18:20 UA W/MICROSCOPIC [URIN] Stat Sodium Chloride 0.9% [Saline Flush] 10 ml FLUSH ASDIRECTED PRN Peripheral IV Insertion Adult [OM.PC] Stat 06/15/21 18:21 Peripheral IV Care [RC] . DIRECTED 06/15/21 18:30 Sodium Chloride 0.9% [Normal Saline] 1,000 ml IV ASDIRECTED 06/15/21 21:08 Piperacillin/Tazobactam 4.5 GM - First Dose Piperacillin/Tazobactam [Piperacil-Tazobact] 4.5 gm Sodium Chloride 0.9% [Normal Saline AdvBag] 100 ml IV ONETIME - Assessment/Plan Last 24 Hours: My Active Orders 06/15/21 18:20 UA W/MICROSCOPIC [URIN] Stat Sodium Chloride 0.9% [Saline Flush] 10 ml FLUSH ASDIRECTED PRN Peripheral IV Insertion Adult [OM.PC] Stat 06/15/21 18:21 Peripheral IV Care [RC] . DIRECTED 06/15/21 18:30 Sodium Chloride 0.9% [Normal Saline] 1,000 ml IV ASDIRECTED 06/15/21 21:08 Piperacillin/Tazobactam 4.5 GM - First Dose Piperacillin/Tazobactam [Piperacil- Tazobact] 4.5 gm Sodium Chloride 0.9% [Normal Saline AdvBag] 100 ml IV ONETIME
[2021-06-15] MEDS ORDERED: Sodium Chloride 0.9% 1,000 ML IV SCH (18:30)
[2021-06-15] MEDS: Sodium Chloride 0.9% 10 ML Syringe FLUSH PRN ×2 (19:00→20:22)
[2021-06-15] MEDS ORDERED: Sodium Chloride 0.9% 10 ML SDV FLUSH ONE (20:21)
[2021-06-15] MEDS ORDERED: Iopamidol 612 MG/ML 100 ML Bottle IVPUSH ONE (20:21)
--- NOTE | 2021-06-15 21:00 | CT ---
CT abdomen and pelvis Technique: Multiple axial sections were obtained from above the dome of the diaphragm inferiorly through the pubic symphysis. Intravenous and oral contrast were utilized. Reconstructed coronal and sagittal images were obtained. Delayed images were also obtained through the bladder. Comparison: No prior CT abdomen or pelvis study is available, previous abdominal x-ray of 06/04/17. Findings: Visualized portion of the lung bases are clear. Liver contains no focal abnormality. Gallbladder contains some material most likely representing sludge and possibly small gallstones. Spleen size is normal. Adrenal glands show no nodule. Cyst is noted within the right kidney measuring 2.3 cm. Kidneys show symmetric contrast enhancement. Pancreas shows diffuse surrounding inflammatory change compatible with pancreatitis. Abdominal aorta shows no aneurysm. No retroperitoneal adenopathy is seen. No mesenteric abnormalities are otherwise seen. No pelvic mass is seen. Small fat-containing right inguinal hernia is noted. Delayed images shows contrast within the distal ureters and within the bladder. Appendix is not definitely visualized. Bone window settings were reviewed which show mild scattered degenerative change within the spine. No acute osseous abnormality is appreciated. Impression: 1. Inflammatory change around the pancreas compatible with pancreatitis. No pancreatic abscess is seen at this time. 2. Sludge within the gallbladder and possible small gallstones. Gallbladder ultrasound would be confirmatory for gallstones if clinically needed. 3. Other findings as noted above which are chronic. Diagnostic code #3
[2021-06-15] MEDS ORDERED: Piperacillin/Tazobactam 4.5 GM in Sodium Chloride 0.9% 100 ML IV ONE (21:08)
[2021-06-15] MEDS ORDERED: HYDROmorphone 0.5 MG/0.5 ML Syringe IVPUSH PRN (23:40)
[2021-06-15] MEDS ORDERED: Ondansetron 4 MG/2 ML SDV IVPUSH PRN (23:41)
[2021-06-16] MEDS: Sodium Chloride 0.9% 1,000 ML IV SCH ×4 (00:22→21:21)
[2021-06-16] MEDS ORDERED: Polyethylene Glycol 3350 Powder 17 GM Packet PO PRN (06:49)
[2021-06-16] MEDS ORDERED: Spironolactone 25 MG Tab PO SCH (07:00)
[2021-06-16] MEDS ORDERED: Levothyroxine 112 MCG Tab PO SCH (07:00)
--- NOTE | 2021-06-16 07:06 | PCM.HP.2 ---
H&P History of Present Illness - General Date of Service: 06/16/21 Admit Problem/Dx: Admission Diagnosis/Problem Admission Diagnosis/Problem Gallstone pancreatitis Source of Information: Patient History Limitations: Reports: No Limitations - History of Present Illness Initial Comments - Free Text/Narative: The patient is a 71-year-old gentleman who was evaluated in the emergency department due to right upper quadrant abdominal pain. The patient reports that he has been having pain intermittently over the past several days. He describes the pain is sharp and stabbing also located in the middle of his abdomen. He reports that he has had some tenderness in the area. The pain is worsened when he takes a deep breath. The patient reports that rest makes his abdomen feel little bit better. He has had some nausea and vomiting associated with this. He also reports that he has had loss of appetite. The patient does have a history of coronary artery disease and history of multiple pacemaker placements. He is currently anticoagulated on Xarelto due to atrial fibrillation. Denies excessive alcohol consumption. The patient had been in the emergency department excessive amount of time due to bed availability. Onset of Symptoms: Reports: Gradual Duration of Symptoms: Reports: Day(s): Location: Reports: Abdomen Quality: Reports: Ache, Sharp, Stabbing Severity: Moderate Improves with: Reports: Medication, Rest Worsens with: Reports: Breathing, Eating Associated Symptoms: Reports: Nausea/Vomiting Upper Abdomen Pain Score (Numeric/FACES): 9 - Related Data Allergies/Adverse Reactions: Allergies Allergy/AdvReac Type Severity Reaction Status Date / Time codeine AdvReac Intermediate Agitation Verified 06/15/21 23:13 Home Medications: Home Meds C,E,Zinc,Copper 11/Afslb7t/Lut [Ocuvite Adult 50 Plus Softgel] 1 cap PO BEDTIME 02/19/21 [History] Calcium Carbonate/Vitamin D3 [Calcium 600Mg-D3 400 Unit Sfgl] 1 cap PO WITHBREAKFAST 02/19/21 [History] Cholecalciferol (Vitamin D3) [Vitamin D3] 112.5 mcg PO WITHBREAKFAST 02/19/21 [History] Ferrous Sulfate [Iron] 325 mg PO WITHBREAKFAST 02/19/21 [History] Lactobacillus Acidophilus [Acidophilus] 1 tab PO WITHBREAKFAST 02/19/21 [History] Levothyroxine 112 mcg PO SUWE 02/19/21 [History] Levothyroxine Sodium [Levothyroxine] 100 mcg PO MOTUTHFRSA 02/19/21 [History] Methylsulfonylmethane [MSM] 1,000 mg PO WITHBREAKFAST 02/19/21 [History] Metoprolol Tartrate 50 mg PO BID 02/19/21 [History] Mupirocin Oint [Bactroban Oint] 1 applic TOP BID 02/19/21 [History] Non-Formulary Medication [NF Drug] 500 mg PO BEDTIME 02/19/21 [History] Jansen-3/DHA/Epa/Fish Oil [Jansen-3 Fish Oil 1,000 MG Sfgl] 1,000 mg PO WITHBRE AKFAST 02/19/21 [History] Pantoprazole [ProTONIX] 40 mg PO ACBREAKFAST 02/19/21 [History] Potassium Chloride [Klor-Con M20] 20 meq PO BID 02/19/21 [History] Rivaroxaban [Xarelto] 20 mg PO WITHBREAKFAST 02/19/21 [History] Simethicone 80 mg PO WITHBREAKFAST 02/19/21 [History] Sodium Bicarbonate 650 mg PO BID 02/19/21 [History] Tamsulosin HCl 0.4 mg PO BEDTIME 02/19/21 [History] Torsemide 50 mg PO SUMOTUWEFRSA 02/19/21 [History] Torsemide 100 mg PO TH 02/19/21 [History] Vitamin B Complex 1 cap PO WITHBREAKFAST 02/19/21 [History] allopurinoL [Zyloprim] 100 mg PO BID 02/19/21 [History] atorvaSTATin [Lipitor] 40 mg PO DAILY 02/19/21 [History] metFORMIN HCl [Metformin HCl ER] 500 mg PO ACBREAKFAST 02/19/21 [History] polyethylene glycoL 3350 [MiraLAX] 17 gm PO DAILY PRN 02/19/21 [History] Past Medical History HEENT History: Reports: Cataract, Epistaxis, Hard of Hearing, Impaired Vision Other HEENT History: Macular tear, tinnitus, hearing aids bilaterally, glasses Cardiovascular History: Reports: Afib, Heart Failure, Hypertension, Pacemaker, Other (See Below) Other Cardiovascular History: Left carotid bruit, aortic stenosis, symptomatic bradycardia Respiratory History: Reports: Sleep Apnea Other Respiratory History: Uses CPAP at night Gastrointestinal History: Reports: Gastritis, GERD, Hemorrhoids, Hiatal Hernia, Other (See Below) Other Gastrointestinal History: duodenitis, ulcers, esophagitis-pt states he doesn't recall these diagnoses Genitourinary History: Reports: BPH, Chronic Renal Insuffiency, Retention, Urinary Other Genitourinary History: Urinary frequency, urgency, CKD III, proteinuria, uretherorrhagia Musculoskeletal History: Reports: Other (See Below) Other Musculoskeletal History: Knee pain Neurological History: Reports: Other (See Below) Other Neuro History: Syncopal episode Psychiatric History: Reports: None Endocrine/Metabolic History: Reports: Diabetes, Type II, Hypothyroidism, Obesity/BMI 30+ Hematologic History: Reports: Idiopathic Thrombocytopenia Other Hematologic History: Thrombocytopenia Immunologic History: Reports: None Oncologic (Cancer) History: Reports: None Dermatologic History: Reports: Venous Stasis Dermatitis - Infectious Disease History Infectious Disease History: Reports: Chicken Pox, Measles, Mumps - Past Surgical History HEENT Surgical History: Reports: Cataract Surgery, Eye Surgery, Tonsillectomy Cardiovascular Surgical History: Reports: Pacer Respiratory Surgical History: Reports: None GI Surgical History: Reports: Colonoscopy, EGD Male Surgical History: Reports: Other (See Below) Other Male Surgeries/Procedures: urethra rerouted, procedure performed at [facility] Endocrine Surgical History: Reports: None Neurological Surgical History: Reports: None Musculoskeletal Surgical History: Reports: Arthroscopic Knee Other Musculoskeletal Surgeries/Procedures:: Arthroscopic knee surgery x3 Oncologic Surgical History: Reports: None Social & Family History - Family History Family Medical History: No Pertinent Family History - Tobacco Use Tobacco Use Status *Q: Never Tobacco User - Caffeine Use Caffeine Use: Reports: Coffee, Soda - Recreational Drug Use Recreational Drug Use: No - Living Situation & Occupation Living situation: Reports: , with Spouse Occupation: Employed ([employer]) H&P Review of Systems - Review of Systems: Review Of Systems: See Below General: Reports: No Symptoms HEENT: Reports: No Symptoms Pulmonary: Reports: No Symptoms Cardiovascular: Reports: No Symptoms Gastrointestinal: Reports: Abdominal Pain, Decreased Appetite, Nausea, Vomiting Genitourinary: Reports: No Symptoms Musculoskeletal: Reports: Other (Muscle cramping) Skin: Reports: No Symptoms Psychiatric: Reports: No Symptoms Neurological: Reports: No Symptoms Hematologic/Lymphatic: Reports: No Symptoms Immunologic: Reports: No Symptoms Exam - Exam Exam: See Below - Vital Signs Vital Signs: Last Vital Signs Temp 37.0 C 06/16/21 04:11 Pulse 58 L 06/16/21 04:11 Resp 16 06/16/21 04:11 BP 102/57 L 06/16/21 04:22 Pulse Ox 96 06/16/21 04:11 Weight: 94.755 kg - Exam Quality Assessment: DVT Prophylaxis. No: Supplemental Oxygen General: Alert, Oriented, Cooperative, Mild Distress HEENT: Conjunctiva Clear, EACs Clear, EOMI, Hearing Intact, Mucosa Moist & [place], PERRLA Neck: Supple, Trachea Midline Lungs: Clear to Auscultation, Normal Respiratory Effort Cardiovascular: Regular Rate, Regular Rhythm (Paced rhythm), Systolic Murmur (2 out of 6) GI/Abdominal Exam: Normal Bowel Sounds, Soft, No Distention, Tender (Tender epigastrium as well as right upper quadrant). No: Guarding, Rigid, Rebound (Male) Exam: Deferred Rectal (Males) Exam: Deferred Back Exam: Normal Inspection, Full Range of Motion Extremities: Normal Inspection, Normal Range of Motion, No Pedal Edema Neurological: Cranial Nerves Intact, Reflexes Equal Bilateral, Strength Equal Bilateral, Normal Gait, Normal Speech Neuro Extensive - Mental Status: Alert, Oriented x3 Psychiatric: Alert, Normal Affect, Normal Mood - Patient Data Lab Results Last 24 hrs: Laboratory Results - last 24 hr 06/15/21 06/15/21 06/15/21 Range/Units 18:20 18:50 18:50 WBC 6.72 (4.23-9.07) K/mm3 RBC 4.27 L (4.63-6.08) M/mm3 Hgb 13.6 L (13.7-17.5) gm/dl Hct 41.1 (40.1-51.0) % MCV 96.3 H (79.0-92.2) fl MCH 31.9 (25.7-32.2) pg MCHC 33.1 (32.2-35.5) g/dl RDW Std Deviation 51.2 H (35.1-43.9) fL Plt Count 125 L (163-337) K/mm3 MPV 9.7 (9.4-12.3) fl Neut % (Auto) 71.9 H (34.0-67.9) % Lymph % (Auto) 15.0 L (21.8-53.1) % [place] % (Auto) 12.2 (5.3-12.2) % Eos % (Auto) 0.4 L (0.8-7.0) Baso % (Auto) 0.4 (0.1-1.2) % Neut # (Auto) 4.82 (1.78-5.38) K/mm3 Lymph # (Auto) 1.01 L (1.32-3.57) K/mm3 [place] # (Auto) 0.82 (0.30-0.82) K/mm3 Eos # (Auto) 0.03 L (0.04-0.54) K/mm3 Baso # (Auto) 0.03 (0.01-0.08) K/mm3 Sodium 139 (136-145) mEq/L Potassium 4.1 (3.5-5.1) mEq/L Chloride 103 (98-107) mEq/L Carbon Dioxide 27 (21-32) mEq/L Anion Gap 13.1 (5-15) BUN 33 H (7-18) mg/dL Creatinine 1.4 H (0.7-1.3) mg/dL Est Cr Clr Drug Dosing 42.10 mL/min Estimated GFR (MDRD) 50 (>60) mL/min BUN/Creatinine Ratio 23.6 H (14-18) Glucose 144 H (70-99) mg/dL Calcium 9.4 (8.5-10.1) mg/dL Total Bilirubin 2.1 H (0.2-1.0) mg/dL GGT 492 H (15-85) U/L AST 270 H (15-37) U/L ALT 152 H (16-63) U/L Alkaline Phosphatase 222 H (46-116) U/L C-Reactive Protein 5.1 H* (<1.0) mg/dL Total Protein 8.3 H (6.4-8.2) g/dl Albumin 3.8 (3.4-5.0) g/dl Globulin 4.5 gm/dL Albumin/Globulin Ratio 0.8 L (1-2) Lipase > 1500 H (73-393) U/L Urine Color (Yellow) Urine Appearance (Clear) Urine pH (5.0-8.0) Ur Specific [place] (1.005-1.030) Urine Protein (Negative) Urine Glucose (UA) (Negative) Urine Ketones (Negative) Urine Occult Blood (Negative) Urine Nitrite (Negative) Urine Bilirubin (Negative) Urine Urobilinogen (0.2-1.0) Ur Leukocyte Esterase (Negative) Urine RBC (0-5) /hpf Urine WBC (0-5) /hpf Ur Epithelial Cells (0-5) /hpf Urine Bacteria (FEW) /hpf Urine Mucus (FEW) /hpf SARS-CoV-2 RNA (ROLANDO) (NEGATIVE) 06/15/21 06/15/21 06/16/21 Range/Units 20:37 21:40 06:59 WBC 4.42 (4.23-9.07) K/mm3 RBC 3.82 L (4.63-6.08) M/mm3 Hgb 12.2 L (13.7-17.5) gm/dl Hct 36.7 L (40.1-51.0) % MCV 96.1 H (79.0-92.2) fl MCH 31.9 (25.7-32.2) pg MCHC 33.2 (32.2-35.5) g/dl RDW Std Deviation 51.9 H (35.1-43.9) fL Plt Count 109 L (163-337) K/mm3 MPV 9.9 (9.4-12.3) fl Neut % (Auto) 64.4 (34.0-67.9) % Lymph % (Auto) 20.6 L (21.8-53.1) % [place] % (Auto) 12.7 H (5.3-12.2) % Eos % (Auto) 1.6 (0.8-7.0) Baso % (Auto) 0.7 (0.1-1.2) % Neut # (Auto) 2.85 (1.78-5.38) K/mm3 Lymph # (Auto) 0.91 L (1.32-3.57) K/mm3 [place] # (Auto) 0.56 (0.30-0.82) K/mm3 Eos # (Auto) 0.07 (0.04-0.54) K/mm3 Baso # (Auto) 0.03 (0.01-0.08) K/mm3 Sodium (136-145) mEq/L Potassium (3.5-5.1) mEq/L Chloride (98-107) mEq/L Carbon Dioxide (21-32) mEq/L Anion Gap (5-15) BUN (7-18) mg/dL Creatinine (0.7-1.3) mg/dL Est Cr Clr Drug Dosing mL/min Estimated GFR (MDRD) (>60) mL/min BUN/Creatinine Ratio (14-18) Glucose (70-99) mg/dL Calcium (8.5-10.1) mg/dL Total Bilirubin (0.2-1.0) mg/dL GGT (15-85) U/L AST (15-37) U/L ALT (16-63) U/L Alkaline Phosphatase (46-116) U/L C-Reactive Protein (<1.0) mg/dL Total Protein (6.4-8.2) g/dl Albumin (3.4-5.0) g/dl Globulin gm/dL Albumin/Globulin Ratio (1-2) Lipase (73-393) U/L Urine Color Yellow (Yellow) Urine Appearance Clear (Clear) Urine pH 7.0 (5.0-8.0) Ur Specific [place] 1.015 (1.005-1.030) Urine Protein Negative (Negative) Urine Glucose (UA) Negative (Negative) Urine Ketones Negative (Negative) Urine Occult Blood Trace-intact H (Negative) Urine Nitrite Negative (Negative) Urine Bilirubin Negative (Negative) Urine Urobilinogen 0.2 (0.2-1.0) Ur Leukocyte Esterase Negative (Negative) Urine RBC 0-5 (0-5) /hpf Urine WBC 0-5 (0-5) /hpf Ur Epithelial Cells Not seen (0-5) /hpf Urine Bacteria Rare (FEW) /hpf Urine Mucus Not seen (FEW) /hpf SARS-CoV-2 RNA (ROLANDO) Negative (NEGATIVE) Result Diagrams: 06/16/21 06:59 06/16/21 06:59 Antonino Results Last 24 hrs: Microbiology 06/15/21 20:37 Influenza Type A Antigen Screen - Final Nasopharyngeal Swab - Nare, Unspecified NEGATIVE INFLUENZA A VIRUS AG REFERENCE RANGE: NEGATIVE Influenza Type B Antigen Screen - Final NEGATIVE INFLUENZA B VIRUS AG REFERENCE RANGE: NEGATIVE Sepsis Event Note - Evaluation Sepsis Screening Result: No Definite Risk - Focused Exam Vital Signs: Vital Signs Temp Pulse Resp BP Pulse Ox 06/16/21 04:22 102/57 L 06/16/21 04:11 37.0 C 58 L 16 82/47 L 96 06/15/21 22:51 72 16 111/71 99 - Problem List (1) Pancreatitis, gallstone SNOMED Code(s): 20275507 ICD Code: K85.10 - BILIARY ACUTE PANCREATITIS WITHOUT NECROSIS OR INFECTION Status: Acute Priority: High Current Visit: Yes (2) Chronic kidney disease SNOMED Code(s): 519246009 ICD Code: N18.9 - CHRONIC KIDNEY DISEASE, UNSPECIFIED Status: Chronic Priority: Medium Current Visit: Yes Qualifiers: Chronic kidney disease stage: stage 3 (moderate) Chronic kidney disease stage 3 subtype: stage 3b (GFR 30-44) Qualified Code(s): N18.32 - Chronic kidney disease, stage 3b (3) Type 2 diabetes mellitus SNOMED Code(s): 96453833 ICD Code: E11.9 - TYPE 2 DIABETES MELLITUS WITHOUT COMPLICATIONS Status: Chronic Priority: Medium Current Visit: Yes Qualifiers: Diabetes mellitus exterminator helper termite insulin use: without chcf use Diabetes mellitus complication status: with other specified complication Qualified Code(s): E11.69 - Type 2 diabetes mellitus with other specified complication Problem List Initiated/Reviewed/Updated: Yes Orders Last 24hrs: Active Orders 24 hr Category Date Time Status Patient Status [ADT] Routine ADT 06/15/21 21:35 Active Activity as Tolerated [RC] .Routine Care 06/15/21 23:39 Active NPO Now [Nothing per Oral Now Diet] [DIET] Diet 06/16/21 Breakfast Active COMPREHENSIVE METABOLIC PN,CMP [CHEM] Routine Lab 06/16/21 06:59 Received CRP [C-REACTIVE PROTEIN] [CHEM] Routine Lab 06/16/21 06:59 Received MAGNESIUM [CHEM] Routine Lab 06/16/21 06:59 Received HYDROmorphone [Dilaudid] Med 06/15/21 23:40 Active 0.5 mg IVPUSH Q4HR PRN Ketorolac [Toradol] Med 06/15/21 23:41 Pending 30 mg IVPUSH Q6H PRN Levothyroxine Med 06/16/21 07:00 Ordered 112 mcg PO SUWE Metoprolol Tartrate [Lopressor] Med 06/16/21 09:00 Ordered 50 mg PO BID Ondansetron [Zofran] Med 06/15/21 23:41 Active 4 mg IVPUSH Q8HR PRN Pantoprazole [ProTONIX] Med 06/17/21 06:00 Ordered 40 mg PO ACBREAKFAST Potassium Chloride [Klor-Con M20] Med 06/16/21 09:00 Ordered 20 meq PO BID Rivaroxaban [Xarelto] Med 06/16/21 07:00 Ordered 20 mg PO WITHBREAKFAST Simethicone Med 06/16/21 07:00 Ordered 80 mg PO WITHBREAKFAST Sodium Bicarbonate Med 06/16/21 09:00 Ordered 650 mg PO BID Sodium Chloride 0.9% [Normal Saline] 1,000 ml Med 06/15/21 23:45 Active IV ASDIRECTED Sodium Chloride 0.9% [Saline Flush] Med 06/15/21 18:20 Active 10 ml FLUSH ASDIRECTED PRN Spironolactone [Aldactone] Med 06/16/21 07:00 Ordered 12.5 mg PO ASDIRECTED Tamsulosin [Flomax] Med 06/16/21 21:00 Ordered 0.4 mg PO BEDTIME Torsemide [Torsemide] Med 06/18/21 06:49 Ordered 100 mg PO MOFR Torsemide [Torsemide] Med 06/16/21 07:00 Ordered 50 mg PO SUTUWETHSA allopurinoL [Zyloprim] Med 06/16/21 09:00 Ordered 100 mg PO BID metFORMIN HCl Med 06/17/21 06:00 Ordered 500 mg PO ACBREAKFAST polyethylene glycoL 3350 [MiraLAX] Med 06/16/21 06:49 Ordered 17 gm PO DAILY PRN Peripheral IV Insertion Adult [OM.PC] Stat Oth 06/15/21 18:20 Ordered Resuscitation Status Routine Resus Stat 06/15/21 23:16 Ordered Medication Orders Allopurinol (Allopurinol 100 Mg Tab) 100 mg PO BID ELLA Hydromorphone HCl (Hydromorphone 0.5 Mg/0.5 Ml Syringe) 0.5 mg IVPUSH Q4HR PRN PRN Reason: Pain Sodium Chloride (Normal Saline) 1,000 mls @ 150 mls/hr IV ASDIRECTED ELLA Last Admin: 06/16/21 06:57 Dose: 150 mls/hr Documented by: Infusion: 06/16/21 06:57 Dose: 150 mls/hr Documented by: Admin: 06/16/21 00:22 Dose: 150 mls/hr Documented by: YORDY Ketorolac Tromethamine (Ketorolac 30 Mg/Ml Sdv) 30 mg IVPUSH Q6H PRN PRN Reason: Pain Levothyroxine Sodium (Levothyroxine 112 Mcg Tab) 112 mcg PO SUWE [facility] Metoprolol Tartrate (Metoprolol Tartrate 25 Mg Tab) 50 mg PO BID ELLA Non-Formulary Medication (Metformin Hcl) 500 mg PO ACBREAKFAST ELLA Non-Formulary Medication (Rivaroxaban [Xarelto]) 20 mg PO WITHBREAKFAST ELLA Non-Formulary Medication (Torsemide [Torsemide]) 50 mg PO SUTUWETHSA ELLA Non-Formulary Medication (Torsemide [Torsemide]) 100 mg PO MOFR ELLA Ondansetron HCl (Ondansetron 4 Mg/2 Ml Sdv) 4 mg IVPUSH Q8HR PRN PRN Reason: Nausea Pantoprazole Sodium (Pantoprazole 40 Mg Tab.Cr) 40 mg PO ACBREAKFAST ELLA Polyethylene Glycol (Polyethylene Glycol 3350 Powder 17 Gm Packet) 17 gm PO DAILY PRN PRN Reason: Constipation Potassium Chloride (Potassium Chloride 20 Meq Tab.Er) 20 meq PO BID ELLA Simethicone (Simethicone 80 Mg Tab.Chew) 80 mg PO WITHBREAKFAST ELLA Sodium Bicarbonate (Sodium Bicarbonate 650 Mg Tab) 650 mg PO BID [facility] Sodium Chloride (Sodium Chloride 0.9% 10 Ml Syringe) 10 ml FLUSH ASDIRECTED PRN PRN Reason: Keep Vein Open Last Admin: 06/15/21 20:22 Dose: 10 ml Documented by: Admin: 06/15/21 19:00 Dose: 10 ml Documented by: LOUIE Spironolactone (Spironolactone 25 Mg Tab) 12.5 mg PO ASDIRECTED ELLA Tamsulosin HCl (Tamsulosin 0.4 Mg Cap.Er) 0.4 mg PO BEDTIME [facility] Assessment/Plan Comment:: The patient is a 71-year-old gentleman who has been admitted as an inpatient to [facility]. The patient has likely gallstone pancreatitis. The patient will be kept NPO except for medications and sips of ice. I have also ordered pain control with the use of IV morphine. The patient will have nausea control with the use of Zofran. The patient has a pacemaker in place and will be on telemetry for monitoring. The patient will have DVT prophylaxis with his home medication of Xarelto. His home medications have been reconciled. Patient will have a diabetic diet once he is taken off of NPO. The patient has also had IV contrast and his Metformin is on hold. The patient will have IV fluids normal saline at 150 mL/h. Repeat laboratory studies have been ordered for the morning. He has been encouraged to ambulate. Patient should be appropriate for discharge once his lipase is normalizing and LFTs have normalized. I have ordered lipid profile to help exclude hypertriglyceridemia as a cause of his pancreatitis. - Mortality Measure Prognosis:: Good
[2021-06-16] MEDS ORDERED: Ketorolac 15 MG/ML SDV IVPUSH PRN (07:24)
[2021-06-16] MEDS ORDERED: metFORMIN 500 MG Tab PO SCH (07:30)
[2021-06-16] MEDS ORDERED: Temazepam 15 MG Cap PO PRN (07:33)
[2021-06-16] MEDS ORDERED: oxyCODONE 5 MG Tab PO PRN (07:33)
[2021-06-16] MEDS: Simethicone 80 MG Tab.Chew PO SCH (07:59)
[2021-06-16] MEDS: Rivaroxaban 10 MG Tab PO SCH (07:59)
[2021-06-16] MEDS: Insulin Regular, Human 100 Units/ML 3 ML Vial SUBCUT SCH ×3 (10:13→18:02)
[2021-06-16] MEDS: Allopurinol 100 MG Tab PO SCH ×2 (10:22→21:16)
[2021-06-16] MEDS: Potassium Chloride 20 MEQ Tab.ER PO SCH ×2 (10:22→21:15)
[2021-06-16] MEDS: Sodium Bicarbonate 650 MG Tab PO SCH ×2 (10:22→21:16)
[2021-06-16] MEDS: Torsemide 20 MG Tab PO SCH (10:23)
[2021-06-16] MEDS: Metoprolol Tartrate 50 MG Tab PO SCH ×2 (10:23→22:09)
[2021-06-16] MEDS: Tamsulosin 0.4 MG Cap.ER PO SCH (21:16)
[2021-06-17] MEDS: Sodium Chloride 0.9% 1,000 ML IV SCH ×2 (04:05→10:33)
[2021-06-17] MEDS: Pantoprazole 40 MG Tab.CR PO SCH (05:40)
[2021-06-17] MEDS: Rivaroxaban 10 MG Tab PO SCH (06:07)
[2021-06-17] MEDS: Levothyroxine 100 MCG Tab PO SCH (06:07)
[2021-06-17] MEDS: Simethicone 80 MG Tab.Chew PO SCH (06:07)
--- NOTE | 2021-06-17 06:51 | PCM.PN ---
- General Info Date of Service: 06/17/21 Admission Dx/Problem (Free Text): Acute gallstone associated pancreatitis. Subjective Update: The patient is a 71-year-old gentleman who was admitted on June 16, 2021 secondary to acute gallstone associated pancreatitis. The patient had been kept n.p.o. He has improved overnight with fluid resuscitation and has not required any pain medications. The patient says that he feels better today. He is denied any nausea or vomiting. He has no other pain. Functional Status: Reports: Pain Controlled. Denies: Tolerating Diet (N.p.o.), New Symptoms - Review of Systems General: Reports: No Symptoms HEENT: Reports: No Symptoms Pulmonary: Reports: No Symptoms Cardiovascular: Reports: No Symptoms Gastrointestinal: Reports: No Symptoms Genitourinary: Reports: No Symptoms Musculoskeletal: Reports: No Symptoms Skin: Reports: No Symptoms Neurological: Reports: No Symptoms Psychiatric: Reports: No Symptoms - Patient Data Vitals - Most Recent: Last Vital Signs Temp 37.1 C 06/17/21 03:41 Pulse 92 06/17/21 03:41 Resp 14 06/17/21 03:41 BP 94/58 L 06/17/21 03:41 Pulse Ox 98 06/17/21 03:41 Weight - Most Recent: 94.755 kg I&O - Last 24 Hours: Intake & Output 06/16/21 06/16/21 06/17/21 14:59 22:59 06:59 Intake Total 1610 1852 Output Total 950 550 Balance 660 1302 Lab Results Last 24 Hours: Laboratory Results - last 24 hr 06/16/21 06/16/21 06/16/21 Range/Units 06:59 06:59 06:59 WBC 4.42 (4.23-9.07) K/mm3 RBC 3.82 L (4.63-6.08) M/mm3 Hgb 12.2 L (13.7-17.5) gm/dl Hct 36.7 L (40.1-51.0) % MCV 96.1 H (79.0-92.2) fl MCH 31.9 (25.7-32.2) pg MCHC 33.2 (32.2-35.5) g/dl RDW Std Deviation 51.9 H (35.1-43.9) fL Plt Count 109 L (163-337) K/mm3 MPV 9.9 (9.4-12.3) fl Neut % (Auto) 64.4 (34.0-67.9) % Lymph % (Auto) 20.6 L (21.8-53.1) % [place] % (Auto) 12.7 H (5.3-12.2) % Eos % (Auto) 1.6 (0.8-7.0) Baso % (Auto) 0.7 (0.1-1.2) % Neut # (Auto) 2.85 (1.78-5.38) K/mm3 Lymph # (Auto) 0.91 L (1.32-3.57) K/mm3 [place] # (Auto) 0.56 (0.30-0.82) K/mm3 Eos # (Auto) 0.07 (0.04-0.54) K/mm3 Baso # (Auto) 0.03 (0.01-0.08) K/mm3 Sodium 142 (136-145) mEq/L Potassium 4.0 (3.5-5.1) mEq/L Chloride 109 H (98-107) mEq/L Carbon Dioxide 23 (21-32) mEq/L Anion Gap 14.0 (5-15) BUN 26 H (7-18) mg/dL Creatinine 1.3 (0.7-1.3) mg/dL Est Cr Clr Drug Dosing 45.34 mL/min Estimated GFR (MDRD) 54 (>60) mL/min BUN/Creatinine Ratio 20.0 H (14-18) Glucose 119 H (70-99) mg/dL POC Glucose (70-99) mg/dL Calcium 8.5 (8.5-10.1) mg/dL Magnesium 2.1 (1.8-2.4) mg/dL Total Bilirubin 2.5 H (0.2-1.0) mg/dL AST 184 H (15-37) U/L ALT 140 H (16-63) U/L Alkaline Phosphatase 198 H (46-116) U/L C-Reactive Protein 4.4 H* (<1.0) mg/dL Total Protein 6.4 (6.4-8.2) g/dl Albumin 3.1 L (3.4-5.0) g/dl Globulin 3.3 gm/dL Albumin/Globulin Ratio 0.9 L (1-2) Triglycerides 28 (<150) mg/dL Cholesterol 71 (<200) mg/dL LDL Cholesterol Direct 27 (<100) mg/dL HDL Cholesterol 38.0 L (40-59) mg/dL 06/16/21 06/16/21 06/16/21 Range/Units 08:37 11:41 17:16 WBC (4.23-9.07) K/mm3 RBC (4.63-6.08) M/mm3 Hgb (13.7-17.5) gm/dl Hct (40.1-51.0) % MCV (79.0-92.2) fl MCH (25.7-32.2) pg MCHC (32.2-35.5) g/dl RDW Std Deviation (35.1-43.9) fL Plt Count (163-337) K/mm3 MPV (9.4-12.3) fl Neut % (Auto) (34.0-67.9) % Lymph % (Auto) (21.8-53.1) % [place] % (Auto) (5.3-12.2) % Eos % (Auto) (0.8-7.0) Baso % (Auto) (0.1-1.2) % Neut # (Auto) (1.78-5.38) K/mm3 Lymph # (Auto) (1.32-3.57) K/mm3 [place] # (Auto) (0.30-0.82) K/mm3 Eos # (Auto) (0.04-0.54) K/mm3 Baso # (Auto) (0.01-0.08) K/mm3 Sodium (136-145) mEq/L Potassium (3.5-5.1) mEq/L Chloride (98-107) mEq/L Carbon Dioxide (21-32) mEq/L Anion Gap (5-15) BUN (7-18) mg/dL Creatinine (0.7-1.3) mg/dL Est Cr Clr Drug Dosing mL/min Estimated GFR (MDRD) (>60) mL/min BUN/Creatinine Ratio (14-18) Glucose (70-99) mg/dL POC Glucose 125 H 104 H 110 H (70-99) mg/dL Calcium (8.5-10.1) mg/dL Magnesium (1.8-2.4) mg/dL Total Bilirubin (0.2-1.0) mg/dL AST (15-37) U/L ALT (16-63) U/L Alkaline Phosphatase (46-116) U/L C-Reactive Protein (<1.0) mg/dL Total Protein (6.4-8.2) g/dl Albumin (3.4-5.0) g/dl Globulin gm/dL Albumin/Globulin Ratio (1-2) Triglycerides (<150) mg/dL Cholesterol (<200) mg/dL LDL Cholesterol Direct (<100) mg/dL HDL Cholesterol (40-59) mg/dL 06/16/21 06/17/21 Range/Units 22:12 06:12 WBC (4.23-9.07) K/mm3 RBC (4.63-6.08) M/mm3 Hgb (13.7-17.5) gm/dl Hct (40.1-51.0) % MCV (79.0-92.2) fl MCH (25.7-32.2) pg MCHC (32.2-35.5) g/dl RDW Std Deviation (35.1-43.9) fL Plt Count (163-337) K/mm3 MPV (9.4-12.3) fl Neut % (Auto) (34.0-67.9) % Lymph % (Auto) (21.8-53.1) % [place] % (Auto) (5.3-12.2) % Eos % (Auto) (0.8-7.0) Baso % (Auto) (0.1-1.2) % Neut # (Auto) (1.78-5.38) K/mm3 Lymph # (Auto) (1.32-3.57) K/mm3 [place] # (Auto) (0.30-0.82) K/mm3 Eos # (Auto) (0.04-0.54) K/mm3 Baso # (Auto) (0.01-0.08) K/mm3 Sodium (136-145) mEq/L Potassium (3.5-5.1) mEq/L Chloride (98-107) mEq/L Carbon Dioxide (21-32) mEq/L Anion Gap (5-15) BUN (7-18) mg/dL Creatinine (0.7-1.3) mg/dL Est Cr Clr Drug Dosing mL/min Estimated GFR (MDRD) (>60) mL/min BUN/Creatinine Ratio (14-18) Glucose (70-99) mg/dL POC Glucose 99 105 H (70-99) mg/dL Calcium (8.5-10.1) mg/dL Magnesium (1.8-2.4) mg/dL Total Bilirubin (0.2-1.0) mg/dL AST (15-37) U/L ALT (16-63) U/L Alkaline Phosphatase (46-116) U/L C-Reactive Protein (<1.0) mg/dL Total Protein (6.4-8.2) g/dl Albumin (3.4-5.0) g/dl Globulin gm/dL Albumin/Globulin Ratio (1-2) Triglycerides (<150) mg/dL Cholesterol (<200) mg/dL LDL Cholesterol Direct (<100) mg/dL HDL Cholesterol (40-59) mg/dL Med Orders - Current: Current Medications Allopurinol (Allopurinol 100 Mg Tab) 100 mg PO BID [facility] Last Admin: 06/16/21 21:16 Dose: 100 mg Documented by: Hydromorphone HCl (Hydromorphone 0.5 Mg/0.5 Ml Syringe) 0.5 mg IVPUSH Q4HR PRN PRN Reason: Pain Sodium Chloride (Normal Saline) 1,000 mls @ 150 mls/hr IV ASDIRECTED [facility] Last Admin: 06/17/21 04:05 Dose: 150 mls/hr Documented by: Insulin Human Regular (Insulin Regular, Human 100 Units/Ml 3 Ml Vial) 0 unit SUBCUT [facility]; Protocol Last Admin: 06/16/21 18:02 Dose: Not Given Documented by: Ketorolac Tromethamine (Ketorolac 15 Mg/Ml Sdv) 15 mg IVPUSH Q6H PRN PRN Reason: PAIN Levothyroxine Sodium (Levothyroxine 112 Mcg Tab) 112 mcg PO SUWE [facility] Last Admin: 06/16/21 07:59 Dose: 112 mcg Documented by: Levothyroxine Sodium (Levothyroxine 100 Mcg Tab) 100 mcg PO MoTuThFrSa [facility] Last Admin: 06/17/21 06:07 Dose: 100 mcg Documented by: Metoprolol Tartrate (Metoprolol Tartrate 50 Mg Tab) 50 mg PO BID [facility] Ondansetron HCl (Ondansetron 4 Mg/2 Ml Sdv) 4 mg IVPUSH Q8HR PRN PRN Reason: Nausea Oxycodone HCl (Oxycodone 5 Mg Tab) 5 mg PO Q4H PRN PRN Reason: Pain (moderate 4-6) Pantoprazole Sodium (Pantoprazole 40 Mg Tab.Cr) 40 mg PO ACBREAKFAST [facility] Last Admin: 06/17/21 05:40 Dose: 40 mg Documented by: Polyethylene Glycol (Polyethylene Glycol 3350 Powder 17 Gm Packet) 17 gm PO DAILY PRN PRN Reason: Constipation Potassium Chloride (Potassium Chloride 20 Meq Tab.Er) 20 meq PO BID [facility] Last Admin: 06/16/21 21:15 Dose: 20 meq Documented by: Rivaroxaban (Rivaroxaban 10 Mg Tab) 20 mg PO WITHBREAKFAST [facility] Last Admin: 06/17/21 06:07 Dose: 20 mg Documented by: Simethicone (Simethicone 80 Mg Tab.Chew) 80 mg PO WITHBREAKFAST [facility] Last Admin: 06/17/21 06:07 Dose: 80 mg Documented by: Sodium Bicarbonate (Sodium Bicarbonate 650 Mg Tab) 650 mg PO BID [facility] Last Admin: 06/16/21 21:16 Dose: 650 mg Documented by: Sodium Chloride (Sodium Chloride 0.9% 10 Ml Syringe) 10 ml FLUSH ASDIRECTED PRN PRN Reason: Keep Vein Open Last Admin: 06/15/21 20:22 Dose: 10 ml Documented by: Tamsulosin HCl (Tamsulosin 0.4 Mg Cap.Er) 0.4 mg PO BEDTIME [facility] Last Admin: 06/16/21 21:16 Dose: 0.4 mg Documented by: Temazepam (Temazepam 15 Mg Cap) 15 mg PO BEDTIME PRN PRN Reason: Sleep Torsemide (Torsemide 20 Mg Tab) 50 mg PO SuMoTuWeFrSa [facility] Last Admin: 06/16/21 10:23 Dose: Not Given Documented by: Torsemide (Torsemide 20 Mg Tab) 100 mg PO Th [facility] Discontinued Medications Sodium Chloride (Normal Saline) 1,000 mls @ 999 mls/hr IV ASDIRECTED [facility] Last Admin: 06/15/21 18:59 Dose: 999 mls/hr Documented by: Piperacillin Sod/Tazobactam (Sod 4.5 gm/ Sodium Chloride) 100 mls @ 200 mls/hr IV ONETIME ONE Stop: 06/15/21 21:37 Last Admin: 06/15/21 21:26 Dose: 200 mls/hr Documented by: Iopamidol (Iopamidol 612 Mg/Ml 100 Ml Bottle) 100 ml IVPUSH ONETIME ONE Stop: 06/15/21 20:22 Last Admin: 06/15/21 20:22 Dose: 100 ml Documented by: Metformin HCl (Metformin 500 Mg Tab) 500 mg PO ACBREAKFAST [facility] Last Admin: 06/16/21 07:59 Dose: 500 mg Documented by: Metoprolol Tartrate (Metoprolol Tartrate 50 Mg Tab) 50 mg PO BID [facility] Last Admin: 06/16/21 22:09 Dose: Not Given Documented by: Ondansetron HCl (Ondansetron 4 Mg/2 Ml Sdv) 4 mg IVPUSH ONETIME ONE Stop: 06/15/21 18:21 Last Admin: 06/15/21 19:00 Dose: 4 mg Documented by: Sodium Chloride (Sodium Chloride 0.9% 10 Ml Sdv) 10 ml FLUSH ONETIME ONE Stop: 06/15/21 20:22 Last Admin: 06/16/21 00:13 Dose: Not Given Documented by: Spironolactone (Spironolactone 25 Mg Tab) 12.5 mg PO ASDIRECTED [facility] - Exam Quality Assessment: Supplemental Oxygen, DVT Prophylaxis General: Alert, Oriented, Cooperative HEENT: Pupils Equal, Pupils Reactive, EOMI, Mucous Membr. Moist/[place] Neck: Supple, Trachea Midline Lungs: Clear to Auscultation, Normal Respiratory Effort Cardiovascular: Regular Rate, Regular Rhythm GI/Abdominal Exam: Normal Bowel Sounds, Soft, Non-Tender, No Distention ( ) (Male) Exam: Deferred Back Exam: Normal Inspection, Full Range of Motion Extremities: Normal Inspection, No Pedal Edema Skin: Warm, Dry, Intact Neurological: No New Focal Deficit, Normal Gait Psy/Mental Status: Alert, Normal Affect - Patient Data Lab Results Last 24 hrs: Laboratory Results - last 24 hr 06/16/21 06/16/21 06/16/21 Range/Units 06:59 06:59 06:59 WBC 4.42 (4.23-9.07) K/mm3 RBC 3.82 L (4.63-6.08) M/mm3 Hgb 12.2 L (13.7-17.5) gm/dl Hct 36.7 L (40.1-51.0) % MCV 96.1 H (79.0-92.2) fl MCH 31.9 (25.7-32.2) pg MCHC 33.2 (32.2-35.5) g/dl RDW Std Deviation 51.9 H (35.1-43.9) fL Plt Count 109 L (163-337) K/mm3 MPV 9.9 (9.4-12.3) fl Neut % (Auto) 64.4 (34.0-67.9) % Lymph % (Auto) 20.6 L (21.8-53.1) % [place] % (Auto) 12.7 H (5.3-12.2) % Eos % (Auto) 1.6 (0.8-7.0) Baso % (Auto) 0.7 (0.1-1.2) % Neut # (Auto) 2.85 (1.78-5.38) K/mm3 Lymph # (Auto) 0.91 L (1.32-3.57) K/mm3 [place] # (Auto) 0.56 (0.30-0.82) K/mm3 Eos # (Auto) 0.07 (0.04-0.54) K/mm3 Baso # (Auto) 0.03 (0.01-0.08) K/mm3 Sodium 142 (136-145) mEq/L Potassium 4.0 (3.5-5.1) mEq/L Chloride 109 H (98-107) mEq/L Carbon Dioxide 23 (21-32) mEq/L Anion Gap 14.0 (5-15) BUN 26 H (7-18) mg/dL Creatinine 1.3 (0.7-1.3) mg/dL Est Cr Clr Drug Dosing 45.34 mL/min Estimated GFR (MDRD) 54 (>60) mL/min BUN/Creatinine Ratio 20.0 H (14-18) Glucose 119 H (70-99) mg/dL POC Glucose (70-99) mg/dL Calcium 8.5 (8.5-10.1) mg/dL Magnesium 2.1 (1.8-2.4) mg/dL Total Bilirubin 2.5 H (0.2-1.0) mg/dL AST 184 H (15-37) U/L ALT 140 H (16-63) U/L Alkaline Phosphatase 198 H (46-116) U/L C-Reactive Protein 4.4 H* (<1.0) mg/dL Total Protein 6.4 (6.4-8.2) g/dl Albumin 3.1 L (3.4-5.0) g/dl Globulin 3.3 gm/dL Albumin/Globulin Ratio 0.9 L (1-2) Triglycerides 28 (<150) mg/dL Cholesterol 71 (<200) mg/dL LDL Cholesterol Direct 27 (<100) mg/dL HDL Cholesterol 38.0 L (40-59) mg/dL 06/16/21 06/16/21 06/16/21 Range/Units 08:37 11:41 17:16 WBC (4.23-9.07) K/mm3 RBC (4.63-6.08) M/mm3 Hgb (13.7-17.5) gm/dl Hct (40.1-51.0) % MCV (79.0-92.2) fl MCH (25.7-32.2) pg MCHC (32.2-35.5) g/dl RDW Std Deviation (35.1-43.9) fL Plt Count (163-337) K/mm3 MPV (9.4-12.3) fl Neut % (Auto) (34.0-67.9) % Lymph % (Auto) (21.8-53.1) % [place] % (Auto) (5.3-12.2) % Eos % (Auto) (0.8-7.0) Baso % (Auto) (0.1-1.2) % Neut # (Auto) (1.78-5.38) K/mm3 Lymph # (Auto) (1.32-3.57) K/mm3 [place] # (Auto) (0.30-0.82) K/mm3 Eos # (Auto) (0.04-0.54) K/mm3 Baso # (Auto) (0.01-0.08) K/mm3 Sodium (136-145) mEq/L Potassium (3.5-5.1) mEq/L Chloride (98-107) mEq/L Carbon Dioxide (21-32) mEq/L Anion Gap (5-15) BUN (7-18) mg/dL Creatinine (0.7-1.3) mg/dL Est Cr Clr Drug Dosing mL/min Estimated GFR (MDRD) (>60) mL/min BUN/Creatinine Ratio (14-18) Glucose (70-99) mg/dL POC Glucose 125 H 104 H 110 H (70-99) mg/dL Calcium (8.5-10.1) mg/dL Magnesium (1.8-2.4) mg/dL Total Bilirubin (0.2-1.0) mg/dL AST (15-37) U/L ALT (16-63) U/L Alkaline Phosphatase (46-116) U/L C-Reactive Protein (<1.0) mg/dL Total Protein (6.4-8.2) g/dl Albumin (3.4-5.0) g/dl Globulin gm/dL Albumin/Globulin Ratio (1-2) Triglycerides (<150) mg/dL Cholesterol (<200) mg/dL LDL Cholesterol Direct (<100) mg/dL HDL Cholesterol (40-59) mg/dL 06/16/21 06/17/21 Range/Units 22:12 06:12 WBC (4.23-9.07) K/mm3 RBC (4.63-6.08) M/mm3 Hgb (13.7-17.5) gm/dl Hct (40.1-51.0) % MCV (79.0-92.2) fl MCH (25.7-32.2) pg MCHC (32.2-35.5) g/dl RDW Std Deviation (35.1-43.9) fL Plt Count (163-337) K/mm3 MPV (9.4-12.3) fl Neut % (Auto) (34.0-67.9) % Lymph % (Auto) (21.8-53.1) % [place] % (Auto) (5.3-12.2) % Eos % (Auto) (0.8-7.0) Baso % (Auto) (0.1-1.2) % Neut # (Auto) (1.78-5.38) K/mm3 Lymph # (Auto) (1.32-3.57) K/mm3 [place] # (Auto) (0.30-0.82) K/mm3 Eos # (Auto) (0.04-0.54) K/mm3 Baso # (Auto) (0.01-0.08) K/mm3 Sodium (136-145) mEq/L Potassium (3.5-5.1) mEq/L Chloride (98-107) mEq/L Carbon Dioxide (21-32) mEq/L Anion Gap (5-15) BUN (7-18) mg/dL Creatinine (0.7-1.3) mg/dL Est Cr Clr Drug Dosing mL/min Estimated GFR (MDRD) (>60) mL/min BUN/Creatinine Ratio (14-18) Glucose (70-99) mg/dL POC Glucose 99 105 H (70-99) mg/dL Calcium (8.5-10.1) mg/dL Magnesium (1.8-2.4) mg/dL Total Bilirubin (0.2-1.0) mg/dL AST (15-37) U/L ALT (16-63) U/L Alkaline Phosphatase (46-116) U/L C-Reactive Protein (<1.0) mg/dL Total Protein (6.4-8.2) g/dl Albumin (3.4-5.0) g/dl Globulin gm/dL Albumin/Globulin Ratio (1-2) Triglycerides (<150) mg/dL Cholesterol (<200) mg/dL LDL Cholesterol Direct (<100) mg/dL HDL Cholesterol (40-59) mg/dL Result Diagrams: 06/17/21 06:12 06/17/21 06:12 Sepsis Event Note - Evaluation Sepsis Screening Result: No Definite Risk - Focused Exam Vital Signs: Vital Signs Temp Pulse Resp BP Pulse Ox 06/17/21 03:41 37.1 C 92 14 94/58 L 98 06/17/21 00:05 37.4 C 87 16 117/73 97 06/16/21 22:09 95 107/68 06/16/21 21:54 95 96 06/16/21 21:53 107/68 06/16/21 21:11 37.4 C 90 16 105/64 98 - Problem List & Annotations (1) Pancreatitis, gallstone SNOMED Code(s): 96427213 Code(s): K85.10 - BILIARY ACUTE PANCREATITIS WITHOUT NECROSIS OR INFECTION Status: Acute Priority: High Current Visit: Yes (2) Chronic kidney disease SNOMED Code(s): 264719491 Code(s): N18.9 - CHRONIC KIDNEY DISEASE, UNSPECIFIED Status: Chronic Priority: Medium Current Visit: Yes Qualifiers: Chronic kidney disease stage: stage 3 (moderate) Chronic kidney disease stage 3 subtype: stage 3b (GFR 30-44) Qualified Code(s): N18.32 - Chronic kidney disease, stage 3b (3) Type 2 diabetes mellitus SNOMED Code(s): 42528660 Code(s): E11.9 - TYPE 2 DIABETES MELLITUS WITHOUT COMPLICATIONS Status: Chronic Priority: Medium Current Visit: Yes Qualifiers: Diabetes mellitus detention insulin use: without terminal system operator use Diabetes mellitus complication status: with other specified complication Qualified Code(s): E11.69 - Type 2 diabetes mellitus with other specified complication (4) Hyponatremia SNOMED Code(s): 81201817 Code(s): E87.1 - HYPO-OSMOLALITY AND HYPONATREMIA Status: Acute Priority: High Current Visit: Yes - Problem List Review Problem List Initiated/Reviewed/Updated: Yes - My Orders Last 24 Hours: My Active Orders 06/16/21 06:49 polyethylene glycoL 3350 [MiraLAX] 17 gm PO DAILY PRN 06/16/21 07:00 Levothyroxine 112 mcg PO SUWE Rivaroxaban [Xarelto] 20 mg PO WITHBREAKFAST Simethicone 80 mg PO WITHBREAKFAST 06/16/21 07:33 Blood Glucose Check, Bedside [RC] WITHMEALSANDBED Oxygen Therapy [RC] PRN Up ad Flori [RC] ASDIRECTED VTE/DVT Education [RC] PER UNIT ROUTINE Vital Signs [RC] Q4HR Temazepam [Restoril] 15 mg PO BEDTIME PRN oxyCODONE 5 mg PO Q4H PRN VTE Pharmacological Contraindications [AST] Per Unit Routine 06/16/21 09:00 Insulin Regular, Human [HumuLIN R] See Protocol SUBCUT [facility] Potassium Chloride [Klor-Con M20] 20 meq PO BID Sodium Bicarbonate 650 mg PO BID Torsemide [Demadex] 50 mg PO SuMoTuWeFrSa allopurinoL [Zyloprim] 100 mg PO BID 06/16/21 21:00 Tamsulosin [Flomax] 0.4 mg PO BEDTIME 06/17/21 05:11 CBC WITH AUTO DIFF [HEME] AM COMPREHENSIVE METABOLIC PN,CMP [CHEM] AM MAGNESIUM [CHEM] AM 06/17/21 06:00 Pantoprazole [ProTONIX] 40 mg PO ACBREAKFAST 06/17/21 06:50 LIPASE [CHEM] Routine 06/17/21 07:00 Levothyroxine [Synthroid] 100 mcg PO MoTuThFrSa 06/17/21 09:00 Metoprolol Tartrate [Lopressor] 50 mg PO BID Torsemide [Demadex] 100 mg PO Th - Plan Plan:: The patient is a 71-year-old gentleman who has been admitted as an inpatient to [facility]. The patient has likely gallstone pancreatitis. The patient will be kept NPO except for medications and sips of ice. I have also ordered pain control with the use of IV morphine. The patient will have nausea control with the use of Zofran. The patient has a pacemaker in place and will be on telemetry for monitoring. The patient will have DVT prophylaxis with his home medication of Xarelto. His home medications have been reconciled. Patient will have a diabetic diet once he is taken off of NPO. The patient has also had IV contrast and his Metformin is on hold. The patient will have IV fluids normal saline at 150 mL/h. Repeat laboratory studies have been ordered for the morning. He has been encouraged to ambulate. Patient should be appropriate for discharge once his lipase is normalizing and LFTs have normalized. I have ordered lipid profile to help exclude hypertriglyceridemia as a cause of his pancreatitis. 06/17/2021 The patient is a 71-year-old gentleman who had been admitted to [facility] for gallstone pancreatitis. He is improved. The patient's diet has been advanced to soft diet. I have changed the patient's normal saline to Ringer's lactate for his hypernatremia. Continue with morphine as necessary for pain he is also using Zofran as needed for nausea and vomiting. The patient has diabetes mellitus type 2 and his soft diet will be diabetic. Accu-Cheks before meals and at bedtime. The patient will be started on his Metformin likely tomorrow to help prevent contrast-induced nephropathy. The patient is also currently on Xarelto for DVT prophylaxis and this will likely continue after discharge. I have reviewed surgery note. The patient should be appropriate for discharge after tolerating diet.
[2021-06-17] MEDS: Insulin Regular, Human 100 Units/ML 3 ML Vial SUBCUT SCH ×3 (08:48→19:01)
[2021-06-17] MEDS: Metoprolol Tartrate 50 MG Tab PO SCH ×2 (08:51→21:13)
[2021-06-17] MEDS: Allopurinol 100 MG Tab PO SCH ×2 (08:52→21:11)
[2021-06-17] MEDS: Potassium Chloride 20 MEQ Tab.ER PO SCH ×2 (08:52→21:11)
[2021-06-17] MEDS: Sodium Bicarbonate 650 MG Tab PO SCH ×3 (08:52→21:13)
[2021-06-17] MEDS ORDERED: Torsemide 20 MG Tab PO SCH (09:00)
[2021-06-17] MEDS ORDERED: Lactated Ringers 1,000 ML IV SCH (11:00)
--- NOTE | 2021-06-17 12:16 | PCM.CONS ---
H&P History of Present Illness - General Date of Service: 06/17/21 Admit Problem/Dx: Admission Diagnosis/Problem Admission Diagnosis/Problem Gallstone pancreatitis Source of Information: Patient History Limitations: Reports: No Limitations - History of Present Illness Initial Comments - Free Text/Narative: Mr. Montez is a 71 yo man who presented to the ER two days ago with abdominal pain and was diagnosed with gallstone pancreatitis. Since admission, he is clinically improved and lab work suggests that there is no ongoing biliary obstruction. CT showed evidence of sludge/stones. He is obese and has a history of coronary artery disease and atrial fibrillation for which he has an AICD in place and for which he takes xarelto. He last took his xarelto this morning. Upper Abdomen Pain Score (Numeric/FACES): 0 - Related Data Allergies/Adverse Reactions: Allergies Allergy/AdvReac Type Severity Reaction Status Date / Time codeine AdvReac Intermediate Agitation Verified 06/15/21 23:13 Home Medications: Home Meds C,E,Zinc,Copper 11/Jkyad8t/Lut [Ocuvite Adult 50 Plus Softgel] 1 cap PO BEDTIME 02/19/21 [History] Calcium Carbonate/Vitamin D3 [Calcium 600Mg-D3 400 Unit Sfgl] 1 cap PO WITHBREAKFAST 02/19/21 [History] Cholecalciferol (Vitamin D3) [Vitamin D3] 112.5 mcg PO WITHBREAKFAST 02/19/21 [History] Ferrous Sulfate [Iron] 325 mg PO WITHBREAKFAST 02/19/21 [History] Lactobacillus Acidophilus [Acidophilus] 1 tab PO WITHBREAKFAST 02/19/21 [History] Levothyroxine 112 mcg PO SUWE 02/19/21 [History] Levothyroxine Sodium [Levothyroxine] 100 mcg PO MOTUTHFRSA 02/19/21 [History] Methylsulfonylmethane [MSM] 1,000 mg PO WITHBREAKFAST 02/19/21 [History] Metoprolol Tartrate 50 mg PO BID 02/19/21 [History] Mupirocin Oint [Bactroban Oint] 1 applic TOP BID 02/19/21 [History] Non-Formulary Medication [NF Drug] 500 mg PO BEDTIME 02/19/21 [History] [place]-3/DHA/Epa/Fish Oil [[place]-3 Fish Oil 1,000 MG Sfgl] 1,000 mg PO WITHBREAKFAST 02/19/21 [History] Pantoprazole [ProTONIX] 40 mg PO ACBREAKFAST 02/19/21 [History] Potassium Chloride [Klor-Con M20] 20 meq PO BID 02/19/21 [History] Rivaroxaban [Xarelto] 20 mg PO WITHBREAKFAST 02/19/21 [History] Simethicone 80 mg PO WITHBREAKFAST 02/19/21 [History] Sodium Bicarbonate 650 mg PO BID 02/19/21 [History] Tamsulosin HCl 0.4 mg PO BEDTIME 02/19/21 [History] Torsemide 50 mg PO SUMOTUWEFRSA 02/19/21 [History] Torsemide 100 mg PO TH 02/19/21 [History] Vitamin B Complex 1 cap PO WITHBREAKFAST 02/19/21 [History] allopurinoL [Zyloprim] 100 mg PO BID 02/19/21 [History] atorvaSTATin [Lipitor] 40 mg PO DAILY 02/19/21 [History] metFORMIN HCl [Metformin HCl ER] 500 mg PO ACBREAKFAST 02/19/21 [History] polyethylene glycoL 3350 [MiraLAX] 17 gm PO DAILY PRN 02/19/21 [History] Past Medical History HEENT History: Reports: Cataract, Epistaxis, Hard of Hearing, Impaired Vision Other HEENT History: Macular tear, tinnitus, hearing aids bilaterally, glasses Cardiovascular History: Reports: Afib, Heart Failure, Hypertension, Pacemaker, Other (See Below) Other Cardiovascular History: Left carotid bruit, aortic stenosis, symptomatic bradycardia Respiratory History: Reports: Sleep Apnea Other Respiratory History: Uses CPAP at night Gastrointestinal History: Reports: Gastritis, GERD, Hemorrhoids, Hiatal Hernia, Other (See Below) Other Gastrointestinal History: duodenitis, ulcers, esophagitis-pt states he doesn't recall these diagnoses Genitourinary History: Reports: BPH, Chronic Renal Insuffiency, Retention, Urinary Other Genitourinary History: Urinary frequency, urgency, CKD III, proteinuria, uretherorrhagia Musculoskeletal History: Reports: Other (See Below) Other Musculoskeletal History: Knee pain Neurological History: Reports: Other (See Below) Other Neuro History: Syncopal episode Psychiatric History: Reports: None Endocrine/Metabolic History: Reports: Diabetes, Type II, Hypothyroidism, Obesity/BMI 30+ Hematologic History: Reports: Idiopathic Thrombocytopenia Other Hematologic History: Thrombocytopenia Immunologic History: Reports: None Oncologic (Cancer) History: Reports: None Dermatologic History: Reports: Venous Stasis Dermatitis - Infectious Disease History Infectious Disease History: Reports: Chicken Pox, Measles, Mumps - Past Surgical History HEENT Surgical History: Reports: Cataract Surgery, Eye Surgery, Tonsillectomy Cardiovascular Surgical History: Reports: Pacer Respiratory Surgical History: Reports: None GI Surgical History: Reports: Colonoscopy, EGD Male Surgical History: Reports: Other (See Below) Other Male Surgeries/Procedures: urethra rerouted, procedure performed at [place] Endocrine Surgical History: Reports: None Neurological Surgical History: Reports: None Musculoskeletal Surgical History: Reports: Arthroscopic Knee Other Musculoskeletal Surgeries/Procedures:: Arthroscopic knee surgery x3 Oncologic Surgical History: Reports: None Social & Family History - Family History Family Medical History: No Pertinent Family History - Tobacco Use Tobacco Use Status *Q: Never Tobacco User - Caffeine Use Caffeine Use: Reports: Coffee, Soda - Recreational Drug Use Recreational Drug Use: No - Living Situation & Occupation Living situation: Reports: , with Spouse Occupation: Employed ([employer]) H&P Review of Systems - Review of Systems: Review Of Systems: See Below General: Reports: No Symptoms HEENT: Reports: No Symptoms Pulmonary: Reports: No Symptoms Cardiovascular: Reports: Dyspnea on Exertion Gastrointestinal: Reports: Abdominal Pain Genitourinary: Reports: No Symptoms Musculoskeletal: Reports: No Symptoms Skin: Reports: No Symptoms Psychiatric: Reports: No Symptoms Neurological: Reports: No Symptoms Hematologic/Lymphatic: Reports: Easy Bleeding Immunologic: Reports: No Symptoms Exam - Exam Exam: See Below - Vital Signs Vital Signs: Last Vital Signs Temp 37.0 C 06/17/21 08:37 Pulse 82 06/17/21 08:51 Resp 14 06/17/21 03:41 BP 114/76 06/17/21 08:51 Pulse Ox 100 06/17/21 08:37 Weight: 95.164 kg - Exam General: Alert, Oriented, Cooperative HEENT: EOMI Neck: Supple Lungs: Clear to Auscultation, Normal Respiratory Effort Cardiovascular: Irregular Rhythm GI/Abdominal Exam: Tender Back Exam: Normal Inspection Extremities: Normal Inspection Skin: Warm, Dry Neuro Extensive - Mental Status: Alert, Oriented x3, Normal Mood/Affect - Patient Data Lab Results Last 24 hrs: Laboratory Results - last 24 hr 06/16/21 06/16/21 06/17/21 Range/Units 17:16 22:12 06:12 WBC 5.05 (4.23-9.07) K/mm3 RBC 3.80 L (4.63-6.08) M/mm3 Hgb 11.9 L (13.7-17.5) gm/dl Hct 37.8 L (40.1-51.0) % MCV 99.5 H (79.0-92.2) fl MCH 31.3 (25.7-32.2) pg MCHC 31.5 L (32.2-35.5) g/dl RDW Std Deviation 55.5 H (35.1-43.9) fL Plt Count 109 L (163-337) K/mm3 MPV 10.0 (9.4-12.3) fl Neut % (Auto) 67.9 (34.0-67.9) % Lymph % (Auto) 16.6 L (21.8-53.1) % [place] % (Auto) 13.5 H (5.3-12.2) % Eos % (Auto) 1.2 (0.8-7.0) Baso % (Auto) 0.6 (0.1-1.2) % Neut # (Auto) 3.43 (1.78-5.38) K/mm3 Lymph # (Auto) 0.84 L (1.32-3.57) K/mm3 [place] # (Auto) 0.68 (0.30-0.82) K/mm3 Eos # (Auto) 0.06 (0.04-0.54) K/mm3 Baso # (Auto) 0.03 (0.01-0.08) K/mm3 Sodium (136-145) mEq/L Potassium (3.5-5.1) mEq/L Chloride (98-107) mEq/L Carbon Dioxide (21-32) mEq/L Anion Gap (5-15) BUN (7-18) mg/dL Creatinine (0.7-1.3) mg/dL Est Cr Clr Drug Dosing mL/min Estimated GFR (MDRD) (>60) mL/min BUN/Creatinine Ratio (14-18) Glucose (70-99) mg/dL POC Glucose 110 H 99 (70-99) mg/dL Calcium (8.5-10.1) mg/dL Magnesium (1.8-2.4) mg/dL Total Bilirubin (0.2-1.0) mg/dL AST (15-37) U/L ALT (16-63) U/L Alkaline Phosphatase (46-116) U/L Total Protein (6.4-8.2) g/dl Albumin (3.4-5.0) g/dl Globulin gm/dL Albumin/Globulin Ratio (1-2) Lipase (73-393) U/L 06/17/21 06/17/21 06/17/21 Range/Units 06:12 06:12 06:12 WBC (4.23-9.07) K/mm3 RBC (4.63-6.08) M/mm3 Hgb (13.7-17.5) gm/dl Hct (40.1-51.0) % MCV (79.0-92.2) fl MCH (25.7-32.2) pg MCHC (32.2-35.5) g/dl RDW Std Deviation (35.1-43.9) fL Plt Count (163-337) K/mm3 MPV (9.4-12.3) fl Neut % (Auto) (34.0-67.9) % Lymph % (Auto) (21.8-53.1) % [place] % (Auto) (5.3-12.2) % Eos % (Auto) (0.8-7.0) Baso % (Auto) (0.1-1.2) % Neut # (Auto) (1.78-5.38) K/mm3 Lymph # (Auto) (1.32-3.57) K/mm3 [place] # (Auto) (0.30-0.82) K/mm3 Eos # (Auto) (0.04-0.54) K/mm3 Baso # (Auto) (0.01-0.08) K/mm3 Sodium 150 H (136-145) mEq/L Potassium 4.3 (3.5-5.1) mEq/L Chloride 118 H (98-107) mEq/L Carbon Dioxide 20 L (21-32) mEq/L Anion Gap 16.3 H (5-15) BUN 19 H (7-18) mg/dL Creatinine 1.1 (0.7-1.3) mg/dL Est Cr Clr Drug Dosing 53.58 mL/min Estimated GFR (MDRD) > 60 (>60) mL/min BUN/Creatinine Ratio 17.3 (14-18) Glucose 111 H (70-99) mg/dL POC Glucose 105 H (70-99) mg/dL Calcium 8.6 (8.5-10.1) mg/dL Magnesium 2.1 (1.8-2.4) mg/dL Total Bilirubin 1.9 H (0.2-1.0) mg/dL AST 124 H (15-37) U/L ALT 109 H (16-63) U/L Alkaline Phosphatase 182 H (46-116) U/L Total Protein 6.4 (6.4-8.2) g/dl Albumin 3.1 L (3.4-5.0) g/dl Globulin 3.3 gm/dL Albumin/Globulin Ratio 0.9 L (1-2) Lipase 1807 H (73-393) U/L // Range/Units 11:22 WBC (4.23-9.07) K/mm3 RBC (4.63-6.08) M/mm3 Hgb (13.7-17.5) gm/dl Hct (40.1-51.0) % MCV (79.0-92.2) fl MCH (25.7-32.2) pg MCHC (32.2-35.5) g/dl RDW Std Deviation (35.1-43.9) fL Plt Count (163-337) K/mm3 MPV (9.4-12.3) fl Neut % (Auto) (34.0-67.9) % Lymph % (Auto) (21.8-53.1) % [place] % (Auto) (5.3-12.2) % Eos % (Auto) (0.8-7.0) Baso % (Auto) (0.1-1.2) % Neut # (Auto) (1.78-5.38) K/mm3 Lymph # (Auto) (1.32-3.57) K/mm3 [place] # (Auto) (0.30-0.82) K/mm3 Eos # (Auto) (0.04-0.54) K/mm3 Baso # (Auto) (0.01-0.08) K/mm3 Sodium (136-145) mEq/L Potassium (3.5-5.1) mEq/L Chloride (98-107) mEq/L Carbon Dioxide (21-32) mEq/L Anion Gap (5-15) BUN (7-18) mg/dL Creatinine (0.7-1.3) mg/dL Est Cr Clr Drug Dosing mL/min Estimated GFR (MDRD) (>60) mL/min BUN/Creatinine Ratio (14-18) Glucose (70-99) mg/dL POC Glucose 84 (70-99) mg/dL Calcium (8.5-10.1) mg/dL Magnesium (1.8-2.4) mg/dL Total Bilirubin (0.2-1.0) mg/dL AST (15-37) U/L ALT (16-63) U/L Alkaline Phosphatase (46-116) U/L Total Protein (6.4-8.2) g/dl Albumin (3.4-5.0) g/dl Globulin gm/dL Albumin/Globulin Ratio (1-2) Lipase (73-393) U/L Result Diagrams: 06/17/21 06:12 06/17/21 06:12 Sepsis Event Note - Evaluation Sepsis Screening Result: No Definite Risk - Focused Exam Vital Signs: Vital Signs Temp Pulse Resp BP Pulse Ox 06/17/21 08:51 82 114/76 06/17/21 08:37 37.0 C 42 L 114/76 100 06/17/21 08:34 76 98 06/17/21 03:41 37.1 C 92 14 94/58 L 98 *Q Meaningful Use (ADM) - VTE *Q VTE Pharmacological Contraindications *Q: Risk of Bleeding Consult PN Assessment/Plan Procedures: Procedures ASSAY GLUCOSE BLOOD QUANT (01/01/21) ASSAY NEPHELOMETRY NOT SPEC (10/01/19) ASSAY OF BLOOD/URIC ACID (02/04/21) ASSAY OF CALCIUM (06/12/17) ASSAY OF FOLIC ACID SERUM (01/01/21) ASSAY OF FREE THYROXINE (06/23/20) ASSAY OF IRON (07/20/17) ASSAY OF LACTIC ACID (02/27/21) ASSAY OF MAGNESIUM (02/19/21) ASSAY OF NATRIURETIC PEPTIDE (06/03/21) ASSAY OF PARATHORMONE (01/08/20) ASSAY OF PHOSPHORUS (01/08/20) ASSAY OF PROTEIN SERUM (10/01/19) ASSAY OF PROTEIN URINE (01/08/20) ASSAY OF SERUM ALBUMIN (01/08/20) ASSAY OF TRANSFERRIN (07/20/17) ASSAY OF TROPONIN QUANT (02/19/21) ASSAY OF URINE CREATININE (08/05/19) ASSAY THYROID STIM HORMONE (03/31/21) BILIRUBIN DIRECT (01/01/21) BLOOD CULTURE FOR BACTERIA (02/27/21) C-REACTIVE PROTEIN (06/10/21) CARDIOVASCULAR STRESS TEST (04/29/16) CHEST X-RAY 2VW FRONTAL&LATL (07/17/17) COLONOSCOPY AND BIOPSY (03/06/19) COLONOSCOPY W/BAND LIGATION (09/14/16) COMPLETE CBC AUTOMATED (03/17/21) COMPLETE CBC W/AUTO DIFF WBC (06/10/21) COMPREHEN METABOLIC PANEL (06/10/21) CONTROL OF NOSEBLEED (07/02/17) CREATINE MB FRACTION (02/19/21) CT HEAD/BRAIN W/O DYE (01/01/21) CULTURE OTHR SPECIMN AEROBIC (06/20/17) DRAIN BL W/CATH INSERTION (06/04/17) DRUG TEST PRSMV CHEM ANLYZR (01/01/21) DRUG TEST PRSMV INSTRMNT (01/01/21) EGD BIOPSY SINGLE/MULTIPLE (09/14/16) ELECTROCARDIOGRAM TRACING (02/19/21) EMERGENCY DEPT VISIT (02/27/21) EMERGENCY DEPT VISIT (02/13/21) EMERGENCY DEPT VISIT (01/01/21) EMERGENCY DEPT VISIT (12/27/20) EMERGENCY DEPT VISIT (12/23/20) EMERGENCY DEPT VISIT (09/25/20) EMERGENCY DEPT VISIT (02/18/19) EMERGENCY DEPT VISIT (12/06/18) EMERGENCY DEPT VISIT (07/02/17) EMERGENCY DEPT VISIT (06/04/17) EXTRACRANIAL BILAT STUDY (01/04/21) FIBRIN DEGRADATION QUANT (12/06/18) GLYCOSYLATED HEMOGLOBIN TEST (02/04/21) HEMOGLOBIN (12/20/16) HEPATITIS B SURFACE AG IA (12/20/16) HEPATITIS C AB TEST (01/09/20) HT MUSCLE IMAGE SPECT MULT (04/29/16) LIPID PANEL (01/08/20) MEASURE BLOOD OXYGEN LEVEL (01/01/21) METABOLIC PANEL TOTAL CA (04/14/21) NOS EACH ORGANISM AG IA (12/20/16) OFFICE O/P EST HI 40-54 MIN (02/04/21) OFFICE O/P NEW LOW 30-44 MIN (12/30/20) OFFICE O/P NEW MOD 45-59 MIN (12/18/20) OT EVAL LOW COMPLEX 30 MIN (12/20/16) POS AIRWAY PRESSURE CPAP (01/01/21) PROTEIN E-PHORESIS SERUM (10/01/19) PROTEIN E-PHORESIS/URINE/CSF (01/08/20) PROTHROMBIN TIME (02/19/21) PT EVAL LOW COMPLEX 20 MIN (12/20/16) PT EVAL MOD COMPLEX 30 MIN (01/01/21) RBC SED RATE AUTOMATED (06/10/21) RENAL FUNCTION PANEL (08/05/19) ROUTINE VENIPUNCTURE (06/10/21) RPR F/E/E/N/L/M 2.5 CM/< (02/13/21) THER/PROPH/DIAG INJ IV PUSH (02/19/21) THER/PROPH/DIAG IV INF ADDON (09/25/20) THER/PROPH/DIAG IV INF INIT (02/27/21) THERAPEUTIC ACTIVITIES (12/20/16) THROMBOPLASTIN TIME PARTIAL (02/19/21) TISSUE EXAM BY PATHOLOGIST (12/30/20) TTE W/DOPPLER COMPLETE (06/03/21) TX/PRO/DX INJ NEW DRUG ADDON (02/19/21) TX/PRO/DX INJ SAME DRUG BICYCLE REPAIRMAN (09/25/20) UR ALBUMIN QUANTITATIVE (01/08/20) URINALYSIS AUTO W/SCOPE (02/19/21) US EXAM CHEST (02/27/21) US EXAM SCROTUM (03/20/20) US URINE CAPACITY MEASURE (06/04/17) VASCULAR STUDY (03/20/20) VITAMIN D 25 HYDROXY (01/08/20) X-RAY EXAM CHEST 1 VIEW (02/19/21) X-RAY EXAM CHEST 2 VIEWS (12/23/20) X-RAY EXAM KNEE 4 OR MORE (10/10/17) X-RAY EXAM OF ABDOMEN (06/04/17) X-RAY EXAM OF ABDOMEN (12/20/16) Problem List Initiated/Reviewed/Updated: Yes Plan: Mild gallstone pancreatitis with clinical improvement since admission. Lab work is not suggestive of ongoing biliary obstruction. Cholecystectomy is indicated- would ensure symptoms of pancreatitis are resolved and that patient is tolerating a diet prior to cholecystectomy. Patient should hold xarelto for 48 hours prior to time of operation. Recent echocardiogram from earlier this month indicates normal LEVF% with no evidence of pulmonary hypertension; however, patient is obese and has history of BAKARI.
[2021-06-17] MEDS: Lactated Ringers 1,000 ML IV SCH ×2 (15:09→22:36)
[2021-06-17] MEDS: Tamsulosin 0.4 MG Cap.ER PO SCH (21:11)
[2021-06-18] MEDS: Pantoprazole 40 MG Tab.CR PO SCH (05:42)
[2021-06-18] MEDS: Levothyroxine 100 MCG Tab PO SCH (06:44)
[2021-06-18] MEDS: Simethicone 80 MG Tab.Chew PO SCH (06:44)
[2021-06-18] MEDS: Rivaroxaban 10 MG Tab PO SCH (06:45)
--- NOTE | 2021-06-18 08:00 | PCM.DCSUM1 ---
Discharge Summary - Hospital Course HPI Initial Comments: The patient was admitted due to gall stone pancreatitis Diagnosis: Stroke: No - Discharge Data Discharge Date: 06/18/21 Discharge Disposition: Home, Self-Care 01 Condition: Good - Referral to Home Health Primary Care Physician: Vera Conway PA-C - Discharge Diagnosis/Problem(s) (1) Pancreatitis, gallstone SNOMED Code(s): 75620568 ICD Code: K85.10 - BILIARY ACUTE PANCREATITIS WITHOUT NECROSIS OR INFECTION Status: Resolved Priority: High Current Visit: Yes (2) Chronic kidney disease SNOMED Code(s): 606745846 ICD Code: N18.9 - CHRONIC KIDNEY DISEASE, UNSPECIFIED Status: Chronic Priority: Medium Current Visit: Yes Qualifiers: Chronic kidney disease stage: stage 3 (moderate) Chronic kidney disease stage 3 subtype: stage 3b (GFR 30-44) Qualified Code(s): N18.32 - Chronic kidney disease, stage 3b (3) Type 2 diabetes mellitus SNOMED Code(s): 72018899 ICD Code: E11.9 - TYPE 2 DIABETES MELLITUS WITHOUT COMPLICATIONS Status: Chronic Priority: Medium Current Visit: Yes Qualifiers: Diabetes mellitus exterminator helper insulin use: without exterminator helper use Diabetes mellitus complication status: with other specified complication Qualified Code(s): E11.69 - Type 2 diabetes mellitus with other specified complication - Patient Summary/Data Consults: Consultations 06/17/21 08:28 Consult to Physician [CONS] Routine Hospital Course: The patient is a 71-year-old gentleman who was evaluated in the emergency department due to right upper quadrant abdominal pain. The patient reports that he has been having pain intermittently over the past several days. He describes the pain is sharp and stabbing also located in the middle of his abdomen. He reports that he has had some tenderness in the area. Initially the patient's lipase was found to be greater than 15,000 units/L. The patient initially had been kept n.p.o. and pain control with the use of IV narcotics. He was also placed on IV fluids consisting of lactated Ringer's at 75 mL/h. The patient's diet was advanced after he became pain-free and his lipase had normalized. Dr. Parson, general surgeon, was consulted with regards to his pancreatitis. It was felt that the patient had passed a gallstone. The patient also had been scheduled for outpatient surgery on June 22, 2021. The patient has been advised to stop taking Xarelto 48 hours prior to surgery. The patient's diet was otherwise tolerated as advanced. The patient has been tolerating his activity. The patient has been hemodynamically stable and he is discharged from acute hospitalization with the recommendations listed above. - Patient Instructions Diet: Usual Diet as Tolerated, Diabetic Diet Activity: Apply Ice, As Tolerated Notify Provider of: Fever, Increased Pain - Discharge Plan *PRESCRIPTION DRUG MONITORING PROGRAM REVIEWED*: No *COPY OF PRESCRIPTION DRUG MONITORING REPORT IN PATIENT LOI: No Home Medications: Home Meds C,E,Zinc,Copper 11/Uiqgu5x/Lut [Ocuvite Adult 50 Plus Softgel] 1 cap PO BEDTIME 02/19/21 [History] Calcium Carbonate/Vitamin D3 [Calcium 600Mg-D3 400 Unit Sfgl] 1 cap PO WITHBREAKFAST 02/19/21 [History] Cholecalciferol (Vitamin D3) [Vitamin D3] 112.5 mcg PO WITHBREAKFAST 02/19/21 [History] Ferrous Sulfate [Iron] 325 mg PO WITHBREAKFAST 02/19/21 [History] Lactobacillus Acidophilus [Acidophilus] 1 tab PO WITHBREAKFAST 02/19/21 [History] Levothyroxine Sodium [Levothyroxine] 100 mcg PO MOTUTHFRSA 02/19/21 [History] Methylsulfonylmethane [MSM] 1,000 mg PO WITHBREAKFAST 02/19/21 [History] Metoprolol Tartrate 50 mg PO BID 02/19/21 [History] Mupirocin Oint [Bactroban Oint] 1 applic TOP BID 02/19/21 [History] Non-Formulary Medication [NF Drug] 500 mg PO BEDTIME 02/19/21 [History] [place]-3/DHA/Epa/Fish Oil [[place]-3 Fish Oil 1,000 MG Sfgl] 1,000 mg PO WITHBREAKFAST 02/19/21 [History] Pantoprazole [ProTONIX] 40 mg PO ACBREAKFAST 02/19/21 [History] Potassium Chloride [Klor-Con M20] 20 meq PO BID 02/19/21 [History] Rivaroxaban [Xarelto] 20 mg PO WITHBREAKFAST 02/19/21 [History] Simethicone 80 mg PO WITHBREAKFAST 02/19/21 [History] Sodium Bicarbonate 650 mg PO BID 02/19/21 [History] Tamsulosin HCl 0.4 mg PO BEDTIME 02/19/21 [History] Torsemide 50 mg PO SUMOTUWEFRSA 02/19/21 [History] Torsemide 100 mg PO TH 02/19/21 [History] Vitamin B Complex 1 cap PO WITHBREAKFAST 02/19/21 [History] allopurinoL [Zyloprim] 100 mg PO BID 02/19/21 [History] atorvaSTATin [Lipitor] 40 mg PO DAILY 02/19/21 [History] metFORMIN HCl [Metformin HCl ER] 500 mg PO ACBREAKFAST 02/19/21 [History] polyethylene glycoL 3350 [MiraLAX] 17 gm PO DAILY PRN 02/19/21 [History] Oxygen Therapy Mode: Room Air Patient Handouts: Acute Pancreatitis, [id number] Forms: ED Department Discharge Referrals: Vera Conway PA-C [Primary Care Provider] - 06/25/21 9:30 am (Please arrive at 9:20 for check in ) Ian Parson MD [Physician] - 06/22/21 (Surgery department will call you the night before to tell you what time to arrive for Surgery.) - Discharge Summary/Plan Comment DC Time >30 min.: Yes Total # of Minutes for Discharge Time: 50 - General Info Date of Service: 06/18/21 Admission Dx/Problem (Free Text: Acute gallstone associated pancreatitis. Subjective Update: The patient has been tolerating his diet. He has denied any pain. He has no other discomfort. Functional Status: Reports: Pain Controlled, Tolerating Diet. Denies: New Symptoms - Review of Systems General: Reports: No Symptoms HEENT: Reports: No Symptoms Pulmonary: Reports: No Symptoms Cardiovascular: Reports: No Symptoms Gastrointestinal: Reports: No Symptoms Genitourinary: Reports: No Symptoms Musculoskeletal: Reports: No Symptoms Skin: Reports: No Symptoms Neurological: Reports: No Symptoms Psychiatric: Reports: No Symptoms - Patient Data Vitals - Most Recent: Last Vital Signs Temp 37.0 C 06/18/21 03:52 Pulse 74 06/18/21 03:52 Resp 16 06/18/21 03:52 BP 86/44 L 06/18/21 03:52 Pulse Ox 100 06/18/21 03:52 Weight - Most Recent: 96.116 kg I&O - Last 24 hours: Intake & Output 06/17/21 06/18/21 06/18/21 22:59 06:59 14:59 Intake Total 3030 3675 Output Total 2500 2200 Balance 530 1475 Lab Results - Last 24 hrs: Laboratory Results - last 24 hr 06/17/21 06/17/21 06/17/21 Range/Units 11:22 17:20 21:16 POC Glucose 84 133 H 155 H (70-99) mg/dL 06/18/21 Range/Units 05:13 POC Glucose 108 H (70-99) mg/dL Med Orders - Current: Current Medications Allopurinol (Allopurinol 100 Mg Tab) 100 mg PO BID [facility] Last Admin: 06/17/21 21:11 Dose: 100 mg Documented by: Hydromorphone HCl (Hydromorphone 0.5 Mg/0.5 Ml Syringe) 0.5 mg IVPUSH Q4HR PRN PRN Reason: Pain Lactated Ringer's (Ringers, Lactated) 1,000 mls @ 75 mls/hr IV ASDIRECTED [facility] Last Admin: 06/17/21 22:36 Dose: 75 mls/hr Documented by: Insulin Human Regular (Insulin Regular, Human 100 Units/Ml 3 Ml Vial) 0 unit SUBCUT [facility]; Protocol Last Admin: 06/17/21 19:01 Dose: Not Given Documented by: Ketorolac Tromethamine (Ketorolac 15 Mg/Ml Sdv) 15 mg IVPUSH Q6H PRN PRN Reason: PAIN Levothyroxine Sodium (Levothyroxine 112 Mcg Tab) 112 mcg PO SUWE [facility] Last Admin: 06/16/21 07:59 Dose: 112 mcg Documented by: Levothyroxine Sodium (Levothyroxine 100 Mcg Tab) 100 mcg PO MoTuThFrSa [facility] Last Admin: 06/18/21 06:44 Dose: 100 mcg Documented by: Metoprolol Tartrate (Metoprolol Tartrate 50 Mg Tab) 50 mg PO BID [facility] Last Admin: 06/17/21 21:13 Dose: Not Given Documented by: Ondansetron HCl (Ondansetron 4 Mg/2 Ml Sdv) 4 mg IVPUSH Q8HR PRN PRN Reason: Nausea Oxycodone HCl (Oxycodone 5 Mg Tab) 5 mg PO Q4H PRN PRN Reason: Pain (moderate 4-6) Pantoprazole Sodium (Pantoprazole 40 Mg Tab.Cr) 40 mg PO ACBREAKFAST [facility] Last Admin: 06/18/21 05:42 Dose: 40 mg Documented by: Polyethylene Glycol (Polyethylene Glycol 3350 Powder 17 Gm Packet) 17 gm PO DAILY PRN PRN Reason: Constipation Potassium Chloride (Potassium Chloride 20 Meq Tab.Er) 20 meq PO BID [facility] Last Admin: 06/17/21 21:11 Dose: 20 meq Documented by: Rivaroxaban (Rivaroxaban 10 Mg Tab) 20 mg PO WITHBREAKFAST [facility] Last Admin: 06/18/21 06:45 Dose: 20 mg Documented by: Simethicone (Simethicone 80 Mg Tab.Chew) 80 mg PO WITHBREAKFAST [facility] Last Admin: 06/18/21 06:44 Dose: 80 mg Documented by: Sodium Bicarbonate (Sodium Bicarbonate 650 Mg Tab) 650 mg PO BID [facility] Last Admin: 06/17/21 21:13 Dose: Not Given Documented by: Sodium Chloride (Sodium Chloride 0.9% 10 Ml Syringe) 10 ml FLUSH ASDIRECTED PRN PRN Reason: Keep Vein Open Last Admin: 06/15/21 20:22 Dose: 10 ml Documented by: Tamsulosin HCl (Tamsulosin 0.4 Mg Cap.Er) 0.4 mg PO BEDTIME [facility] Last Admin: 06/17/21 21:11 Dose: 0.4 mg Documented by: Temazepam (Temazepam 15 Mg Cap) 15 mg PO BEDTIME PRN PRN Reason: Sleep Torsemide (Torsemide 20 Mg Tab) 50 mg PO SuMoTuWeFrSa [facility] Last Admin: 06/16/21 10:23 Dose: Not Given Documented by: Torsemide (Torsemide 20 Mg Tab) 100 mg PO Th [facility] Last Admin: 06/17/21 10:50 Dose: 100 mg Documented by: Discontinued Medications Sodium Chloride (Normal Saline) 1,000 mls @ 999 mls/hr IV ASDIRECTED [facility] Last Admin: 06/15/21 18:59 Dose: 999 mls/hr Documented by: Piperacillin Sod/Tazobactam (Sod 4.5 gm/ Sodium Chloride) 100 mls @ 200 mls/hr IV ONETIME ONE Stop: 06/15/21 21:37 Last Admin: 06/15/21 21:26 Dose: 200 mls/hr Documented by: Sodium Chloride (Normal Saline) 1,000 mls @ 150 mls/hr IV ASDIRECTED [facility] Last Admin: 06/17/21 10:33 Dose: 150 mls/hr Documented by: Lactated Ringer's (Ringers, Lactated) 1,000 mls @ 150 mls/hr IV ASDIRECTED [facility] Last Admin: 06/17/21 11:15 Dose: 150 mls/hr Documented by: Iopamidol (Iopamidol 612 Mg/Ml 100 Ml Bottle) 100 ml IVPUSH ONETIME ONE Stop: 06/15/21 20:22 Last Admin: 06/15/21 20:22 Dose: 100 ml Documented by: Metformin HCl (Metformin 500 Mg Tab) 500 mg PO ACBREAKFAST [facility] Last Admin: 06/16/21 07:59 Dose: 500 mg Documented by: Metoprolol Tartrate (Metoprolol Tartrate 50 Mg Tab) 50 mg PO BID [facility] Last Admin: 06/16/21 22:09 Dose: Not Given Documented by: Ondansetron HCl (Ondansetron 4 Mg/2 Ml Sdv) 4 mg IVPUSH ONETIME ONE Stop: 06/15/21 18:21 Last Admin: 06/15/21 19:00 Dose: 4 mg Documented by: Sodium Chloride (Sodium Chloride 0.9% 10 Ml Sdv) 10 ml FLUSH ONETIME ONE Stop: 06/15/21 20:22 Last Admin: 06/16/21 00:13 Dose: Not Given Documented by: Spironolactone (Spironolactone 25 Mg Tab) 12.5 mg PO ASDIRECTED [facility] - Exam Quality Assessment: Reports: DVT Prophylaxis. Denies: Supplemental Oxygen General: Reports: Alert, Oriented, Cooperative, No Acute Distress HEENT: Reports: Pupils Equal, Pupils Reactive, EOMI Neck: Reports: Supple, Trachea Midline Lungs: Reports: Clear to Auscultation, Normal Respiratory Effort Cardiovascular: Reports: Regular Rate, Regular Rhythm GI/Abdominal Exam: Normal Bowel Sounds, Soft, Non-Tender, No Distention. No: Guarding, Rigid, Rebound (Male) Exam: Deferred Rectal (Males) Exam: Deferred Back Exam: Reports: Normal Inspection, Full Range of Motion Extremities: Normal Inspection, Normal Range of Motion, No Pedal Edema Skin: Reports: Warm, Dry, Intact Neurological: Reports: No New Focal Deficit, Normal Gait, Normal Speech Psy/Mental Status: Reports: Alert, Normal Affect, Normal Mood *Q Meaningful Use (DIS) - VTE *Q VTE Pharmacological Contraindications *Q: Risk of Bleeding
[2021-06-18] MEDS: Sodium Bicarbonate 650 MG Tab PO SCH (08:23)
[2021-06-18] MEDS: Allopurinol 100 MG Tab PO SCH (08:23)
[2021-06-18] MEDS: Insulin Regular, Human 100 Units/ML 3 ML Vial SUBCUT SCH ×2 (08:23→12:45)
[2021-06-18] MEDS: Metoprolol Tartrate 50 MG Tab PO SCH (08:23)
[2021-06-18] MEDS: Potassium Chloride 20 MEQ Tab.ER PO SCH (08:23)
[2021-06-18] MEDS: Torsemide 20 MG Tab PO SCH (08:30)
--- NOTE | 2021-06-18 11:00 | PCM.SN.2 ---
- Free Text/Narrative Note: S: no complaints, tolerating diet, no pain O: AF-VSS labs trending to normal, bilirubin down Abdomen soft, nontender A: resolving gallstone pancreatitis, discharge anticipated today P: regular diet as tolerated, avoiding fat stop xarelto this Monday plan for laparoscopic cholecystectomy Monday Time Documentation
[2021-06-18 13:37] VITALS: BP 104/57; PULSE 83
== END 2021-06-18 13:32 | disposition home or self-care (01) | DRG 439 ==
LOC: JD.ED 17:34 → JD.MS 21:35
PROVIDERS: ADMIT Internal Medicine; ATTEND Internal Medicine
DX: K85.90 Acute pancreatitis without necrosis or infection, unspecified (principal); K80.20 Calculus of gallbladder without cholecystitis without obstruction; K85.10 Biliary acute pancreatitis without necrosis or infection; E87.1 Hypo-osmolality and hyponatremia; I13.0 Hypertensive heart and chronic kidney disease with heart failure and stage 1 through stage 4 chronic kidney disease, or unspecified chronic kidney disease; D69.3 Immune thrombocytopenic purpura; N18.32 Chronic kidney disease, stage 3b; E11.22 Type 2 diabetes mellitus with diabetic chronic kidney disease; G47.30 Sleep apnea, unspecified; N40.1 Benign prostatic hyperplasia with lower urinary tract symptoms; K21.9 Gastro-esophageal reflux disease without esophagitis; Z20.822 Contact with and (suspected) exposure to COVID-19; R33.8 Other retention of urine; R33.9 Retention of urine, unspecified; N18.30 Chronic kidney disease, stage 3 unspecified; E03.9 Hypothyroidism, unspecified; E66.9 Obesity, unspecified; K44.9 Diaphragmatic hernia without obstruction or gangrene; H54.7 Unspecified visual loss; H91.90 Unspecified hearing loss, unspecified ear; I48.91 Unspecified atrial fibrillation; I50.9 Heart failure, unspecified; Z88.5 Allergy status to narcotic agent; Z79.890 Hormone replacement therapy; Z79.84 Long term (current) use of oral hypoglycemic drugs; Z79.899 Other long term (current) drug therapy; Z98.49 Cataract extraction status, unspecified eye; Z95.0 Presence of cardiac pacemaker; I35.0 Nonrheumatic aortic (valve) stenosis; Z79.01 Long term (current) use of anticoagulants; Z79.82 Long term (current) use of aspirin
CPT/HCPCS: 36415; 74177; 80053; 82977; 83690; 85025; 86140; 87804 ×2; 96374; 96375; 99285; J2405; J2543; J7030; Q9967; U0002; 80061; 81001; 82947; 83735; 94660; A9270-GY; J7120

== ENCOUNTER 2021-06-22 08:36 | Day surgery (SDC) | payer MEDICARE, OTHER ==
[~2021-06-22 08:36] MED LIST: Bupivacaine 0.5% 30 ML SDV ONE; EPINEPHrine 1 MG/ML SDV ONE; Lactated Ringers 1,000 ML IV SCH; Lidocaine 1%/Sod Bicarbonate in NS 8.4% 1 ML Syringe IDERM PRN; Sodium Chloride 0.9% 10 ML Syringe FLUSH PRN
[2021-06-22] MEDS ORDERED: Rocuronium 50 MG/5 ML Vial ONE (08:56)
[2021-06-22] MEDS ORDERED: Lidocaine 1% 4 ML ONE (08:56)
[2021-06-22] MEDS ORDERED: Propofol 200 MG/20 ML SDV ONE (08:56)
[2021-06-22] MEDS ORDERED: fentaNYL 250 MCG/5 ML SDV ONE (08:57)
[2021-06-22] MEDS ORDERED: ceFAZolin 1 GM Vial ONE (09:02)
--- NOTE | 2021-06-22 09:17 | PCM.PREANE ---
Preanesthetic Assessment - Procedure Proposed Procedure: lap choley - Anesthesia/Transfusion/Family Hx Anesthesia History: Prior Anesthesia Without Reaction Family History of Anesthesia Reaction: No Transfusion History: No Prior Transfusion(s) - Review of Systems General: No Symptoms Pulmonary: Cough (occasional spell) Cardiovascular: No Symptoms Gastrointestinal: Abdominal Pain (gall bladder pain) Neurological: No Symptoms Other: Reports: Diabetes, Thyroid Problems, Sinus Problem - Physical Assessment NPO Status Date: 06/21/21 NPO Status Time: 22:00 Vital Signs: 114/79 81 100% Height: 5 ft 5 in Weight: 91.8 kg ASA Class: 3 Mental Status: Alert & Oriented x3 Airway Class: Mallampati = 2 Dentition: Reports: Normal Dentition Thyro-Mental Finger Breadths: 3 Mouth Opening Finger Breadths: 3 ROM/Head Extension: Full Lungs: Clear to Auscultation, Normal Respiratory Effort Cardiovascular: Regular Rate, Regular Rhythm - Allergies Allergies/Adverse Reactions: Allergies Allergy/AdvReac Type Severity Reaction Status Date / Time codeine AdvReac Intermediate Agitation Verified 06/21/21 12:14 - Blood Blood Available: No - Anesthesia Plan Beta Elisa: Metoprolol Med Last Dose Date: 06/22/21 Med Last Dose Time: 06:00 - Acknowledgements Anesthesia Type Planned: General Anesthesia Pt an Appropriate Candidate for the Planned Anesthesia: Yes Alternatives and Risks of Anesthesia Discussed w Pt/Guardian: Yes Pt/Guardian Understands and Agrees with Anesthesia Plan: Yes PreAnesthesia Questionnaire HEENT History: Reports: Cataract, Epistaxis, Hard of Hearing, Impaired Vision Other HEENT History: Macular tear, tinnitus, hearing aids bilaterally, glasses Cardiovascular History: Reports: Afib, Heart Failure, Hypertension, Pacemaker, Other (See Below) Other Cardiovascular History: Left carotid bruit, aortic stenosis, symptomatic bradycardia Respiratory History: Reports: Sleep Apnea Other Respiratory History: Uses CPAP at night Gastrointestinal History: Reports: Gastritis, GERD, Hemorrhoids, Hiatal Hernia, Other (See Below) Other Gastrointestinal History: duodenitis, ulcers, esophagitis-pt states he doesn't recall these diagnoses Genitourinary History: Reports: BPH, Chronic Renal Insuffiency, Retention, Urinary Other Genitourinary History: Urinary frequency, urgency, CKD III, proteinuria, uretherorrhagia 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 AND 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 Musculoskeletal History: Reports: Other (See Below) Other Musculoskeletal History: Knee pain Neurological History: Reports: Other (See Below) Other Neuro History: Syncopal episode Psychiatric History: Reports: None Endocrine/Metabolic History: Reports: Diabetes, Type II, Hypothyroidism, Obesity/BMI 30+ Hematologic History: Reports: None, Idiopathic Thrombocytopenia Other Hematologic History: Thrombocytopenia Immunologic History: Reports: None Oncologic (Cancer) History: Reports: None Dermatologic History: Reports: Venous Stasis Dermatitis - Infectious Disease History Infectious Disease History: Reports: None - Past Surgical History HEENT Surgical History: Reports: Cataract Surgery, Eye Surgery, Tonsillectomy Cardiovascular Surgical History: Reports: Pacer Respiratory Surgical History: Reports: None GI Surgical History: Reports: Colonoscopy, EGD Female Surgical History: Reports: None Male Surgical History: Reports: Other (See Below) Other Male Surgeries/Procedures: urethra rerouted, procedure performed at [place] Endocrine Surgical History: Reports: None Neurological Surgical History: Reports: None Musculoskeletal Surgical History: Reports: Arthroscopic Knee Other Musculoskeletal Surgeries/Procedures:: Arthroscopic knee surgery x3 Oncologic Surgical History: Reports: None Dermatological Surgical History: Reports: Other (See Below) - SUBSTANCE USE Tobacco Use Status *Q: Never Tobacco User Tobacco Use Within Last Twelve Months: No Second Hand Smoke Exposure: No Days Per Week of Alcohol Use: 3 Number of Drinks Per Day: 3 Total Drinks Per Week: 9 Date of Last Drink: 06/07/21 Recreational Drug Use History: No - HOME MEDS Home Medications: Home Meds C,E,Zinc,Copper 11/Ghfvy4a/Lut [Ocuvite Adult 50 Plus Softgel] 1 cap PO BEDTIME 02/19/21 [History] Calcium Carbonate/Vitamin D3 [Calcium 600Mg-D3 400 Unit Sfgl] 1 cap PO WITHBREAKFAST 02/19/21 [History] Cholecalciferol (Vitamin D3) [Vitamin D3] 112.5 mcg PO WITHBREAKFAST 02/19/21 [History] Ferrous Sulfate [Iron] 325 mg PO WITHBREAKFAST 02/19/21 [History] Lactobacillus Acidophilus [Acidophilus] 1 tab PO WITHBREAKFAST 02/19/21 [History] Levothyroxine Sodium [Levothyroxine] 100 mcg PO MOTUTHFRSA 02/19/21 [History] Methylsulfonylmethane [MSM] 1,000 mg PO WITHBREAKFAST 02/19/21 [History] Metoprolol Tartrate 50 mg PO BID 02/19/21 [History] Mupirocin Oint [Bactroban Oint] 1 applic TOP BID 02/19/21 [History] Non-Formulary Medication [NF Drug] 500 mg PO BEDTIME 02/19/21 [History] [place]-3/DHA/Epa/Fish Oil [[place]-3 Fish Oil 1,000 MG Sfgl] 1,000 mg PO WITHBREAKFAST 02/19/21 [History] Pantoprazole [ProTONIX] 40 mg PO ACBREAKFAST 02/19/21 [History] Potassium Chloride [Klor-Con M20] 20 meq PO BID 02/19/21 [History] Rivaroxaban [Xarelto] 20 mg PO WITHBREAKFAST 02/19/21 [History] Simethicone 80 mg PO WITHBREAKFAST 02/19/21 [History] Sodium Bicarbonate 650 mg PO BID 02/19/21 [History] Tamsulosin HCl 0.4 mg PO BEDTIME 02/19/21 [History] Torsemide 50 mg PO SUMOTUWEFRSA 02/19/21 [History] Torsemide 100 mg PO TH 02/19/21 [History] Vitamin B Complex 1 cap PO WITHBREAKFAST 02/19/21 [History] allopurinoL [Zyloprim] 100 mg PO BID 02/19/21 [History] atorvaSTATin [Lipitor] 40 mg PO DAILY 02/19/21 [History] metFORMIN HCl [Metformin HCl ER] 500 mg PO ACBREAKFAST 02/19/21 [History] polyethylene glycoL 3350 [MiraLAX] 17 gm PO DAILY PRN 02/19/21 [History] - CURRENT (IN HOUSE) MEDS Current Meds: Current Medications Lactated Ringer's (Ringers, Lactated) 1,000 mls @ 125 mls/hr IV ASDIRECTED [facility] Stop: 06/22/21 23:00 Lidocaine/Sodium Bicarbonate (Lidocaine 1%/Sod Bicarbonate In Ns 8.4% 1 Ml Syringe) 0.25 ml IDERM ONETIME PRN PRN Reason: Prior to IV Start Stop: 06/22/21 18:00 Sodium Chloride (Sodium Chloride 0.9% 10 Ml Syringe) 10 ml FLUSH ASDIRECTED PRN PRN Reason: Keep Vein Open Stop: 06/23/21 18:00 Discontinued Medications Bupivacaine HCl (Bupivacaine 0.5% 30 Ml Sdv) Confirm Administered Dose 30 ml .ROUTE .STK-MED ONE Stop: 06/22/21 07:43 Cefazolin Sodium (Cefazolin 1 Gm Vial) Confirm Administered Dose 2 gm .ROUTE .STK-MED ONE Stop: 06/22/21 09:03 Epinephrine HCl (Epinephrine 1 Mg/Ml Sdv) Confirm Administered Dose 1 mg .ROUTE .STK-MED ONE Stop: 06/22/21 07:44 Fentanyl (Fentanyl 250 Mcg/5 Ml Sdv) Confirm Administered Dose 250 mcg .ROUTE .STK-MED ONE Stop: 06/22/21 08:58 Lidocaine HCl (Xylocaine-Mpf 1%) Confirm Administered Dose 4 mls @ as directed .ROUTE .STK-MED ONE Stop: 06/22/21 08:57 Propofol (Propofol 200 Mg/20 Ml Sdv) Confirm Administered Dose 200 mg .ROUTE .STK-MED ONE Stop: 06/22/21 08:57 Rocuronium [place] (Rocuronium 50 Mg/5 Ml Vial) Confirm Administered Dose 50 mg .ROUTE .STK-MED ONE Stop: 06/22/21 08:57
--- NOTE | 2021-06-22 09:57 | PCM.PRNOTE ---
- Free Text/Narrative Note: Date: 06/22/2021 Operation: laparoscopic cholecystectomy Indication: recent episode of mild gallstone pancreatitis Surgeon: Ian Parson MD Antibiotic: 2 g ancef IV pre-incision DVT ppx: SCD EBL: 50 cc Specimen: gallbladder Findings: gross cirrhotic appearance of liver, chronic cholecystitis with significant scarring. critical view of safety established. Detailed Report: The patient was taken to the operating room and placed on the table in supine position. Timeout was performed and general endotracheal anesthesia was initiated. The abdomen was prepped and draped in usual sterile fashion. A Veress needle was placed in the left upper quadrant in order to establish pneumoperitoneum. Once pressure reached 15 mmHg, air was aspirated with a needle and syringe just inferior to the umbilicus. A bladed 5 mm trocar was inserted at this site and a laparoscope was introduced into the abdominal cavity. There was no apparent injury from Veress needle placement and this was removed under laparoscopic visualization. Additional 5 mm ports were placed at the right upper quadrant, one laterally for the acute care nursing assistant and 1 more medially for the surgeon's left hand. The fundus of the gallbladder was grasped and retracted anteriorly and superiorly. A bladed 12 mm trocar was then placed in the subxiphoid area. Dissection commenced, and the cystic structures were identified and skeletonized with careful dissection. This was difficult due to thickened scarring from chronic inflammation. A critical view of safety was obtained showing the cystic duct and artery going to the gallbladder. Hemoclips were placed on the structures prior to transection with laparoscopic yonatan. 2 clips were left on the stay side of the cystic duct. The gallbladder was then dissected off the liver using hook monopolar energy. There was some bleeding at the lateral aspect at the level of the mid-body of the gallbladder as dissection proceeded. A posterior rent in the gallbladder body was made with spillage of dark bile and multiple small black gallstones. The specimen was placed in an Endo Catch bag and removed through the subxiphoid site. The dissection field was irrigated and suctioned thoroughly. A sponge was inserted and used to aid will collection of fluid and small stones; this was then removed using another endocatch bag. Minor hemorrhage was controlled with directed monopolar energy. The 12 mm incision site was closed at the level of fascia with 0 Vicryl using a laparoscopic suture passer. Lateral abdominal ports were removed under laparoscopic visualization and hemostasis appeared satisfactory. Pneumoperitoneum was released and the remaining port was removed. All skin incisions were closed with running subcuticular Vicryl and dressed with Dermabond. A total of 30 cc 0.5% Marcaine with epinephrine was used for local anesthetic throughout the case. The patient tolerated the procedure well.
[2021-06-22] MEDS ORDERED: Ondansetron 4 MG/2 ML SDV ONE (10:24)
[2021-06-22] MEDS ORDERED: Lactated Ringers 1,000 ML ONE (10:28)
[2021-06-22] MEDS ORDERED: Ondansetron 4 MG/2 ML SDV IVPUSH PRN (10:32)
[2021-06-22] MEDS ORDERED: fentaNYL 100 MCG/2 ML SDV IVPUSH PRN (10:32)
[2021-06-22] MEDS ORDERED: ePHEDrine 50 MG/ML SDV ONE (10:34)
[2021-06-22] MEDS ORDERED: fentaNYL 100 MCG/2 ML SDV ONE (11:40)
--- NOTE | 2021-06-22 11:49 | PCM.POSTAN ---
POST ANESTHESIA ASSESSMENT - MENTAL STATUS Mental Status: Alert, Oriented - VITAL SIGNS Vital Signs: Last Vital Signs Temp 36.1 C 06/22/21 09:05 Pulse 81 06/22/21 09:05 Resp 18 06/22/21 09:05 BP 114/79 06/22/21 09:05 Pulse Ox 100 06/22/21 09:05 - RESPIRATORY Respiratory Status: Respiratory Rate WNL, Airway Patent, O2 Saturation Stable, Supplemental Oxygen - CARDIOVASCULAR CV Status: Pulse Rate WNL, Blood Pressure Stable - GASTROINTESTINAL GI Status: No Symptoms - PAIN Pain Score: 4 - POST OP HYDRATION Hydration Status: Adequate & Stable
[2021-06-22] MEDS ORDERED: oxyCODONE 5 MG Tab PO PRN (12:00)
--- NOTE | 2021-06-22 12:38 | PCM48HPAN ---
Post Anesthesia Note - EVALUATION WITHIN 48HRS OF ANESTHETIC Vital Signs in Normal Range: Yes Patient Participated in Evaluation: Yes Respiratory Function Stable: Yes Airway Patent: Yes Cardiovascular Function Stable: Yes Hydration Status Stable: Yes Pain Control Satisfactory: Yes Nausea and Vomiting Control Satisfactory: Yes Mental Status Recovered: Yes Vital Signs: Last Vital Signs Temp 36.8 C 06/22/21 12:15 Pulse 68 06/22/21 12:15 Resp 15 06/22/21 12:15 BP 96/57 L 06/22/21 12:15 Pulse Ox 98 06/22/21 12:15
[2021-06-22 15:45] VITALS: BP 92/56; PULSE 66
== END 2021-06-22 14:32 | disposition home or self-care (01) ==
LOC: JD.SDS 08:36
PROVIDERS: ATTEND Surgery
DX: K80.12 Calculus of gallbladder with acute and chronic cholecystitis without obstruction (principal); K85.10 Biliary acute pancreatitis without necrosis or infection; I50.9 Heart failure, unspecified; I48.91 Unspecified atrial fibrillation; G47.30 Sleep apnea, unspecified; I13.0 Hypertensive heart and chronic kidney disease with heart failure and stage 1 through stage 4 chronic kidney disease, or unspecified chronic kidney disease; N18.30 Chronic kidney disease, stage 3 unspecified; E11.22 Type 2 diabetes mellitus with diabetic chronic kidney disease; E03.9 Hypothyroidism, unspecified; E66.9 Obesity, unspecified; Z79.84 Long term (current) use of oral hypoglycemic drugs; Z88.5 Allergy status to narcotic agent; Z79.899 Other long term (current) drug therapy; Z79.890 Hormone replacement therapy; Z98.890 Other specified postprocedural states
CPT/HCPCS: 47562; A9270; J0171; J0690; J2405; J2704; J2710; J3010; J3490; J7120; 00790; 88304; 99100

== ENCOUNTER 2021-10-02 11:00 | Emergency (ER) | payer MEDICARE, OTHER ==
[2021-10-02 13:26] VITALS: BP 97/58; PULSE 67
== END 2021-10-02 13:18 | disposition home or self-care (01) ==
LOC: JD.ED 11:00
DX: I13.0 Hypertensive heart and chronic kidney disease with heart failure and stage 1 through stage 4 chronic kidney disease, or unspecified chronic kidney disease (principal); E11.22 Type 2 diabetes mellitus with diabetic chronic kidney disease; N18.30 Chronic kidney disease, stage 3 unspecified; I50.9 Heart failure, unspecified; I48.91 Unspecified atrial fibrillation; N40.0 Benign prostatic hyperplasia without lower urinary tract symptoms; E03.9 Hypothyroidism, unspecified; E66.9 Obesity, unspecified; Z68.37 Body mass index [BMI] 37.0-37.9, adult; Z95.0 Presence of cardiac pacemaker; Z88.5 Allergy status to narcotic agent; Z79.01 Long term (current) use of anticoagulants; Z79.84 Long term (current) use of oral hypoglycemic drugs; Z79.899 Other long term (current) drug therapy
CPT/HCPCS: 36415; 71046; 71046-26; 80053; 83735; 83880; 85025; 86140; 93005; 99284-25

== ENCOUNTER 2021-10-08 17:16 | Emergency (ER) | payer MEDICARE ==
[2021-10-08 17:26] VITALS: BP 115/56
[2021-10-08 17:27] VITALS: PULSE 84
== END 2021-10-08 21:00 | disposition home or self-care (01) ==
LOC: JD.ED 17:16
DX: R04.0 Epistaxis (principal); I48.91 Unspecified atrial fibrillation; E11.22 Type 2 diabetes mellitus with diabetic chronic kidney disease; I13.0 Hypertensive heart and chronic kidney disease with heart failure and stage 1 through stage 4 chronic kidney disease, or unspecified chronic kidney disease; N18.30 Chronic kidney disease, stage 3 unspecified; I50.9 Heart failure, unspecified; D63.1 Anemia in chronic kidney disease; E03.9 Hypothyroidism, unspecified; E66.9 Obesity, unspecified; K21.9 Gastro-esophageal reflux disease without esophagitis; Z68.36 Body mass index [BMI] 36.0-36.9, adult; Z95.0 Presence of cardiac pacemaker; Z79.01 Long term (current) use of anticoagulants; Z79.899 Other long term (current) drug therapy; Z88.5 Allergy status to narcotic agent; Z79.84 Long term (current) use of oral hypoglycemic drugs
CPT/HCPCS: 30903; 99283-25

== ENCOUNTER 2022-11-03 00:32 | Emergency (ER) | payer MEDICARE, OTHER ==
[2022-11-03] MEDS ORDERED: Acetaminophen 325 MG Tab PO ONE (02:21)
[2022-11-03 03:00] VITALS: PULSE 68
[2022-11-03 05:58] VITALS: BP 94/62
== END 2022-11-03 06:28 | disposition home or self-care (01) ==
LOC: JD.ED 00:32
DX: S91.001A Unspecified open wound, right ankle, initial encounter (principal); I48.91 Unspecified atrial fibrillation; I13.0 Hypertensive heart and chronic kidney disease with heart failure and stage 1 through stage 4 chronic kidney disease, or unspecified chronic kidney disease; E11.22 Type 2 diabetes mellitus with diabetic chronic kidney disease; N18.30 Chronic kidney disease, stage 3 unspecified; I50.9 Heart failure, unspecified; E66.9 Obesity, unspecified; K21.9 Gastro-esophageal reflux disease without esophagitis; Z68.30 Body mass index [BMI] 30.0-30.9, adult; Z95.0 Presence of cardiac pacemaker; Z88.5 Allergy status to narcotic agent; Z79.899 Other long term (current) drug therapy; Z79.01 Long term (current) use of anticoagulants
CPT/HCPCS: 99283; A9270

== ENCOUNTER 2022-12-04 17:27 | Emergency (ER) | payer MEDICARE, OTHER ==
[2022-12-04 18:44] LABS: ESTIMATED GFR 40 mL/min (>60)
[2022-12-04] MEDS ORDERED: Potassium Chloride 20 MEQ Tab.ER PO ONE (18:55)
[2022-12-04] MEDS: Potassium Chloride 10 MEQ in Premix Bag 1 BAG IV SCH ×4 (19:43→23:45)
[2022-12-04 20:49] LABS: CORONAVIRUS COVID-19 NAA NEGATIVE (NEGATIVE)
[2022-12-04 22:55] VITALS: BP 92/70; PULSE 71
== END 2022-12-05 00:48 | disposition home or self-care (01) ==
LOC: JD.ED 17:27
DX: I13.0 Hypertensive heart and chronic kidney disease with heart failure and stage 1 through stage 4 chronic kidney disease, or unspecified chronic kidney disease (principal); E11.22 Type 2 diabetes mellitus with diabetic chronic kidney disease; N18.30 Chronic kidney disease, stage 3 unspecified; I50.9 Heart failure, unspecified; I48.91 Unspecified atrial fibrillation; K21.9 Gastro-esophageal reflux disease without esophagitis; E03.9 Hypothyroidism, unspecified; E66.9 Obesity, unspecified; Z88.5 Allergy status to narcotic agent; Z79.899 Other long term (current) drug therapy; Z79.84 Long term (current) use of oral hypoglycemic drugs; Z79.01 Long term (current) use of anticoagulants; Z20.822 Contact with and (suspected) exposure to COVID-19
CPT/HCPCS: 0241U; 36415; 71045; 80053; 83880; 85025; 86140; 96365; 96366; 96376; 99284; A9270; J3480

== ENCOUNTER 2022-12-07 16:58 | Inpatient (IN) | payer MEDICARE, OTHER ==
[2022-12-07] MEDS ORDERED: Sodium Chloride 0.9% 10 ML Syringe FLUSH PRN (17:38)
[2022-12-07] MEDS ORDERED: Piperacillin/Tazobactam 4.5 GM in Sodium Chloride 0.9% 100 ML IV ONE (20:04)
[2022-12-07] MEDS ORDERED: Piperacillin/Tazobactam 4.5 GM Vial ONE (20:21)
[2022-12-07] MEDS ORDERED: Sodium Chloride 0.9% 100 ML ONE (20:22)
[2022-12-07] MEDS ORDERED: Ondansetron 4 MG/2 ML SDV IV PRN (20:23)
[2022-12-07] MEDS ORDERED: Potassium Chloride 20 MEQ Tab.ER PO ONE (20:26)
[2022-12-07] MEDS: Albuterol/Ipratropium 3.0-0.5 MG/3 ML Neb Soln NEB SCH (20:51)
[2022-12-08] MEDS ORDERED: Piperacillin/Tazobactam 4.5 GM in Sodium Chloride 0.9% 100 ML IV SCH (02:00)
[2022-12-08] MEDS: Albuterol/Ipratropium 3.0-0.5 MG/3 ML Neb Soln NEB SCH ×2 (05:50→20:31)
[2022-12-08] MEDS: Piperacillin/Tazobactam 4.5 GM in Sodium Chloride 0.9% 100 ML IV SCH ×3 (06:29→21:07)
[2022-12-08] MEDS: Levothyroxine 100 MCG Tab PO SCH (06:34)
[2022-12-08] MEDS: Pantoprazole 40 MG Tab.CR PO SCH (06:34)
[2022-12-08] MEDS: Rivaroxaban 15 MG Tab PO SCH (09:00)
[2022-12-08] MEDS: atorvaSTATin 40 MG Tab PO SCH (09:00)
[2022-12-08] MEDS: Potassium Chloride 20 MEQ Tab.ER PO SCH ×2 (09:00→21:05)
[2022-12-08] MEDS: Tamsulosin 0.4 MG Cap.ER PO SCH (09:01)
[2022-12-08] MEDS: Ferrous Sulfate 324 MG Tab.EC PO SCH (09:01)
[2022-12-08] MEDS: Simethicone 80 MG Tab.Chew PO SCH (09:01)
[2022-12-08] MEDS: Acetaminophen 325 MG Tab PO PRN ×2 (09:03→23:57)
[2022-12-08] MEDS: Torsemide 20 MG Tab PO SCH ×2 (09:04→14:18)
[2022-12-08] MEDS: Metoprolol Tartrate 50 MG Tab PO SCH ×2 (09:05→18:32)
[2022-12-08] MEDS: Allopurinol 100 MG Tab PO SCH ×2 (09:05→14:18)
[2022-12-08] MEDS ORDERED: oxyCODONE 5 MG Tab PO PRN (11:24)
[2022-12-08] MEDS: Magnesium Oxide 400 MG Tab PO SCH (21:05)
[2022-12-09] MEDS: Pantoprazole 40 MG Tab.CR PO SCH (06:23)
[2022-12-09] MEDS: Piperacillin/Tazobactam 4.5 GM in Sodium Chloride 0.9% 100 ML IV SCH ×3 (06:23→21:16)
[2022-12-09] MEDS: Albuterol/Ipratropium 3.0-0.5 MG/3 ML Neb Soln NEB SCH ×2 (06:35→20:28)
[2022-12-09] MEDS: Levothyroxine 100 MCG Tab PO SCH (07:24)
[2022-12-09] MEDS: Torsemide 20 MG Tab PO SCH ×2 (08:46→14:22)
[2022-12-09] MEDS: Simethicone 80 MG Tab.Chew PO SCH (08:47)
[2022-12-09] MEDS: atorvaSTATin 40 MG Tab PO SCH (08:47)
[2022-12-09] MEDS: Ferrous Sulfate 324 MG Tab.EC PO SCH (08:47)
[2022-12-09] MEDS: Tamsulosin 0.4 MG Cap.ER PO SCH (08:47)
[2022-12-09] MEDS: Potassium Chloride 20 MEQ Tab.ER PO SCH ×3 (08:47→21:06)
[2022-12-09] MEDS: Metoprolol Tartrate 50 MG Tab PO SCH ×2 (08:47→18:35)
[2022-12-09] MEDS: Allopurinol 100 MG Tab PO SCH ×2 (08:48→14:22)
[2022-12-09] MEDS: Magnesium Oxide 400 MG Tab PO SCH (21:06)
[2022-12-10] MEDS: Pantoprazole 40 MG Tab.CR PO SCH (05:13)
[2022-12-10] MEDS: Levothyroxine 100 MCG Tab PO SCH (05:13)
[2022-12-10] MEDS: Piperacillin/Tazobactam 4.5 GM in Sodium Chloride 0.9% 100 ML IV SCH ×3 (05:13→21:22)
[2022-12-10] MEDS: Albuterol/Ipratropium 3.0-0.5 MG/3 ML Neb Soln NEB SCH ×2 (06:30→20:25)
[2022-12-10] MEDS: atorvaSTATin 40 MG Tab PO SCH (08:25)
[2022-12-10] MEDS: Potassium Chloride 20 MEQ Tab.ER PO SCH ×3 (08:25→21:22)
[2022-12-10] MEDS: Ferrous Sulfate 324 MG Tab.EC PO SCH (08:25)
[2022-12-10] MEDS: Tamsulosin 0.4 MG Cap.ER PO SCH (08:25)
[2022-12-10] MEDS: Simethicone 80 MG Tab.Chew PO SCH (08:26)
[2022-12-10] MEDS: Torsemide 20 MG Tab PO SCH ×2 (08:30→14:04)
[2022-12-10] MEDS: Metoprolol Tartrate 50 MG Tab PO SCH ×2 (08:30→18:00)
[2022-12-10] MEDS: Allopurinol 100 MG Tab PO SCH ×2 (08:30→14:10)
[2022-12-10] MEDS: Magnesium Oxide 400 MG Tab PO SCH (21:22)
[2022-12-11] MEDS: Pantoprazole 40 MG Tab.CR PO SCH (05:20)
[2022-12-11] MEDS: Piperacillin/Tazobactam 4.5 GM in Sodium Chloride 0.9% 100 ML IV SCH ×3 (05:20→21:05)
[2022-12-11] MEDS ORDERED: Levothyroxine 112 MCG Tab PO SCH (06:00)
[2022-12-11] MEDS: Albuterol/Ipratropium 3.0-0.5 MG/3 ML Neb Soln NEB SCH ×3 (06:27→21:51)
[2022-12-11] MEDS: atorvaSTATin 40 MG Tab PO SCH (09:02)
[2022-12-11] MEDS: Potassium Chloride 20 MEQ Tab.ER PO SCH ×3 (09:02→21:05)
[2022-12-11] MEDS: Tamsulosin 0.4 MG Cap.ER PO SCH (09:02)
[2022-12-11] MEDS: Ferrous Sulfate 324 MG Tab.EC PO SCH (09:03)
[2022-12-11] MEDS: Simethicone 80 MG Tab.Chew PO SCH (09:03)
[2022-12-11] MEDS: Rivaroxaban 15 MG Tab PO SCH (10:02)
[2022-12-11] MEDS: Torsemide 20 MG Tab PO SCH ×2 (10:19→18:04)
[2022-12-11] MEDS: Allopurinol 100 MG Tab PO SCH ×2 (10:19→18:01)
[2022-12-11] MEDS: Metoprolol Tartrate 50 MG Tab PO SCH ×2 (10:20→18:03)
[2022-12-11] MEDS: Magnesium Oxide 400 MG Tab PO SCH (21:06)
[2022-12-12] MEDS: Piperacillin/Tazobactam 4.5 GM in Sodium Chloride 0.9% 100 ML IV SCH ×3 (05:27→21:53)
[2022-12-12] MEDS: Pantoprazole 40 MG Tab.CR PO SCH (05:27)
[2022-12-12] MEDS: Levothyroxine 100 MCG Tab PO SCH (05:41)
[2022-12-12] MEDS: Albuterol/Ipratropium 3.0-0.5 MG/3 ML Neb Soln NEB SCH (06:29)
[2022-12-12] MEDS ORDERED: Albuterol/Ipratropium 3.0-0.5 MG/3 ML Neb Soln NEB PRN (07:37)
[2022-12-12] MEDS: Rivaroxaban 15 MG Tab PO SCH (09:49)
[2022-12-12] MEDS: Tamsulosin 0.4 MG Cap.ER PO SCH (09:49)
[2022-12-12] MEDS: atorvaSTATin 40 MG Tab PO SCH (09:49)
[2022-12-12] MEDS: Ferrous Sulfate 324 MG Tab.EC PO SCH (09:49)
[2022-12-12] MEDS: Potassium Chloride 20 MEQ Tab.ER PO SCH ×3 (09:49→21:49)
[2022-12-12] MEDS: Simethicone 80 MG Tab.Chew PO SCH (09:49)
[2022-12-12] MEDS: Metoprolol Tartrate 50 MG Tab PO SCH ×2 (11:31→18:10)
[2022-12-12] MEDS: Allopurinol 100 MG Tab PO SCH ×2 (11:32→14:23)
[2022-12-12] MEDS: Torsemide 20 MG Tab PO SCH ×2 (11:32→14:24)
[2022-12-12] MEDS: Magnesium Oxide 400 MG Tab PO SCH (21:49)
[2022-12-13] MEDS: Levothyroxine 100 MCG Tab PO SCH (05:45)
[2022-12-13] MEDS: Pantoprazole 40 MG Tab.CR PO SCH (05:45)
[2022-12-13] MEDS: Piperacillin/Tazobactam 4.5 GM in Sodium Chloride 0.9% 100 ML IV SCH (05:46)
[2022-12-13] MEDS: Potassium Chloride 20 MEQ Tab.ER PO SCH (09:45)
[2022-12-13] MEDS: Rivaroxaban 15 MG Tab PO SCH (09:46)
[2022-12-13] MEDS: atorvaSTATin 40 MG Tab PO SCH (09:46)
[2022-12-13] MEDS: Tamsulosin 0.4 MG Cap.ER PO SCH (09:46)
[2022-12-13] MEDS: Simethicone 80 MG Tab.Chew PO SCH (09:46)
[2022-12-13] MEDS: Ferrous Sulfate 324 MG Tab.EC PO SCH (09:46)
[2022-12-13] MEDS: Torsemide 20 MG Tab PO SCH (10:25)
[2022-12-13] MEDS: Allopurinol 100 MG Tab PO SCH (10:25)
[2022-12-13] MEDS: Metoprolol Tartrate 50 MG Tab PO SCH (10:25)
[2022-12-13 10:57] VITALS: BP 103/72; PULSE 68
[2022-12-13] MEDS ORDERED: Torsemide 20 MG Tab PO SCH (14:00)
[2022-12-13] MEDS ORDERED: Allopurinol 100 MG Tab PO SCH (14:00)
[2022-12-13] MEDS ORDERED: Metoprolol Tartrate 25 MG Tab PO SCH (18:00)
== END 2022-12-13 13:36 | disposition home or self-care (01) | DRG 603 ==
LOC: JD.ED 16:58 → JD.MS 20:04
PROVIDERS: ADMIT Internal Medicine; ATTEND Internal Medicine
DX: L03.115 Cellulitis of right lower limb (principal); I13.0 Hypertensive heart and chronic kidney disease with heart failure and stage 1 through stage 4 chronic kidney disease, or unspecified chronic kidney disease; N18.32 Chronic kidney disease, stage 3b; D63.1 Anemia in chronic kidney disease; D69.6 Thrombocytopenia, unspecified; I48.91 Unspecified atrial fibrillation; E03.9 Hypothyroidism, unspecified; E87.6 Hypokalemia; I07.1 Rheumatic tricuspid insufficiency; H54.7 Unspecified visual loss; H91.90 Unspecified hearing loss, unspecified ear; I50.813 Acute on chronic right heart failure; G47.33 Obstructive sleep apnea (adult) (pediatric); K21.9 Gastro-esophageal reflux disease without esophagitis; K44.9 Diaphragmatic hernia without obstruction or gangrene; E11.22 Type 2 diabetes mellitus with diabetic chronic kidney disease; N40.1 Benign prostatic hyperplasia with lower urinary tract symptoms; R33.8 Other retention of urine; Z98.49 Cataract extraction status, unspecified eye; Z88.5 Allergy status to narcotic agent; Z79.890 Hormone replacement therapy; Z79.84 Long term (current) use of oral hypoglycemic drugs; Z79.899 Other long term (current) drug therapy; Z95.0 Presence of cardiac pacemaker
CPT/HCPCS: 36415; 80048; 80053; 81001; 82947; 83735; 83880; 85025; 85027; 86140; 87070; 87086; 87205; 93971-26-RT; 93971-RT; 94640; 94664; 94760; 94761; 97112-GP; 97116-GP; 97161-GP; 97166-GO; 97530-GO; 99285; A9270-GY; J2543; J3490; J7620-GY

== ENCOUNTER 2023-04-19 13:22 | Emergency (ER) | payer MEDICARE, OTHER ==
[2023-04-19 13:35] VITALS: PULSE 79
[2023-04-19] MEDS ORDERED: Sodium Chloride 0.9% 10 ML Syringe FLUSH PRN (14:04)
[2023-04-19 14:54] LABS: BASOPHILS ABSOLUTE AUTO 0.1 K/mm3 (0.0-0.2); BASOPHILS PERCENT AUTO 1.3 % (0.0-1.0); EOSINOPHILS ABSOLUTE AUTO 0.1 K/mm3 (0.0-0.4); EOSINOPHILS PERCENT AUTO 2.3 % (0.0-6.0); HEMOGLOBIN 8.2 gm/dl (14.0-18.0); IMMATURE GRAN ABSOLUTE AUTO 0.03 K/mm3 (0.00-0.05); IMMATURE GRAN PERCENT AUTO 0.8 % (0.0-0.4); LYMPHOCYTES ABSOLUTE AUTO 0.8 K/mm3 (1.0-4.8); LYMPHOCYTES PERCENT AUTO 19.8 % (24.0-44.0); MEAN CORPUSCULAR HEMOGLOBIN 33.7 pg (28.0-32.0); MEAN CORPUSCULAR HGB CONC 32.8 g/dl (32.0-36.0); MEAN CORPUSCULAR VOLUME 102.9 fl (83.0-99.0); MEAN PLATELET VOLUME 9.5 fl (9.4-12.4); MONOCYTES ABSOLUTE AUTO 0.6 K/mm3 (0.0-0.8); NEUTROPHILS ABSOLUTE AUTO 2.5 K/mm3 (1.8-7.7); NEUTROPHILS PERCENT AUTO 61.8 % (41.0-71.0); NRBC ABSOLUTE 0.02 (0.00-0.02); NRBC PERCENT 0.5 % (0.0-0.2); PLATELET COUNT,PLT 79 K/mm3 (150-400); RED BLOOD CELL COUNT 2.43 M/mm3 (4.52-5.90); WHITE BLOOD CELL COUNT,WBC 3.99 K/mm3 (3.9-11.3)
[2023-04-19 15:17] LABS: SLIDE REVIEW ABNORMAL SMEAR
[2023-04-19 15:25] LABS: A/G RATIO 0.8 (1-2); ALBUMIN 3.2 g/dl (3.4-5.0); ANION GAP 14.9 (5-15); BILIRUBIN TOTAL 1.5 mg/dL (0.2-1.0); BUN/CREATININE RATIO 36.1 (14-18); C-REACTIVE PROTEIN 0.6 mg/dL (<1.0); CALCIUM 9.5 mg/dL (8.5-10.1); CREATININE 1.8 mg/dL (0.7-1.3); EST CRCL DRUG DOSING (CG) 31.79 mL/min; POTASSIUM,K 2.9 mEq/L (3.5-5.1); PROTEIN TOTAL,TP 7.2 g/dl (6.4-8.2)
[2023-04-19 17:03] VITALS: BP 94/79
== END 2023-04-19 16:58 | disposition home or self-care (01) ==
LOC: JD.ED 13:22
DX: I13.0 Hypertensive heart and chronic kidney disease with heart failure and stage 1 through stage 4 chronic kidney disease, or unspecified chronic kidney disease (principal); E11.22 Type 2 diabetes mellitus with diabetic chronic kidney disease; N18.32 Chronic kidney disease, stage 3b; I50.813 Acute on chronic right heart failure; D63.1 Anemia in chronic kidney disease; I48.91 Unspecified atrial fibrillation; E03.9 Hypothyroidism, unspecified; K21.9 Gastro-esophageal reflux disease without esophagitis; E66.9 Obesity, unspecified; Z68.37 Body mass index [BMI] 37.0-37.9, adult; Z88.5 Allergy status to narcotic agent; Z79.899 Other long term (current) drug therapy
CPT/HCPCS: 36415; 71046; 71046-26; 80053; 83880; 84484; 85025; 85379; 86140; 93005; 93010; 99284; 99285

== ENCOUNTER 2023-05-09 16:00 | Inpatient (IN) | payer MEDICARE, OTHER ==
[2023-05-09] MEDS ORDERED: Albuterol/Ipratropium 3.0-0.5 MG/3 ML Neb Soln NEB ONE (16:49)
[2023-05-09 17:28] LABS: PCO2 ARTERIAL 22.9 mmHg (35.0-45.0)
[2023-05-09 17:31] LABS: BICARBONATE,ARTERIAL 18.5 meq/L (22.0-26.0)
[2023-05-09 17:37] LABS: BASOPHILS PERCENT AUTO 0.5 % (0.0-1.0); EOSINOPHILS PERCENT AUTO 0.4 % (0.0-6.0); HEMATOCRIT 25.7 % (42.0-52.0); HEMOGLOBIN 8.4 gm/dl (14.0-18.0); IMMATURE GRAN ABSOLUTE AUTO 0.04 K/mm3 (0.00-0.05); IMMATURE GRAN PERCENT AUTO 0.5 % (0.0-0.4); LYMPHOCYTES ABSOLUTE AUTO 0.6 K/mm3 (1.0-4.8); LYMPHOCYTES PERCENT AUTO 7.3 % (24.0-44.0); MEAN CORPUSCULAR HEMOGLOBIN 33.5 pg (28.0-32.0); MEAN CORPUSCULAR HGB CONC 32.7 g/dl (32.0-36.0); MEAN CORPUSCULAR VOLUME 102.4 fl (83.0-99.0); MEAN PLATELET VOLUME 9.8 fl (9.4-12.4); MONOCYTES ABSOLUTE AUTO 0.6 K/mm3 (0.0-0.8); MONOCYTES PERCENT AUTO 7.7 % (0.0-8.0); NEUTROPHILS ABSOLUTE AUTO 6.5 K/mm3 (1.8-7.7); NEUTROPHILS PERCENT AUTO 83.6 % (41.0-71.0); PLATELET COUNT,PLT 94 K/mm3 (150-400); RED BLOOD CELL COUNT 2.51 M/mm3 (4.52-5.90); WHITE BLOOD CELL COUNT,WBC 7.78 K/mm3 (3.9-11.3)
[2023-05-09] MEDS ORDERED: Furosemide 40 MG/4 ML VIAL IVPUSH ONE (17:52)
[2023-05-09 17:58] LABS: LACTIC ACID 2.5 mmol/L (0.4-2.0)
[2023-05-09 18:05] LABS: A/G RATIO 0.7 (1-2); ALBUMIN 3.2 g/dl (3.4-5.0); ANION GAP 16.1 (5-15); BILIRUBIN TOTAL 1.7 mg/dL (0.2-1.0); BUN/CREATININE RATIO 31.6 (14-18); C-REACTIVE PROTEIN 2.1 mg/dL (<1.0); CALCIUM 9.3 mg/dL (8.5-10.1); CREATININE 1.9 mg/dL (0.7-1.3); EST CRCL DRUG DOSING (CG) 34.63 mL/min; POTASSIUM,K 3.1 mEq/L (3.5-5.1); PROTEIN TOTAL,TP 7.5 g/dl (6.4-8.2)
[2023-05-09] MEDS ORDERED: Lactulose Soln 10 GM/15 ML 30 ML UD Cup PO ONE (19:25)
[2023-05-09] MEDS ORDERED: cefTRIAXone 2 GM in Sodium Chloride 0.9% 100 ML IV ONE (20:42)
[2023-05-09] MEDS ORDERED: Albuterol/Ipratropium 3.0-0.5 MG/3 ML Neb Soln NEB PRN (22:36)
[2023-05-10] MEDS ORDERED: Acetaminophen 325 MG Tab ONE (02:22)
[2023-05-10] MEDS: Acetaminophen 325 MG Tab PO PRN (02:30)
[2023-05-10 05:50] LABS: HEMATOCRIT 22.3 % (42.0-52.0); MEAN CORPUSCULAR HEMOGLOBIN 32.6 pg (28.0-32.0); MEAN CORPUSCULAR HGB CONC 32.7 g/dl (32.0-36.0); MEAN CORPUSCULAR VOLUME 99.6 fl (83.0-99.0); MEAN PLATELET VOLUME 10.1 fl (9.4-12.4); PLATELET COUNT,PLT 81 K/mm3 (150-400); RED BLOOD CELL COUNT 2.24 M/mm3 (4.52-5.90); WHITE BLOOD CELL COUNT,WBC 8.48 K/mm3 (3.9-11.3)
[2023-05-10 06:02] LABS: ANION GAP 15.9 (5-15); POTASSIUM,K 2.9 mEq/L (3.5-5.1)
[2023-05-10 06:03] LABS: BUN/CREATININE RATIO 33.3 (14-18); CALCIUM 8.8 mg/dL (8.5-10.1); CREATININE 1.8 mg/dL (0.7-1.3); EST CRCL DRUG DOSING (CG) 31.79 mL/min
[2023-05-10 06:10] LABS: HEMOGLOBIN 7.3 gm/dl (14.0-18.0)
[2023-05-10] MEDS: Potassium Chloride 10 MEQ in Premix Bag 1 BAG IV SCH ×4 (07:42→11:44)
[2023-05-10] MEDS ORDERED: Sodium Chloride 0.9% 1,000 ML ONE (07:58)
[2023-05-10] MEDS ORDERED: Sodium Chloride 0.9% 1,000 ML IV SCH (08:00)
[2023-05-10] MEDS ORDERED: Metolazone 2.5 MG Tab PO ONE (09:00)
[2023-05-10] MEDS ORDERED: Potassium Chloride 20 MEQ Tab.ER PO SCH (09:00)
[2023-05-10] MEDS: Levothyroxine 112 MCG Tab PO SCH (09:39)
[2023-05-10] MEDS: Lactulose Soln 10 GM/15 ML 30 ML UD Cup PO SCH ×2 (09:40→20:14)
[2023-05-10] MEDS: Metoprolol Tartrate 25 MG Tab PO SCH ×2 (09:41→20:15)
[2023-05-10] MEDS: Potassium Chloride 20 MEQ Tab.ER PO SCH ×3 (09:42→20:15)
[2023-05-10] MEDS: Magnesium Oxide 400 MG Tab PO SCH (09:42)
[2023-05-10] MEDS: Allopurinol 100 MG Tab PO SCH ×2 (09:42→20:15)
[2023-05-10] MEDS: Tamsulosin 0.4 MG Cap.ER PO SCH (09:42)
[2023-05-10] MEDS: Rifaximin 550 MG Tab PO SCH ×2 (09:42→20:14)
[2023-05-10] MEDS: Torsemide 20 MG Tab PO SCH ×2 (09:42→20:14)
[2023-05-10] MEDS: Ferrous Sulfate 324 MG Tab.EC PO SCH ×2 (09:42→20:14)
[2023-05-10] MEDS: Pantoprazole 40 MG Tab.CR PO SCH (09:42)
[2023-05-10] MEDS: atorvaSTATin 40 MG Tab PO SCH (20:15)
[2023-05-10] MEDS: Oxymetazoline 0.05% Nasal Spray 30 ML Bottle NASBOTH PRN (20:27)
[2023-05-11 05:54] LABS: HEMATOCRIT 23.3 % (42.0-52.0); MEAN CORPUSCULAR HGB CONC 31.8 g/dl (32.0-36.0); MEAN CORPUSCULAR VOLUME 100.9 fl (83.0-99.0); MEAN PLATELET VOLUME 10.3 fl (9.4-12.4); PLATELET COUNT,PLT 87 K/mm3 (150-400); RED BLOOD CELL COUNT 2.31 M/mm3 (4.52-5.90); WHITE BLOOD CELL COUNT,WBC 4.63 K/mm3 (3.9-11.3)
[2023-05-11 06:00] LABS: A/G RATIO 0.7 (1-2); ALBUMIN 2.7 g/dl (3.4-5.0); ANION GAP 15.8 (5-15); BILIRUBIN TOTAL 1.2 mg/dL (0.2-1.0); BUN/CREATININE RATIO 31.4 (14-18); CREATININE 2.2 mg/dL (0.7-1.3); EST CRCL DRUG DOSING (CG) 26.01 mL/min; POTASSIUM,K 3.8 mEq/L (3.5-5.1); PROTEIN TOTAL,TP 6.7 g/dl (6.4-8.2)
[2023-05-11 06:10] LABS: HEMOGLOBIN 7.4 gm/dl (14.0-18.0)
[2023-05-11 06:23] LABS: CALCIUM 8.8 mg/dL (8.5-10.1)
[2023-05-11] MEDS: Levothyroxine 112 MCG Tab PO SCH (06:46)
[2023-05-11] MEDS: Torsemide 20 MG Tab PO SCH ×2 (08:20→21:00)
[2023-05-11] MEDS: Potassium Chloride 20 MEQ Tab.ER PO SCH ×3 (08:21→21:00)
[2023-05-11] MEDS: Ferrous Sulfate 324 MG Tab.EC PO SCH ×2 (08:21→21:00)
[2023-05-11] MEDS: Pantoprazole 40 MG Tab.CR PO SCH (08:21)
[2023-05-11] MEDS: Magnesium Oxide 400 MG Tab PO SCH (08:21)
[2023-05-11] MEDS: Rifaximin 550 MG Tab PO SCH ×2 (08:21→21:00)
[2023-05-11] MEDS: Allopurinol 100 MG Tab PO SCH ×2 (08:21→21:00)
[2023-05-11] MEDS: Tamsulosin 0.4 MG Cap.ER PO SCH (08:21)
[2023-05-11] MEDS: Metoprolol Tartrate 25 MG Tab PO SCH ×2 (08:25→21:01)
[2023-05-11] MEDS: Lactulose Soln 10 GM/15 ML 30 ML UD Cup PO SCH ×2 (08:33→21:01)
[2023-05-11] MEDS: Oxymetazoline 0.05% Nasal Spray 30 ML Bottle NASBOTH PRN (08:37)
[2023-05-11] MEDS: atorvaSTATin 40 MG Tab PO SCH (21:01)
[2023-05-12] MEDS: Levothyroxine 112 MCG Tab PO SCH ×2 (04:56→05:11)
[2023-05-12 05:59] LABS: HEMATOCRIT 26.3 % (42.0-52.0); HEMOGLOBIN 8.2 gm/dl (14.0-18.0); MEAN CORPUSCULAR HEMOGLOBIN 32.4 pg (28.0-32.0); MEAN CORPUSCULAR HGB CONC 31.2 g/dl (32.0-36.0); MEAN PLATELET VOLUME 9.4 fl (9.4-12.4); PLATELET COUNT,PLT 109 K/mm3 (150-400); RED BLOOD CELL COUNT 2.53 M/mm3 (4.52-5.90); WHITE BLOOD CELL COUNT,WBC 4.25 K/mm3 (3.9-11.3)
[2023-05-12 06:28] LABS: A/G RATIO 0.7 (1-2); ANION GAP 14.3 (5-15); BILIRUBIN TOTAL 1.1 mg/dL (0.2-1.0); CALCIUM 9.2 mg/dL (8.5-10.1); EST CRCL DRUG DOSING (CG) 28.61 mL/min; POTASSIUM,K 3.3 mEq/L (3.5-5.1); PROTEIN TOTAL,TP 7.4 g/dl (6.4-8.2)
[2023-05-12] MEDS: Pantoprazole 40 MG Tab.CR PO SCH (09:07)
[2023-05-12] MEDS: Tamsulosin 0.4 MG Cap.ER PO SCH (09:07)
[2023-05-12] MEDS: Torsemide 20 MG Tab PO SCH (09:07)
[2023-05-12] MEDS: Ferrous Sulfate 324 MG Tab.EC PO SCH (09:07)
[2023-05-12] MEDS: Allopurinol 100 MG Tab PO SCH (09:07)
[2023-05-12] MEDS: Metoprolol Tartrate 25 MG Tab PO SCH (09:07)
[2023-05-12] MEDS: Rifaximin 550 MG Tab PO SCH (09:07)
[2023-05-12] MEDS: Magnesium Oxide 400 MG Tab PO SCH (09:07)
[2023-05-12] MEDS: Potassium Chloride 20 MEQ Tab.ER PO SCH (09:08)
[2023-05-12 09:13] VITALS: BP 98/51; PULSE 72
[2023-05-12] MEDS: Acetaminophen 325 MG Tab PO PRN (11:12)
== END 2023-05-12 13:00 | DRG 441 ==
LOC: JD.ED 16:00 → JD.MS 21:46
PROVIDERS: ADMIT Internal Medicine; ATTEND Internal Medicine
PROC: 4A033R1 Measurement of Arterial Saturation, Peripheral, Percutaneous Approach (ICD-10-PCS; principal; 2023-05-09)
DX: K76.82 Hepatic encephalopathy (principal); I50.33 Acute on chronic diastolic (congestive) heart failure; E87.1 Hypo-osmolality and hyponatremia; I13.0 Hypertensive heart and chronic kidney disease with heart failure and stage 1 through stage 4 chronic kidney disease, or unspecified chronic kidney disease; L97.819 Non-pressure chronic ulcer of other part of right lower leg with unspecified severity; I50.813 Acute on chronic right heart failure; I36.1 Nonrheumatic tricuspid (valve) insufficiency; E11.22 Type 2 diabetes mellitus with diabetic chronic kidney disease; N18.32 Chronic kidney disease, stage 3b; G47.30 Sleep apnea, unspecified; N18.30 Chronic kidney disease, stage 3 unspecified; Z20.822 Contact with and (suspected) exposure to COVID-19; I48.91 Unspecified atrial fibrillation; N40.0 Benign prostatic hyperplasia without lower urinary tract symptoms; E03.9 Hypothyroidism, unspecified; D69.3 Immune thrombocytopenic purpura; I87.8 Other specified disorders of veins; I07.1 Rheumatic tricuspid insufficiency; D69.6 Thrombocytopenia, unspecified; D63.1 Anemia in chronic kidney disease; N63.10 Unspecified lump in the right breast, unspecified quadrant; K64.9 Unspecified hemorrhoids; K21.9 Gastro-esophageal reflux disease without esophagitis; N40.1 Benign prostatic hyperplasia with lower urinary tract symptoms; R33.8 Other retention of urine; Z88.5 Allergy status to narcotic agent; Z68.34 Body mass index [BMI] 34.0-34.9, adult; Z90.89 Acquired absence of other organs; Z98.49 Cataract extraction status, unspecified eye; Z98.890 Other specified postprocedural states; E66.9 Obesity, unspecified; Z79.01 Long term (current) use of anticoagulants; Z79.899 Other long term (current) drug therapy; Z95.0 Presence of cardiac pacemaker
CPT/HCPCS: 36415; 36600; 71045; 71045-26; 76641-RT; 76641-RT-26; 80048; 80053; 82140; 82803; 83605; 83880; 85018; 85025; 85027; 86140; 86850; 86900; 86901; 87040; 87641; 93005; 93010; 94640; 94760; 94761; 97110-GP; 97162-GP; 97530-GP; 99285; A9270-GY; J0696; J1940; J3480; J3490; J7030; J7620-GY; U0002

== ENCOUNTER 2023-05-18 08:22 | Inpatient (IN) | payer MEDICARE, OTHER ==
[2023-05-18] MEDS ORDERED: Furosemide 40 MG/4 ML VIAL IVPUSH ONE ×2 (09:00→10:19)
[2023-05-18 09:14] LABS: BASE EXCESS ARTERIAL -5.1 (-2-2.0); BICARBONATE,ARTERIAL 18.1 meq/L (22.0-26.0); O2 SATURATION ARTERIAL 98.1 % (96.0-97.0); PCO2 ARTERIAL 28.1 mmHg (35.0-45.0)
[2023-05-18 09:15] LABS: BASOPHILS ABSOLUTE AUTO 0.1 K/mm3 (0.0-0.2); BASOPHILS PERCENT AUTO 0.7 % (0.0-1.0); EOSINOPHILS PERCENT AUTO 0.6 % (0.0-6.0); HEMATOCRIT 25.6 % (42.0-52.0); HEMOGLOBIN 8.1 gm/dl (14.0-18.0); IMMATURE GRAN ABSOLUTE AUTO 0.06 K/mm3 (0.00-0.05); IMMATURE GRAN PERCENT AUTO 0.9 % (0.0-0.4); LYMPHOCYTES ABSOLUTE AUTO 0.5 K/mm3 (1.0-4.8); LYMPHOCYTES PERCENT AUTO 6.6 % (24.0-44.0); MEAN CORPUSCULAR HEMOGLOBIN 32.1 pg (28.0-32.0); MEAN CORPUSCULAR HGB CONC 31.6 g/dl (32.0-36.0); MEAN CORPUSCULAR VOLUME 101.6 fl (83.0-99.0); MEAN PLATELET VOLUME 8.8 fl (9.4-12.4); MONOCYTES ABSOLUTE AUTO 0.6 K/mm3 (0.0-0.8); MONOCYTES PERCENT AUTO 8.6 % (0.0-8.0); NEUTROPHILS ABSOLUTE AUTO 5.6 K/mm3 (1.8-7.7); NEUTROPHILS PERCENT AUTO 82.6 % (41.0-71.0); PLATELET COUNT,PLT 102 K/mm3 (150-400); RED BLOOD CELL COUNT 2.52 M/mm3 (4.52-5.90); WHITE BLOOD CELL COUNT,WBC 6.83 K/mm3 (3.9-11.3)
[2023-05-18 09:27] LABS: INR 1.43; PROTHROMBIN TIME 14.9 SECONDS (9.7-12.0)
[2023-05-18 09:28] LABS: PTT,PARTIAL THROMBOPLSTIN TIME 42.4 SECONDS (21.7-31.4)
[2023-05-18 09:33] LABS: LACTIC ACID 1.5 mmol/L (0.4-2.0)
[2023-05-18 09:36] LABS: A/G RATIO 0.7 (1-2); ALBUMIN 3.1 g/dl (3.4-5.0); ANION GAP 15.1 (5-15); BILIRUBIN TOTAL 1.8 mg/dL (0.2-1.0); BUN/CREATININE RATIO 36.8 (14-18); CALCIUM 9.4 mg/dL (8.5-10.1); CREATININE 1.9 mg/dL (0.7-1.3); EST CRCL DRUG DOSING (CG) 31.25 mL/min; POTASSIUM,K 4.1 mEq/L (3.5-5.1); PROTEIN TOTAL,TP 7.4 g/dl (6.4-8.2)
[2023-05-18 11:11] LABS: BASE EXCESS ARTERIAL -4.8 (-2-2.0); BICARBONATE,ARTERIAL 18.1 meq/L (22.0-26.0); O2 SATURATION ARTERIAL 97.3 % (96.0-97.0)
[2023-05-18 12:26] LABS: APPEARANCE,URINE SLT CLOUDY (Clear); BILIRUBIN,URINE NEGATIVE (Negative); COLOR,URINE YELLOW (Yellow); GLUCOSE,URINE NEGATIVE (Negative); KETONES,URINE NEGATIVE (Negative); LEUKOCYTE ESTERASE,URINE 1+ (Negative); NITRITE,URINE NEGATIVE (Negative); OCCULT BLOOD,URINE 2+ (Negative); PROTEIN,URINE NEGATIVE (Negative); UROBILINOGEN,URINE 0.2 (0.2-1.0)
[2023-05-18] MEDS ORDERED: Docusate Sodium 100 MG Cap PO PRN (12:27)
[2023-05-18] MEDS ORDERED: Metoprolol Tartrate 5 MG/5 ML SDV IVPUSH ONE (12:27)
[2023-05-18] MEDS ORDERED: Ondansetron 4 MG/2 ML SDV IV PRN (12:27)
[2023-05-18 12:33] LABS: AMORPHOUS SEDIMENT,URINE FEW /hpf (NOT SEEN); BACTERIA,URINE MODERATE /hpf (FEW); MUCUS,URINE MODERATE /hpf (FEW); RBC,URINE 30-40 /hpf (0-5); WBC,URINE 20-30 /hpf (0-5)
[2023-05-18] MEDS ORDERED: Metoprolol Succinate 25 MG Tab.ER PO ONE (13:15)
[2023-05-18] MEDS ORDERED: Polyethylene Glycol 3350 Powder 17 GM Packet PO PRN (13:26)
[2023-05-18] MEDS ORDERED: Non-Formulary Medication 1 Each (Rivaroxaban [Xarelto] 20 MG Tablet) PO SCH (13:30)
[2023-05-18] MEDS ORDERED: Non-Formulary Medication 1 Each (Lactulose 10 GM/15 ML Bottle) PO SCH (13:30)
[2023-05-18] MEDS ORDERED: Sodium Chloride 0.9% 500 ML IV ONE (14:28)
[2023-05-18] MEDS ORDERED: Sodium Chloride 0.9% 1,000 ML ONE (14:29)
[2023-05-18] MEDS: Tamsulosin 0.4 MG Cap.ER PO SCH (14:54)
[2023-05-18] MEDS: Rivaroxaban 15 MG Tab PO SCH (14:54)
[2023-05-18] MEDS ORDERED: cefTRIAXone 1 GM in Sodium Chloride 0.9% 100 ML IV SCH (15:00)
[2023-05-18] MEDS: Allopurinol 100 MG Tab PO SCH (20:26)
[2023-05-18] MEDS: atorvaSTATin 40 MG Tab PO SCH (20:26)
[2023-05-18] MEDS: Lactulose Soln 10 GM/15 ML 30 ML UD Cup PO SCH (20:26)
[2023-05-18] MEDS ORDERED: Torsemide 20 MG Tab PO SCH (21:00)
[2023-05-18] MEDS ORDERED: Metoprolol Tartrate 25 MG Tab PO SCH ×2 (21:00)
[2023-05-19 05:29] LABS: BASOPHILS PERCENT AUTO 0.3 % (0.0-1.0); EOSINOPHILS ABSOLUTE AUTO 0.1 K/mm3 (0.0-0.4); EOSINOPHILS PERCENT AUTO 0.6 % (0.0-6.0); HEMATOCRIT 23.8 % (42.0-52.0); HEMOGLOBIN 7.7 gm/dl (14.0-18.0); IMMATURE GRAN ABSOLUTE AUTO 0.03 K/mm3 (0.00-0.05); IMMATURE GRAN PERCENT AUTO 0.3 % (0.0-0.4); LYMPHOCYTES ABSOLUTE AUTO 0.5 K/mm3 (1.0-4.8); LYMPHOCYTES PERCENT AUTO 5.5 % (24.0-44.0); MEAN CORPUSCULAR HEMOGLOBIN 32.2 pg (28.0-32.0); MEAN CORPUSCULAR HGB CONC 32.4 g/dl (32.0-36.0); MEAN CORPUSCULAR VOLUME 99.6 fl (83.0-99.0); MEAN PLATELET VOLUME 9.3 fl (9.4-12.4); MONOCYTES ABSOLUTE AUTO 0.6 K/mm3 (0.0-0.8); MONOCYTES PERCENT AUTO 7.2 % (0.0-8.0); NEUTROPHILS ABSOLUTE AUTO 7.5 K/mm3 (1.8-7.7); NEUTROPHILS PERCENT AUTO 86.1 % (41.0-71.0); PLATELET COUNT,PLT 86 K/mm3 (150-400); RED BLOOD CELL COUNT 2.39 M/mm3 (4.52-5.90); WHITE BLOOD CELL COUNT,WBC 8.73 K/mm3 (3.9-11.3)
[2023-05-19 06:21] LABS: A/G RATIO 0.7 (1-2); ALBUMIN 2.8 g/dl (3.4-5.0); ANION GAP 17.8 (5-15); BILIRUBIN TOTAL 2.2 mg/dL (0.2-1.0); BUN/CREATININE RATIO 32.1 (14-18); CALCIUM 8.9 mg/dL (8.5-10.1); CREATININE 1.9 mg/dL (0.7-1.3); EST CRCL DRUG DOSING (CG) 31.25 mL/min; MAGNESIUM 2.2 mg/dL (1.8-2.4); POTASSIUM,K 3.8 mEq/L (3.5-5.1); PROTEIN TOTAL,TP 6.9 g/dl (6.4-8.2)
[2023-05-19 06:36] LABS: SLIDE REVIEW ABNORMAL SMEAR
[2023-05-19] MEDS: Torsemide 20 MG Tab PO SCH ×2 (06:42→13:04)
[2023-05-19] MEDS: Levothyroxine 112 MCG Tab PO SCH (06:43)
[2023-05-19] MEDS ORDERED: Metoprolol Tartrate 25 MG Tab PO SCH ×3 (07:34→20:00)
[2023-05-19] MEDS: Rivaroxaban 15 MG Tab PO SCH (08:09)
[2023-05-19] MEDS: Tamsulosin 0.4 MG Cap.ER PO SCH (08:09)
[2023-05-19] MEDS: Allopurinol 100 MG Tab PO SCH ×2 (08:09→20:08)
[2023-05-19] MEDS: Pantoprazole 40 MG Tab.CR PO SCH (08:09)
[2023-05-19] MEDS: Acetaminophen 325 MG Tab PO PRN (08:10)
[2023-05-19] MEDS: Lactulose Soln 10 GM/15 ML 30 ML UD Cup PO SCH ×2 (08:10→20:08)
[2023-05-19] MEDS ORDERED: Metoprolol Tartrate 50 MG Tab PO SCH (08:45)
[2023-05-19] MEDS ORDERED: Metoprolol Succinate 25 MG Tab.ER PO SCH ×2 (09:00)
[2023-05-19] MEDS ORDERED: Meropenem 1 GM in Sodium Chloride 0.9% 100 ML IV SCH (12:30)
[2023-05-19] MEDS: Meropenem 500 MG in Sodium Chloride 0.9% 100 ML IV SCH ×2 (13:04→20:05)
[2023-05-19] MEDS ORDERED: cefTRIAXone 2 GM in Sodium Chloride 0.9% 100 ML IV SCH (15:00)
[2023-05-19] MEDS: atorvaSTATin 40 MG Tab PO SCH (20:08)
[2023-05-20] MEDS: Meropenem 500 MG in Sodium Chloride 0.9% 100 ML IV SCH ×3 (05:12→20:13)
[2023-05-20] MEDS: Levothyroxine 112 MCG Tab PO SCH (05:13)
[2023-05-20] MEDS: Torsemide 20 MG Tab PO SCH ×2 (05:13→13:04)
[2023-05-20 05:38] LABS: BASOPHILS PERCENT AUTO 0.4 % (0.0-1.0); EOSINOPHILS ABSOLUTE AUTO 0.1 K/mm3 (0.0-0.4); HEMATOCRIT 21.8 % (42.0-52.0); IMMATURE GRAN ABSOLUTE AUTO 0.03 K/mm3 (0.00-0.05); IMMATURE GRAN PERCENT AUTO 0.4 % (0.0-0.4); LYMPHOCYTES ABSOLUTE AUTO 0.6 K/mm3 (1.0-4.8); LYMPHOCYTES PERCENT AUTO 8.3 % (24.0-44.0); MEAN CORPUSCULAR HEMOGLOBIN 32.4 pg (28.0-32.0); MEAN CORPUSCULAR HGB CONC 32.6 g/dl (32.0-36.0); MEAN CORPUSCULAR VOLUME 99.5 fl (83.0-99.0); MEAN PLATELET VOLUME 9.7 fl (9.4-12.4); MONOCYTES ABSOLUTE AUTO 0.6 K/mm3 (0.0-0.8); MONOCYTES PERCENT AUTO 9.3 % (0.0-8.0); NEUTROPHILS ABSOLUTE AUTO 5.4 K/mm3 (1.8-7.7); NEUTROPHILS PERCENT AUTO 80.6 % (41.0-71.0); NRBC ABSOLUTE 0.02 (0.00-0.02); NRBC PERCENT 0.3 % (0.0-0.2); PLATELET COUNT,PLT 80 K/mm3 (150-400); RED BLOOD CELL COUNT 2.19 M/mm3 (4.52-5.90); WHITE BLOOD CELL COUNT,WBC 6.76 K/mm3 (3.9-11.3)
[2023-05-20 05:47] LABS: HEMOGLOBIN 7.1 gm/dl (14.0-18.0)
[2023-05-20 05:54] LABS: A/G RATIO 0.6 (1-2); ALBUMIN 2.5 g/dl (3.4-5.0); ANION GAP 15.1 (5-15); BILIRUBIN TOTAL 1.9 mg/dL (0.2-1.0); CALCIUM 8.5 mg/dL (8.5-10.1); EST CRCL DRUG DOSING (CG) 29.68 mL/min; MAGNESIUM 2.1 mg/dL (1.8-2.4); POTASSIUM,K 3.1 mEq/L (3.5-5.1); PROTEIN TOTAL,TP 6.4 g/dl (6.4-8.2)
[2023-05-20 06:23] LABS: SLIDE REVIEW ABNORMAL SMEAR
[2023-05-20] MEDS ORDERED: Sodium Chloride 0.9% 250 ML ONE (08:34)
[2023-05-20] MEDS: Lactulose Soln 10 GM/15 ML 30 ML UD Cup PO SCH ×2 (08:51→20:14)
[2023-05-20] MEDS: Allopurinol 100 MG Tab PO SCH ×2 (08:51→20:13)
[2023-05-20] MEDS: Pantoprazole 40 MG Tab.CR PO SCH (08:51)
[2023-05-20] MEDS: Rivaroxaban 15 MG Tab PO SCH (08:51)
[2023-05-20] MEDS: Tamsulosin 0.4 MG Cap.ER PO SCH (08:51)
[2023-05-20] MEDS: Metoprolol Succinate 50 MG Tab.ER PO SCH (08:51)
[2023-05-20] MEDS ORDERED: Potassium Chloride 20 MEQ Tab.ER PO ONE (10:15)
[2023-05-20] MEDS: atorvaSTATin 40 MG Tab PO SCH (20:13)
[2023-05-20] MEDS: Acetaminophen 325 MG Tab PO PRN (21:09)
[2023-05-21] MEDS: Meropenem 500 MG in Sodium Chloride 0.9% 100 ML IV SCH ×3 (05:06→21:04)
[2023-05-21] MEDS: Torsemide 20 MG Tab PO SCH ×2 (05:31→13:23)
[2023-05-21] MEDS: Levothyroxine 112 MCG Tab PO SCH (05:32)
[2023-05-21 05:37] LABS: BASOPHILS PERCENT AUTO 0.9 % (0.0-1.0); EOSINOPHILS ABSOLUTE AUTO 0.1 K/mm3 (0.0-0.4); EOSINOPHILS PERCENT AUTO 2.8 % (0.0-6.0); HEMATOCRIT 24.1 % (42.0-52.0); HEMOGLOBIN 7.8 gm/dl (14.0-18.0); IMMATURE GRAN ABSOLUTE AUTO 0.03 K/mm3 (0.00-0.05); IMMATURE GRAN PERCENT AUTO 0.7 % (0.0-0.4); LYMPHOCYTES ABSOLUTE AUTO 0.6 K/mm3 (1.0-4.8); LYMPHOCYTES PERCENT AUTO 13.3 % (24.0-44.0); MEAN CORPUSCULAR HGB CONC 32.4 g/dl (32.0-36.0); MEAN CORPUSCULAR VOLUME 98.8 fl (83.0-99.0); MEAN PLATELET VOLUME 9.9 fl (9.4-12.4); MONOCYTES ABSOLUTE AUTO 0.6 K/mm3 (0.0-0.8); NEUTROPHILS ABSOLUTE AUTO 2.9 K/mm3 (1.8-7.7); NEUTROPHILS PERCENT AUTO 69.3 % (41.0-71.0); PLATELET COUNT,PLT 80 K/mm3 (150-400); RED BLOOD CELL COUNT 2.44 M/mm3 (4.52-5.90); WHITE BLOOD CELL COUNT,WBC 4.22 K/mm3 (3.9-11.3)
[2023-05-21 05:49] LABS: A/G RATIO 0.6 (1-2); ALBUMIN 2.5 g/dl (3.4-5.0); BUN/CREATININE RATIO 38.2 (14-18); CALCIUM 8.3 mg/dL (8.5-10.1); CREATININE 2.2 mg/dL (0.7-1.3); EST CRCL DRUG DOSING (CG) 26.99 mL/min; MAGNESIUM 2.2 mg/dL (1.8-2.4); PROTEIN TOTAL,TP 6.4 g/dl (6.4-8.2)
[2023-05-21 06:16] LABS: SLIDE REVIEW ABNORMAL SMEAR
[2023-05-21] MEDS: Allopurinol 100 MG Tab PO SCH ×2 (09:00→21:02)
[2023-05-21] MEDS: Tamsulosin 0.4 MG Cap.ER PO SCH (09:00)
[2023-05-21] MEDS: Rivaroxaban 15 MG Tab PO SCH (09:01)
[2023-05-21] MEDS: Metoprolol Succinate 50 MG Tab.ER PO SCH (09:01)
[2023-05-21] MEDS: Pantoprazole 40 MG Tab.CR PO SCH (09:01)
[2023-05-21] MEDS: Lactulose Soln 10 GM/15 ML 30 ML UD Cup PO SCH ×2 (09:03→21:18)
[2023-05-21] MEDS: Potassium Chloride 10 MEQ in Premix Bag 1 BAG IV SCH ×4 (09:04→15:23)
[2023-05-21] MEDS: atorvaSTATin 40 MG Tab PO SCH (21:02)
[2023-05-22] MEDS: Meropenem 500 MG in Sodium Chloride 0.9% 100 ML IV SCH ×2 (05:32→12:59)
[2023-05-22] MEDS: Torsemide 20 MG Tab PO SCH ×2 (05:32→13:01)
[2023-05-22] MEDS: Levothyroxine 112 MCG Tab PO SCH (05:32)
[2023-05-22 05:43] LABS: BASOPHILS PERCENT AUTO 1.1 % (0.0-1.0); EOSINOPHILS ABSOLUTE AUTO 0.1 K/mm3 (0.0-0.4); HEMATOCRIT 26.2 % (42.0-52.0); HEMOGLOBIN 8.3 gm/dl (14.0-18.0); IMMATURE GRAN ABSOLUTE AUTO 0.02 K/mm3 (0.00-0.05); IMMATURE GRAN PERCENT AUTO 0.5 % (0.0-0.4); LYMPHOCYTES ABSOLUTE AUTO 0.7 K/mm3 (1.0-4.8); LYMPHOCYTES PERCENT AUTO 19.9 % (24.0-44.0); MEAN CORPUSCULAR HEMOGLOBIN 31.7 pg (28.0-32.0); MEAN CORPUSCULAR HGB CONC 31.7 g/dl (32.0-36.0); MEAN PLATELET VOLUME 9.7 fl (9.4-12.4); MONOCYTES ABSOLUTE AUTO 0.7 K/mm3 (0.0-0.8); MONOCYTES PERCENT AUTO 18.1 % (0.0-8.0); NEUTROPHILS ABSOLUTE AUTO 2.1 K/mm3 (1.8-7.7); NEUTROPHILS PERCENT AUTO 57.4 % (41.0-71.0); NRBC ABSOLUTE 0.02 (0.00-0.02); NRBC PERCENT 0.5 % (0.0-0.2); PLATELET COUNT,PLT 91 K/mm3 (150-400); RED BLOOD CELL COUNT 2.62 M/mm3 (4.52-5.90); WHITE BLOOD CELL COUNT,WBC 3.71 K/mm3 (3.9-11.3)
[2023-05-22 05:54] LABS: A/G RATIO 0.6 (1-2); ALBUMIN 2.6 g/dl (3.4-5.0); ANION GAP 14.8 (5-15); BILIRUBIN TOTAL 1.7 mg/dL (0.2-1.0); BUN/CREATININE RATIO 43.5 (14-18); CALCIUM 8.4 mg/dL (8.5-10.1); CREATININE 1.7 mg/dL (0.7-1.3); EST CRCL DRUG DOSING (CG) 34.92 mL/min; MAGNESIUM 2.1 mg/dL (1.8-2.4); POTASSIUM,K 2.8 mEq/L (3.5-5.1); PROTEIN TOTAL,TP 6.8 g/dl (6.4-8.2)
[2023-05-22 06:19] LABS: SLIDE REVIEW ABNORMAL SMEAR
[2023-05-22] MEDS ORDERED: Potassium Chloride 20 MEQ Tab.ER PO ONE (08:06)
[2023-05-22] MEDS: Potassium Chloride 10 MEQ in Premix Bag 1 BAG IV SCH ×4 (08:50→12:57)
[2023-05-22] MEDS: Lactulose Soln 10 GM/15 ML 30 ML UD Cup PO SCH (08:52)
[2023-05-22] MEDS: Metoprolol Succinate 50 MG Tab.ER PO SCH (08:53)
[2023-05-22] MEDS: Allopurinol 100 MG Tab PO SCH (08:53)
[2023-05-22] MEDS: Tamsulosin 0.4 MG Cap.ER PO SCH (08:54)
[2023-05-22] MEDS: Pantoprazole 40 MG Tab.CR PO SCH (08:54)
[2023-05-22] MEDS: Rivaroxaban 15 MG Tab PO SCH (08:54)
[2023-05-22 11:24] VITALS: BP 104/84; PULSE 82
== END 2023-05-22 15:15 | disposition other institution (70) | DRG 309 ==
LOC: JD.ED 08:22 → JD.ICU 14:15 → JD.MS 05-21 19:05
PROVIDERS: ADMIT Hospitalist; ATTEND Hospitalist
PROC: 5A09357 Assistance with Respiratory Ventilation, Less than 24 Consecutive Hours, Continuous Positive Airway Pressure (ICD-10-PCS; principal; 2023-05-18)
PROC: 4A033R1 Measurement of Arterial Saturation, Peripheral, Percutaneous Approach (ICD-10-PCS; 2023-05-18)
PROC: 30233N1 Transfusion of Nonautologous Red Blood Cells into Peripheral Vein, Percutaneous Approach (ICD-10-PCS; 2023-05-20)
DX: I48.91 Unspecified atrial fibrillation (principal); D62 Acute posthemorrhagic anemia; I13.0 Hypertensive heart and chronic kidney disease with heart failure and stage 1 through stage 4 chronic kidney disease, or unspecified chronic kidney disease; N30.01 Acute cystitis with hematuria; R78.81 Bacteremia; I50.9 Heart failure, unspecified; E03.9 Hypothyroidism, unspecified; D69.3 Immune thrombocytopenic purpura; E66.9 Obesity, unspecified; K21.9 Gastro-esophageal reflux disease without esophagitis; N40.0 Benign prostatic hyperplasia without lower urinary tract symptoms; E11.22 Type 2 diabetes mellitus with diabetic chronic kidney disease; R32 Unspecified urinary incontinence; I87.8 Other specified disorders of veins; I07.1 Rheumatic tricuspid insufficiency; N18.32 Chronic kidney disease, stage 3b; D63.1 Anemia in chronic kidney disease; G47.33 Obstructive sleep apnea (adult) (pediatric); I50.813 Acute on chronic right heart failure; B96.1 Klebsiella pneumoniae [K. pneumoniae] as the cause of diseases classified elsewhere; Z88.5 Allergy status to narcotic agent; Z79.899 Other long term (current) drug therapy; Z79.01 Long term (current) use of anticoagulants; Z95.0 Presence of cardiac pacemaker; Z68.35 Body mass index [BMI] 35.0-35.9, adult; Z98.84 Bariatric surgery status; Z98.890 Other specified postprocedural states; Z90.89 Acquired absence of other organs
CPT/HCPCS: 36415; 36600 ×2; 71045; 80053; 81001; 82140; 82803 ×2; 83605; 83880; 84484; 85025; 85610; 85730; 87040 ×2; 87077; 87086; 87088; 87154; 87186 ×2; 93005; 94660; 96374; 96376; 99285; J1940 ×2; J3490; J7030; 36430; 82947; 83735; 86850; 86900; 86901; 86922; 87641; 93010; 97116-GP; 97162-GP; 97530-GP; A9270-GY; J0696; J2185; J3480; J7050; P9016

== ENCOUNTER 2023-05-25 06:58 | Emergency (ER) | payer MEDICARE, OTHER ==
[2023-05-25] MEDS ORDERED: Sodium Chloride 0.9% 10 ML Syringe FLUSH PRN (07:10)
[2023-05-25 07:24] LABS: BASOPHILS ABSOLUTE AUTO 0.1 K/mm3 (0.0-0.2); BASOPHILS PERCENT AUTO 1.5 % (0.0-1.0); EOSINOPHILS ABSOLUTE AUTO 0.2 K/mm3 (0.0-0.4); EOSINOPHILS PERCENT AUTO 5.6 % (0.0-6.0); HEMATOCRIT 25.6 % (42.0-52.0); HEMOGLOBIN 8.1 gm/dl (14.0-18.0); IMMATURE GRAN ABSOLUTE AUTO 0.07 K/mm3 (0.00-0.05); IMMATURE GRAN PERCENT AUTO 1.8 % (0.0-0.4); LYMPHOCYTES PERCENT AUTO 24.4 % (24.0-44.0); MEAN CORPUSCULAR HEMOGLOBIN 32.1 pg (28.0-32.0); MEAN CORPUSCULAR HGB CONC 31.6 g/dl (32.0-36.0); MEAN CORPUSCULAR VOLUME 101.6 fl (83.0-99.0); MEAN PLATELET VOLUME 10.1 fl (9.4-12.4); MONOCYTES ABSOLUTE AUTO 0.4 K/mm3 (0.0-0.8); MONOCYTES PERCENT AUTO 10.4 % (0.0-8.0); NEUTROPHILS ABSOLUTE AUTO 2.2 K/mm3 (1.8-7.7); NEUTROPHILS PERCENT AUTO 56.3 % (41.0-71.0); PLATELET COUNT,PLT 100 K/mm3 (150-400); RED BLOOD CELL COUNT 2.52 M/mm3 (4.52-5.90); WHITE BLOOD CELL COUNT,WBC 3.94 K/mm3 (3.9-11.3)
[2023-05-25 07:34] LABS: A/G RATIO 0.6 (1-2); ALBUMIN 2.7 g/dl (3.4-5.0); ANION GAP 16.1 (5-15); BILIRUBIN TOTAL 2.1 mg/dL (0.2-1.0); BUN/CREATININE RATIO 35.7 (14-18); CALCIUM 8.4 mg/dL (8.5-10.1); CREATININE 1.4 mg/dL (0.7-1.3); EST CRCL DRUG DOSING (CG) 40.88 mL/min; POTASSIUM,K 5.1 mEq/L (3.5-5.1); PROTEIN TOTAL,TP 6.9 g/dl (6.4-8.2)
[2023-05-25 07:43] LABS: SLIDE REVIEW ABNORMAL SMEAR
[2023-05-25 11:09] VITALS: BP 101/69; PULSE 81
== END 2023-05-25 10:55 | disposition home or self-care (01) ==
LOC: JD.ED 06:58
DX: I35.0 Nonrheumatic aortic (valve) stenosis (principal); I83.018 Varicose veins of right lower extremity with ulcer other part of lower leg; L97.811 Non-pressure chronic ulcer of other part of right lower leg limited to breakdown of skin; I13.0 Hypertensive heart and chronic kidney disease with heart failure and stage 1 through stage 4 chronic kidney disease, or unspecified chronic kidney disease; E11.22 Type 2 diabetes mellitus with diabetic chronic kidney disease; N18.2 Chronic kidney disease, stage 2 (mild); I50.813 Acute on chronic right heart failure; I48.91 Unspecified atrial fibrillation; K21.9 Gastro-esophageal reflux disease without esophagitis; E03.9 Hypothyroidism, unspecified; E66.9 Obesity, unspecified; Z68.36 Body mass index [BMI] 36.0-36.9, adult; Z88.5 Allergy status to narcotic agent; Z79.899 Other long term (current) drug therapy; Z79.01 Long term (current) use of anticoagulants
CPT/HCPCS: 36415; 80053; 83880; 84484; 85025; 93005; 99284

== ENCOUNTER 2023-06-01 09:42 | Emergency (ER) | payer MEDICARE ==
[2023-06-01] MEDS ORDERED: Loperamide 2 MG Cap PO ONE (10:22)
[2023-06-01] MEDS ORDERED: Ondansetron 4 MG Tab.DIS PO ONE (10:27)
[2023-06-01 10:49] LABS: BASOPHILS PERCENT AUTO 0.3 % (0.0-1.0); EOSINOPHILS ABSOLUTE AUTO 0.4 K/mm3 (0.0-0.4); EOSINOPHILS PERCENT AUTO 5.4 % (0.0-6.0); HEMATOCRIT 27.1 % (42.0-52.0); HEMOGLOBIN 8.6 gm/dl (14.0-18.0); IMMATURE GRAN ABSOLUTE AUTO 0.02 K/mm3 (0.00-0.05); IMMATURE GRAN PERCENT AUTO 0.3 % (0.0-0.4); LYMPHOCYTES ABSOLUTE AUTO 0.8 K/mm3 (1.0-4.8); LYMPHOCYTES PERCENT AUTO 11.7 % (24.0-44.0); MEAN CORPUSCULAR HEMOGLOBIN 31.3 pg (28.0-32.0); MEAN CORPUSCULAR HGB CONC 31.7 g/dl (32.0-36.0); MEAN CORPUSCULAR VOLUME 98.5 fl (83.0-99.0); MEAN PLATELET VOLUME 9.8 fl (9.4-12.4); MONOCYTES ABSOLUTE AUTO 0.5 K/mm3 (0.0-0.8); MONOCYTES PERCENT AUTO 7.4 % (0.0-8.0); NEUTROPHILS PERCENT AUTO 74.9 % (41.0-71.0); PLATELET COUNT,PLT 118 K/mm3 (150-400); RED BLOOD CELL COUNT 2.75 M/mm3 (4.52-5.90); WHITE BLOOD CELL COUNT,WBC 6.65 K/mm3 (3.9-11.3)
[2023-06-01 11:04] LABS: A/G RATIO 0.7 (1-2); ALBUMIN 2.8 g/dl (3.4-5.0); ANION GAP 13.5 (5-15); BILIRUBIN TOTAL 1.4 mg/dL (0.2-1.0); BUN/CREATININE RATIO 27.6 (14-18); CALCIUM 8.9 mg/dL (8.5-10.1); CREATININE 1.7 mg/dL (0.7-1.3); EST CRCL DRUG DOSING (CG) 33.66 mL/min; POTASSIUM,K 3.5 mEq/L (3.5-5.1); PROTEIN TOTAL,TP 7.1 g/dl (6.4-8.2)
[2023-06-01 11:59] VITALS: BP 99/62; PULSE 90
== END 2023-06-01 11:55 | disposition home or self-care (01) ==
LOC: JD.ED 09:42
DX: R19.7 Diarrhea, unspecified (principal); I13.0 Hypertensive heart and chronic kidney disease with heart failure and stage 1 through stage 4 chronic kidney disease, or unspecified chronic kidney disease; E11.22 Type 2 diabetes mellitus with diabetic chronic kidney disease; I50.9 Heart failure, unspecified; N18.30 Chronic kidney disease, stage 3 unspecified; E03.9 Hypothyroidism, unspecified; I48.91 Unspecified atrial fibrillation; G47.30 Sleep apnea, unspecified; E66.9 Obesity, unspecified; Z68.35 Body mass index [BMI] 35.0-35.9, adult; Z88.5 Allergy status to narcotic agent; Z79.01 Long term (current) use of anticoagulants; Z79.899 Other long term (current) drug therapy
CPT/HCPCS: 36415; 74019; 80053; 83735; 85025; 99284; A9270

== ENCOUNTER 2023-06-03 17:23 | Emergency (ER) | payer MEDICARE ==
[2023-06-03] MEDS ORDERED: Oxymetazoline 0.05% Nasal Spray 30 ML Bottle NAS ONE (18:09)
[2023-06-03 19:15] VITALS: BP 99/64; PULSE 78
== END 2023-06-03 19:11 | disposition home or self-care (01) ==
LOC: JD.ED 17:23
DX: R04.0 Epistaxis (principal); I13.0 Hypertensive heart and chronic kidney disease with heart failure and stage 1 through stage 4 chronic kidney disease, or unspecified chronic kidney disease; E11.22 Type 2 diabetes mellitus with diabetic chronic kidney disease; N18.30 Chronic kidney disease, stage 3 unspecified; I50.9 Heart failure, unspecified; I48.91 Unspecified atrial fibrillation; K21.9 Gastro-esophageal reflux disease without esophagitis; E03.9 Hypothyroidism, unspecified; E66.9 Obesity, unspecified; Z68.35 Body mass index [BMI] 35.0-35.9, adult; Z88.5 Allergy status to narcotic agent; Z79.899 Other long term (current) drug therapy; Z79.01 Long term (current) use of anticoagulants
CPT/HCPCS: 30901; 99283; A9270

== ENCOUNTER 2023-07-28 10:17 | Emergency (ER) | payer MEDICARE, OTHER ==
[2023-07-28] MEDS ORDERED: Sodium Chloride 0.9% 10 ML Syringe FLUSH PRN (10:44)
[2023-07-28] MEDS ORDERED: Bumetanide 1 MG/4 ML MDV IVPUSH ONE (10:45)
[2023-07-28 11:05] LABS: BASOPHILS PERCENT AUTO 0.7 % (0.0-1.0); EOSINOPHILS ABSOLUTE AUTO 0.1 K/mm3 (0.0-0.4); EOSINOPHILS PERCENT AUTO 2.7 % (0.0-6.0); HEMATOCRIT 25.5 % (42.0-52.0); HEMOGLOBIN 7.9 gm/dl (14.0-18.0); IMMATURE GRAN ABSOLUTE AUTO 0.02 K/mm3 (0.00-0.05); IMMATURE GRAN PERCENT AUTO 0.4 % (0.0-0.4); LYMPHOCYTES ABSOLUTE AUTO 0.5 K/mm3 (1.0-4.8); MEAN CORPUSCULAR HEMOGLOBIN 30.6 pg (28.0-32.0); MEAN CORPUSCULAR VOLUME 98.8 fl (83.0-99.0); MEAN PLATELET VOLUME 9.8 fl (9.4-12.4); MONOCYTES ABSOLUTE AUTO 0.6 K/mm3 (0.0-0.8); MONOCYTES PERCENT AUTO 12.5 % (0.0-8.0); NEUTROPHILS ABSOLUTE AUTO 3.2 K/mm3 (1.8-7.7); NEUTROPHILS PERCENT AUTO 71.7 % (41.0-71.0); NRBC ABSOLUTE 0.03 (0.00-0.02); NRBC PERCENT 0.7 % (0.0-0.2); PLATELET COUNT,PLT 67 K/mm3 (150-400); RED BLOOD CELL COUNT 2.58 M/mm3 (4.52-5.90); WHITE BLOOD CELL COUNT,WBC 4.49 K/mm3 (3.9-11.3)
[2023-07-28 11:33] LABS: A/G RATIO 0.6 (1-2); ALBUMIN 2.5 g/dl (3.4-5.0); ANION GAP 18.3 (5-15); BILIRUBIN TOTAL 2.2 mg/dL (0.2-1.0); BUN/CREATININE RATIO 27.1 (14-18); CALCIUM 8.5 mg/dL (8.5-10.1); CREATININE 2.4 mg/dL (0.7-1.3); EST CRCL DRUG DOSING (CG) 23.85 mL/min; MAGNESIUM 2.3 mg/dL (1.8-2.4); POTASSIUM,K 4.3 mEq/L (3.5-5.1); PROTEIN TOTAL,TP 6.5 g/dl (6.4-8.2)
[2023-07-28 11:58] LABS: SLIDE REVIEW ABNORMAL SMEAR
[2023-07-28 18:13] VITALS: BP 104/72; PULSE 82
== END 2023-07-28 15:00 | disposition home or self-care (01) ==
LOC: JD.ED 10:17
DX: I50.812 Chronic right heart failure (principal); I13.0 Hypertensive heart and chronic kidney disease with heart failure and stage 1 through stage 4 chronic kidney disease, or unspecified chronic kidney disease; I36.1 Nonrheumatic tricuspid (valve) insufficiency; K21.9 Gastro-esophageal reflux disease without esophagitis; N18.30 Chronic kidney disease, stage 3 unspecified; I50.9 Heart failure, unspecified; E11.22 Type 2 diabetes mellitus with diabetic chronic kidney disease; E03.9 Hypothyroidism, unspecified; E66.9 Obesity, unspecified; Z88.8 Allergy status to other drugs, medicaments and biological substances; Z68.41 Body mass index [BMI] 40.0-44.9, adult; Z79.899 Other long term (current) drug therapy
CPT/HCPCS: 36415; 71045; 71045-26; 80053; 83735; 83880; 84484; 85025; 93005; 93010; 96374; 99284; 99285-25; J3490